=== PATIENT | female | born 1935 | race Caucasian/White ===

== ENCOUNTER 2018-07-20 11:18 | Day surgery (SDC) | payer OTHER ==
[2018-07-20 12:02] VITALS: TEMP 97.3
[2018-07-20] MEDS ORDERED: BALANCED SALT IRRIG PLAIN 500 ML BTL IRR ONE (12:04)
[2018-07-20] MEDS ORDERED: DUOVISC 1 KIT OPTH ONE (12:04)
[2018-07-20] MEDS ORDERED: EPINEPHRINE/PF 1 MG/ML AMP ONE (12:04)
[2018-07-20] MEDS ORDERED: MOXIFLOXACIN HCL 10 DROPS/ML **OR USE OPTH ONE (12:04)
[2018-07-20] MEDS ORDERED: NS 0.9% VIAL 10 ML ONE (12:04)
[2018-07-20] MEDS ORDERED: CYCLOPENTOLATE 1% OPTH 2 ML ONE (12:14)
[2018-07-20] MEDS ORDERED: NA CHLORIDE 0.9% 500 ML ONE (12:15)
[2018-07-20] MEDS ORDERED: PHENYLEPHRINE 10% OPTH 5ML ONE (12:15)
[2018-07-20] MEDS ORDERED: CYCLOPENTOLATE 1% OPTH 2 ML OPTH ONE ×2 (12:25→12:30)
[2018-07-20] MEDS ORDERED: PHENYLEPHRINE 10% OPTH 5ML OPTH ONE ×2 (12:25→12:30)
[2018-07-20] MEDS: TETRACAINE HCL 0.5% 2ML OPTH ONE ×2 (12:44→13:12)
[2018-07-20] MEDS: LIDOCAINE 2% MPF 5 ML VIAL ONE ×2 (12:45→13:13)
[2018-07-20] MEDS: BUPIVACAINE 0.25% PF 10 ML VIAL ONE ×2 (12:45→13:13)
[2018-07-20] MEDS ORDERED: PROPOFOL 200 MG/20 ML VIAL IV ONE (12:53)
--- NOTE | 2018-07-20 13:58 | P.BOP ---
Preoperative diagnosis: Nuclear sclerotic and posterior subcapsular cataract OD Postoperative diagnosis: Same Primary procedure: Phacoemulsification with IOL OD Estimated blood loss: None Anesthesia: Local (Subtenon's infusion with anesthesia for cataract surgery) Complications: None Implants: SN60WF +20.5 Transferred to: Other (Day surgery) Condition: Good
[2018-07-20 14:09] VITALS: BP 133/83; O2SAT 99
--- NOTE | 2018-07-21 01:11 | OP ---
Date of Procedure: 07/20/2018 Surgeon: Precious Serna MD Anesthesiologist: Heraclio Lemus CRNA and Hai Grady MD. Preoperative Diagnosis: Nuclear sclerotic cataract and posterior subcapsular cataract, right eye. Operation Performed: Phacoemulsification with intraocular lens implant, right eye. Anesthesia: Per cataract surgery. Complications: None. Description Of Procedure: In day surgery, the patient was prepped with Betadine and draped. A conju nctival incision was made in the inferior nasal quadrant with Daphney scissors. A sub-Tenon block c onsisting of a 1:1 mixture of 2% Xylocaine and 0.25% bupivacaine was placed through the conjunctival incision with a blunt cannula. A Honan balloon was placed over the eye and the patient was transferr ed to the operating room. In the operating room the patient was prepped and draped in the usual sterile fashion for ophthalmic surgery. A lid speculum was placed in the right eye. Two paracentesis sites were made superiorly an d inferiorly in the limbal cornea. Viscoat was placed in the anterior chamber and a crescent blade w as used to make a corneal groove and tunnel, and a keratome was used to enter the anterior chamber. Provisc was placed in the anterior chamber and a 360 degree capsulotomy was performed with a cystitom e. The lens was hydrodissected with BSS and rotated freely. The lens was removed with a stop and ch op technique. 8.45 phaco CDE was used to remove the lens. Residual cortex was removed with the irri gation and aspiration. Provisc was placed in the capsular bag. A SN60WF +20.5 lens was placed in th e capsular bag without complications. Irrigation and aspiration was used to remove residual viscoela stic. The paracentesis sites were hydrated with BSS. The wound and paracentesis sites were inspecte d and found to be watertight. Vigamox 0.07 cc was placed intracamerally at the end of the procedure. The eye was irrigated with balanced salt solution. The eye was patched with a soft cotton patch an d Mane metal shield. The patient was returned to day surgery in good condition. Comments: The lens was hydrodelineated rather than hydrodissected and trace residual PSC remained gibson periorly at the end of the procedure. Discharge Instructions: JEANA/MODL Voice ID: [id number] Report ID: [id number]
== END 2018-07-20 14:34 | disposition home or self-care (01) ==
LOC: OR 11:18
PROVIDERS: ATTEND Ophthalmology Retina Specialist
PROC: 08RJ3JZ Replacement of Right Lens with Synthetic Substitute, Percutaneous Approach (ICD-10-PCS; principal; 2018-07-20 11:45)
DX: H25.11 Age-related nuclear cataract, right eye (principal); H25.041 Posterior subcapsular polar age-related cataract, right eye; E11.319 Type 2 diabetes mellitus with unspecified diabetic retinopathy without macular edema; I10 Essential (primary) hypertension; I48.91 Unspecified atrial fibrillation; I25.10 Atherosclerotic heart disease of native coronary artery without angina pectoris; K21.9 Gastro-esophageal reflux disease without esophagitis; Z79.01 Long term (current) use of anticoagulants; Z88.2 Allergy status to sulfonamides; Z88.6 Allergy status to analgesic agent; Z86.73 Personal history of transient ischemic attack (TIA), and cerebral infarction without residual deficits; Z87.891 Personal history of nicotine dependence; Z96.651 Presence of right artificial knee joint
CPT/HCPCS: 66984; 82962; J0171; J2704; V2630

== ENCOUNTER 2019-08-15 13:50 | Emergency (ER) | payer OTHER ==
--- OUTSIDE RECORDS SUMMARY | 2019-08-15 13:52 | XMS REPORT ---
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 Problem Chronic diastolic congestive heart I50.32 Active failure Problem BMI 45.0-49.9, adult Z68.42 Active Problem Hypertension, unspecified type I10 Active Problem Obstructive sleep apnea syndrome G47.33 Active Problem Amputated right leg Z89.611 Active Problem Dyslipidemia E78.5 Active Problem Sleep apnea, unspecified type G47.30 Active Problem History of [place] (myocardial I25.2 Active infarction) Problem Acquired hypothyroidism E03.9 Active Problem Environmental allergies Z91.09 Active Medications Medication Code Code Instructions Start End Date Status Dosage System Date Torey [facility] 55598345658 100 UNIT/ML Active 36 units KwikPen Subcutaneous once a day Results No Known Results Summary Purpose eClinicalWorks Submission
--- OUTSIDE RECORDS SUMMARY | 2019-08-15 13:53 | XMS REPORT ---
:1935 Author Organization eClinicalWorks Care Team Providers Name Role Phone Deirdre Rubin Provider Role Unavailable Allergies, Adverse Reactions, Alerts Substance Reaction Event Type MORPHINE Info Not Available Drug Allergy Problems Problem Type Condition Code Onset Dates Condition Status Assessment Bloating R14.0 Active Assessment Gassiness R14.0 Active Assessment Morbid obesity E66.01 Active Assessment BMI 45.0-49.9, adult Z68.42 Active Assessment Acquired hypothyroidism E03.9 Active Assessment Dyslipidemia E78.5 Active Assessment Type 2 diabetes mellitus with E11.40 Active diabetic neuropathy, unspecified Assessment Essential hypertension I10 Active Problem Dyslipidemia E78.5 Active Problem 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 Problem Diarrhea, unspecified type R19.7 Active Problem Acquired hypothyroidism E03.9 Active Problem 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 Problem Pain in left foot M79.672 Active Problem Hemorrhoids, unspecified hemorrhoid K64.9 Active type Problem Morbid obesity E66.01 Active Problem Frequent falls R29.6 Active Problem History of [place] (myocardial I25.2 Active infarction) Problem Type 2 diabetes mellitus with E11.40 Active diabetic neuropathy, unspecified Assessment Frequent falls R29.6 Active Problem Essential hypertension I10 Active Problem History of stroke Z86.73 Active Assessment Chronic pain syndrome G89.4 Active Problem Generalized weakness R53.1 Active Assessment 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 Problem Bloating R14.0 Active Problem Chronic pain syndrome G89.4 Active Problem Gassiness R14.0 Active Assessment Hemorrhoids, unspecified hemorrhoid K64.9 Active type Problem BMI 45.0-49.9, adult Z68.42 Active Assessment Diarrhea, unspecified type R19.7 Active Problem Intermittent asthma, unspecified J45.20 Active asthma severity, unspecified whether complicated Assessment 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 Problem Environmental allergies Z91.09 Active Assessment Pain in left foot M79.672 Active Problem Sleep apnea, unspecified type G47.30 Active Assessment Generalized weakness R53.1 Active Problem Seasonal allergies J30.2 Active Assessment 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 Problem Chronic diastolic congestive heart I50.32 Active failure Problem 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 Problem Obstructive sleep apnea syndrome G47.33 Active Medications Medication Code Code Instructions Start End Status Dosage System Date Date Pregabalin [facility] 35547761361 150 MG Orally Active 1 capsule Twice daily Diclofenac [facility] 02240675041 75 MG Orally Mar 16, Active 1 tablet Sodium Twice a day as 2018 with food needed for pain or milk Vascepa [facility] 28630292565 1 GM Orally Active 1 capsule Once daily Victoza [facility] 14968392360 18 MG/3ML Active 1.2 mg Subcutaneous daily Aspirin Adult [facility] 75046755657 81 MG Orally Active 1 tablet Low Dose Once a day Pantoprazole [facility] 80485839874 40 MG Orally Active 1 tablet Sodium Once a day Lasix [facility] 05427723723 80 MG Orally Active 1 tablet Once a day Lyrica [facility] 65651305963 300 MG Orally Active 1 capsule Once a day at bedtime Levothyroxine [facility] 83672752987 75 MCG Orally Active 1 tablet Sodium Once a day on an empty stomach in the morning Calcium [facility] 91867178794 600 MG Orally Active 1 tablet Twice a day with meals Lisinopril [facility] 25947612041 5 MG Orally Active 1 tablet Once a day Lasix [facility] 57401904528 80 MG Orally Active 1 tablet Once a day Plavix [facility] 09285498563 75 MG Orally Active 1 tablet Once a day Desloratadine [facility] 54532811157 5 MG Active TAKE 1 TABLET BY MOUTH EVERY DAY Lipitor [facility] 80907409057 40 MG Orally Active 1 tablet Once a day Hydrocodone-Acet [facility] 18858447644 7.5-325 MG Active 1 tablet aminophen Orally every 8 as needed hrs ProAir HFA [facility] 60638591237 108 (90 Base) Active 2 puffs MCG/ACT as needed Inhalation every 6 hrs Duloxetine HCl [facility] 80517582856 60 MG Orally Active 1 capsule Once a day Basaglar KwikPen [facility] 25375507366 100 UNIT/ML Active 36 units Subcutaneous once a day Toreynaldo Armstrongar [facility] [address]-14 Active not defined Lantus [facility] 00244186885 100 UNIT/ML Active 36 units Subcutaneous once a day Metoprolol [facility] 30761244202 25 MG Orally Active 1 tablet Tartrate Twice a day Claritin [facility] 54026054941 10 MG Orally Active 1 tablet Once a day Flonase [facility] 88795825901 50 MCG/ACT Active 1 spray Nasally Twice a in each day nostril Accu-Chek Sarita [facility] 66624909682 - In Vitro Once October 21, Active TEST Plus a day for 2018 diabetes E11.9 Montelukast [facility] 21563161181 10 MG Orally Active 1 tablet Sodium Once a day Accu-Chek [facility] 86477998418 - Active USE 1 Softclix Lancets DAILY TO TEST Klor-Con M20 [facility] 87110674318 20 MEQ Orally Active 1 tablet Twice a day with food Results No Known Results Summary Purpose eClinicalWorks Submission
--- OUTSIDE RECORDS SUMMARY | 2019-08-15 13:53 | XMS REPORT ---
:1935 Author Organization eClinicalWorks Care Team Providers Name Role Phone Deirdre Rubin Provider Role Unavailable Allergies, Adverse Reactions, Alerts Substance Reaction Event Type MORPHINE Info Not Available Drug Allergy Problems Problem Type Condition Code Onset Dates Condition Status Assessment Dyslipidemia E78.5 Active Assessment Acquired hypothyroidism E03.9 Active Assessment Gastritis, presence of bleeding K29.70 Active unspecified, unspecified chronicity, unspecified gastritis type Assessment Type 2 diabetes mellitus with E11.40 Active diabetic neuropathy, unspecified Assessment Esophagitis K20.9 Active Assessment Essential hypertension I10 Active Problem Acquired hypothyroidism E03.9 Active Problem Dyslipidemia E78.5 Active Problem History of stroke Z86.73 Active Problem Bloating R14.0 Active Problem Generalized weakness R53.1 Active Problem Type 2 diabetes mellitus with E11.40 Active diabetic neuropathy, unspecified Problem Gassiness R14.0 Active Problem Frequent falls R29.6 Active Problem Chronic pain syndrome G89.4 Active Problem Gastritis, presence of bleeding K29.70 Active unspecified, unspecified chronicity, unspecified gastritis type Problem 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 Problem Intermittent asthma, unspecified J45.20 Active asthma severity, unspecified whether complicated Problem Environmental allergies Z91.09 Active Assessment Frequent falls R29.6 Active Problem Esophagitis K20.9 Active Problem History of [place] (myocardial I25.2 Active infarction) Assessment Chronic pain syndrome G89.4 Active Problem 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 Assessment 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 Problem Essential hypertension I10 Active Problem Hemorrhoids, unspecified hemorrhoid K64.9 Active type Problem Diarrhea, unspecified type R19.7 Active Assessment BMI 45.0-49.9, adult Z68.42 Active Problem 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 Assessment Morbid obesity E66.01 Active Problem Obstructive sleep apnea syndrome G47.33 Active Assessment 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 Problem BMI 45.0-49.9, adult Z68.42 Active Assessment Pain in left foot M79.672 Active Problem Sleep apnea, unspecified type G47.30 Active Assessment Generalized weakness R53.1 Active Problem Morbid obesity E66.01 Active Assessment 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 Problem Pain in left foot M79.672 Active Problem Seasonal allergies J30.2 Active Problem Chronic diastolic congestive heart I50.32 Active failure Medications Medication Code Code Instructions Start End Status Dosage System Date Date Lipitor [facility] 35264674187 40 MG Orally Active 1 tablet Once a day Vascepa [facility] 51255965487 1 GM Orally Active 1 capsule Once daily Metoprolol [facility] 11927658767 25 MG Orally Active 1 tablet Tartrate Twice a day Lantus [facility] 09536456978 100 UNIT/ML Active 36 units Subcutaneous once a day Diclofenac [facility] 49561943974 75 MG Orally Dec Inactive 1 tablet Sodium Twice a day as 22, with food needed for 2019 or milk pain Aspirin Adult [facility] 47746500508 81 MG Orally Active 1 tablet Low Dose Once a day Lasix [facility] 35763306332 80 MG Orally Active 1 tablet Once a day Toutevino TerezaoStar [facility] [address]-02 Active not defined Lisinopril [facility] 46343830509 5 MG Orally Active 1 tablet Once a day Montelukast [facility] 51011521456 10 MG Orally Active 1 tablet Sodium Once a day Lasix [facility] 57921989984 80 MG Orally Active 1 tablet Once a day Lyrica [facility] 07866562864 300 MG Orally Active 1 capsule Once a day at bedtime Klor-Con M20 [facility] 42989298878 20 MEQ Orally Active 1 tablet Twice a day with food Basaglar KwikPen [facility] 80854758568 100 UNIT/ML Active 36 units Subcutaneous Once a day Claritin [facility] 77054967066 10 MG Orally Active 1 tablet Once a day Calcium [facility] 34661125072 600 MG Orally Active 1 tablet Twice a day with meals Duloxetine HCl [facility] 17058532609 60 MG Orally Active 1 capsule Once a day Levothyroxine [place] 61310765517 75 MCG Orally Active 1 tablet Sodium Once a day on an empty stomach in the morning ProAir HFA [facility] 06887625255 108 (90 Base) Active 2 puffs as MCG/ACT needed Inhalation every 6 hrs Flonase [facility] 11368847954 50 MCG/ACT Active 1 spray in Nasally Twice each a day nostril Plavix [facility] 46803407126 75 MG Orally Active 1 tablet Once a day Desloratadine [facility] 91003142069 5 MG Active TAKE 1 TABLET BY MOUTH EVERY DAY Pantoprazole [facility] 23061693776 40 MG Orally Active 1 tablet Sodium Once a day Accu-Chek Sarita [facility] 21082048746 - In Vitro October 21, Active TEST Plus Once a day for 2018 diabetes E11.9 Fluticasone [facility] 94374769283 50 MCG/ACT Jun 13, Active 2 sprays Propionate Nasally Once a 2019 in each day nostril Pregabalin [facility] 82893156023 150 MG Orally Active 1 capsule Twice daily Hydrocodone-Acet [facility] 35393252564 7.5-325 MG Active 1 tablet aminophen Orally every 8 as needed hrs Accu-Chek [facility] 10609096963 - Active USE 1 Softclix Lancets DAILY TO TEST Victoza [facility] 59637730389 18 MG/3ML Sept Active as Subcutaneous 17, directed 1.2 mg once 2020 daily Results No Known Results Summary Purpose eClinicalWorks Submission
--- OUTSIDE RECORDS SUMMARY | 2019-08-15 13:53 | XMS REPORT ---
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 Problem Essential hypertension I10 Active Problem Hemorrhoids, unspecified hemorrhoid K64.9 Active type Problem Diarrhea, unspecified type R19.7 Active Problem 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
--- OUTSIDE RECORDS SUMMARY | 2019-08-15 13:53 | XMS REPORT ---
:1935 Author Organization eClinicalWorks Care Team Providers Name Role Phone Deirdre Rubin Provider Role Unavailable Allergies No Known Allergies Problems Problem Type Condition Code Onset Dates Condition Status Problem Environmental allergies Z91.09 Active Problem Intermittent asthma, unspecified J45.20 Active asthma severity, unspecified whether complicated Problem Dyslipidemia E78.5 Active Problem Hemorrhoids, unspecified hemorrhoid K64.9 Active type Problem Pain in left foot M79.672 Active Problem Acquired hypothyroidism E03.9 Active Problem Bloating R14.0 Active Problem Gassiness R14.0 Active Problem Generalized weakness R53.1 Active Problem Gastritis, presence of bleeding K29.70 Active unspecified, unspecified chronicity, unspecified gastritis type Problem 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 Problem History of [place] (myocardial I25.2 Active infarction) Problem Type 2 diabetes mellitus with E11.40 Active diabetic neuropathy, unspecified Problem Esophagitis K20.9 Active Problem History of stroke Z86.73 Active Problem Frequent falls R29.6 Active Problem Chronic pain syndrome G89.4 Active Problem Essential hypertension I10 Active Problem Morbid obesity E66.01 Active Problem 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
--- NOTE | 2019-08-15 14:12 | RAD REPORT ---
EXAM DESCRIPTION: Gaurav Single View08/15/2019 2:05 pm CLINICAL HISTORY: sob COMPARISON: none FINDINGS: The lungs appear clear of acute infiltrate. The heart is mildly enlarged IMPRESSION: No acute abnormalities displayed
[2019-08-15 14:38] LABS: Absolute Lymphocytes (CBC) 1.3 K/uL (0.7-4.9); Basophils % 0.6 % (0-1.3); Hematocrit 42.6 % (36.0-45.0); Lymphocytes % 13.8 % (15.3-44.8); MPV 9.1 fL (7.6-11.3); RBC Red Blood Cell Count 4.72 M/uL (3.86-4.86)
[2019-08-15 14:39] LABS: Protime INR 1.08
[2019-08-15 14:52] LABS: ALT/SGPT 17 U/L (12-78); AST/SGOT 13 U/L (15-37); Alkaline Phosphatase 81 U/L (45-117); BUN Blood Urea Nitrogen 14 mg/dL (7-18); Bicarbonate 29 mmol/L (21-32); Bilirubin Direct 0.1 mg/dL (0-0.2); Bilirubin Total 0.4 mg/dL (0.2-1.0); Glucose Level 226 mg/dL (74-106); NT PRO-BNP 687 pg/mL (<450); Potassium 4.6 mmol/L (3.5-5.1); Protein, Total 7.8 g/dL (6.4-8.2); Sodium Level 139 mmol/L (136-145); Troponin (Emerg Dept Use Only) < 0.02 ng/mL (0.0-0.045)
--- NOTE | 2019-08-15 15:27 | RAD REPORT ---
EXAM DESCRIPTION: CT - Head Brain Wo Cont - 08/15/2019 3:15 pm CLINICAL HISTORY: headache COMPARISON: 2015 TECHNIQUE: Computed axial tomography of the head was obtained. IV contrast was not requested. All CT scans are performed using dose optimization technique as appropriate and may include automated exposure control or mA/KV adjustment according to patient size. FINDINGS: An intracranial bleed is not seen . The ventricles are normal in caliber. No extra-axial fluid collection is noted. Mioderate low-density areas within periventricular, deep and subcortical white matter likely represen t ischemic changes secondary to small vessel disease. Fluid within the ethmoid and right maxillary sinus likely indicating acute sinusitis IMPRESSION: No acute intracranial abnormality is seen. If patient's symptoms persist MRI of the bra in would be recommended. Acute sinusitis
--- NOTE | 2019-08-15 15:54 | EDPHYS ---
Physician Documentation [facility] Name: Elsa Smith Age: 83 yrs Sex: Female : 1935 Arrival Date: 08/15/2019 Time: 13:46 Bed 2 Private MD: ED Physician Wai Jensen HPI: 08/15 14:29 This 83 yrs old Female presents to ER via EMS with complaints of Headache, jr8 General Weakness. 14:29 The patient complains of pain to the right eye, right temporal area and right side of jr8 forehead. The patient describes the headache as throbbing. Onset: The symptoms/episode began/occurred gradually, 2 day(s) ago. Associated signs and symptoms: Pertinent positives: weakness. Severity of symptoms: At its worst the pain was moderate, in the emergency department the pain is unchanged. Headache History: Denies prior headaches. The patient has not experienced similar symptoms in the past. The patient has not recently seen a physician. Stated that she had had sinus pressure and discharge from nose. Started with headache a couple of days ago that is persistent and not going away. MI staff stated that she has been generally fatigued and week. EMS was called after patient appeared to have short episode for facial asymmetry which has since resolved . Historical: - Allergies: 13:50 Lidocaine; iw 13:50 mercury; iw - PMHx: 13:50 CHF; COPD; CVA; Depression; Diabetes - NIDDM; Hypertension; Hypothyroidism; iw - PSHx: 13:50 Cholecystectomy; Knee surgery; Right BKA; iw - Immunization history:: Adult Immunizations up to date. - Coronavirus screen:: The patient has NOT traveled to [place] in the past 14 days. Proceed with normal triage process as indicated. The patient has NOT had contact with known/suspected case of Coronavirus? Proceed with normal triage procedures. - Social history:: Smoking status: unknown. - Ebola Screening: : No symptoms or risks identified at this time. ROS: 14:29 Eyes: Negative for injury, pain, redness, and discharge, Neck: Negative for injury, jr8 pain, and swelling, Cardiovascular: Negative for chest pain, palpitations, and edema, Respiratory: Negative for shortness of breath, cough, wheezing, and pleuritic chest pain, Abdomen/GI: Negative for abdominal pain, nausea, vomiting, diarrhea, and constipation, Back: Negative for injury and pain, MS/Extremity: Negative for injury and deformity, Skin: Negative for injury, rash, and discoloration. 14:29 Constitutional: Positive for fatigue, malaise. 14:29 ENT: Positive for nasal discharge, rhinorrhea, sinus congestion, sinus pain. 14:29 Neuro: Positive for headache. Exam: 14:29 Eyes: Pupils equal round and reactive to light, extra-ocular motions intact. Lids and jr8 lashes normal. Conjunctiva and sclera are non-icteric and not injected. Cornea within normal limits. Periorbital areas with no swelling, redness, or edema. ENT: Nares patent. No nasal discharge, no septal abnormalities noted. Tympanic membranes are normal and external auditory canals are clear. Oropharynx with no redness, swelling, or masses, exudates, or evidence of obstruction, uvula midline. Mucous membranes moist. Neck: Trachea midline, no thyromegaly or masses palpated, and no cervical lymphadenopathy. Supple, full range of motion without nuchal rigidity, or vertebral point tenderness. No Meningismus. Cardiovascular: Regular rate and rhythm with a normal S1 and S2. No gallops, murmurs, or rubs. Normal PMI, no JVD. No pulse deficits. Respiratory: Lungs have equal breath sounds bilaterally, clear to auscultation and percussion. No rales, rhonchi or wheezes noted. No increased work of breathing, no retractions or nasal flaring. Abdomen/GI: Soft, non-tender, with normal bowel sounds. No distension or tympany. No guarding or rebound. No evidence of tenderness throughout. Skin: Warm, dry with normal turgor. Normal color with no rashes, no lesions, and no evidence of cellulitis. MS/ Extremity: Right BKA. Rest of extremities with equal 2+ pulses and normal ROM and without pain 14:29 Neuro: Orientation: to person, place, time \T\ situation. Mentation: is normal, Memory: is normal, immediate memory is intact, recent memory is intact, remote memory is intact, Cranial nerves: CN I not tested, CN II- XII are normal as tested, extraocular movements are intact, Facial palsy and sensory deficits are absent. Nystagmus is absent. Speech is clear and appropriate. Tongue strength is normal, Cerebellar function: normal finger to nose testing, Motor: moves all fours, Sensation: no obvious gross deficits, Gait: not tested. seizure activity, is not displayed by the patient, Abnormal movements: there are no abnormal movements. Vital Signs: 13:49 BP 117 / 65; Pulse 72; Resp 19; Temp 98.3(O); Pulse Ox 96% ; lt1 14:42 BP 134 / 68; Pulse 73; Resp 12; Pulse Ox 97% ; bp 15:30 BP 127 / 74; Pulse 73; Resp 16; Pulse Ox 95% ; bp 16:30 BP 139 / 78; Pulse 72; Resp 13; Pulse Ox 95% ; bp 17:39 BP 150 / 84; Pulse 68; Resp 16; Pulse Ox 96% ; bp 18:13 BP 155 / 83; Pulse 64; Resp 16; Temp 98; Pulse Ox 93% ; bp NIH Stroke Scale Scores: 14:29 NIHSS Score: 0 jr8 MDM: 13:49 Patient medically screened. jr8 15:51 Data reviewed: vital signs, nurses notes, lab test result(s), EKG, radiologic studies, [facility] CT scan, plain films. Data interpreted: Pulse oximetry: on room air is 97 %. Interpretation: normal. Counseling: I had a detailed discussion with the patient and/or guardian regarding: the historical points, exam findings, and any diagnostic results supporting the discharge/admit diagnosis, lab results, radiology results, the need for outpatient follow up, a family practitioner, to return to the emergency department if symptoms worsen or persist or if there are any questions or concerns that arise at home. ED course: Discussed with patient and daughter that based on labs, CT, and presentation. It would appear the headache is secondary to acute sinusitis on right side where patient has had the nasal discharge and pain. Will treat headache and sinusitis. Remained of labs unremarkable at this time. Patient needs to f/u with PCP in next few days. Family and patient good with this . 08/15 13:48 Order name: Basic Metabolic Panel; Complete Time: 15:37 08/15 13:48 Order name: CBC with Diff; Complete Time: 15:37 08/15 13:48 Order name: LFT's; Complete Time: 15:08/15 13:48 Order name: Magnesium; Complete Time: 15:08/15 13:48 Order name: NT PRO-BNP; Complete Time: 15:37 08/15 13:48 Order name: PT-INR; Complete Time: 15:37 08/15 13:48 Order name: Troponin (emerg Dept Use Only); Complete Time: 15:37 08/15 13:48 Order name: XRAY Chest (1 view); Complete Time: 14:22 08/15 13:48 Order name: EKG; Complete Time: 13:53 08/15 13:48 Order name: CT Head Brain wo Cont; Complete Time: 15:50 08/15 15:57 Order name: Urine Dipstick--Ancillary (enter results); Complete Time: 16:31 nj 08/15 13:48 Order name: Cardiac monitoring; Complete Time: 13:50 08/15 13:48 Order name: EKG - Nurse/Tech; Complete Time: 14:04 08/15 13:48 Order name: IV Saline Lock; Complete Time: 14:45 08/15 13:48 Order name: Labs collected and sent; Complete Time: 14:45 08/15 13:48 Order name: O2 Per Protocol; Complete Time: 14:04 08/15 13:48 Order name: O2 Sat Monitoring; Complete Time: 14:04 08/15 13:49 Order name: Glucose Level; Complete Time: 14:45 08/15 15:50 Order name: Urine Dipstick-Ancillary (obtain specimen); Complete Time: 15:57 Administered Medications: 16:00 Drug: Reglan 10 mg Route: IVP; Site: right antecubital; bp 17:29 Follow up: Response: No adverse reaction bp 16:00 Drug: Benadryl 25 mg Route: IVP; Site: right antecubital; bp 17:29 Follow up: Response: No adverse reaction bp 17:20 Drug: fentaNYL (PF) 50 mcg Route: IVP; Site: right antecubital; bp 17:36 Follow up: Response: Pain is decreased bp Disposition: 08/15/19 15:53 Discharged to Home. Impression: Headache, Acute Bacterial Sinusitis . - Condition is Stable. - Discharge Instructions: Migraine Headache, Sinus Headache, Sinusitis, Adult. - Prescriptions for Augmentin 875- 125 mg Oral Tablet - take 1 tablet by ORAL route every 12 hours for 10 days; 20 tablet. - Medication Reconciliation Form, Thank You Letter, Antibiotic Education, Prescription Opioid Use form. - Follow up: Private Physician; When: 5 - 6 days; Reason: Recheck today's complaints, Continuance of care, Re-evaluation by your physician. - Problem is new. - Symptoms have improved. NIH Stroke Scale - NIH Stroke Score Date: 08/15/2019 Time: 14:29 Total Score = 0 1a. Level of Consciousness (LOC) - 0(Alert) 1b. Level of Consciousness (LOC) (Year \T\ Age) - 0(Both) 1c. LOC Commands (Open \T\ Closes Eyes/Supervisor Files) - 0(Both) 2. Best Gaze (Lateral Gaze Paresis) - 0(Normal) 3. Visual Field Loss - 0(No visual loss) 4. Facial Palsy - 0(Normal) 5a. Left Arm: Motor (10-second hold) - 0(No drift) 5b. Right Arm: Motor (10-second hold) - 0(No drift) 6a. Left Leg: Motor (5-second hold - always test supine) - 0(No drift) 6b. Right Leg: Motor (5-second hold - always test supine) - 9(Amputation, joint fusion) - Notes: right BKA 7. Limb Ataxia (finger/nose \T\ heel/ferraro - test with eyes open) - 0(Absent) 8. Sensory Loss (pinprick arms/legs/face) - 0(Normal) 9. Best Language: Aphasia (description/naming/reading) - 0(No aphasia) 10. Dysarthria (speech clarity - read or repeat words) - 0(Normal) 11. Extinction and Inattention (visual/tactile/auditory/spatial/personal) - 0(No abnormality) Initials: jrCharles Addendum: 08/17/2019 19:03 Co-signature as Attending Physician, Wai Jensen MD. rn Signatures: Dispatcher [employer] Danay Stubbs RN RN iw Nieto, Roman, MD MD rn Roszak, Josh, PA PA jr8 Woody Dan RN RN bp Corrections: (The following items were deleted from the chart) 08/15 18:15 15:53 08/15/2019 15:53 Discharged to Home. Impression: Headache; Acute bp Bacterial Sinusitis . Condition is Stable. Forms are Medication Reconciliation Form, Thank You Letter, Antibiotic Education, Prescription Opioid Use. Follow up: Private Physician; When: 5 - 6 days; Reason: Recheck today's complaints, Continuance of care, Re-evaluation by your physician. Problem is new. Symptoms have improved. jr8
--- NOTE | 2019-08-15 15:54 | ER ---
Nurse's Notes [facility] Name: Elsa Smith Age: 83 yrs Sex: Female : 1935 Arrival Date: 08/15/2019 Time: 13:46 Bed 2 Private MD: Diagnosis: Headache;Acute Bacterial Sinusitis Presentation: 08/15 13:47 Presenting complaint: EMS states: pt c/o headache and pain to right side of face X 3 iw days, is just not feeling well, c/o general weakness X 2 days, hx of MS, CVA, diabetes. Transition of care: patient was not received from another setting of care. Onset of symptoms was August 12, 2019. Risk Assessment: Do you want to hurt yourself or someone else? Patient reports no desire to harm self or others. Initial Sepsis Screen: Does the patient meet any 2 criteria? No. Patient's initial sepsis screen is negative. Does the patient have a suspected source of infection? No. Patient's initial sepsis screen is negative. 13:47 Method Of Arrival: EMS: [facility] iw 13:47 Acuity: ALEJANDRO 3 iw 13:48 Care prior to arrival: iw Triage Assessment: 13:50 Headache History: The patient has had previous headaches and this one is similar to bp previous episodes. General: Appears in no apparent distress. comfortable, Behavior is cooperative, appropriate for age, anxious. Pain: Complains of pain in head Pain currently is 5 out of 10 on a pain scale. Pain began 2-3 days ago. Also complains of no other associated symptoms. EENT: No deficits noted. Neuro: Level of Consciousness is awake, alert, obeys commands, Oriented to person, place, time, situation, Appropriate for age. Cardiovascular: No deficits noted. Respiratory: No deficits noted. GI: No signs and/or symptoms were reported involving the gastrointestinal system. : No signs and/or symptoms were reported regarding the genitourinary system. Derm: No deficits noted. Musculoskeletal: No deficits noted. Historical: - Allergies: 13:50 Lidocaine; iw 13:50 mercury; iw - PMHx: 13:50 CHF; COPD; CVA; Depression; Diabetes - NIDDM; Hypertension; Hypothyroidism; iw - PSHx: 13:50 Cholecystectomy; Knee surgery; Right BKA; iw - Immunization history:: Adult Immunizations up to date. - Coronavirus screen:: The patient has NOT traveled to [place] in the past 14 days. Proceed with normal triage process as indicated. The patient has NOT had contact with known/suspected case of Coronavirus? Proceed with normal triage procedures. - Social history:: Smoking status: unknown. - Ebola Screening: : No symptoms or risks identified at this time. Screenin:50 Abuse screen: Denies threats or abuse. Denies injuries from another. Nutritional bp screening: No deficits noted. Tuberculosis screening: No symptoms or risk factors identified. Fall Risk No fall in past 12 months (0 pts). Secondary diagnosis (15 points) CVA, No IV (0 pts). Ambulatory Aid- None/Bed Rest/Nurse Assist (0 pts). Gait- Normal/Bed Rest/Wheelchair (0 pts) Mental Status- Oriented to own ability (0 pts). Total Mortensen Fall Scale indicates No Risk (0-24 pts). Assessment: 13:50 General: SEE TRIAGE NOTE. bp 15:00 Reassessment: Patient and/or family updated on plan of care and expected duration. Pain bp level reassessed. Patient is alert, oriented x 3, equal unlabored respirations, skin warm/dry/pink. 17:29 Reassessment: D/C ON HOLD FOR PT AGITATION. PROVIDER NOTIFIED. bp 18:13 Reassessment: PT D/C HOME VIA W/C WITH FAMILY, DX WITH SINUSITIS. bp Vital Signs: 13:49 BP 117 / 65; Pulse 72; Resp 19; Temp 98.3(O); Pulse Ox 96% ; lt1 14:42 BP 134 / 68; Pulse 73; Resp 12; Pulse Ox 97% ; bp 15:30 BP 127 / 74; Pulse 73; Resp 16; Pulse Ox 95% ; bp 16:30 BP 139 / 78; Pulse 72; Resp 13; Pulse Ox 95% ; bp 17:39 BP 150 / 84; Pulse 68; Resp 16; Pulse Ox 96% ; bp 18:13 BP 155 / 83; Pulse 64; Resp 16; Temp 98; Pulse Ox 93% ; bp NIH Stroke Scale Scores: 14:29 NIHSS Score: 0 [facility] ED Course: 13:46 Patient arrived in ED. iw 13:47 Scott Castillo PA is PHCP. jr8 13:47 Wai Jensen MD is Attending Physician. jr8 13:48 Triage completed. iw 13:50 Patient has correct armband on for positive identification. Bed in low position. Call bp light in reach. Side rails up X2. quality assurance monitor chassis on. Pulse ox on. NIBP on. 13:50 Inserted saline lock: 20 gauge in right antecubital area, using aseptic technique. bp Blood collected. 13:56 Arm band placed on. iw 13:58 Woody Dan, RN is Primary Nurse. bp 14:10 XRAY Chest (1 view) In Process Unspecified. EDMS 15:14 CT completed. Patient moved back from CT. mw3 15:16 CT Head Brain wo Cont In Process Unspecified. EDMS 18:13 No provider procedures requiring assistance completed. IV discontinued, intact, bp bleeding controlled, No redness/swelling at site. Pressure dressing applied. Administered Medications: 16:00 Drug: Reglan 10 mg Route: IVP; Site: right antecubital; bp 17:29 Follow up: Response: No adverse reaction bp 16:00 Drug: Benadryl 25 mg Route: IVP; Site: right antecubital; bp 17:29 Follow up: Response: No adverse reaction bp 17:20 Drug: fentaNYL (PF) 50 mcg Route: IVP; Site: right antecubital; bp 17:36 Follow up: Response: Pain is decreased bp Outcome: 15:53 Discharge ordered by MD. dumont 18:14 Discharged to home via wheelchair, with family. bp 18:14 Condition: stable 18:14 Discharge instructions given to patient, family, Instructed on discharge instructions, follow up and referral plans. medication usage, Demonstrated understanding of instructions, follow-up care, medications, Prescriptions given X 1. 18:15 Patient left the ED. bp NIH Stroke Scale - NIH Stroke Score Date: 08/15/2019 Time: 14:29 Total Score = 0 1a. Level of Consciousness (LOC) - 0(Alert) 1b. Level of Consciousness (LOC) (Year \T\ Age) - 0(Both) 1c. LOC Commands (Open \T\ Closes Eyes/Artillery Meteorological Man) - 0(Both) 2. Best Gaze (Lateral Gaze Paresis) - 0(Normal) 3. Visual Field Loss - 0(No visual loss) 4. Facial Palsy - 0(Normal) 5a. Left Arm: Motor (10-second hold) - 0(No drift) 5b. Right Arm: Motor (10-second hold) - 0(No drift) 6a. Left Leg: Motor (5-second hold - always test supine) - 0(No drift) 6b. Right Leg: Motor (5-second hold - always test supine) - 9(Amputation, joint fusion) - Notes: right BKA 7. Limb Ataxia (finger/nose \T\ heel/ferraro - test with eyes open) - 0(Absent) 8. Sensory Loss (pinprick arms/legs/face) - 0(Normal) 9. Best Language: Aphasia (description/naming/reading) - 0(No aphasia) 10. Dysarthria (speech clarity - read or repeat words) - 0(Normal) 11. Extinction and Inattention (visual/tactile/auditory/spatial/personal) - 0(No abnormality) Initials: tim Signatures: Dispatcher [employer] Danay Stubbs, RN RN iw Scott Castillo PA PA jr8 Woody Dan RN RN Samantha Glover mw3 Maggie Zheng lt1 Corrections: (The following items were deleted from the chart) 14:45 14:42 Pulse 73bpm; Resp 12bpm; Pulse Ox 97%; bp bp
[2019-08-15 16:10] LABS: Urine Blood NEGATIVE (NEG); Urine Glucose NEGATIVE (NEG); Urine Protein NEGATIVE (NEG); Urine Specific Gravity 1.015 (1.005-1.030)
[2019-08-15] MEDS ORDERED: METOCLOPRAMIDE 10 MG/2mL INJ ONE (16:18)
[2019-08-15] MEDS ORDERED: DIPHENHYDRAMINE 50 MG/ML VIAL ONE (16:19)
[2019-08-15] MEDS ORDERED: FENTANYL CITR 100 MCG/2 ML ONE (17:23)
[2019-08-15 18:30] VITALS: BP 155/83; TEMP 98; O2SAT 93
--- NOTE | 2019-08-16 08:54 | EKG ---
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
== END 2019-08-15 18:15 | disposition home or self-care (01) ==
LOC: ER 13:50
DX: J01.80 Other acute sinusitis (principal); B96.89 Other specified bacterial agents as the cause of diseases classified elsewhere; I10 Essential (primary) hypertension; Z88.6 Allergy status to analgesic agent; Z88.8 Allergy status to other drugs, medicaments and biological substances
CPT/HCPCS: 93005; 85025; 80048; 36415; 83735; 85610; 80076; 81003; 84484; 83880; 70450; 71045; 96375; 96374; 99285; J2765; J1200; J3010

== ENCOUNTER 2020-12-15 12:13 | Inpatient (IN) | payer OTHER ==
--- OUTSIDE RECORDS SUMMARY | 2020-12-15 12:16 | XMS REPORT | Continuity of Care Document ---
:1935 Author Organization [facility] t Address [address] [place] [address] Care Team Providers Name Role Phone Unavailable Unavailable Unavailable Problems This patient has no known problems. Allergies, Adverse Reactions, Alerts Allergy Allergy Status Severity Reaction(s) Onset Inactive Treating Comm ents Source Name Type Date Date Clinician MORPHINE Adverse Active Info Not [facility] Social History Social Habit Start Date Stop Date Quantity Comments Source Sex Assigned [facility] Medications Ordered Filled Start Stop Current Ordering Indication Dosage Frequency Signature Comments Components Source Medication Medication Date Date Medication? Clinician (SIG) Name Name Accu-Chek Accu-Chek Yes Deirdre as [facility] Sarita Plus Sarita Plus 3-25 [facility] directed [facility] Fluticasone Fluticasone 2018-06 Yes Deirdre [address] [facility] Propionate Propionate 2-22 Millender in each [facility] nostril [facility] Accu-Chek Accu-Chek 0 Yes Deirdre TEST [facility] Sarita Plus Sarita Plus 5-01 Millender [facility] Desloratadi Desloratadi Yes Deirdre [address] [facility] ne ne Millender [facility] Claritin Claritin Yes Deirdre [address] [facility] Accu-Chek Accu-Chek Yes Deirdre USE [address] [facility] Softclix Softclix Millender DAILY TO [facility] Lancets Lancets TEST [facility] Plavix Plavix Yes Deirdre [address] [facility]ender [facility] Lasix Lasix Yes Deirdre [address] [facility] Pregabalin Pregabalin Yes Deirdre [address] [facility]ender [facility] Calcium Calcium Yes Deirdre [address] [facility] Millender with meals [facility] Metoprolol Metoprolol Yes Deirdre [address] [facility] Tartrate Tartrate Millender Xiao kes [facility] Levothyroxi Levothyroxi Yes Deirdre [address] [facility] ne Sodium ne Sodium Millender on an [facility] empty [facility] stomach in l the Outpati morning ent Clinics Flonase Flonase Yes Deirdre [address] [facility] each [facility] Hydrocodone Hydrocodone Yes Deirdre [address] [facility] -Acetaminop -Acetaminop Millender as needed [facility] Lipitor Lipitor Yes Deirdre [address] [facility] Millender in evening [facility] ProAir HFA ProAir HFA Yes Deirdre [address] [facility] Millender needed [facility] Lantus Lantus Yes Deirdre [address] [facility] Millender [facility] Yes Deirdre [address] [facility] Sodium Sodium Millender [facility] Lisinopril Lisinopril Yes Deirdre [address] [facility] Millender [facility] Basaglar Basaglar Yes Deirdre [address] KwikPen KwikPen Millender [facility] Toujeo Toujeo Yes Deirdre not [facility] SoloStar SoloStar Millender defined [facility] Duloxetine Duloxetine Yes Deirdre [address] [facility] HCl HCl Millender [facility] Aspirin Aspirin Yes Deirdre [address] [facility] Adult Low Adult Low Millender [facility] Dose Dose [facility] Lyrica Lyrica Yes Deirdre [address] [facility] Pantoprazol Pantoprazol Yes Deirdre [address] [facility] [facility] e Sodium e Sodium Millender Xiao kes - [facility] Lasix Lasix Yes Deirdre [address] [facility] Millender [facility] Vascepa Vascepa Deirdre [address] 05-10 Millender [facility] Victoza Victoza 2019- No Deirdre as [facility] 09-17 [facility] directed [facility] Klor-Con Klor-Con Deirdre [address] M20 M20 08-20 Millender with food [facility] Procedures This patient has no known procedures. Encounters Start End Encounter Admission Attending Care Care Encounter Source Date/Time Date/Time Type Type Clinicians Facility Department ID 2020-11-24 2020-11-24 Outpatient [facility] [id number] [facility] 2020-10-30 2020-10-30 Outpatient [facility] [id number] [facility] 2020-09-13 2020-09-13 [facility] [id number] [facility] 2020-08-02 2020-08-02 [facility] [id number] [facility] 2020-06-29 2020-06-29 [facility] [id number] [facility] 2020-06-19 2020-06-19 [facility] [id number] [facility] 2020-05-24 2020-05-[address] [facility] [id number] [facility] 2020-05-10 2020-05-10 Outpatient [facility] [id number] [facility] 2020-02-03 2020-02-03 [facility] [id number] [facility] 02:20[facility]00 02:20:00 [facility] Out[facility] Clin[facility] 2020-02-02 2020-02-02 [facility] [id number] 14:40:00 14:40:[address] [facility] Clin[facility] 2019-12-29 2019-12-29 [facility] [id number] 09:03:00 09:03:[address] [facility] Clin[facility] 2019-10-04 2019-10-04 [facility] [id number] 16:23:00 16:23:[address] [facility] 2019-09-15 2019-09-15 [facility] [id number] 12:47:00 12:47:[address] [facility] 2019-06-13 2019-06-13 [facility] [id number] 13:02:00 13:02:[address] [facility] 2019-06-13 2019-06-13 [facility] [id number] 12:50:00 12:50:[address] [facility] 2019-06-09 2019-06-09 [facility] [id number] 16:00:00 16:00:[address] [facility] Clin[facility] 2019-05-13 2019-05-13 Outpatient [facility] [id number] 11:20:00 11:20:00 [facility] 2019-05-11 2019-05-11 Outpatient [facility] [id number] [facility] 16:27:00 16:27:00 [facility] ent Clinics Results This patient has no known results.
--- NOTE | 2020-12-15 12:33 | RAD REPORT ---
EXAM DESCRIPTION: CT - Head Brain Wo Cont - 12/15/2020 12:27 pm CLINICAL HISTORY: Slurred speech COMPARISON: 2019 TECHNIQUE: Computed axial tomography of the head was obtained. IV contrast was not requested. All CT scans are performed using dose optimization technique as appropriate and may include automated exposure control or mA/KV adjustment according to patient size. FINDINGS: An intracranial bleed is not seen . The ventricles are normal in caliber. No extra-axial fluid collection is noted. Mild to moderate low-density areas within periventricular, deep and subcortical white matter likely r epresent ischemic changes secondary to small vessel disease. Chronic opacification right maxillary sinus IMPRESSION: No acute intracranial abnormality is seen. If patient's symptoms persist MRI of the bra in would be recommended. Doctor Varghese of the emergency room notified 12:27 p.m. December 15, 2020
[2020-12-15 12:41] LABS: Absolute Lymphocytes (CBC) 1.1 K/uL (0.7-4.9); Basophils % 0.4 % (0-1.3); Hematocrit 43.8 % (36.0-45.0); Lymphocytes % 12.5 % (15.3-44.8); MPV 9.5 fL (7.6-11.3); RBC Red Blood Cell Count 4.78 M/uL (3.86-4.86)
[2020-12-15 12:45] LABS: Protime INR 1.09
[2020-12-15] MEDS ORDERED: ALTEPLASE 100 ML IV ONE (13:02)
--- NOTE | 2020-12-15 13:31 | RAD REPORT ---
EXAM DESCRIPTION: RAD - Chest Single View - 12/15/2020 1:22 pm CLINICAL HISTORY: right side weakness Chest pain. COMPARISON: Chest Single View dated 08/15/2019; Chest Single View dated 02/08/2016; CHEST SINGLE VIEW dated 08/22/2014; ABDOMEN 1 VIEW KUB dated 06/26/2012; Head Brain Wo Cont dated 12/15/2020 FINDINGS: Portable technique limits examination quality. Moderate bilateral pulmonary opacities are present which may represent pulmonary edema or bronchitis/ infection. Heart is mildly enlarged. No displaced fractures.
[2020-12-15] MEDS ORDERED: FOLIC ACID 5 MG/ML VIAL ONE (14:19)
[2020-12-15 14:46] LABS: ALT/SGPT 28 U/L (12-78); AST/SGOT 20 U/L (15-37); Albumin 3.5 g/dL (3.4-5.0); Alkaline Phosphatase 71 U/L (45-117); BUN Blood Urea Nitrogen 34 mg/dL (7-18); Bicarbonate 26 mmol/L (21-32); Bilirubin Direct < 0.1 mg/dL (0-0.2); Bilirubin Total 0.5 mg/dL (0.2-1.0); Glucose Level 178 mg/dL (74-106); Magnesium 2.2 mg/dL (1.8-2.4); NT PRO-BNP 313 pg/mL (<450); Potassium 3.9 mmol/L (3.5-5.1); Protein, Total 7.7 g/dL (6.4-8.2); Sodium Level 138 mmol/L (136-145); Troponin (Emerg Dept Use Only) < 0.02 ng/mL (0.0-0.045)
--- NOTE | 2020-12-15 15:35 | RAD REPORT ---
EXAM DESCRIPTION: CT - Head angio - 12/15/2020 3:06 pm CLINICAL HISTORY: possible stroke Headache, drowsiness COMPARISON: Head Brain Wo Cont dated 12/15/2020; Head Brain Wo Cont dated 08/15/2019 TECHNIQUE: CT angiography of the head was performed with MIPs. All CT scans are performed using dose optimization technique as appropriate and may include automated exposure control or mA/KV adjustment according to patient size. FINDINGS: No evidence of aneurysm is detected. The left intracranial carotid artery appears chronica lly occluded. Flow to the left A1 and M1 segments is via [place] of Saez collateralization. Antegrade flow is seen in the vertebral arteries. Left vertebral artery is dominant. The visualized dural venous sinuses are patent. 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
--- NOTE | 2020-12-15 15:40 | RAD REPORT ---
EXAM DESCRIPTION: CT - Neck Angio - 12/15/2020 3:06 pm CLINICAL HISTORY: possible stroke Headache, drowsiness, CVA symptomology COMPARISON: No comparisons TECHNIQUE: CT angiography of the neck vessels was performed with MIPs. All CT scans are performed using dose optimization technique as appropriate and may include automated exposure control or mA/KV adjustment according to patient size. FINDINGS: A left aortic arch is identified with normal three vessel configuration of the great vesse ls. No significant flow abnormality is seen of the common carotid bilaterally. The left internal carotid artery appears occluded. The right internal carotid artery demonstrates a s tenosis at level of the right carotid bulb caused by atherosclerotic plaquing. Stenosis is estimated at 70-80% based on NASCET criteria. Normal flow is seen within both vertebral arteries. The left vertebral artery appears mildly dominant . IMPRESSION: Occluded left internal carotid artery is noted. Moderate to significant stenosis right carotid bulb estimated at 80% based on NASCET criteria.
--- NOTE | 2020-12-15 15:56 | EKG ---
Test Date: 2020-12-15 Test Time: 12:50:33 Relationship Specialist: DIA MEASUREMENT RESULTS: Intervals: Rate: 81 OR: QRSD: 72 QT: 412 QTc: 478 [place]: P: OR: QRS: -25 T: 41 INTERPRETIVE STATEMENTS: normal rhythm pac Low voltage QRS Inferior infarct, age undetermined Abnormal ECG Compared to ECG 08/15/2019 13:55:47 Myocardial infarct finding now present Atrial premature complex(es) no longer present Electronically Signed On 12-15-20 15:55:47 CDT by Nelson De Jesus
--- NOTE | 2020-12-15 16:10 | EDPHYS ---
Physician Documentation [facility] Name: Elsa Smith Age: 85 yrs Sex: Female : 1935 Arrival Date: 12/15/2020 Time: 12:18 Bed 16 Private MD: Lasha Mckeon HPI: 12/15 12:35 This 85 yrs old Female presents to ER via Unassigned with complaints of cp Slurred Speech and Right Arm Weakness. 12:35 The patient's problem is reported as a facial droop, on right, dysphasia, incoherent cp speech, weakness, in the right upper extremity. Onset: The symptoms/episode began/occurred today, Daughter reports patient was last seen by to be normal 0930 this morning. Duration: The episode is continuous. 12:35 Context: the episode(s) was witnessed, by family, daughter, occurred at home, occurred cp while the patient was using bathroom. 12:35 Patient's baseline: Neuro: alert and fully oriented, Motor: right-sided weakness, cp Ambulation: unable to walk, uses wheelchair, Speech: normal, The patient has a previous history of CVA. Daughter reports patient got into wheelchair to use bathroom and while in bathroom, daughter heard her making strange noises and when she went to check on patient noticed her leaning to side, slurred speech and right side facial droop. Daughter reports this occurred approximately 40 minutes prior to arrival. Historical: - Allergies: 12:20 Lidocaine; bp 12:20 mercury; bp - Home Meds: 12:20 desloratadine 5 mg Oral tab 1 tab once daily [Active]; duloxetine 60 mg Oral cpDR 1 cap bp once daily [Active]; Xarelto 15 mg Oral tab [Active]; furosemide 40 mg Oral tab 1 tab 2 times per day [Active]; Synthroid 50 mcg Oral tab 1 tab once daily [Active]; Lyrica 50mg Oral 1 cap 3 times per day [Active]; potassium chloride 20 mEq Oral TbER 1 tab 2 times per day [Active]; pantoprazole 40 mg Oral TbEC 1 tab once daily [Active]; metoprolol tartrate 25 mg Oral tab 1 tab 2 times per day [Active]; metformin 500 mg Oral tab 2 tabs 2 times per day [Active]; - PMHx: 12:20 CHF; COPD; CVA; Depression; Diabetes - NIDDM; Hypertension; Hypothyroidism; bp - Immunization history:: Adult Immunizations up to date. - Social history:: Smoking status: . ROS: 12:39 Constitutional: Negative for fever. cp 12:39 Cardiovascular: Negative for chest pain. 12:39 Abdomen/GI: Negative for abdominal pain, nausea, vomiting, and diarrhea. 12:39 Neuro: Positive for speech changes, weakness, of the right arm. 12:39 All other systems are negative. Exam: 12:35 Radiologist reports: no acute findings cp 12:45 Constitutional: The patient appears in no acute distress, alert, awake, cp non-diaphoretic, non-toxic, well developed, well nourished, obese. 12:45 Head/Face: Normocephalic, atraumatic. cp 12:45 Eyes: Periorbital structures: appear normal, Pupils: equal, round, and reactive to cp light and accomodation, Extraocular movements: intact throughout, Conjunctiva: normal, no exudate, no injection, Sclera: no appreciated abnormality, Lids and lashes: appear normal, bilaterally. 12:45 ENT: External ear(s): are unremarkable, Nose: is normal, Mouth: Lips: moist, Oral mucosa: moist, Posterior pharynx: Airway: no evidence of obstruction, patent. 12:45 Chest/axilla: Inspection: normal, Palpation: is normal, no crepitus, no tenderness. 12:45 Cardiovascular: Rate: normal, Rhythm: regular, Edema: is not appreciated, JVD: is not appreciated. 12:45 Respiratory: the patient does not display signs of respiratory distress, Respirations: normal, no use of accessory muscles, no retractions, labored breathing, is not present, Breath sounds: are clear throughout, no decreased breath sounds, no stridor, no wheezing. 12:45 Abdomen/GI: Inspection: abdomen appears normal, Palpation: abdomen is soft and non-tender, in all quadrants. 12:45 Skin: cellulitis, is not appreciated, no rash present. 12:57 ECG was reviewed by the Attending Physician. cp Vital Signs: 12:20 BP 100 / 64; Pulse 70; Resp 20; Temp 97; Pulse Ox 94% on 2 lpm NC; Weight 124.74 kg; bp 12:30 BP 112 / 66; Pulse 64; Resp 18; Pulse Ox 98% ; bp 13:00 BP 105 / 61; Pulse 64; Resp 18; Pulse Ox 95% ; bp 13:30 BP 108 / 65; Pulse 62; Resp 18; Pulse Ox 95% ; bp 14:00 BP 113 / 73; Pulse 63; Resp 18; Pulse Ox 96% ; bp NIH Stroke Scale Scores: 12:45 NIHSS Score: 12 cp MDM: 12:22 Patient medically screened. 12:33 Physician consultation: Bari Dunn MD was called at 12:33, was contacted at 12:33, cp regarding consult, patient's condition, recommends administration of tpa, order CT angio of head and neck. 16:00 Data reviewed: vital signs, nurses notes, lab test result(s), EKG, radiologic studies, cp CT scan, plain films. 16:00 Test interpretation: by ED physician or midlevel provider: ECG. Physician consultation: cp Alistair Jensen MD was called at 16:00, was contacted at 16:00, regarding admission, to the telemetry unit. patient's condition. 12/15 12:22 Order name: Basic Metabolic Panel; Complete Time: 15:34 12/15 15:34 Interpretation: Normal except: GLUC 178; BUN 34; GFR 40. 12/15 12:22 Order name: CBC with Diff; Complete Time: 13:07 12/15 13:08 Interpretation: Normal except: ALEXSANDER% 74.9; LYM% 12.5. 12/15 12:22 Order name: LFT's; Complete Time: 15:34 12/15 21:36 Interpretation: Normal except: GLOB 4.2; A/G 0.8. 12/15 12:22 Order name: Magnesium; Complete Time: 15:34 12/15 12:22 Order name: NT PRO-BNP; Complete Time: 15:34 12/15 12:22 Order name: PT-INR; Complete Time: 13:07 12/15 12:22 Order name: Troponin (emerg Dept Use Only); Complete Time: 15:34 12/15 12:22 Order name: XRAY Chest (1 view); Complete Time: 15:34 12/15 12:22 Order name: CT Head Brain wo Cont; Complete Time: 13:07 12/15 12:38 Order name: Head angio; Complete Time: 15:42 EDMS 12/15 12:38 Order name: Neck Angio; Complete Time: 15:47 EDSC 12/15 13:40 Order name: Urine Microscopic Only; Complete Time: 21:35 12/15 21:35 Interpretation: Reviewed. 12/15 16:50 Order name: Urine Dipstick-Ancillary; Complete Time: 21:35 EDMS 12/15 21:35 Interpretation: Reviewed. 12/15 12:22 Order name: EKG; Complete Time: 12:22 12/15 12:22 Order name: Cardiac monitoring; Complete Time: 13:04 12/15 12:22 Order name: EKG - Nurse/Tech; Complete Time: 13:04 12/15 12:22 Order name: IV Saline Lock; Complete Time: 13:04 12/15 12:22 Order name: Labs collected and sent; Complete Time: 13:04 12/15 12:22 Order name: O2 Per Protocol; Complete Time: 13:04 12/15 12:22 Order name: O2 Sat Monitoring; Complete Time: 13:04 12/15 13:40 Order name: Wong; Complete Time: 15:47 12/15 13:40 Order name: Urine Dipstick-Ancillary (obtain specimen); Complete Time: 17:17 12/15 17:45 Order name: CONS Physician Consult EDMS EC:57 Rate is 81 beats/min. Rhythm is irregular. QRS interval is normal. QT interval is cp normal. T waves are Inverted in lead aVR. Interpreted by me. Reviewed by me. Administered Medications: 12:30 Drug: foLIC Acid 1 mg Route: IVPB; Site: right wrist; bp 22:54 Follow up: Response: No adverse reaction; IV Status: Completed infusion; IV Intake: 1ml zb 12:30 Drug: NS 0.9% 1000 ml Route: IV; Rate: 1000 ml/hr; Site: right forearm; bp 13:45 Follow up: Response: No adverse reaction; IV Status: Completed infusion; IV Intake: zb 1000ml 13:00 Drug: Alteplase {Co-Signature: medina (Gail Maki RN).} Route: IV Thrombolytics; Rate: bp calculated rate; 14:00 Follow up: Response: No adverse reaction bp 14:00 Follow up: Response: No adverse reaction; Marked relief of symptoms zb 22:52 Drug: Ativan (LORazepam) 0.5 mg Route: IVP; Site: right hand; zb 22:54 Follow up: Response: No adverse reaction zb Disposition: 17:00 Chart complete. cp 12/16 21:13 Co-signature as Attending Physician, Lasha Varghese MD I agree with the assessment and karli plan of care. Disposition: 12/15/20 16:09 Hospitalization ordered by Alistair Jensen for Inpatient Admission. Preliminary diagnosis are Weakness - right arm, Dysphasia, Facial weakness. - Bed requested for Telemetry/MedSurg (Inpatient). - Status is Inpatient Admission. em - Condition is Stable. - Problem is new. - Symptoms have improved. NIH Stroke Scale - NIH Stroke Score Date: 12/15/2020 Time: 12:45 Total Score = 12 1a. Level of Consciousness (LOC) - 0(Alert) 1b. Level of Consciousness (LOC) (Year \T\ Age) - 1(One) 1c. LOC Commands (Open \T\ Closes Eyes/Mortgage Specialist) - 1(One) 2. Best Gaze (Lateral Gaze Paresis) - 0(Normal) 3. Visual Field Loss - 0(No visual loss) 4. Facial Palsy - 1(Minor Paralysis) 5a. Left Arm: Motor (10-second hold) - 0(No drift) 5b. Right Arm: Motor (10-second hold) - 2(Drift, some effort against gravity) 6a. Left Leg: Motor (5-second hold - always test supine) - 0(No drift) 6b. Right Leg: Motor (5-second hold - always test supine) - 2(Drift, some effort against gravity) 7. Limb Ataxia (finger/nose \T\ heel/ferraro - test with eyes open) - 1(Present in one limb) 8. Sensory Loss (pinprick arms/legs/face) - 0(Normal) 9. Best Language: Aphasia (description/naming/reading) - 2(Severe aphasia) 10. Dysarthria (speech clarity - read or repeat words) - 2(Severe) 11. Extinction and Inattention (visual/tactile/auditory/spatial/personal) - 0(No abnormality) Initials: cp Signatures: Dispatcher [employer] Lasha Castillo MD MD cha Munoz, Edgar, RN RN em Osmar Goetz, C JAVA DEVELOPER-C C JAVA DEVELOPER-Cla1 Lasha Barraza, CAIN PA cp Woody Dan, RN RN bp Kassi Estes RN RN rd1 Gail Maki RN RN zb Gail Maki RN zb Corrections: (The following items were deleted from the chart) 12/15 22:34 16:09 Hospitalization Ordered by Alistair Jensen MD for Inpatient Admission. rd1 Preliminary diagnosis is Weakness - right arm; Dysphasia; Facial weakness. Bed requested for Telemetry/MedSurg (Inpatient). Status is Inpatient Admission. Condition is Stable. Problem is new. Symptoms have improved. cp 23:20 22:34 12/15/2020 16:09 Hospitalization Ordered by Alistair Jensen MD for em Inpatient Admission. Preliminary diagnosis is Weakness - right arm; Dysphasia; Facial weakness. Bed requested for Telemetry/MedSurg (Inpatient). Status is Inpatient Admission. Condition is Stable. Problem is new. Symptoms have improved. rd1
--- NOTE | 2020-12-15 16:10 | ER ---
Nurse's Notes [facility] Name: Elsa Smith Age: 85 yrs Sex: Female : 1935 Arrival Date: 12/15/2020 Time: 12:18 Bed 16 Private MD: Diagnosis: Weakness-right arm;Dysphasia;Facial weakness Presentation: 12/15 12:20 Chief complaint: EMS states: LAST KNOWN NORMAL 0900. FOUND BY FAMILY ON TOILET, R SIDED bp WEAKNESS WITH FACIAL DROOP, DYSPHASIA, AND DECREASED LEVEL OF CONSCIOUSNESS. 12:20 Method Of Arrival: EMS: [facility] bp 12:20 Coronavirus screen: At this time, the client does not indicate any symptoms associated bp with coronavirus-19. Ebola Screen: No symptoms or risks identified at this time. Initial Sepsis Screen: Does the patient meet any 2 criteria? No. Patient's initial sepsis screen is negative. Does the patient have a suspected source of infection? No. Patient's initial sepsis screen is negative. Risk Assessment: Do you want to hurt yourself or someone else? Patient reports no desire to harm self or others. Onset of symptoms was December 15, 2020 at 09:00. Care prior to arrival: IV initiated. 20 GA, in the right hand, Glucose check: 216. 12:20 Acuity: ALEJANDRO 2 bp Triage Assessment: 12:20 General: Appears distressed, obese, Behavior is listless. Pain: Unable to use pain bp scale. Does not appear to understand pain scale. EENT: No deficits noted. Neuro: Level of Consciousness is lethargic, Oriented to none Pipe Fitter are ABSENT ON RIGHT. Speech is slurred, Facial droop on right. Cardiovascular: Rhythm is sinus rhythm. Respiratory: Breath sounds are diminished bilaterally. GI: No signs and/or symptoms were reported involving the gastrointestinal system. : No signs and/or symptoms were reported regarding the genitourinary system. Derm: No deficits noted. Musculoskeletal: Amputation of Other: AKA. Historical: - Allergies: 12:20 Lidocaine; bp 12:20 mercury; bp - Home Meds: 12:20 desloratadine 5 mg Oral tab 1 tab once daily [Active]; duloxetine 60 mg Oral cpDR 1 cap bp once daily [Active]; Xarelto 15 mg Oral tab [Active]; furosemide 40 mg Oral tab 1 tab 2 times per day [Active]; Synthroid 50 mcg Oral tab 1 tab once daily [Active]; Lyrica 50mg Oral 1 cap 3 times per day [Active]; potassium chloride 20 mEq Oral TbER 1 tab 2 times per day [Active]; pantoprazole 40 mg Oral TbEC 1 tab once daily [Active]; metoprolol tartrate 25 mg Oral tab 1 tab 2 times per day [Active]; metformin 500 mg Oral tab 2 tabs 2 times per day [Active]; - PMHx: 12:20 CHF; COPD; CVA; Depression; Diabetes - NIDDM; Hypertension; Hypothyroidism; bp - Immunization history:: Adult Immunizations up to date. - Social history:: Smoking status: . Screenin:20 Abuse screen: Denies threats or abuse. Denies injuries from another. Nutritional bp screening: No deficits noted. Tuberculosis screening: No symptoms or risk factors identified. Fall Risk None identified. 20:27 The patient exhibits slurred or garbled speech. The patient did not tolerate 90mL of zb water. Drooling, immediate coughing, gurgling, or clearing of the throat was noted. Bedside swallow screening discontinued. Patient kept NPO until cleared by Speech Therapy or Physician. Provider notified of bedside swallow screening results: Osmar FARNSWORTH. Assessment: 12:20 General: SEE TRIAGE NOTE. PT TO CT IMMEDIATELY. bp 12:45 Reassessment: CONSENT FOR TPA SIGNED AND WITNESSED. bp 13:00 Reassessment: TPA INITIATED. DR RIBEIRO AT B/S. bp 14:00 Reassessment: TPA CONCLUDED. NO CHANGE IN NEURO STATUS. bp 15:00 Reassessment: NEURO STATUS SHOWS SOME IMPROVEMENT. Neuro: Level of Consciousness is bp lethargic, Pipe Fitter are weak on right Speech is slurred. 16:00 Reassessment: NIHSS IMPROVING. PT REMAINS DROWSY, BUT SPEECH MORE INTELLIGIBLE. bp 20:20 Reassessment: Patient appears in no apparent distress at this time. patient seemed zb restless. patient family c/o concern for pain notified ecp. Reassessment: patient placed in diaper. expressed need for bm. 20:28 Reassessment: notified hospitalist of restlessness and family c/o pain. patient failed zb Swallow study. remains NPO. Iv medication ordered. 21:20 Reassessment: ativan held at this time patient appears to be sleeping. zb Vital Signs: 12:20 BP 100 / 64; Pulse 70; Resp 20; Temp 97; Pulse Ox 94% on 2 lpm NC; Weight 124.74 kg; bp 12:30 BP 112 / 66; Pulse 64; Resp 18; Pulse Ox 98% ; bp 13:00 BP 105 / 61; Pulse 64; Resp 18; Pulse Ox 95% ; bp 13:30 BP 108 / 65; Pulse 62; Resp 18; Pulse Ox 95% ; bp 14:00 BP 113 / 73; Pulse 63; Resp 18; Pulse Ox 96% ; bp NIH Stroke Scale Scores: 12:45 NIHSS Score: 12 cp ED Course: 12:18 Patient arrived in ED. iw 12:20 Lasha Barraza PA is PHCP. cp 12:20 Lasha Varghese MD is Attending Physician. cp 12:20 Arm band placed on. bp 12:20 Patient has correct armband on for positive identification. Bed in low position. Call bp light in reach. Side rails up X2. Adult w/ patient. 12:20 Maintain EMS IV. Dressing intact. Good blood return noted. Site clean \T\ dry. Gauge \T\ bp site: 20 GAUGE R HAND. 12:25 CT Head Brain wo Cont In Process Unspecified. EDMS 12:30 Inserted saline lock: 20 gauge in right wrist, using aseptic technique. Blood collected.bp 12:49 Woody Dan, RN is Primary Nurse. bp 13:22 XRAY Chest (1 view) In Process Unspecified. EDMS 13:30 Wong cath inserted, using sterile technique, 16 Fr., by ny, balloon inflated, to zb gravity drainage, clamped. 14:51 Triage completed. bp 15:07 Head angio In Process Unspecified. EDMS 15:07 Neck Angio In Process Unspecified. EDMS 16:07 Juan A Wright DO is Hospitalizing Provider. cp 16:09 Alistair Jensen MD is Hospitalizing Provider. cp 20:04 Primary Nurse role handed off by Woody Dan, RN mw2 20:26 Gail Maki RN is Primary Nurse. zb 22:50 No provider procedures requiring assistance completed. Patient admitted, IV remains in zb place. Administered Medications: 12:30 Drug: foLIC Acid 1 mg Route: IVPB; Site: right wrist; bp 22:54 Follow up: Response: No adverse reaction; IV Status: Completed infusion; IV Intake: 1ml zb 12:30 Drug: NS 0.9% 1000 ml Route: IV; Rate: 1000 ml/hr; Site: right forearm; bp 13:45 Follow up: Response: No adverse reaction; IV Status: Completed infusion; IV Intake: zb 1000ml 13:00 Drug: Alteplase {Co-Signature: medina (Gail Maki RN).} Route: IV Thrombolytics; Rate: bp calculated rate; 14:00 Follow up: Response: No adverse reaction bp 14:00 Follow up: Response: No adverse reaction; Marked relief of symptoms zb 22:52 Drug: Ativan (LORazepam) 0.5 mg Route: IVP; Site: right hand; zb 22:54 Follow up: Response: No adverse reaction zb Intake: 13:45 IV: 1000ml; Total: 1000ml. zb 22:54 IV: 1ml; Total: 1001ml. zb Output: 13:33 Urine: 1200ml (Wong); Total: 1200ml. zb Outcome: 16:09 Decision to Hospitalize by Provider. cp 22:50 Admitted to Med/surg accompanied by nurse, family with patient, room ER ICU room , with zb oxygen, with chart, Report called to JORGE Neil 22:50 Condition: stable 22:50 Discharge instructions given to Instructed on the need for admit. 23:20 Patient left the ED. em NIH Stroke Scale - NIH Stroke Score Date: 12/15/2020 Time: 12:45 Total Score = 12 1a. Level of Consciousness (LOC) - 0(Alert) 1b. Level of Consciousness (LOC) (Year \T\ Age) - 1(One) 1c. LOC Commands (Open \T\ Closes Eyes/Lifeline Representatives) - 1(One) 2. Best Gaze (Lateral Gaze Paresis) - 0(Normal) 3. Visual Field Loss - 0(No visual loss) 4. Facial Palsy - 1(Minor Paralysis) 5a. Left Arm: Motor (10-second hold) - 0(No drift) 5b. Right Arm: Motor (10-second hold) - 2(Drift, some effort against gravity) 6a. Left Leg: Motor (5-second hold - always test supine) - 0(No drift) 6b. Right Leg: Motor (5-second hold - always test supine) - 2(Drift, some effort against gravity) 7. Limb Ataxia (finger/nose \T\ heel/ferraro - test with eyes open) - 1(Present in one limb) 8. Sensory Loss (pinprick arms/legs/face) - 0(Normal) 9. Best Language: Aphasia (description/naming/reading) - 2(Severe aphasia) 10. Dysarthria (speech clarity - read or repeat words) - 2(Severe) 11. Extinction and Inattention (visual/tactile/auditory/spatial/personal) - 0(No abnormality) Initials: cp Signatures: Dispatcher [employer] Mark Gallego, RN Danay Christianson RN Lasha Henderson PA PA cp Peltier, Brian, RN RN bp Teresita Francisco 2 Gail Maki RN RN zb Zipporah Brown RN zb Corrections: (The following items were deleted from the chart) 14:51 12:49 124.74 kg; bp bp
[2020-12-15 16:50] LABS: Urine Blood Negative (Negative); Urine Glucose Negative (Negative); Urine Protein Negative (Negative)
[2020-12-15 17:33] LABS: Urine Bacteria <20 /HPF (<20); Urine RBC NONE SEEN /HPF (NONE SEEN)
--- NOTE | 2020-12-15 19:49 | P.HP ---
Certification for Inpatient With expected LOS: >2 Midnights Patient will require the following post-hospital care: Rehabilitation Practitioner: I am a practitioner with admitting privileges, knowledge of patient current condition, hospital course, and medical plan of care. Services: Services provided to patient in accordance with Admission requirements found in Title 42 Section 412.3 of the Code of Federal Regulations <Essie sEquivel - Last Filed: 12/15/20 20:16> Patient History Date of Service: 12/15/20 Primary Care Provider: Dr. Becerra Reason for admission: CVA, R sided weakness needing inpatient rehab History of Present Illness: This is an 85 y/o F w/ prior hx of stroke and GA, T2DM, and chronic pancreatitis who presents today for slurred speech. Her speech started slurring this morning and daughter noticed R sided facial drooping. Per her daughter, the pt had unintelligible speech and by the time EMS arrived pt was "completely out of it". Daughter reports this was similar to her stroke symptoms 25 years ago, also had R sided weakness then. tPA was administered in ER. Daughter reports that pt has improved some but has not completely returned to baseline. CXR: Moderate bilateral pulmonary opacities are present which may represent pulmonary edema or bronchitis/infection. Heart is mildly enlarged. No displaced fractures. Head CT: No acute intracranial abnormality is seen. If patient's symptoms persist MRI of the brain would be recommended. 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 Neck CT: Occluded left internal carotid artery is noted. Moderate to significant stenosis right carotid bulb estimated at 80% based on NASCET criteria. - Past Medical/Surgical History Diabetic: Yes -: T2DM -: GERD -: Hypothyroidism -: HTN -: Stroke -: Hearing problems -: GA 2016 -: chronic pancreatitis -: gall bladder -: appendix -: joint replacement -: joint removed -: AKA -: heart stent -: cataract sx Psychosocial/ Personal History: lives w/ daughter - Family History Father -: Cancer (leukemia) Sister -: Stroke ( at 79 y/o) - Social History Smoking Status: Former smoker Alcohol use: No CD- Drugs: No Caffeine use: Yes <Essie Esquivel - Last Filed: 12/15/20 20:16> Date of Service: 12/15/20 <Alistair Jensen - Last Filed: 12/15/20 20:48> Allergies Sulfa (Sulfonamide Antibiotics) Allergy (Verified 07/15/18 13:24) Rash morphine Adverse Reaction (Intermediate, Verified 07/15/18 13:24) "goes crazy" mercury Allergy (Uncoded 07/15/18 13:24) Unknown Home Medications: RX: Levothyroxine [Synthroid*] 0.05 mg PO [id number] #0 tablet 06/29/12 RX: Calcium Carbonate [Calcium] 500 mg PO DAILY 08/16/15 RX: Cinnamon Bark [Cinnamon] 500 mg PO DAILY 08/16/15 RX: Duloxetine HCl [Cymbalta] 60 mg PO DAILY 08/16/15 RX: Flaxseed Oil [Flaxseed] 1,000 mg PO DAILY 08/16/15 RX: Furosemide [Lasix*] 40 mg PO BID 08/16/15 RX: Loratadine/Pseudoephedrine [Loratadine-D 24Hr Tab] 1 each PO DAILY 08/16/15 RX: Metoprolol Tartrate [Lopressor*] 25 mg PO BID 08/16/15 RX: [place]-3 Fatty Acids/Fish Oil [Fish Oil 1,000 mg Softgel] 1 each PO DAILY 08/16/15 RX: Pantoprazole [Protonix Tab*] 40 mg PO DAILY 08/16/15 RX: Potassium Chloride 20 meq PO BID 08/16/15 RX: Pregabalin [Lyrica*] 300 mg PO BEDTIME 08/16/15 RX: Vit C/E/Zn/Coppr/Lutein/Zeaxan [Preservision Areds 2 Softgel] 1 each PO DAILY 08/16/15 RX: Atorvastatin Calcium 40 mg PO BEDTIME #30 tablet 02/13/16 RX: Clopidogrel Bisulfate [Plavix] 75 mg PO DAILY #30 tablet 02/13/16 RX: Aspirin [Aspirin EC 81 MG] 81 mg PO DAILY 07/15/18 RX: Hydrocodone 10/APAP 325 [[place] 10/325*] 1 tab PO Q6H PRN 07/15/18 RX: Insulin Glargine,Hum.rec.anlog [Basaglar Kwikpen U-100] 28 unit SQ DAILY 07/15/18 RX: Liraglutide [Victoza 2-Ajit] 1.2 mg SQ DAILY 07/15/18 RX: Pregabalin [Lyrica*] 100 mg PO BID 07/15/18 RX: lisinopriL [Prinivil*] 5 mg PO [id number] 07/15/18 Review of Systems 10-point ROS is otherwise unremarkable Cardiovascular: Edema Neurological: Weakness, Numbness, Change in Speech, Confusion, As per HPI <Essie Esquivel - Last Filed: 12/15/20 20:16> Physical Examination - Physical Exam General: Oriented x2 HEENT: Atraumatic, Normocephalic, Mucous membr. moist/pink, EOMI, Sclerae nonicteric Neck: Supple Respiratory: Clear to auscultation bilaterally, Normal air movement Cardiovascular: Normal S1 S2, Edema Capillary refill: <2 Seconds Gastrointestinal: Normal bowel sounds, Soft and benign, No guarding Musculoskeletal: No tenderness, No warmth, Other (R AKA) Integumentary: No rashes Neurological: Abnormal speech (slurred speech), Abnormal strength (R sided weakness), Abnormal sensation, Abnormal cranial nerve function - Studies Laboratory Data (last 24 hrs) 12/15/20 12:35: PT 12.5, INR 1.09 12/15/20 12:35: WBC 8.60, Hgb 14.5, Hct 43.8, Plt Count 166 12/15/20 12:35: Sodium 138, Potassium 3.9, BUN 34 H, Creatinine 1.27, Glucose 178 H, Magnesium 2.2, Total Bilirubin 0.5, AST 20, ALT 28, Alkaline Phosphatase 71 <Essie Esquivel - Last Filed: 12/15/20 20:16> - Studies Laboratory Data (last 24 hrs) 12/15/20 12:35: PT 12.5, INR 1.09 12/15/20 12:35: WBC 8.60, Hgb 14.5, Hct 43.8, Plt Count 166 12/15/20 12:35: Sodium 138, Potassium 3.9, BUN 34 H, Creatinine 1.27, Glucose 178 H, Magnesium 2.2, Total Bilirubin 0.5, AST 20, ALT 28, Alkaline Phosphatase 71 <Alistair Jensen - Last Filed: 12/15/20 20:48> Assessment and Plan - Plan impression: R arm weakness, facial drooping, dysphasia likely secondary to CVA T2DM prior hx of GA assessment: R arm weakness, facial drooping, dysphasia likely secondary to CVA: patient admitted for further evaluation and management. tPA administered in ER. hold blood thinners. lipid panel pending. will give folic acid, atorvastatin. carotid u/s, echo, MRI ordered. consult w/ neuro and await recommendations. PT/OT consult. patient will likely need inpatient rehab. SCDs for DVT prophylaxis. T2DM: SSI and accuchecks prior hx of GA: monitor on telemetry Discharge Plan: Home Plan to discharge in: Greater than 2 days - Advance Directives Does patient have a Living Will: Yes Does patient have a Durable POA for Healthcare: Yes - Code Status/Comfort Care Code Status Assessed: Yes Code Status: Full Code Time Spent Managing Pts Care (In Minutes): 70 <Essie Esquivel - Last Filed: 12/15/20 20:16> Physician Review Additional Text: Plan of care reviewed with Essie Esquivel. Patient with R sided weakness, slurred speech with some improvement after tpa administered h/o R AKA admit to ICU overnight, repeat CT head tomorrow PT, ST consulted. stroke workup ASA, statin, folic acid may benefit from inpatient rehab neuro consulted <Alistair Jensen - Last Filed: 12/15/20 20:48>
--- NOTE | 2020-12-15 21:01 | CON ---
Reason For Consultation: Consultation called because of acute stroke. History Of Present Illness: Ms. Smith is an 85-year-old patient with congestive heart failure, COPD , prior stroke 25 years ago with residual right-sided weakness, sru-jojmxwg-wlcoxnagc diabetes mellit us, hypertension, hypothyroidism, who developed right-sided weakness and slurred speech around 9:30. The patient was brought into [facility] at 12:18, had a head CT scan which was negative for any acute ischemic or hemorrhagic change around 12:22, and the study was reported at 12:[address] s can was negative. Given her facial droop, slurred speech, and right-sided weakness, and she does hav e actually a right upzvk-[id number]-lvfc amputation, she was determined to be in acute stroke and within the window for tPA and she did receive tPA. Following tPA, the patient has had no significant change to her right-sided weakness and she will be followed per protocol with no antiplatelet medication for 2 4 hours. We will have a repeat CT scan in 24 hours and we will have neuro checks per protocol. Past Medical History: As noted. Allergies: LIDOCAINE. Medications: At home, duloxetine 60 mg daily, Xarelto 15 mg daily, although she is on aspirin and Pl avix, Synthroid 50 mcg daily, potassium 20 mEq daily, pantoprazole 40 mg daily, metoprolol 25 mg henrique y, metformin 500 mg twice daily. Family History: Noncontributory. Review of Systems: Per the patient's family and daughter and granddaughter at bedside, no recent fevers or chills, myalg ias, arthralgias, headache, weight change, rash, or psychiatric issues. Physical Examination: The patient is resting in bed. She follows simple commands without difficulty to squeeze on both morenita es in the upper extremities. She does have a right ttdbl-zqs-bvkq amputation and left stump and the left leg. She can hold the left arm up with a count of 10, hold the left leg up for a count of 10. She actually is unable to hold up the right arm at all and can hold the right stump. Slight decrease in the right nasolabial fold with fair excursions and decreased to light touch and temperature on th e right compared to the left upper extremity. Laboratory Studies: Complete blood count with differential is completely normal. Coagulation panel is normal. Chemistries show glucose 178, BUN 34. Liver function studies are normal. Urinalysis is unremarkable. Her head and neck CT angiogram showed a chronic occlusion of the left internal carotid artery and moderate to significant stenosis of the right carotid bulb estimated at 80%. Assessment: Ms. Smith is an 85-year-old patient with significant carotid stenosis, right bulb is 80 % with the left side chronically occluded, and she has more right-sided focal weakness. She did rece allyson tPA. Plan: 1.She will be followed with neuro checks per protocol. 2.She will have repeat head CT scan in 24 hours. 3.We will hold any additional antiplatelet or anticoagulation medication for 24 hours. 4.She will be evaluated to see if she qualifies for inpatient rehabilitation, which we considered sh e october. She should have aggressive management of her hypertension, diabetes mellitus, which is done b y her primary team and she will be followed while in hospital. NICOLA/ZULMA Voice ID: [id number] Report ID: [id number]
[2020-12-15] MEDS ORDERED: LORazepam 2 MG/ML VIAL ONE (23:00)
[2020-12-16] MEDS: icosapent ethyL 1 GM CAP PO SCH ×3 (00:37→20:43)
[2020-12-16] MEDS: lisinopriL 5 MG TAB PO SCH ×2 (00:37→20:42)
[2020-12-16] MEDS: ATORVASTATIN 40 MG TAB PO SCH ×2 (00:37→20:40)
[2020-12-16] MEDS ORDERED: ONDANSETRON 4 MG/2 ML VIAL IV PRN (00:37)
[2020-12-16] MEDS: INSULIN -REGULAR HUMAN 50 UNIT/0.5 ML ML SQ SCH ×5 (00:37→20:41)
[2020-12-16] MEDS: DULOXETINE 30 MG CAP PO SCH ×2 (00:37→20:39)
[2020-12-16] MEDS ORDERED: LORATADINE 10 MG TAB PO PRN (00:37)
[2020-12-16] MEDS: METOPROLOL TAR 25 MG TAB PO SCH ×3 (00:37→20:40)
[2020-12-16] MEDS ORDERED: NA CHLORIDE 0.9% 1,000 ML IV SCH (00:37)
[2020-12-16] MEDS: PREGABALIN 150 MG CAP PO SCH ×3 (00:37→20:38)
[2020-12-16] MEDS ORDERED: NA CHLORIDE 0.9% 1,000 ML ONE (01:16)
[2020-12-16 05:53] LABS: Absolute Lymphocytes (CBC) 1.6 K/uL (0.7-4.9); Basophils % 0.7 % (0-1.3); Hematocrit 40.5 % (36.0-45.0); Lymphocytes % 20.2 % (15.3-44.8); MPV 9.7 fL (7.6-11.3); RBC Red Blood Cell Count 4.43 M/uL (3.86-4.86)
[2020-12-16 06:16] LABS: Albumin 3.2 g/dL (3.4-5.0); Bilirubin Total 0.5 mg/dL (0.2-1.0); Potassium 3.1 mmol/L (3.5-5.1); Protein, Total 7.1 g/dL (6.4-8.2); Thyroid Stimulating Hormone 0.675 uIU/mL (0.360-3.740)
[2020-12-16] MEDS: PANTOPRAZOLE 40MG TABLET PO SCH (06:30)
[2020-12-16] MEDS: LEVOTHYROXINE SOD 0.075 MG TAB PO SCH (06:30)
[2020-12-16] MEDS: D5 0.45 NS 1,000 ML IV SCH ×2 (06:35→09:55)
[2020-12-16] MEDS ORDERED: D5 0.45 NS 1,000 ML IV ONE ×2 (06:56→10:14)
[2020-12-16] MEDS: FOLIC ACID 1 MG TABLET PO SCH (09:54)
[2020-12-16] MEDS: HYDROCODONE/APAP 7.5/325 MG TAB PO PRN ×2 (09:54→17:00)
[2020-12-16] MEDS: FUROSEMIDE 40 MG TABLET PO SCH (09:54)
[2020-12-16] MEDS: KCL 20 MEQ/100 mL IVPB 20 MEQ/100 ML BAG IV SCH ×2 (09:55→12:53)
[2020-12-16] MEDS ORDERED: HYDROCODONE/APAP 7.5/325 MG TAB ONE ×2 (10:12→17:36)
[2020-12-16] MEDS ORDERED: FUROSEMIDE 40 MG TABLET ONE (10:12)
[2020-12-16] MEDS ORDERED: PREGABALIN 75 MG CAP PO ONE ×2 (10:13→20:48)
[2020-12-16] MEDS ORDERED: FOLIC ACID 1 MG TABLET ONE (10:13)
[2020-12-16] MEDS ORDERED: KCL 20 MEQ/100 mL IVPB 40 MEQ/200 ML BAG IV ONE (10:13)
[2020-12-16] MEDS ORDERED: METOPROLOL TAR 25 MG TAB ONE (10:13)
--- NOTE | 2020-12-16 13:13 | P.PN ---
Subjective Date of Service: 12/16/20 Primary Care Provider: Dr. Becerra Chief Complaint: CVA, R sided weakness needing inpatient rehab Subjective: Improving (R sided strength improving, speech somewhat improved as well. alert/oriented, easier to understand without any new complaints) Review of Systems 10-point ROS is otherwise unremarkable Physical Examination - Vital Signs Temperature: 96.9 F Blood Pressure: 108/68 Pulse: 77 Respirations: 17 Pulse Ox (%): 92 - Studies Laboratory Data (last 24 hrs) 12/15/20 12:35: Sodium 138, Potassium 3.9, BUN 34 H, Creatinine 1.27, Glucose 178 H, Magnesium 2.2, Total Bilirubin 0.5, AST 20, ALT 28, Alkaline Phosphatase 71 Assessment & Plan Physician Review Additional Text: Physical Exam General: AAOx3, NAD HEENT: MMM, EOMi Respiratory: Clear to auscultation bilaterally, Normal air movement Cardiovascular: irregular rhtyhm, no murmur, b/l edema Gastrointestinal: soft, nontender, nondistended Musculoskeletal: R AKA, no joint tenderness Integumentary: No rashes Neurological: Abnormal speech (slurred speech), Abnormal strength (R sided weakness 4+/5 upper/lower extremity) Problem List R arm weakness, facial drooping, dysphasia likely secondary to acute CVA T2DM prior hx of GA CHF, unknown type COPD h/o Right AKA -s/p tPA on 12/15 -CT head negative -neuro consulted -repeat CT head later today ~24hrs after tpa yesterday -statin, folic acid, asa -MRI ordered -PT/OT consulted, may benefit from inpatient rehab -SSI, accuchecks -ICU monitoring x24hrs after tpa, then can transfer to floor on telemetry Code: full VTE: SCDs Dispo: stroke eval, possible inpatient rehab in 24-48hrs, pending further eval Time Spent Managing Pts Care (In Minutes): 40
--- NOTE | 2020-12-16 13:20 | RAD REPORT ---
EXAM DESCRIPTION: CT - Head Brain Wo Cont - 12/16/2020 1:03 pm CLINICAL HISTORY: CVA COMPARISON: Head Brain Wo Cont dated 12/15/2020 TECHNIQUE: Axial 5 mm thick images of the head were obtained without IV contrast. All CT scans are performed using dose optimization technique as appropriate and may include automated exposure control or mA/KV adjustment according to patient size. FINDINGS: No intracranial hemorrhage, mass, edema or shift of mid-line structures. No acute infarcti on changes seen. No cortical edema or sulcal effacement. Moderate atrophy and moderate chronic ischem ic changes are present ventricles in proportion. Intracranial findings are similar to the examination 1 day earlier. No new or progressive acute CVA changes are evident. Dense arterial tree calcificatio ns again noted. Mastoid air cells and visualized portions of the paranasal sinuses are clear. No acute bony findings. IMPRESSION: No hemorrhage, mass or new intracranial finding since prior imaging. No focal CVA changes are evident. Atrophy and chronic ischemic change matches comparison.
--- NOTE | 2020-12-16 13:27 | RAD REPORT ---
EXAM DESCRIPTION: US - CP - 12/16/2020 12:32 pm CLINICAL HISTORY: CVA COMPARISON: Neck Angio dated 12/15/2020; Head angio dated 12/15/2020 TECHNIQUE: Real-time sonographic evaluation of bilateral carotid and vertebral systems was performed . Winters scale and Doppler interrogation were performed with waveform tracing bilaterally. FINDINGS: Normal high resistance waveforms are noted in both external carotid arteries. The common c arotid arteries and right internal carotid artery show normal low resistance waveforms. Calcified and noncalcified plaquing changes are present in the right bulb and proximal right internal carotid artery. Exam overall is limited due to inherent body habitus affects and patient's inability to fully cooperate with the examination. No blood flow seen in the left internal carotid artery. Thi s is a known finding in this patient. Right common carotid artery is elevated relative to the left. T here is elevation of the proximal right internal carotid artery velocity to 149 cm per second. ICA/CC A ratio on the right is within normal range at 1.20 in value. Neither vertebral artery to be adequately visualized. Velocity values and ratios were recorded and are retained in the patient's imaging records. IMPRESSION: Prominent calcified plaquing changes in the right carotid bulb and tortuous proximal rig ht internal carotid artery. This does not yet cause a hemodynamically significant degree of stenosis. Chronic occlusion of the left internal carotid artery. Nonvisualization of the vertebral arteries.
[2020-12-16] MEDS ORDERED: DULOXETINE 30 MG CAP PO ONE (20:48)
[2020-12-16] MEDS ORDERED: KCL 20 MEQ/100 mL IVPB 20 MEQ/100 ML BAG IV SCH (22:00)
[2020-12-17] MEDS: LEVOTHYROXINE SOD 0.075 MG TAB PO SCH (05:48)
[2020-12-17] MEDS: PANTOPRAZOLE 40MG TABLET PO SCH (05:48)
[2020-12-17 05:56] LABS: Absolute Lymphocytes (CBC) 1.3 K/uL (0.7-4.9); Basophils % 0.6 % (0-1.3); Hematocrit 43.1 % (36.0-45.0); Lymphocytes % 17.2 % (15.3-44.8); MPV 9.4 fL (7.6-11.3); RBC Red Blood Cell Count 4.68 M/uL (3.86-4.86)
[2020-12-17 06:24] LABS: Albumin 3.4 g/dL (3.4-5.0); Bilirubin Total 0.6 mg/dL (0.2-1.0); Magnesium 2.3 mg/dL (1.8-2.4); Potassium 3.5 mmol/L (3.5-5.1); Protein, Total 7.5 g/dL (6.4-8.2)
[2020-12-17] MEDS: INSULIN -REGULAR HUMAN 50 UNIT/0.5 ML ML SQ SCH ×4 (07:30→20:12)
--- NOTE | 2020-12-17 07:30 | P.PN ---
Subjective Date of Service: 12/17/20 Primary Care Provider: Dr. Becerra Chief Complaint: CVA, R sided weakness needing inpatient rehab Subjective: Improving (feels right arm is getting back to normal. still with some difficulty talking. wants mcguire removed) Review of Systems 10-point ROS is otherwise unremarkable Physical Examination - Vital Signs Temperature: 98.0 F Blood Pressure: 149/70 Pulse: 69 Respirations: 18 Pulse Ox (%): 96 Assessment & Plan Physician Review Additional Text: Physical Exam General: AAOx3, NAD HEENT: MMM, EOMI Pulm: Clear to auscultation bilaterally, Normal air movement CV: regular rhythm, no murmur, b/l edema GI: soft, nontender, nondistended Msk: R AKA, no joint tenderness Integumentary: No rashes Neurological: Abnormal speech (slurred speech), Abnormal strength (R sided weakness 5-/5 upper extremity) mcguire in place Problem List R arm weakness, facial drooping, dysphasia likely secondary to acute CVA vs TIA T2DM prior hx of [place] CHF, unknown type COPD h/o Right AKA -s/p tPA on 12/15 -CT head negative on admission and repeat -neuro consulted -statin, folic acid, asa -MRI ordered -PT/OT consulted, recommend inpatient rehab -SSI, accuchecks -r arm weakness nearly resolved -dc mcguire Code: full VTE: SCDs Dispo: anticipate inpatient rehab in 24-48hrs Time Spent Managing Pts Care (In Minutes): 35
[2020-12-17] MEDS: D5 0.45 NS 1,000 ML IV SCH (08:44)
[2020-12-17] MEDS: CLOPIDOGREL 75 MG TABLET PO SCH (08:45)
[2020-12-17] MEDS: FOLIC ACID 1 MG TABLET PO SCH (08:45)
[2020-12-17] MEDS: FUROSEMIDE 40 MG TABLET PO SCH (08:45)
[2020-12-17] MEDS: ASPIRIN EC 81 MG TAB PO SCH (08:45)
[2020-12-17] MEDS: METOPROLOL TAR 25 MG TAB PO SCH ×2 (08:46→20:11)
[2020-12-17] MEDS: icosapent ethyL 1 GM CAP PO SCH ×2 (09:00→20:23)
[2020-12-17] MEDS ORDERED: KCL 20 MEQ/100 mL IVPB 20 MEQ/100 ML BAG IV SCH (09:00)
[2020-12-17] MEDS: PREGABALIN 150 MG CAP PO SCH ×2 (10:06→20:12)
[2020-12-17] MEDS: HYDROCODONE/APAP 7.5/325 MG TAB PO PRN ×2 (12:07→20:04)
[2020-12-17 16:12] LABS: Urine Appearance CLEAR (Clear); Urine Bilirubin NEGATIVE (Negative); Urine Blood 3+ (Negative); Urine Color YELLOW (Yellow); Urine Glucose NEGATIVE (Negative); Urine Protein NEGATIVE (Negative); Urine Specific Gravity <=1.005 (1.005-1.030); Urine pH 7.5 (5.0-7.0)
[2020-12-17 16:23] LABS: Urine Bacteria >50 /HPF (<20)
[2020-12-17] MEDS: lisinopriL 5 MG TAB PO SCH (20:10)
[2020-12-17] MEDS: ATORVASTATIN 40 MG TAB PO SCH (20:10)
[2020-12-17] MEDS: DULOXETINE 30 MG CAP PO SCH (20:10)
[2020-12-17] MEDS ORDERED: ZOLPIDEM TARTRATE 5 MG TABLET PO PRN (22:35)
[2020-12-18 04:17] LABS: Absolute Lymphocytes (CBC) 1.3 K/uL (0.7-4.9); Basophils % 0.5 % (0-1.3); Hematocrit 41.6 % (36.0-45.0); Lymphocytes % 12.5 % (15.3-44.8); RBC Red Blood Cell Count 4.59 M/uL (3.86-4.86)
[2020-12-18 04:29] LABS: Albumin 3.4 g/dL (3.4-5.0); Bilirubin Total 0.8 mg/dL (0.2-1.0); Potassium 3.3 mmol/L (3.5-5.1); Protein, Total 7.4 g/dL (6.4-8.2)
[2020-12-18] MEDS: PANTOPRAZOLE 40MG TABLET PO SCH (05:50)
[2020-12-18] MEDS: LEVOTHYROXINE SOD 0.075 MG TAB PO SCH (05:50)
--- NOTE | 2020-12-18 07:03 | P.PN ---
Subjective Date of Service: 12/18/20 Primary Care Provider: Dr. Becerra Chief Complaint: CVA, R sided weakness needing inpatient rehab Subjective: No new changes (failed voiding trial yesterday, >800ml bladder scan, mcguire replaced. feels strength is improving. speech still slurred, no new complaints, denies dysuria / frequency / urgency prior to admission, none now, afebrile) Review of Systems 10-point ROS is otherwise unremarkable Physical Examination - Vital Signs Temperature: 96.9 F Blood Pressure: 116/59 Pulse: 72 Respirations: 18 Pulse Ox (%): 92 Assessment & Plan Physician Review Additional Text: Physical Exam General: AAOx3, NAD HEENT: MMM, EOMI Pulm: Clear to auscultation bilaterally, Normal air movement CV: regular rhythm, no murmur, b/l edema GI: soft, nontender, nondistended Msk: R AKA, no joint tenderness Integumentary: No rashes Neurological: Abnormal speech (slurred speech), Abnormal strength (R sided weakness 5-/5 upper extremity) mcguire in place Problem List R arm weakness, facial drooping, dysphasia likely secondary to acute CVA vs TIA Urinary retention T2DM prior hx of [place] CHF, unknown type COPD h/o Right AKA -s/p tPA on 12/15 -CT head negative on admission as well as repeat 24 hrs later -neuro consulted -statin, folic acid, asa -MRI ordered for today -PT/OT consulted, recommend inpatient rehab -SSI, accuchecks -R arm weakness nearly resolved -mcguire replaced on 12/17 due to urinary retention Code: full VTE: SCDs Dispo: anticipate inpatient rehab in 24-48hrs MRI/MRA today Time Spent Managing Pts Care (In Minutes): 45
[2020-12-18] MEDS: INSULIN -REGULAR HUMAN 50 UNIT/0.5 ML ML SQ SCH ×4 (07:30→21:00)
[2020-12-18] MEDS ORDERED: POTASSIUM 25 MEQ EFFERV TAB PO ONE (08:00)
[2020-12-18] MEDS: FUROSEMIDE 40 MG TABLET PO SCH (08:12)
[2020-12-18] MEDS: PREGABALIN 150 MG CAP PO SCH ×2 (08:12→18:59)
[2020-12-18] MEDS: FOLIC ACID 1 MG TABLET PO SCH (08:13)
[2020-12-18] MEDS: ASPIRIN EC 81 MG TAB PO SCH (08:13)
[2020-12-18] MEDS: CLOPIDOGREL 75 MG TABLET PO SCH (08:14)
[2020-12-18] MEDS: METOPROLOL TAR 25 MG TAB PO SCH ×2 (08:14→21:22)
[2020-12-18] MEDS: icosapent ethyL 1 GM CAP PO SCH ×2 (08:14→21:22)
--- NOTE | 2020-12-18 13:16 | RAD REPORT ---
EXAM DESCRIPTION: MRI - MRA Head Wo Cont - 12/18/2020 1:03 pm CLINICAL HISTORY: CTA COMPARISON: CT head December 16, carotid ultrasound December 16, CT angio head and neck December 15 TECHNIQUE: Axial and coronal 3D [id number] image acquisition was performed. 3D rotational images were generated with source and reconstruction images reviewed. Horizontal and vertical axis rotation al views generated using MIP protocol. FINDINGS: No aneurysm or vascular malformation identified. Vertebrobasilar tortuosity is noted. Left vertebral artery dominant. Significant atherosclerotic changes are present. There is significant lum inal narrowing of the P2 branch of the right posterior cerebral artery. More moderate left posterior cerebral artery atherosclerotic changes are present. Patient has known left internal carotid artery occlusion. There is an overall diminished flow to the left middle cerebral artery when compared to the right. Moderate atherosclerotic changes are present in the M3 branches of the left middle cerebral artery. Right MCA shows only mild atherosclerotic muñoz ge. Mild atherosclerotic changes present of bilateral anterior cerebral arteries. Right internal carotid artery shows no significant luminal narrowing. IMPRESSION: Chronic left internal carotid artery occlusion. Moderate severity atherosclerotic change in the far peripheral branches left middle cerebral artery w ith overall diminished MCA flow when compared with the right. Significant moderate to moderately severe posterior cerebral artery atherosclerotic changes.
--- NOTE | 2020-12-18 13:20 | RAD REPORT ---
EXAM DESCRIPTION: MRI - Brain W/Wo Cont - 12/18/2020 1:03 pm CLINICAL HISTORY: CVA COMPARISON: MRA Head Wo Cont dated 12/18/2020; Head Brain Wo Cont dated 12/16/2020 TECHNIQUE: Sagittal and axial T1-weighted images were obtained. Axial PD/heavily T2-weighted and T2- FLAIR images were obtained along with axial DWI/ADC mapping sequences. Coronal heavily T2 weighted s equence obtained. Axial and coronal post-contrast T1-weighted images were also obtained. A 20 ml Mul tihance contrast following utilized. FINDINGS: No intracranial hemorrhage identified. Diffusion-weighted imaging shows a 3 x 2 area of ab normal signal involving the lateral margin left thalamus and the posterior limb and genu of the inter nal capsule on the left. There is corresponding diminished signal on ADC mapping as well as hyperinte nse T2/IR signal. This is the only subacute area of infarction identified. Patient has moderate sever ity atrophy and chronic ischemic change in the cerebral white matter. There is brainstem chronic isch emic change as well. There is no edema or shift of midline structures. No extra-axial fluid collectio ns. Winters-matter/white matter junction is preserved. Signal voids are seen as a normal finding in the major intracranial vessels. Post-contrast images show normal enhancement. No dural thickening. IMPRESSION: Subacute nonhemorrhagic infarction involving the lateral margin left thalamus and the po sterior limb/genu of the internal capsule on the left. Moderate cerebral atrophy and moderate severity chronic ischemic change in the cerebral white matter along with moderate severity brainstem chronic ischemic change.
[2020-12-18] MEDS: HYDROCODONE/APAP 7.5/325 MG TAB PO PRN (13:46)
[2020-12-18] MEDS ORDERED: PREGABALIN 150 MG CAP PO SCH (21:00)
[2020-12-18] MEDS: lisinopriL 5 MG TAB PO SCH (21:22)
[2020-12-18] MEDS: ATORVASTATIN 40 MG TAB PO SCH (21:22)
[2020-12-18] MEDS: DOCUSATE NA 100 MG CAP PO SCH (21:22)
[2020-12-18] MEDS: DULOXETINE 30 MG CAP PO SCH (21:22)
[2020-12-19] MEDS: PREGABALIN 150 MG CAP PO SCH ×4 (01:05→20:18)
[2020-12-19 04:01] LABS: Absolute Lymphocytes (CBC) 1.3 K/uL (0.7-4.9); Basophils % 0.8 % (0-1.3); Hematocrit 42.2 % (36.0-45.0); Lymphocytes % 13.9 % (15.3-44.8); MPV 9.7 fL (7.6-11.3); RBC Red Blood Cell Count 4.66 M/uL (3.86-4.86)
[2020-12-19 04:09] LABS: Magnesium 2.2 mg/dL (1.8-2.4); Potassium 3.2 mmol/L (3.5-5.1)
[2020-12-19] MEDS ORDERED: POTASSIUM CL SA 10 MEQ TAB PO ONE ×2 (06:00→12:31)
[2020-12-19] MEDS: LEVOTHYROXINE SOD 0.075 MG TAB PO SCH (06:09)
[2020-12-19] MEDS: PANTOPRAZOLE 40MG TABLET PO SCH (06:09)
[2020-12-19] MEDS: INSULIN -REGULAR HUMAN 50 UNIT/0.5 ML ML SQ SCH ×4 (07:30→20:18)
--- NOTE | 2020-12-19 08:29 | ECHO ---
HEIGHT: 5 ft 5 in WEIGHT: 200 lb 0 oz DATE OF STUDY: 12/18/[address]: Essie Esquivel 2-DIMENSIONAL: YES M.MODE: YES DOPPLER: YES COLOR FLOW: YES TDS: YES PORTABLE: NO DEFINITY: NO BUBBLE STUDY: NO DIAGNOSIS: CEREBRAL VASCULAR ACCIDENT CARDIAC HISTORY: CATHERIZATION: NO SURGERY: NO PROSTHETIC VALVE: NO PACEMAKER: NO MEASUREMENTS (cm) DIASTOLIC (NORMALS) SYSTOLIC (NORMALS) IVSd 0.9 (0.6-1.2) LA Diam 2.4 (1.9-4.0) LVEF 65% LVIDd 3.9 (3.5-5.7) LVIDs 2.6 (2.0-3.5) %FS 35% LVPWd 1.0 (0.6-1.2) Ao Diam 2.1 (2.0-3.7) 2 DIMENSIONAL ASSESSMENT: RIGHT ATRIUM: NORMAL LEFT ATRIUM: NORMAL RIGHT VENTRICLE: NORMAL LEFT VENTRICLE: NORMAL TRICUSPID VALVE: NORMAL MITRAL VALVE: MITRAL ANNULAR CALCIFICATION PULMONIC VALVE: NORMAL AORTIC VALVE: SCLEROSIS PERICARDIAL EFFUSION: NONE AORTIC ROOT: NORMAL LEFT VENTRICULAR WALL MOTION: NORMAL DOPPLER/COLOR FLOW: NORMAL COMMENTS: NORMAL LEFT VENTRICULAR SIZE AND FUNCTION. MITRAL ANNULAR CALCIFICATION. AORTIC SCLEROSIS WITH NO STENOSIS. NO THROMBUS OR VEGETATION. TECHNOLOGIST: Alyson MILLER
[2020-12-19] MEDS: DOCUSATE NA 100 MG CAP PO SCH ×2 (08:41→20:17)
[2020-12-19] MEDS: icosapent ethyL 1 GM CAP PO SCH ×2 (08:41→20:16)
[2020-12-19] MEDS: ASPIRIN EC 81 MG TAB PO SCH (08:41)
[2020-12-19] MEDS: FUROSEMIDE 40 MG TABLET PO SCH (08:41)
[2020-12-19] MEDS: FOLIC ACID 1 MG TABLET PO SCH (08:42)
[2020-12-19] MEDS: CLOPIDOGREL 75 MG TABLET PO SCH (08:42)
[2020-12-19] MEDS: METOPROLOL TAR 25 MG TAB PO SCH ×2 (08:43→20:15)
[2020-12-19] MEDS: CEFTRIAXONE/SWI 1gm 1 GM/10 ML SYR IV SCH (13:45)
--- NOTE | 2020-12-19 17:29 | P.PN ---
Subjective Date of Service: 12/19/20 Primary Care Provider: Dr. Becerra Chief Complaint: CVA, R sided weakness needing inpatient rehab No new complaint except family reports poor oral intake. Physical Examination - Vital Signs Temperature: 96.8 F Blood Pressure: 126/66 Pulse: 69 Respirations: 18 Pulse Ox (%): 92 - Physical Exam General: In no apparent distress, Oriented x2 HEENT: Mucous membr. moist/pink Neck: JVD not distended Respiratory: Clear to auscultation bilaterally, Normal air movement Cardiovascular: No edema, Regular rate/rhythm, Normal S1 S2 Gastrointestinal: Normal bowel sounds, Soft and benign, Non-distended, No tenderness Musculoskeletal: No swelling Integumentary: No rashes Neurological: Other (Right-sided weakness improved.) Assessment And Plan Physician Review Additional Text: Physical Exam General: AAOx3, NAD HEENT: MMM, EOMI Pulm: Clear to auscultation bilaterally, Normal air movement CV: regular rhythm, no murmur, b/l edema GI: soft, nontender, nondistended Msk: R AKA, no joint tenderness Integumentary: No rashes Neurological: Abnormal speech (slurred speech), Abnormal strength (R sided weakness 5-/5 upper extremity) mcguire in place Problem List R arm weakness, facial drooping, dysphasia likely secondary to acute CVA vs TIA Urinary retention T2DM prior hx of CT CHF, unknown type COPD h/o Right AKA Carotid artery occlusion -s/p tPA on 12/15 -CT head negative on admission as well as repeat 24 hrs later -neuro input appreciated. -statin, folic acid, asa and plavix. -Carotid artery occludes -MRI of 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 -she is tolerating PT. -on mechanical chopped and ground diet -SSI, accuchecks -R arm weakness nearly resolved -mcguire replaced on 12/17 due to urinary retention. -Patient considered not a good candidate for intra-arterial interventions due to significant distal arterial disease. Code: full VTE: SCDs Dispo: Awaiting insurance authorization for inpatient rehab.
[2020-12-19] MEDS: lisinopriL 5 MG TAB PO SCH (20:14)
[2020-12-19] MEDS: ATORVASTATIN 40 MG TAB PO SCH (20:17)
[2020-12-19] MEDS: DULOXETINE 30 MG CAP PO SCH (20:17)
[2020-12-20 05:14] LABS: Potassium 3.3 mmol/L (3.5-5.1)
[2020-12-20] MEDS: PANTOPRAZOLE 40MG TABLET PO SCH (05:15)
[2020-12-20] MEDS: LEVOTHYROXINE SOD 0.075 MG TAB PO SCH (05:15)
[2020-12-20] MEDS ORDERED: POTASSIUM CL SA 10 MEQ TAB PO ONE ×2 (06:00→16:00)
[2020-12-20] MEDS: INSULIN -REGULAR HUMAN 50 UNIT/0.5 ML ML SQ SCH ×4 (07:30→20:50)
[2020-12-20] MEDS: CEFTRIAXONE/SWI 1gm 1 GM/10 ML SYR IV SCH (08:18)
[2020-12-20] MEDS: ASPIRIN EC 81 MG TAB PO SCH (08:19)
[2020-12-20] MEDS: FUROSEMIDE 40 MG TABLET PO SCH (08:19)
[2020-12-20] MEDS: PREGABALIN 150 MG CAP PO SCH ×3 (08:19→20:26)
[2020-12-20] MEDS: METOPROLOL TAR 25 MG TAB PO SCH (08:19)
[2020-12-20] MEDS: DOCUSATE NA 100 MG CAP PO SCH ×2 (08:20→20:25)
[2020-12-20] MEDS: CLOPIDOGREL 75 MG TABLET PO SCH (08:20)
[2020-12-20] MEDS: FOLIC ACID 1 MG TABLET PO SCH (08:20)
[2020-12-20] MEDS: icosapent ethyL 1 GM CAP PO SCH ×2 (08:20→20:26)
[2020-12-20] MEDS: ATORVASTATIN 40 MG TAB PO SCH (20:26)
[2020-12-20] MEDS: DULOXETINE 30 MG CAP PO SCH (20:26)
[2020-12-21 04:08] LABS: Potassium 3.7 mmol/L (3.5-5.1)
[2020-12-21] MEDS: PANTOPRAZOLE 40MG TABLET PO SCH (05:24)
[2020-12-21] MEDS: LEVOTHYROXINE SOD 0.075 MG TAB PO SCH (05:24)
[2020-12-21] MEDS: INSULIN -REGULAR HUMAN 50 UNIT/0.5 ML ML SQ SCH ×4 (07:30→21:22)
[2020-12-21] MEDS: CEFTRIAXONE/SWI 1gm 1 GM/10 ML SYR IV SCH (08:29)
[2020-12-21] MEDS: FUROSEMIDE 40 MG TABLET PO SCH (08:30)
[2020-12-21] MEDS: PREGABALIN 150 MG CAP PO SCH ×3 (08:31→21:21)
[2020-12-21] MEDS: FOLIC ACID 1 MG TABLET PO SCH (08:31)
[2020-12-21] MEDS: icosapent ethyL 1 GM CAP PO SCH ×2 (08:31→21:21)
[2020-12-21] MEDS: CLOPIDOGREL 75 MG TABLET PO SCH (08:31)
[2020-12-21] MEDS: DOCUSATE NA 100 MG CAP PO SCH ×2 (08:31→21:00)
[2020-12-21] MEDS: ASPIRIN EC 81 MG TAB PO SCH (08:35)
[2020-12-21] MEDS ORDERED: POTASSIUM CL SA 10 MEQ TAB PO ONE (09:00)
--- NOTE | 2020-12-21 17:23 | P.PN ---
Subjective Date of Service: 12/21/20 Primary Care Provider: Dr. Becerra Chief Complaint: CVA, R sided weakness needing inpatient rehab Patient has no new complaint. She has been more sleepy. Physical Examination - Vital Signs Temperature: 97.1 F Blood Pressure: 104/59 Pulse: 70 Respirations: 19 Pulse Ox (%): 93 - Physical Exam General: In no apparent distress, Other (Drowsy) HEENT: Mucous membr. moist/pink Neck: JVD not distended Respiratory: Diminished Cardiovascular: No edema, Regular rate/rhythm, Normal S1 S2 Gastrointestinal: Soft and benign, Non-distended, No tenderness Musculoskeletal: Other (Right AKA) Integumentary: No rashes Neurological: Normal strength at 5/5 x4 extr Assessment And Plan Physician Review Additional Text: Problem List R arm weakness, facial drooping, dysphasia likely secondary to acute CVA vs TIA Urinary retention T2DM prior hx of [place] CHF, unknown type COPD h/o Right AKA Carotid artery occlusion -s/p tPA on 12/15 -CT head negative on admission as well as repeat 24 hrs later -neuro input appreciated. -statin, folic acid, asa and plavix. 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 -she is tolerating PT. -on mechanical chopped and ground diet -SSI, accuchecks -R arm weakness nearly resolved -mcguire replaced on 12/17 due to urinary retention. -Patient considered not a good candidate for intra-arterial interventions due to significant distal arterial disease. Code: full VTE: SCDs Dispo: Awaiting insurance authorization for inpatient rehab.
--- NOTE | 2020-12-21 17:25 | P.PN ---
Subjective Date of Service: 12/20/20 Primary Care Provider: Dr. Becerra Chief Complaint: CVA, R sided weakness needing inpatient rehab Patient has no new complaint. Physical Examination - Vital Signs Temperature: 97.1 F Blood Pressure: 104/59 Pulse: 70 Respirations: 19 Pulse Ox (%): 93 - Physical Exam General: In no apparent distress, Other (Awake) HEENT: Mucous membr. moist/pink Respiratory: Clear to auscultation bilaterally, Normal air movement Cardiovascular: Regular rate/rhythm, Normal S1 S2 Gastrointestinal: Normal bowel sounds, Soft and benign, Non-distended, No tenderness Musculoskeletal: No swelling Integumentary: No rashes Neurological: Normal strength at 5/5 x4 extr Assessment And Plan Physician Review Additional Text: Problem List R arm weakness, facial drooping, dysphasia likely secondary to acute CVA vs TIA Urinary retention T2DM prior hx of [place] CHF, unknown type COPD h/o Right AKA Carotid artery occlusion -s/p tPA on 12/15 -CT head negative on admission as well as repeat 24 hrs later -neuro input appreciated. -statin, folic acid, asa and plavix. 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 -did not participate much in PT today -on mechanical chopped and ground diet -SSI, accuchecks -R arm weakness nearly resolved -mcguire replaced on 12/17 due to urinary retention. -Patient considered not a good candidate for intra-arterial interventions due to significant distal arterial disease. Code: full VTE: SCDs Dispo: Awaiting insurance authorization for inpatient rehab.
[2020-12-21] MEDS: DULOXETINE 30 MG CAP PO SCH (21:20)
[2020-12-21] MEDS: ATORVASTATIN 40 MG TAB PO SCH (21:21)
[2020-12-21] MEDS: HYDROCODONE/APAP 7.5/325 MG TAB PO PRN (21:31)
[2020-12-22 06:23] LABS: Potassium 3.3 mmol/L (3.5-5.1)
[2020-12-22] MEDS: PANTOPRAZOLE 40MG TABLET PO SCH (06:27)
[2020-12-22] MEDS: LEVOTHYROXINE SOD 0.075 MG TAB PO SCH (06:27)
[2020-12-22] MEDS: INSULIN -REGULAR HUMAN 50 UNIT/0.5 ML ML SQ SCH ×4 (07:30→20:37)
[2020-12-22] MEDS: FUROSEMIDE 40 MG TABLET PO SCH (08:54)
[2020-12-22] MEDS: CEFTRIAXONE/SWI 1gm 1 GM/10 ML SYR IV SCH (08:54)
[2020-12-22] MEDS: ASPIRIN EC 81 MG TAB PO SCH (08:54)
[2020-12-22] MEDS: DOCUSATE NA 100 MG CAP PO SCH ×2 (08:54→20:37)
[2020-12-22] MEDS: FOLIC ACID 1 MG TABLET PO SCH (08:54)
[2020-12-22] MEDS: CLOPIDOGREL 75 MG TABLET PO SCH (08:54)
[2020-12-22] MEDS: icosapent ethyL 1 GM CAP PO SCH ×2 (08:55→20:35)
[2020-12-22] MEDS: PREGABALIN 150 MG CAP PO SCH ×3 (08:55→20:35)
[2020-12-22] MEDS ORDERED: POTASSIUM CL SA 10 MEQ TAB PO ONE (09:00)
--- NOTE | 2020-12-22 17:26 | P.PN ---
Subjective Date of Service: 12/22/20 Primary Care Provider: Dr. Becerra Chief Complaint: CVA, R sided weakness needing inpatient rehab Patient has no new complaint. She is eating well and tolerating PT. Physical Examination - Vital Signs Temperature: 96.8 F Blood Pressure: 114/58 Pulse: 65 Respirations: 20 Pulse Ox (%): 98 - Physical Exam General: Alert, In no apparent distress, Oriented x3 HEENT: Mucous membr. moist/pink Neck: JVD not distended Respiratory: Clear to auscultation bilaterally, Normal air movement Cardiovascular: No edema, Regular rate/rhythm, Normal S1 S2 Gastrointestinal: Soft and benign, Non-distended Integumentary: No rashes Neurological: Other (No focal motor deficit) Assessment And Plan Physician Review Additional Text: Problem List R arm weakness, facial drooping, dysphasia likely secondary to acute CVA vs TIA Urinary retention T2DM prior hx of [place] CHF, unknown type COPD h/o Right AKA Carotid artery occlusion -s/p tPA on 12/15 -CT head negative on admission as well as repeat 24 hrs later -seen by neuro -statin, folic acid, asa and plavix. 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 -she is tolerating PT -on mechanical chopped and ground diet -SSI, accuchecks -R arm weakness resolved -mcguire replaced on 12/17 due to urinary retention. -Patient considered not a good candidate for intra-arterial interventions due to significant distal arterial disease. Code: full VTE: SCDs Dispo: Awaiting insurance authorization for inpatient rehab.
[2020-12-22] MEDS: ATORVASTATIN 40 MG TAB PO SCH (20:35)
[2020-12-22] MEDS: DULOXETINE 30 MG CAP PO SCH (20:35)
[2020-12-22] MEDS: HYDROCODONE/APAP 7.5/325 MG TAB PO PRN (20:36)
[2020-12-23 04:45] LABS: Absolute Lymphocytes (CBC) 1.7 K/uL (0.7-4.9); Basophils % 1.3 % (0-1.3); Hematocrit 41.4 % (36.0-45.0); MPV 9.5 fL (7.6-11.3); RBC Red Blood Cell Count 4.55 M/uL (3.86-4.86)
[2020-12-23 05:09] LABS: Potassium 3.5 mmol/L (3.5-5.1)
[2020-12-23] MEDS ORDERED: POTASSIUM CL SA 10 MEQ TAB PO ONE (05:42)
[2020-12-23] MEDS: PANTOPRAZOLE 40MG TABLET PO SCH (06:28)
[2020-12-23] MEDS: LEVOTHYROXINE SOD 0.075 MG TAB PO SCH (06:28)
[2020-12-23] MEDS: INSULIN -REGULAR HUMAN 50 UNIT/0.5 ML ML SQ SCH ×4 (07:30→19:55)
[2020-12-23] MEDS: CEFTRIAXONE/SWI 1gm 1 GM/10 ML SYR IV SCH (08:30)
[2020-12-23] MEDS: ASPIRIN EC 81 MG TAB PO SCH (08:30)
[2020-12-23] MEDS: DOCUSATE NA 100 MG CAP PO SCH ×2 (08:30→19:39)
[2020-12-23] MEDS: FUROSEMIDE 40 MG TABLET PO SCH (08:30)
[2020-12-23] MEDS: PREGABALIN 150 MG CAP PO SCH ×3 (08:30→19:48)
[2020-12-23] MEDS: icosapent ethyL 1 GM CAP PO SCH ×2 (08:31→19:41)
[2020-12-23] MEDS: CLOPIDOGREL 75 MG TABLET PO SCH (08:31)
[2020-12-23] MEDS: FOLIC ACID 1 MG TABLET PO SCH (08:31)
--- NOTE | 2020-12-23 13:33 | P.PN ---
Subjective Date of Service: 12/23/20 Primary Care Provider: Dr. Becerra Chief Complaint: CVA, R sided weakness needing inpatient rehab Patient has no new complaint. She is eating well and tolerating PT. Physical Examination - Vital Signs Temperature: 96.5 F Blood Pressure: 125/72 Pulse: 62 Respirations: 18 Pulse Ox (%): 95 - Physical Exam General: Obese HEENT: Mucous membr. moist/pink Neck: JVD not distended Respiratory: Clear to auscultation bilaterally, Normal air movement Cardiovascular: No edema, Regular rate/rhythm, Normal S1 S2 Gastrointestinal: Normal bowel sounds, Soft and benign, Non-distended, No tenderness Musculoskeletal: No swelling, Other (Right AKA) Integumentary: No rashes Neurological: Normal strength at 5/5 x4 extr, Cranial nerves 3-12 intact Assessment And Plan Physician Review Additional Text: Problem List R arm weakness, facial drooping, dysphasia likely secondary to acute CVA vs TIA Urinary retention T2DM prior hx of [place] CHF, unknown type COPD h/o Right AKA Carotid artery occlusion -s/p tPA on 12/15 -CT head negative on admission as well as repeat 24 hrs later -seen by neuro -statin, folic acid, asa and plavix. -Carotid artery occlusion. Patient considered not a good candidate for intra- arterial interventions due to significant distal arterial disease. 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 -she is tolerating PT -on mechanical chopped and ground diet -SSI, accuchecks -R arm weakness resolved -mcguire replaced on 12/17 due to urinary retention. -encouraged oral intake. Code: full VTE: SCDs Dispo: Awaiting insurance authorization for inpatient rehab.
[2020-12-23] MEDS: ATORVASTATIN 40 MG TAB PO SCH (19:39)
[2020-12-23] MEDS: DULOXETINE 30 MG CAP PO SCH (19:48)
[2020-12-24] MEDS: PANTOPRAZOLE 40MG TABLET PO SCH (05:34)
[2020-12-24] MEDS: LEVOTHYROXINE SOD 0.075 MG TAB PO SCH (05:34)
[2020-12-24] MEDS: INSULIN -REGULAR HUMAN 50 UNIT/0.5 ML ML SQ SCH ×4 (07:30→21:35)
[2020-12-24] MEDS: CEFTRIAXONE/SWI 1gm 1 GM/10 ML SYR IV SCH (08:15)
[2020-12-24] MEDS: FOLIC ACID 1 MG TABLET PO SCH (08:15)
[2020-12-24] MEDS: FUROSEMIDE 40 MG TABLET PO SCH (08:16)
[2020-12-24] MEDS: PREGABALIN 150 MG CAP PO SCH ×3 (08:16→21:36)
[2020-12-24] MEDS: ASPIRIN EC 81 MG TAB PO SCH (08:16)
[2020-12-24] MEDS: CLOPIDOGREL 75 MG TABLET PO SCH (08:16)
[2020-12-24] MEDS: icosapent ethyL 1 GM CAP PO SCH ×2 (08:16→21:36)
[2020-12-24] MEDS: DOCUSATE NA 100 MG CAP PO SCH ×2 (08:16→21:00)
--- NOTE | 2020-12-24 15:03 | P.PN ---
Subjective Date of Service: 12/24/20 Primary Care Provider: Dr. Becerra Chief Complaint: CVA, R sided weakness needing inpatient rehab Patient has no new complaint. She is eating well and tolerating PT. No issues overnight. Physical Examination - Vital Signs Temperature: 97.0 F Blood Pressure: 111/70 Pulse: 74 Respirations: 16 Pulse Ox (%): 97 - Physical Exam General: Alert, In no apparent distress, Oriented x3 HEENT: Mucous membr. moist/pink Neck: JVD not distended Respiratory: Clear to auscultation bilaterally, Normal air movement Cardiovascular: Regular rate/rhythm, Normal S1 S2 Gastrointestinal: Normal bowel sounds, Soft and benign, Non-distended, No tenderness Musculoskeletal: No swelling Integumentary: No rashes Neurological: Other (No focal motor deficit) Assessment And Plan Physician Review Additional Text: Problem List R arm weakness, facial drooping, dysphasia likely secondary to acute CVA vs TIA Urinary retention T2DM prior hx of [place] CHF, unknown type COPD h/o Right AKA Carotid artery occlusion -s/p tPA on 12/15 -CT head negative on admission as well as repeat 24 hrs later -seen by neuro -statin, folic acid, asa and plavix. -Carotid artery occlusion. Patient considered not a good candidate for intra- arterial interventions due to significant distal arterial disease. 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 -she is tolerating PT -on mechanical chopped and ground diet -SSI, accuchecks -R arm weakness resolved -mcguire replaced on 12/17 due to urinary retention. -encouraged oral intake. -voiding trial. Code: full VTE: SCDs Dispo: Awaiting insurance authorization for inpatient rehab.
[2020-12-24] MEDS: HYDROCODONE/APAP 7.5/325 MG TAB PO PRN (21:34)
[2020-12-24] MEDS: ATORVASTATIN 40 MG TAB PO SCH (21:36)
[2020-12-24] MEDS: DULOXETINE 30 MG CAP PO SCH (21:36)
[2020-12-25 04:17] LABS: Potassium 3.3 mmol/L (3.5-5.1)
[2020-12-25] MEDS ORDERED: POTASSIUM CL SA 10 MEQ TAB PO ONE ×2 (05:33→13:15)
[2020-12-25] MEDS: LEVOTHYROXINE SOD 0.075 MG TAB PO SCH (05:46)
[2020-12-25] MEDS: PANTOPRAZOLE 40MG TABLET PO SCH (05:46)
[2020-12-25] MEDS: INSULIN -REGULAR HUMAN 50 UNIT/0.5 ML ML SQ SCH ×4 (07:30→21:03)
[2020-12-25] MEDS: icosapent ethyL 1 GM CAP PO SCH ×2 (08:42→21:05)
[2020-12-25] MEDS: PREGABALIN 150 MG CAP PO SCH ×3 (08:42→21:04)
[2020-12-25] MEDS: ASPIRIN EC 81 MG TAB PO SCH (08:42)
[2020-12-25] MEDS: FOLIC ACID 1 MG TABLET PO SCH (08:42)
[2020-12-25] MEDS: CEFTRIAXONE/SWI 1gm 1 GM/10 ML SYR IV SCH (08:42)
[2020-12-25] MEDS: FUROSEMIDE 40 MG TABLET PO SCH (08:43)
[2020-12-25] MEDS: CLOPIDOGREL 75 MG TABLET PO SCH (08:43)
[2020-12-25] MEDS: DOCUSATE NA 100 MG CAP PO SCH ×2 (08:48→21:00)
[2020-12-25] MEDS: HYDROCODONE/APAP 7.5/325 MG TAB PO PRN (16:27)
--- NOTE | 2020-12-25 16:44 | P.PN ---
Subjective Date of Service: 12/25/20 Primary Care Provider: Dr. Becerra Chief Complaint: CVA, R sided weakness needing inpatient rehab Patient was complaining of suprapubic pain today. Bladder scan showed 800 mL of retained urine. Mcguire catheter was discontinued yesterday for voiding trial. . Physical Examination - Vital Signs Temperature: 96.8 F Blood Pressure: 141/92 Pulse: 87 Respirations: 20 Pulse Ox (%): 97 - Physical Exam General: Alert, In no apparent distress, Obese Neck: JVD not distended Respiratory: Clear to auscultation bilaterally, Normal air movement Cardiovascular: No edema Gastrointestinal: Soft and benign, Non-distended, No tenderness Musculoskeletal: No swelling Integumentary: No rashes Neurological: Normal strength at 5/5 x4 extr Assessment And Plan Physician Review Additional Text: Problem List R arm weakness, facial drooping, dysphasia likely secondary to acute CVA vs TIA Urinary retention T2DM prior hx of [place] CHF, unknown type COPD h/o Right AKA Carotid artery occlusion -s/p tPA on 12/15 -CT head negative on admission as well as repeat 24 hrs later -seen by neuro -statin, folic acid, asa and plavix. -Carotid artery occlusion. Patient considered not a good candidate for intra- arterial interventions due to significant distal arterial disease. 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 -she is tolerating PT -on mechanical chopped and ground diet -SSI, accuchecks -R arm weakness resolved -mcguire replaced on 12/17 due to urinary retention. Patient failed voiding trial on 12/24. -Mcguire catheter reinserted. May need to retain Mcguire and discharged her with it. -start Flomax. -encouraged oral intake. Code: full VTE: SCDs Dispo: Awaiting insurance authorization for inpatient rehab.
[2020-12-25 18:07] LABS: Urine Appearance CLEAR (Clear); Urine Bilirubin NEGATIVE (Negative); Urine Blood NEGATIVE (Negative); Urine Color YELLOW (Yellow); Urine Glucose NEGATIVE (Negative); Urine Protein NEGATIVE (Negative); Urine Urobilinogen 0.2 mg/dL (0.2-1.0)
[2020-12-25 18:16] LABS: Urine Microscopic Reflex ORDER UMIC
[2020-12-25 18:50] LABS: Urine Bacteria <20 /HPF (<20); Urine RBC NONE SEEN /HPF (NONE SEEN)
[2020-12-25] MEDS ORDERED: POTASSIUM 25 MEQ EFFERV TAB PO ONE (21:00)
[2020-12-25] MEDS: ATORVASTATIN 40 MG TAB PO SCH (21:04)
[2020-12-25] MEDS: DULOXETINE 30 MG CAP PO SCH (21:05)
[2020-12-25] MEDS: TAMSULOSIN 0.4 MG SR CAP PO SCH (21:06)
[2020-12-26 06:06] LABS: Absolute Lymphocytes (CBC) 1.8 K/uL (0.7-4.9); Basophils % 1.4 % (0-1.3); Hematocrit 40.9 % (36.0-45.0); Lymphocytes % 26.7 % (15.3-44.8); MPV 9.3 fL (7.6-11.3); RBC Red Blood Cell Count 4.55 M/uL (3.86-4.86)
[2020-12-26 06:11] LABS: Magnesium 2.1 mg/dL (1.8-2.4); Potassium 3.4 mmol/L (3.5-5.1)
[2020-12-26] MEDS: PANTOPRAZOLE 40MG TABLET PO SCH (06:12)
[2020-12-26] MEDS: LEVOTHYROXINE SOD 0.075 MG TAB PO SCH (06:12)
[2020-12-26] MEDS: INSULIN -REGULAR HUMAN 50 UNIT/0.5 ML ML SQ SCH ×4 (07:30→20:20)
[2020-12-26] MEDS: CLOPIDOGREL 75 MG TABLET PO SCH (08:09)
[2020-12-26] MEDS: icosapent ethyL 1 GM CAP PO SCH ×2 (08:09→20:19)
[2020-12-26] MEDS: ASPIRIN EC 81 MG TAB PO SCH (08:09)
[2020-12-26] MEDS: PREGABALIN 150 MG CAP PO SCH ×3 (08:10→20:19)
[2020-12-26] MEDS: DOCUSATE NA 100 MG CAP PO SCH ×2 (08:10→20:18)
[2020-12-26] MEDS: FOLIC ACID 1 MG TABLET PO SCH (08:10)
[2020-12-26] MEDS: FUROSEMIDE 40 MG TABLET PO SCH (08:10)
[2020-12-26] MEDS ORDERED: POTASSIUM 25 MEQ EFFERV TAB PO ONE ×2 (09:00→17:00)
--- NOTE | 2020-12-26 13:37 | P.PN ---
Subjective Date of Service: 12/26/20 Primary Care Provider: Dr. Becerra Chief Complaint: CVA, R sided weakness needing inpatient rehab Subjective: Other (patient more sleepy / lethargic today. Son reports change in the last 24-48hrs. [place] pt was "manic" yesterday, with some confusion, and today is difficult to arouse at times. patient denies any new pain, awakened to my voice this morning) Review of Systems 10-point ROS is otherwise unremarkable Physical Examination - Vital Signs Temperature: 96.5 F Blood Pressure: 103/59 Pulse: 100 Respirations: 18 Pulse Ox (%): 92 Assessment & Plan Physician Review Additional Text: Physical Exam General: Alert, NAD, tired appearing Respiratory: Clear to auscultation bilaterally, Normal air movement Cardiovascular: regular rate/rhythm, trace edema Gastrointestinal: Soft, Non-distended, No tenderness Integumentary: No rashes MSK: s/p R AKA Neurological: alert, slurred speech, str 5/5 on LUE/XOCHILT, 5-/5 on RUE/RLE Problem List R arm weakness, facial drooping, dysphasia secondary to acute CVA Urinary retention T2DM prior hx of [place] CHF, unknown type COPD h/o Right AKA Carotid artery occlusion -s/p tPA on 12/15 -CT head negative on admission as well as repeat 24 hrs later -MRI of 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 -R arm weakness resolved -seen by neuro -statin, folic acid, asa and plavix. -Carotid artery occlusion. Patient considered not a good candidate for intra- arterial interventions due to significant distal arterial disease. -on mechanical chopped and ground diet -SSI, accuchecks -unclear why patient is more sleepy/lethargic today, son states patient gets this way before infection - remains afebrile, no leukocytosis, UA ok -possible infection, will repeat labs, cultures, CRP, CXR -son reports patient did choke while eating food but was able to spit it out on 12/23 or 12/24 -failed voiding trial x2, mcguire replaced 12/17 and 12/24, will continue mcguire; started flomax -pt worked well with PT previously, up until yesterday Code: full VTE: SCDs Dispo: Awaiting insurance authorization for inpatient rehab. further eval for lethargy/AMS Time Spent Managing Pts Care (In Minutes): 45
[2020-12-26 15:10] LABS: Absolute Lymphocytes (CBC) 1.6 K/uL (0.7-4.9); Basophils % 0.8 % (0-1.3); Hematocrit 42.2 % (36.0-45.0); Lymphocytes % 23.8 % (15.3-44.8); MPV 9.4 fL (7.6-11.3); RBC Red Blood Cell Count 4.72 M/uL (3.86-4.86)
[2020-12-26 15:51] LABS: Albumin 3.2 g/dL (3.4-5.0); Bilirubin Total 0.3 mg/dL (0.2-1.0); C-Reactive Protein 5.28 mg/L (<3.00); Potassium 3.9 mmol/L (3.5-5.1); Protein, Total 7.6 g/dL (6.4-8.2)
--- NOTE | 2020-12-26 16:28 | RAD REPORT ---
EXAM DESCRIPTION: RAD - Chest Single View - 12/26/2020 3:56 pm CLINICAL HISTORY: eval for aspiration, shortness of breath COMPARISON: December 15 TECHNIQUE: AP portable chest image was obtained 12/26/2020 3:56 pm . FINDINGS: No peripheral mass or consolidation. Interstitial pattern is prominent appearing delete se lect improved from the comparison. No focal finding to confirm aspiration pneumonia. Heart and vasculature are normal. No measurable pleural effusion and no pneumothorax. No acute bony abnormality seen. No acute aortic findings suspected. IMPRESSION: Prominent interstitial pattern showing some improvement from January 14 imaging. No focal finding seen that would raise likelihood of aspiration pneumonia.
[2020-12-26] MEDS: TAMSULOSIN 0.4 MG SR CAP PO SCH (20:19)
[2020-12-26] MEDS: ATORVASTATIN 40 MG TAB PO SCH (20:19)
[2020-12-26] MEDS: DULOXETINE 30 MG CAP PO SCH (20:19)
[2020-12-26] MEDS: HYDROCODONE/APAP 7.5/325 MG TAB PO PRN (20:41)
[2020-12-27 03:58] LABS: Absolute Lymphocytes (CBC) 1.9 K/uL (0.7-4.9); Basophils % 1.2 % (0-1.3); Hematocrit 40.1 % (36.0-45.0); Lymphocytes % 29.4 % (15.3-44.8); MPV 9.3 fL (7.6-11.3); RBC Red Blood Cell Count 4.48 M/uL (3.86-4.86)
[2020-12-27 05:20] LABS: Albumin 3.2 g/dL (3.4-5.0); Bilirubin Total 0.4 mg/dL (0.2-1.0); C-Reactive Protein 4.21 mg/L (<3.00); Magnesium 2.1 mg/dL (1.8-2.4); Potassium 3.6 mmol/L (3.5-5.1); Protein, Total 7.2 g/dL (6.4-8.2)
[2020-12-27] MEDS: LEVOTHYROXINE SOD 0.075 MG TAB PO SCH (06:07)
[2020-12-27] MEDS: PANTOPRAZOLE 40MG TABLET PO SCH (06:07)
--- NOTE | 2020-12-27 07:05 | P.PN ---
Subjective Date of Service: 12/27/20 Primary Care Provider: Dr. Becerra Chief Complaint: CVA, R sided weakness needing inpatient rehab Subjective: Improving (more awake / alert this morning. nursing reports was more alert/awake last night. daughter stated she gets lethargic and confused when withdrawing from pain medication. Pt without complaints this morning) Review of Systems 10-point ROS is otherwise unremarkable Physical Examination - Vital Signs Temperature: 97.4 F Blood Pressure: 101/53 Pulse: 82 Respirations: 18 Pulse Ox (%): 94 Assessment & Plan Physician Review Additional Text: Physical Exam General: Alert, NAD, slurred speech Respiratory: Clear to auscultation bilaterally, Normal air movement Cardiovascular: regular rate/rhythm, trace edema Gastrointestinal: Soft, Non-distended, No tenderness MSK: s/p R AKA Neurological: alert, slurred speech, word finding difficulty, str 5/5 on LUE/XOCHILT, 5-/5 on RUE/RLE Problem List R arm weakness, facial drooping, dysphasia secondary to acute CVA Urinary retention T2DM prior hx of [place] CHF, unknown type COPD h/o Right AKA Carotid artery occlusion -s/p tPA on 12/15 -CT head negative, MRI Brain: acute CVA L thalamus and internal capsule -R arm weakness resolved, seen by neuro, statin, folic acid, asa and plavix. -Carotid artery occlusion. Patient considered not a good candidate for intra- arterial interventions due to significant distal arterial disease. -on mechanical chopped and ground diet -SSI, accuchecks -failed voiding trial x2, mcguire replaced 12/17 and 12/24, will continue mcguire; started flomax -pt more alert/awake today, no evidence of infection on workup, continue to monitor Code: full VTE: SCDs Dispo: inpatient rehab auth obtained, however patient not tolerating much PT, ~30min with PT today Time Spent Managing Pts Care (In Minutes): 35
[2020-12-27] MEDS: INSULIN -REGULAR HUMAN 50 UNIT/0.5 ML ML SQ SCH ×4 (07:30→20:44)
[2020-12-27] MEDS: PREGABALIN 150 MG CAP PO SCH ×3 (08:58→20:43)
[2020-12-27] MEDS: FUROSEMIDE 40 MG TABLET PO SCH (08:59)
[2020-12-27] MEDS: CLOPIDOGREL 75 MG TABLET PO SCH (08:59)
[2020-12-27] MEDS: ASPIRIN EC 81 MG TAB PO SCH (08:59)
[2020-12-27] MEDS: FOLIC ACID 1 MG TABLET PO SCH (09:00)
[2020-12-27] MEDS ORDERED: POTASSIUM CL SA 10 MEQ TAB PO ONE (09:00)
[2020-12-27] MEDS: icosapent ethyL 1 GM CAP PO SCH ×2 (09:00→22:53)
[2020-12-27] MEDS: DOCUSATE NA 100 MG CAP PO SCH ×2 (09:01→20:42)
[2020-12-27] MEDS: HYDROCODONE/APAP 7.5/325 MG TAB PO PRN ×2 (09:03→16:23)
[2020-12-27] MEDS: TAMSULOSIN 0.4 MG SR CAP PO SCH (20:41)
[2020-12-27] MEDS: DULOXETINE 30 MG CAP PO SCH (20:42)
[2020-12-27] MEDS: ATORVASTATIN 40 MG TAB PO SCH (20:42)
[2020-12-27 21:19] VITALS: BMI 33.3
[2020-12-28] MEDS: HYDROCODONE/APAP 7.5/325 MG TAB PO PRN (00:46)
[2020-12-28 04:35] LABS: Potassium 3.4 mmol/L (3.5-5.1)
[2020-12-28] MEDS ORDERED: POTASSIUM CL SA 10 MEQ TAB PO ONE ×2 (04:36→14:00)
[2020-12-28] MEDS: LEVOTHYROXINE SOD 0.075 MG TAB PO SCH (05:13)
[2020-12-28] MEDS: PANTOPRAZOLE 40MG TABLET PO SCH (05:13)
[2020-12-28] MEDS: CLOPIDOGREL 75 MG TABLET PO SCH (09:16)
[2020-12-28] MEDS: FUROSEMIDE 40 MG TABLET PO SCH (09:16)
[2020-12-28] MEDS: ASPIRIN EC 81 MG TAB PO SCH (09:17)
[2020-12-28] MEDS: INSULIN -REGULAR HUMAN 50 UNIT/0.5 ML ML SQ SCH ×4 (09:17→23:25)
[2020-12-28] MEDS: DOCUSATE NA 100 MG CAP PO SCH ×2 (09:17→23:24)
[2020-12-28] MEDS: FOLIC ACID 1 MG TABLET PO SCH (09:17)
[2020-12-28] MEDS: PREGABALIN 150 MG CAP PO SCH ×3 (09:17→23:23)
[2020-12-28] MEDS: icosapent ethyL 1 GM CAP PO SCH ×2 (09:17→23:24)
--- NOTE | 2020-12-28 10:47 | P.PN ---
Subjective Date of Service: 12/28/20 Primary Care Provider: Dr. Becerra Chief Complaint: CVA, R sided weakness needing inpatient rehab Subjective: Other (fatigue/slight difficulty to arouse this morning, no complaints, follows commands, worked with OT previously, received lyrica ~45 min prior to my exam) Review of Systems 10-point ROS is otherwise unremarkable Physical Examination - Vital Signs Temperature: 97.3 F Blood Pressure: 104/65 Pulse: 67 Respirations: 16 Pulse Ox (%): 100 Assessment & Plan Physician Review Additional Text: Physical Exam General: NAD, slurred speech, fatigued, arousable but for brief times, follows commands, moves extremities Respiratory: Clear to auscultation bilaterally, Normal air movement Cardiovascular: regular rate/rhythm, trace edema in b/l feet Gastrointestinal: Soft, Non-distended, No tenderness MSK: s/p R AKA Neurological: slurred speech, word finding difficulty, str 5/5 on LUE/XOCHILT, 5-/5 on RUE/RLE Problem List R arm weakness, facial drooping, dysphasia secondary to acute CVA Urinary retention T2DM prior hx of [place] CHF, unknown type COPD h/o Right AKA Carotid artery occlusion -s/p tPA on 12/15 -CT head negative, MRI Brain: acute CVA L thalamus and internal capsule -R arm weakness resolved, seen by neuro, statin, folic acid, asa and plavix. -Carotid artery occlusion. Patient considered not a good candidate for intra- arterial interventions due to significant distal arterial disease. -on mechanical chopped and ground diet -SSI, accuchecks -failed voiding trial x2, mcguire replaced 12/17 and 12/24, will continue mcguire; started flomax -again with some lethargy, difficult to arouse -possible from hypotension vs medication (lyrica/norco). do not suspect infection -will give small amount of albumin, hold lasix -will obtain ABG, pt with new O2 requirement, h/o COPD, r/o hyperapnea, HCO3 on BMP not significantly igh Code: full VTE: SCDs Dispo: anticipate dc in 24-48hrs, auth attempting to switch to [facility] Time Spent Managing Pts Care (In Minutes): 40
[2020-12-28] MEDS ORDERED: ALBUMIN HUM 5% 500 ML IV ONE (11:00)
[2020-12-28 11:36] LABS: Arterial Blood Carboxyhemoglob 0.8 % (0-1.5); Blood Gas Oxyhemoglobin 88.3 % (94-97); Blood O2 Saturation 89.9 % (92-98.5)
--- NOTE | 2020-12-28 12:46 | RAD REPORT ---
EXAM DESCRIPTION: MRI - Brain Wo Cont - 12/28/2020 12:36 pm CLINICAL HISTORY: more lethargic, eval expanding stroke, new stroke? COMPARISON: Brain W/Wo Cont dated 12/18/2020 TECHNIQUE: Sagittal T1-weighted images were obtained along with axial PD, heavily T2-weighted and T2 -FLAIR images. Axial DWI and ADC mapping sequences were also obtained along with coronal heavily T2-w eighted images. FINDINGS: No intracranial hemorrhage, mass or new acute infarction. Previously detailed left thalamu s and internal capsule CVA has shown the expected aging pattern since the December 18 study. The amount o f T2/IR edema and signal abnormality has diminished. The patient has underlying atrophy and chronic i schemic change are stable. Ventricles are stable in size. There is no edema or shift of midline struc tures. No extra-axial fluid collections. Winters-matter/white matter junction is preserved. Signal voids are seen as a normal finding in the major intracranial vessels. No globe or orbital content abnormality. Right-side paranasal sinus opacification is present. IMPRESSION: No intracranial hemorrhage and no new infarction changes identified. The left thalamus and internal capsule CVA seen on the December 18 study has shown decreasing edema.
[2020-12-28] MEDS ORDERED: HYDROCODONE/APAP 5/325 MG TAB PO PRN (16:59)
[2020-12-28] MEDS: PREGABALIN 75 MG CAP PO SCH (23:23)
[2020-12-28] MEDS: ATORVASTATIN 40 MG TAB PO SCH (23:23)
[2020-12-28] MEDS: TAMSULOSIN 0.4 MG SR CAP PO SCH (23:24)
[2020-12-28] MEDS: DULOXETINE 30 MG CAP PO SCH (23:25)
[2020-12-29 05:38] LABS: Absolute Lymphocytes (CBC) 1.4 K/uL (0.7-4.9); Basophils % 0.6 % (0-1.3); Hematocrit 41.8 % (36.0-45.0); Lymphocytes % 15.5 % (15.3-44.8); MPV 9.3 fL (7.6-11.3); RBC Red Blood Cell Count 4.61 M/uL (3.86-4.86)
[2020-12-29 05:53] LABS: ALT/SGPT 25 U/L (12-78); AST/SGOT 15 U/L (15-37); Albumin 3.4 g/dL (3.4-5.0); Alkaline Phosphatase 71 U/L (45-117); BUN Blood Urea Nitrogen 19 mg/dL (7-18); Bicarbonate 33 mmol/L (21-32); Bilirubin Direct < 0.1 mg/dL (0-0.2); Bilirubin Total 0.4 mg/dL (0.2-1.0); C-Reactive Protein 6.25 mg/L (<3.00); Glucose Level 197 mg/dL (74-106); Magnesium 2.2 mg/dL (1.8-2.4); Potassium 3.3 mmol/L (3.5-5.1); Protein, Total 7.5 g/dL (6.4-8.2); Sodium Level 141 mmol/L (136-145)
[2020-12-29] MEDS ORDERED: POTASSIUM CL SA 10 MEQ TAB PO ONE (06:00)
[2020-12-29] MEDS: LEVOTHYROXINE SOD 0.075 MG TAB PO SCH (06:20)
[2020-12-29] MEDS: PANTOPRAZOLE 40MG TABLET PO SCH (06:20)
[2020-12-29] MEDS: INSULIN -REGULAR HUMAN 50 UNIT/0.5 ML ML SQ SCH ×4 (07:30→20:32)
--- NOTE | 2020-12-29 08:33 | RAD REPORT ---
EXAM DESCRIPTION: CT - Chest Angio - 12/29/2020 8:09 am CLINICAL HISTORY: hypoxia, r/o PE, h/o COPD, eval fluid COMPARISON: No comparisons FINDINGS: Chest Wall: No suspicious thyroid nodules or pathologic lymphadenopathy. Lungs: No evidence of either edema or pneumonia. The lung volumes are low with mild atelectasis. Pleura: No significant effusions or pneumothorax. Mediastinum/laura: No pathologic lymphadenopathy. Heart: No significant pericardial effusion. Mild cardiomegaly. Multi-vessel coronary artery disease. Aortic valve calcifications. Bones: Degenerative changes are present in the spine. No acute fractures. Upper abdomen: Cholecystectomy. No acute abnormality identified. IMPRESSION: Negative for pulmonary embolism. Low lung volumes but otherwise no acute process identif ied. A few incidental findings as noted above.
[2020-12-29] MEDS: FOLIC ACID 1 MG TABLET PO SCH (09:34)
[2020-12-29] MEDS: ASPIRIN EC 81 MG TAB PO SCH (09:35)
[2020-12-29] MEDS: CLOPIDOGREL 75 MG TABLET PO SCH (09:35)
[2020-12-29] MEDS: PREGABALIN 50 MG CAP PO SCH ×2 (09:35→14:48)
[2020-12-29] MEDS: icosapent ethyL 1 GM CAP PO SCH ×2 (09:36→20:32)
[2020-12-29] MEDS: DOCUSATE NA 100 MG CAP PO SCH ×2 (09:36→20:32)
[2020-12-29] MEDS: ALBUTEROL 2.5 MG/3 ML NEB SOL NEB SCH ×2 (14:03→20:40)
--- NOTE | 2020-12-29 14:56 | P.DS ---
Admission Date: 12/15/20 Discharge Date: 12/29/20 Primary Care Provider: Dr. Becerra Disposition: TRANSFER TO INPATIENT REHAB Discharge Condition: GOOD Reason for Admission: CVA, R sided weakness needing inpatient rehab Consultations: Neurology - Dr. Dunn Procedures: CXR (12/15): Moderate bilateral pulmonary opacities are present which may represent pulmonary edema or bronchitis/infection. Heart is mildly enlarged. No displaced fractures. CT Head (12/15): FINDINGS: No evidence of aneurysm is detected. The left intracranial carotid ar lisa appears chronically occluded. Flow to the left A1 and M1 segments is via pokagon of Saez collateralization. Antegrade flow is seen in the vertebral arteries. Left vertebral artery is dominant. The visualized dural venous sinuses are patent. 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 CTA Neck (12/15): FINDINGS: A left aortic arch is identified with normal three vessel configuration of the great vessels. No significant flow abnormality is seen of the common carotid bilaterally. The left internal carotid artery appears occluded. The right internal carotid artery demonstrates a stenosis at level of the right carotid bulb caused by atherosclerotic plaquing. Stenosis is estimated at 70-80% based on NASCET criteria. Normal flow is seen within both vertebral arteries. The left vertebral artery appears mildly dominant. IMPRESSION: Occluded left internal carotid artery is noted. Moderate to significant stenosis right carotid bulb estimated at 80% based on NASCET criteria. Carotid U/S (12/16): FINDINGS: Normal high resistance waveforms are noted in both external carotid arteries. The common carotid arteries and right internal carotid artery show normal low resistance waveforms. Calcified and noncalcified plaquing changes are present in the right bulb and proximal right internal carotid artery. Exam overall is limited due to inherent body habitus affects and patient's inability to fully cooperate with the examination. No blood flow seen in the left internal carotid artery. This is a known finding in this patient. Right common carotid artery is elevated relative to the left. There is elevation of the proximal right internal carotid artery velocity to 149 cm per second. ICA/CCA ratio on the right is within normal range at 1.20 in value. Neither vertebral artery to be adequately visualized. Velocity values and ratios were recorded and are retained in the patient's imaging records. IMPRESSION: Prominent calcified plaquing changes in the right carotid bulb and tortuous proximal right internal carotid artery. This does not yet cause a hemodynamically significant degree of stenosis. Chronic occlusion of the left internal carotid artery. Nonvisualization of the vertebral arteries. CT Head (12/16): FINDINGS: No intracranial hemorrhage, mass, edema or shift of mid-line structures. No acute infarction changes seen. No cortical edema or sulcal effacement. Moderate atrophy and moderate chronic ischemic changes are present ventricles in proportion. Intracranial findings are similar to the examination 1 day earlier. No new or progressive acute CVA changes are evident. Dense arterial tree calcifications again noted. Mastoid air cells and visualized portions of the paranasal sinuses are clear. No acute bony findings. IMPRESSION: No hemorrhage, mass or new intracranial finding since prior imaging. No focal CVA changes are evident. Atrophy and chronic ischemic change matches comparison. MRI Brain (12/18): FINDINGS: No intracranial hemorrhage identified. Diffusion-weighted imaging shows a 3 x 2 area of abnormal signal involving the lateral margin left thalamus and the posterior limb and genu of the internal capsule on the left. There is corresponding diminished signal on ADC mapping as well as hyperintense T2/IR signal. This is the only subacute area of infarction identified. Patient has moderate severity atrophy and chronic ischemic change in the cerebral white matter. There is brainstem chronic ischemic change as well. There is no edema or shift of midline structures. No extra-axial fluid collections. Winters-matter/white matter junction is preserved. Signal voids are seen as a normal finding in the major intracranial vessels. Post-contrast images show normal enhancement. No dural thickening. IMPRESSION: Subacute nonhemorrhagic infarction involving the lateral margin left thalamus and the posterior limb/genu of the internal capsule on the left. Moderate cerebral atrophy and moderate severity chronic ischemic change in the cerebral white matter along with moderate severity brainstem chronic ischemic change. MRA Brain (12/18): FINDINGS: No aneurysm or vascular malformation identified. Vertebrobasilar tortuosity is noted. Left vertebral artery dominant. Significant atherosclerotic changes are present. There is significant luminal narrowing of the P2 branch of the right posterior cerebral artery. More moderate left posterior cerebral artery atherosclerotic changes are present. Patient has known left internal carotid artery occlusion. There is an overall diminished flow to the left middle cerebral artery when compared to the right. Moderate atherosclerotic changes are present in the M3 branches of the left middle cerebral artery. Right MCA shows only mild atherosclerotic change. Mild atherosclerotic changes present of bilateral anterior cerebral arteries. Right internal carotid artery shows no significant luminal narrowing. IMPRESSION: Chronic left internal carotid artery occlusion. Moderate severity atherosclerotic change in the far peripheral branches left middle cerebral artery with overall diminished MCA flow when compared with the right. Significant moderate to moderately severe posterior cerebral artery atherosclerotic changes. CXR (12/26): FINDINGS: No peripheral mass or consolidation. Interstitial pattern is prominent appearing delete select improved from the comparison. No focal finding to confirm aspiration pneumonia. Heart and vasculature are normal. No measurable pleural effusion and no pneumothorax. No acute bony abnormality seen. No acute aortic findings suspected. IMPRESSION: Prominent interstitial pattern showing some improvement from January 14 imaging. No focal finding seen that would raise likelihood of aspiration pneumonia. MRI Brain (12/28): FINDINGS: No intracranial hemorrhage, mass or new acute infarction. Previously detailed left thalamus and internal capsule CVA has shown the expected aging pattern since the December 18 study. The amount of T2/IR edema and signal abnormality has diminished. The patient has underlying atrophy and chronic ischemic change are stable. Ventricles are stable in size. There is no edema or shift of midline structures. No extra-axial fluid collections. Winters-matter/white matter junction is preserved. Signal voids are seen as a normal finding in the major intracranial vessels. No globe or orbital content abnormality. Right-side paranasal sinus opacification is present. IMPRESSION: No intracranial hemorrhage and no new infarction changes identified. The left thalamus and internal capsule CVA seen on the December 18 study has shown decreasing edema. CTA Chest (12/29): FINDINGS: Chest Wall: No suspicious thyroid nodules or pathologic lymphadenopathy. Lungs: No evidence of either edema or pneumonia. The lung volumes are low with mild atelectasis. Pleura: No significant effusions or pneumothorax. Mediastinum/laura: No pathologic lymphadenopathy. Heart: No significant pericardial effusion. Mild cardiomegaly. Multi-vessel coronary artery disease. Aortic valve calcifications. Bones: Degenerative changes are present in the spine. No acute fractures. Upper abdomen: Cholecystectomy. No acute abnormality identified. IMPRESSION: Negative for pulmonary embolism. Low lung volumes but otherwise no acute process identified. A few incidental findings as noted above. TTE (12/18): normal LV EF & function. mitral annular calcification. aortic scleerosis with no stenosis no thrombus or vegetaion. Problem List R arm weakness, facial drooping, dysphasia secondary to acute CVA Urinary retention s/p failed voiding trial x2 T2DM, insulin dependent prior hx of [place] chronic CHF, diastolic chronic COPD h/o Right AKA Chronic Carotid artery occlusion JOVANNA, noncompliant with CPAP Chronic pain and neuropathy Brief History of Present Illness: 85 y/o F w/ prior hx of stroke and HI, T2DM, and chronic pancreatitis who presents today for slurred speech. Her speech started slurring this morning and daughter noticed R sided facial drooping. Per her daughter, the pt had unintelligible speech and by the time EMS arrived pt was "completely out of it". Daughter reports this was similar to her stroke symptoms 25 years ago, also had R sided weakness then. tPA was administered in ER. Daughter reports that pt has improved some but has not completely returned to baseline. Hospital Course: Patient had moderate improvement of her symptoms, but some weakness and slurred speech remains. She was evaluated by PT/OT/ST, and recommended for aggressive physical therapy. Imaging as noted above, with chronic carotid artery occlusion with distal disease as well. This was reviewed with neurology who felt she was not a good candidate for intra-arterial intervention. She was medically optimized. ST recommended mechanical chopped and ground diet. Urinary retention - mcguire catheter placed on admission in ED, failed voiding trial x2, replaced on 12/17 and 12/24. She will continue with the mcguire catheter and recommended follow up with Urology for voiding trial. Her urine was evaluated and she did not have UTI. She was started on flomax. Hypoxia - since admission, patient has required oxygen, which is new for her. Initially had some findings of acute on chronic CHF with edema and pulmonary opacities, which resolved with continued diuresis on her home dose of lasix, but her hypoxia persisted. An ABG and CTA were performed and negative for acute process. Suspect obesity hypoventilation syndrome in addition to her JOVANNA and chronic COPD. Hypersomnia, patient was noted to be difficult to arouse on on 12/26, workup was negative (MRI, UA, ammonia, infection). Her lyrica and norco were reduced by ~75% dosage on 12/28. And patient was much more alert and active the following day. On further discussion with her daughter, she stated the patient goes through these episodes usually about once every 2-3 weeks and this has been attributed to her noncompliance with CPAP. She has remained stable with low- normal blood pressure, her Lasix was held for one day to assess if her blood pressure had any role in her hypersomnia, which it did not. She is discharged to rehab. Vital Signs/Physical Exam: Physical Exam General: NAD, slurred speech, alert and oriented Respiratory: Clear to auscultation bilaterally, poor inspiratory effort, on 2L NC Cardiovascular: regular rate/rhythm, trace edema in b/l feet and posterior thighs with 1+ at ankle Gastrointestinal: Soft, Non-distended, No tenderness MSK: s/p R AKA Neurological: slurred speech, word finding difficulty, str 5/5 on LUE/XOCHILT, 5-/5 on RUE/RLE Temp Pulse Resp BP Pulse Ox 97.3 F 79 22 H 125/65 95 12/29/20 12:00 12/29/20 12:00 12/29/20 12:00 12/29/20 12:00 12/29/20 12:00 Laboratory Data at Discharge: WBC 9.20 K/uL (4.3-10.9) D 12/29/20 05:20 Hgb 14.2 g/dL (12.0-15.0) 12/29/20 05:20 Hct 41.8 % (36.0-45.0) 12/29/20 05:20 Plt Count 179 K/uL (152-406) 12/29/20 05:20 PT 12.5 SECONDS (9.5-12.5) 12/15/20 12:35 INR 1.09 12/15/20 12:35 Sodium 141 mmol/L (136-145) 12/29/20 05:20 Potassium Cancelled 12/29/20 14:00 BUN 19 mg/dL (7-18) H 12/29/20 05:20 Creatinine 0.89 mg/dL (0.55-1.3) 12/29/20 05:20 Glucose 197 mg/dL (74-106) H 12/29/20 05:20 Magnesium 2.2 mg/dL (1.8-2.4) 12/29/20 05:20 Total Bilirubin 0.4 mg/dL (0.2-1.0) 12/29/20 05:20 AST 15 U/L (15-37) 12/29/20 05:20 ALT 25 U/L (12-78) 12/29/20 05:20 Alkaline Phosphatase 71 U/L (45-117) 12/29/20 05:20 Triglycerides 146 mg/dL (<150) 12/16/20 05:27 Cholesterol 147 mg/dL (<200) 12/16/20 05:27 HDL Cholesterol 41 mg/dL (40-60) 12/16/20 05:27 Cholesterol/HDL Ratio 3.59 12/16/20 05:27 Home Medications: Levothyroxine [Synthroid*] 0.05 mg PO [id number] #0 tablet 06/29/12 Calcium Carbonate [Calcium] 500 mg PO DAILY 08/16/15 Cinnamon Bark [Cinnamon] 500 mg PO DAILY 08/16/15 Duloxetine HCl [Cymbalta] 60 mg PO DAILY 08/16/15 Flaxseed Oil [Flaxseed] 1,000 mg PO DAILY 08/16/15 Furosemide [Lasix*] 80 mg PO DAILY 08/16/15 Loratadine/Pseudoephedrine [Loratadine-D 24Hr Tab] 1 each PO DAILY 08/16/15 Metoprolol Tartrate [Lopressor*] 25 mg PO BID 08/16/15 [place]-3 Fatty Acids/Fish Oil [Fish Oil 1,000 mg Softgel] 1 each PO DAILY 08/16/15 Pantoprazole [Protonix Tab*] 40 mg PO DAILY 08/16/15 Potassium Chloride 20 meq PO BID 08/16/15 Pregabalin [Lyrica*] 300 mg PO BEDTIME 08/16/15 Vit C/E/Zn/Coppr/Lutein/Zeaxan [Preservision Areds 2 Softgel] 1 each PO DAILY 08/16/15 Atorvastatin Calcium 40 mg PO BEDTIME #30 tablet 02/13/16 Clopidogrel Bisulfate [Plavix] 75 mg PO DAILY #30 tablet 02/13/16 Aspirin [Aspirin EC 81 MG] 81 mg PO DAILY 07/15/18 Insulin Glargine,Hum.rec.anlog [Basaglar Kwikpen U-100] 28 unit SQ DAILY 07/15/18 Liraglutide [Victoza 2-Ajit] 1.2 mg SQ DAILY 07/15/18 Pregabalin [Lyrica*] 150 mg PO BID 07/15/18 lisinopriL [Prinivil*] 5 mg PO [id number] 07/15/18 Desloratadine [Clarinex] 5 mg PO DAILY 12/16/20 Hydrocodone Bit/Acetaminophen [Morenci 7.5-325 Tablet] 1 each PO Q6H PRN 12/16/20 Lipase/Protease/Amylase [Richard Das 36,000 Units Capsule] 1 each PO DIRECTED 12/16/20 icosapent ethyL [Vascepa 1 gm Cap] 2 gm PO DIRECTED 12/16/20 Docusate [Colace Cap*] 100 mg PO BID cap 12/29/20 Tamsulosin [Flomax*] 0.4 mg PO BEDTIME 30 Days #30 cap 12/29/20 New Medications: Tamsulosin [Flomax*] 0.4 mg PO BEDTIME 30 Days #30 cap Physician Discharge Instructions: PROBLEM: Acute CVA GOAL: Clear understanding of disease process INSTRUCTIONS: Diet: mechanical soft Activity: Fall precautions You were found to have a new stroke - of your left thalamus and internal capsule, explaining your right arm weakness and slurred speech. You received tPA on 12/15 and had improvement in your symptoms. You were again noted to have chronic occlusion of your carotid artery with distal arterial disease making you not a good candidate for any intra-arterial interventions. Speech therapy seth luated you and recommended mechanical chopped and ground diet. You were noted to have urinary retention and required a mcguire catheter. You failed voiding trial twice and the catheter had to be replaced on 12/17 and 12/24. You were started on flomax. Recommend follow up with Urology in ~2 weeks for further evaluation / voiding trial. You were noted to have some lethargy/tiredness which is likely due to your untreated sleep apnea and recommend use of your CPAP. Diet: mech soft Activity: Fall precautions Followup: NONE,NONE [Primary Care Provider] - Ney Sow [ACTIVE - CAN ADMIT] - Time spent managing pt's care (in minutes): 65
[2020-12-29] MEDS: PREGABALIN 75 MG CAP PO SCH (20:32)
[2020-12-29] MEDS: PREGABALIN 150 MG CAP PO SCH (20:32)
[2020-12-29] MEDS: DULOXETINE 30 MG CAP PO SCH (20:32)
[2020-12-29] MEDS: ATORVASTATIN 40 MG TAB PO SCH (20:33)
[2020-12-29] MEDS: TAMSULOSIN 0.4 MG SR CAP PO SCH (20:33)
[2020-12-29 21:57] VITALS: O2SAT 96
[2020-12-30 00:04] VITALS: BP 108/61; TEMP 97.5
== END 2020-12-30 00:48 | DRG 61 ==
LOC: ER 12:13 → ERHOLD 17:44 → 2ND 12-16 22:04 → 4TH 12-17 05:52 → 2ND 12-28 15:55
PROVIDERS: ADMIT Hospitalist; ATTEND Hospitalist
PROC: 3E03317 Introduction of Other Thrombolytic into Peripheral Vein, Percutaneous Approach (ICD-10-PCS; principal; 2020-12-15)
PROC: 0T9B70Z Drainage of Bladder with Drainage Device, Via Natural or Artificial Opening (ICD-10-PCS; 2020-12-15)
DX: I63.232 Cerebral infarction due to unspecified occlusion or stenosis of left carotid arteries (principal); I50.33 Acute on chronic diastolic (congestive) heart failure; K86.1 Other chronic pancreatitis; G81.91 Hemiplegia, unspecified affecting right dominant side; R09.02 Hypoxemia; G47.10 Hypersomnia, unspecified; R33.9 Retention of urine, unspecified; R47.81 Slurred speech; R29.810 Facial weakness; E11.9 Type 2 diabetes mellitus without complications; K21.9 Gastro-esophageal reflux disease without esophagitis; E03.9 Hypothyroidism, unspecified; I10 Essential (primary) hypertension; R29.712 NIHSS score 12; J44.9 Chronic obstructive pulmonary disease, unspecified; G47.33 Obstructive sleep apnea (adult) (pediatric); G89.29 Other chronic pain; G62.9 Polyneuropathy, unspecified; I25.2 Old myocardial infarction; Z87.891 Personal history of nicotine dependence; Z89.611 Acquired absence of right leg above knee
CPT/HCPCS: 36415; 51702; 70450; 70496; 70498; 70544; 70551; 70553; 71045; 71275; 80048; 80053; 80061; 80076; 81001; 81003; 81015; 82140; 82805; 82947; 83605; 83735; 83880; 84132; 84145; 84439; 84443; 84484; 85025; 85610; 86140; 87040; 87077; 87086; 87088; 87186; 92610; 92977; 93005; 93306; 93880; 94640; 96365; 96366; 96375; 97110; 97112; 97163; 97530; 99291; 99292; A9577; J0696; J2997; J3480; J7030; J7799; P9045; Q9967

== ENCOUNTER 2021-03-11 03:36 | Emergency (ER) | payer OTHER ==
[2021-03-11] MEDS ORDERED: ACETAMINOPHEN 500 MG TAB ONE (04:23)
--- NOTE | 2021-03-11 05:09 | EDPHYS ---
Physician Documentation [facility] Name: Elsa Smith Age: 85 yrs Sex: Female : 1935 Arrival Date: 03/11/2021 Time: 03:38 Bed 19 Private MD: ED Physician Mikey Carney HPI: 03/11 03:30 This 85 yrs old Female presents to ER via EMS with complaints of Knee Pain. mh7 03:30 The patient presents with an injury, pain, that is acute. mh7 03:30 The complaints affect the left knee. Context: The problem was sustained at a nursing [facility] home or assisted living facility, resulted from the patient falling, while being transferred, the patient is not able to bear weight, the patient is not able to ambulate. Onset: The symptoms/episode began/occurred today. Modifying factors: The symptoms are alleviated by nothing. the symptoms are aggravated by movement, bending knee. Associated signs and symptoms: Pertinent negatives calf tenderness, fever, nausea, numbness, rash, swelling, tingling, vomiting, warmth, weakness. Treatment prior to arrival includes: no previous treatment. Severity of symptoms: At their worst the symptoms were moderate, earlier today, in the emergency department the symptoms are unchanged. Patient slid onto the floor while transferring from wheelchair to halfway. She complains of pain to the left knee. There is no head trauma or LOC.. Historical: - Allergies: 03:41 Lidocaine; bs2 03:41 mercury; bs2 - Home Meds: 03:41 desloratadine 5 mg Oral tab 1 tab once daily [Active]; duloxetine 60 mg Oral cpDR 1 cap bs2 once daily [Active]; furosemide 40 mg Oral tab 1 tab 2 times per day [Active]; Lyrica 50mg Oral 1 cap 3 times per day [Active]; metformin 500 mg Oral tab 2 tabs 2 times per day [Active]; metoprolol tartrate 25 mg Oral tab 1 tab 2 times per day [Active]; pantoprazole 40 mg Oral TbEC 1 tab once daily [Active]; potassium chloride 20 mEq Oral TbER 1 tab 2 times per day [Active]; Synthroid 50 mcg Oral tab 1 tab once daily [Active]; Xarelto 15 mg Oral tab [Active]; - PMHx: 03:41 CHF; COPD; CVA; Depression; Diabetes - NIDDM; Hypertension; Hypothyroidism; bs2 - Immunization history:: Adult Immunizations unknown, unknown . - Social history:: Smoking status: Patient denies any tobacco usage or history of. ROS: 03:30 Constitutional: Negative for fever, chills, and weight loss, Eyes: Negative for injury, mh7 pain, redness, and discharge, ENT: Negative for injury, pain, and discharge, Neck: Negative for injury, pain, and swelling, Cardiovascular: Negative for chest pain, palpitations, and edema, Respiratory: Negative for shortness of breath, cough, wheezing, and pleuritic chest pain, Abdomen/GI: Negative for abdominal pain, nausea, vomiting, diarrhea, and constipation, Back: Negative for injury and pain, : Negative for injury, bleeding, discharge, and swelling, Neuro: Negative for headache, weakness, numbness, tingling, and seizure, Psych: Negative for depression, anxiety, suicide ideation, homicidal ideation, and hallucinations, Allergy/Immunology: Negative for hives, rash, and allergies, Endocrine: Negative for neck swelling, polydipsia, polyuria, polyphagia, and marked weight changes, Hematologic/Lymphatic: Negative for swollen nodes, abnormal bleeding, and unusual bruising. Exam: 03:30 Constitutional: This is a well developed, well nourished patient who is awake, alert, mh7 and in no acute distress. Head/Face: Normocephalic, atraumatic. Eyes: Pupils equal round and reactive to light, extra-ocular motions intact. Lids and lashes normal. Conjunctiva and sclera are non-icteric and not injected. Cornea within normal limits. Periorbital areas with no swelling, redness, or edema. Neck: Trachea midline, no thyromegaly or masses palpated, and no cervical lymphadenopathy. Supple, full range of motion without nuchal rigidity, or vertebral point tenderness. No Meningismus. Chest/axilla: Normal chest wall appearance and motion. Nontender with no deformity. No lesions are appreciated. Cardiovascular: Regular rate and rhythm with a normal S1 and S2. No gallops, murmurs, or rubs. Normal PMI, no JVD. No pulse deficits. Respiratory: Lungs have equal breath sounds bilaterally, clear to auscultation and percussion. No rales, rhonchi or wheezes noted. No increased work of breathing, no retractions or nasal flaring. Abdomen/GI: Soft, non-tender, with normal bowel sounds. No distension or tympany. No guarding or rebound. No evidence of tenderness throughout. Back: No spinal tenderness. No costovertebral tenderness. Full range of motion. 03:30 Psych: Awake, alert, with orientation to person, place and time. Behavior, mood, and affect are within normal limits. 03:30 Musculoskeletal/extremity: Extremities: noted in the left knee: contusion, ecchymosis, pain, tenderness, ROM: limited active range of motion due to pain, in the left knee, limited passive range of motion due to pain, in the left knee, Circulation is intact in all extremities. Sensation intact. Joints: the left knee displays painful range of motion, tenderness, Right lower extremity amputee. 03:30 Skin: injury, contusion(s), that are superficial, of the left knee. 03:30 Neuro: Orientation: to person, place, situation, Mentation: appropriate for stated age, Memory: no acute changes, per EMS, Cranial nerves: grossly normal, Cerebellar function: no acute changes, Motor: no acute changes, Sensation: no obvious gross deficits, Gait: not tested. seizure activity, is not displayed by the patient, Abnormal movements: there are no abnormal movements. Vital Signs: 03:39 BP 164 / 84; Pulse 88; Resp 16; Temp 98.6; Pulse Ox 94% ; Pain 6/10; bs2 05:32 BP 143 / 72; Pulse 80; Resp 18; Temp 98.8(O); Pulse Ox 96% on R/A; Pain 0/10; kc4 MDM: 05:07 Differential diagnosis: closed fracture, contusion, abrasion. Data reviewed: [facility] signs, nurses notes, EMS record, radiologic studies, plain films. Counseling: I had a detailed discussion with the patient and/or guardian regarding: the historical points, exam findings, and any diagnostic results supporting the discharge/admit diagnosis, radiology results, the need for outpatient follow up, a orthopedic surgeon, to return to the emergency department if symptoms worsen or persist or if there are any questions or concerns that arise at home. Response to treatment: the patient's symptoms have markedly improved after treatment. 05:08 Patient medically screened. [facility] 03/11 03:42 Order name: XRAY Knee LEFT 2 view kc4 03/11 03:42 Order name: XRAY Femur LEFT kc4 Administered Medications: 04:03 Drug: Tylenol 1000 mg Route: PO; kc4 05:10 Follow up: Response: No adverse reaction kc4 Disposition Summary: 03/11/21 05:08 Discharge Ordered Location: Home [facility] Problem: new [facility] Symptoms: have improved [facility] Condition: Stable [facility] Diagnosis - Contusion of left knee [facility] Followup: [facility] - With: Private Physician - When: 1 - 2 days - Reason: Worsening of condition, Recheck today's complaints, Continuance of care, Re-evaluation by your physician Followup: [facility] - With: Omar Martínez MD - When: 2 - 3 days - Reason: Worsening of condition, Recheck today's complaints Discharge Instructions: - Discharge Summary Sheet [facility] - Contusion, [id number] [facility] - Acute Knee Pain, Adult, [id number] [facility] Forms: - Medication Reconciliation Form [facility] - Thank You Letter [facility] - Antibiotic Education [facility] - Prescription Opioid Use [facility] Signatures: Dispatcher [employer] Mikey Perkins MD MD 7 Margarette Brito RN RN bs2 Yessica Hay kc4
--- NOTE | 2021-03-11 05:09 | ER ---
Nurse's Notes [facility] Name: Elsa Smith Age: 85 yrs Sex: Female : 1935 Arrival Date: 03/11/2021 Time: 03:38 Bed 19 Private MD: Diagnosis: Contusion of left knee Presentation: 03/11 03:39 Chief complaint: EMS states: pt slid to floor transferring from wheelchair to bed. bs2 Coronavirus screen: At this time, the client does not indicate any symptoms associated with coronavirus-19. Ebola Screen: No symptoms or risks identified at this time. Initial Sepsis Screen: Does the patient meet any 2 criteria? No. Patient's initial sepsis screen is negative. Does the patient have a suspected source of infection? No. Patient's initial sepsis screen is negative. Risk Assessment: Do you want to hurt yourself or someone else? Patient reports no desire to harm self or others. Onset of symptoms was March 11, 2021. 03:39 Method Of Arrival: EMS: [facility] bs2 03:39 Acuity: ALEJANDRO 4 bs2 05:22 Note Phone report given to RN at [facility]. Facility aware pt is being kc4 discharged and will be returning to facility. Daughter at bedside also updated on pts status. 05:30 Note Bedside report given to EMS. Pt transferred to [facility] and is ready to be kc4 transported back to [facility]. Triage Assessment: 03:41 General: Appears in no apparent distress. comfortable, obese, well groomed, well bs2 developed, well nourished, Behavior is calm, cooperative. Pain: Complains of pain in left knee Pain currently is 6 out of 10 on a pain scale. Musculoskeletal: Reports. Historical: - Allergies: 03:41 Lidocaine; bs2 03:41 mercury; bs2 - Home Meds: 03:41 desloratadine 5 mg Oral tab 1 tab once daily [Active]; duloxetine 60 mg Oral cpDR 1 cap bs2 once daily [Active]; furosemide 40 mg Oral tab 1 tab 2 times per day [Active]; Lyrica 50mg Oral 1 cap 3 times per day [Active]; metformin 500 mg Oral tab 2 tabs 2 times per day [Active]; metoprolol tartrate 25 mg Oral tab 1 tab 2 times per day [Active]; pantoprazole 40 mg Oral TbEC 1 tab once daily [Active]; potassium chloride 20 mEq Oral TbER 1 tab 2 times per day [Active]; Synthroid 50 mcg Oral tab 1 tab once daily [Active]; Xarelto 15 mg Oral tab [Active]; - PMHx: 03:41 CHF; COPD; CVA; Depression; Diabetes - NIDDM; Hypertension; Hypothyroidism; bs2 - Immunization history:: Adult Immunizations unknown, unknown . - Social history:: Smoking status: Patient denies any tobacco usage or history of. Screenin:44 Abuse screen: Denies threats or abuse. Denies injuries from another. Nutritional bs2 screening: No deficits noted. Tuberculosis screening: No symptoms or risk factors identified. Fall Risk Fall in past 12 months (25 points). Assessment: 03:44 General: Appears comfortable, obese, Behavior is cooperative. Musculoskeletal: Reports bs2 pain in left leg and left knee. 03:47 Musculoskeletal: Parent/caregiver report the patient having pt has old bruising noted bs2 on distal anterior ;. Vital Signs: 03:39 BP 164 / 84; Pulse 88; Resp 16; Temp 98.6; Pulse Ox 94% ; Pain 6/10; bs2 05:32 BP 143 / 72; Pulse 80; Resp 18; Temp 98.8(O); Pulse Ox 96% on R/A; Pain 0/10; kc4 ED Course: 03:38 Patient arrived in ED. bs2 03:39 Yessica Hay is Primary Nurse. kc4 03:41 Triage completed. bs2 03:41 Arm band placed on right wrist. bs2 03:43 Mikey Carney MD is Attending Physician. mh7 03:44 Allergy band placed. Bed in low position. Call light in reach. Side rails up X2. Pulse bs2 ox on. NIBP on. Noise minimized. Pillow given. 03:44 No provider procedures requiring assistance completed. bs2 04:52 XRAY Knee LEFT 2 view In Process Unspecified. EDMS 04:52 XRAY Femur LEFT In Process Unspecified. EDMS 05:07 Omar Martínez MD is Referral Physician. mh7 05:32 Patient did not have IV access during this emergency room visit. kc4 Administered Medications: 04:03 Drug: Tylenol 1000 mg Route: PO; kc4 05:10 Follow up: Response: No adverse reaction kc4 Outcome: 05:08 Discharge ordered by MD. benitez 05:31 Discharged to longterm. Report called to [facility] Transfer form kc4 completed. 05:31 Condition: stable 05:31 Discharge instructions given to EMS, Instructed on discharge instructions, Demonstrated understanding of instructions, follow-up care. 05:34 Patient left the ED. kc4 Signatures: Dispatcher [employer] Mikey Perkins MD MD 7 Margarette Brito RN RN bs2 Yessica Hay kc4
[2021-03-11 05:41] VITALS: BP 143/72; TEMP 98.8; O2SAT 96
--- NOTE | 2021-03-11 08:21 | RAD REPORT ---
EXAM DESCRIPTION: RAD - Knee Left 2 View - 03/11/2021 4:52 am CLINICAL HISTORY: Knee pain FINDINGS: Limited two view series obtained. 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 Lucency between the prosthesis and underlying tibia may indicate loosening No fracture seen
--- NOTE | 2021-03-11 08:23 | RAD REPORT ---
EXAM DESCRIPTION: RAD - Femur Left - 03/11/2021 4:52 am CLINICAL HISTORY: Left leg pain FINDINGS: The bones are osteoporotic. No fracture is seen. No bony lesion is displayed.
== END 2021-03-11 05:34 | disposition home or self-care (01) ==
LOC: ER 03:36
DX: S80.02XA Contusion of left knee, initial encounter (principal); W18.39XA Other fall on same level, initial encounter; Y92.129 Unspecified place in nursing home as the place of occurrence of the external cause; E11.9 Type 2 diabetes mellitus without complications; I50.9 Heart failure, unspecified; I10 Essential (primary) hypertension; Z79.01 Long term (current) use of anticoagulants; Z86.73 Personal history of transient ischemic attack (TIA), and cerebral infarction without residual deficits; Z88.4 Allergy status to anesthetic agent; Z91.048 Other nonmedicinal substance allergy status
CPT/HCPCS: 99284

== ENCOUNTER 2021-04-04 12:29 | Emergency (ER) | payer OTHER ==
--- NOTE | 2021-04-04 13:14 | RAD REPORT ---
EXAM DESCRIPTION: CT - [id number] - 04/04/2021 1:00 pm CLINICAL HISTORY: Trauma, head and neck injury. fall from toilet. hematoma R parietal area COMPARISON: Neck Angio dated 12/15/2020 TECHNIQUE: Axial 5 mm thick images of the head were obtained. Axial 2 mm thick images of the cervical spine were obtained with sagittal and coronal reconstruction images generated and reviewed. All CT scans are performed using dose optimization technique as appropriate and may include automated exposure control or mA/KV adjustment according to patient size. FINDINGS: CT HEAD WITHOUT CONTRAST: No acute hemorrhage, hydrocephalus or extra-axial collection is identified.Advanced generalized brain atrophy is present with advanced periventricular and deep white matter chronic microvascular ischemi c changes.No areas of brain edema or midline shift. Moderate atherosclerosis of the carotid siphons a nd vertebral arteries. Complete opacification right maxillary antrum is seen. Mild right mastoid effusion.The calvarium is i ntact. CT CERVICAL SPINE WITHOUT CONTRAST: No fracture or subluxation.Mild degenerative anterolisthesis of C3 on 4 and C4 on 5 is present. Moder ate midcervical degenerative changes are present.No prevertebral soft tissues swelling is identified. Atherosclerosis of the carotid arteries noted which take a retropharyngeal course. IMPRESSION: No acute intracranial or cervical spine findings. Advanced cervical degenerative changes are present as detailed. Complete right maxillary antrum opacifications.
--- NOTE | 2021-04-04 14:48 | RAD REPORT ---
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 The bones are quite demineralized, limiting detail. No fracture evident.
--- NOTE | 2021-04-04 15:42 | ER ---
Nurse's Notes [facility] Name: Elsa Smith Age: 85 yrs Sex: Female : 1935 Arrival Date: 04/04/2021 Time: 12:31 Bed 26 Private MD: Diagnosis: Fall from non-moving wheelchair;Unspecified injury of head, initial encounter;Right AKA distal femur pain Presentation: 04/04 12:37 Chief complaint: FALL, per EMS and pt, pt fell off the toilet, denies LOC, hematoma to tc5 the back side of the head, rates the pain 2/10. Coronavirus screen: Vaccine status: Client denies travel out of the [place] in the last 14 days. At this time, the client does not indicate any symptoms associated with coronavirus-19. Ebola Screen: No symptoms or risks identified at this time. Risk Assessment: Do you want to hurt yourself or someone else? Patient reports no desire to harm self or others. Onset of symptoms was April 04, 2021 at 12:00. 12:37 Method Of Arrival: EMS: [facility] tc5 12:37 Acuity: ALEJANDRO 3 tc5 14:32 Initial Sepsis Screen: Does the patient meet any 2 criteria? No. Patient's initial [place] sepsis screen is negative. Does the patient have a suspected source of infection? No. Patient's initial sepsis screen is negative. Triage Assessment: 12:40 General: Appears in no apparent distress. Behavior is calm, cooperative, pt is slow to tc5 respond to questions, states that's from prior stroke, she has a hard time getting her words out.. Pain: Complains of pain in right parietal area. Neuro: Speech with expressive aphasia noted, from prior stroke.. Cardiovascular: No deficits noted. Respiratory: No deficits noted. GI: No deficits noted. Musculoskeletal: RLE AKA. Historical: - Allergies: 12:33 Lidocaine; ss 12:33 mercury; ss - PMHx: 12:33 CHF; COPD; Depression; Diabetes - NIDDM; CVA; Hypertension; Hypothyroidism; ss Screenin:44 Abuse screen: Denies threats or abuse. Denies injuries from another. Nutritional tc5 screening: No deficits noted. Tuberculosis screening: No symptoms or risk factors identified. Fall Risk Ambulatory Aid-. Assessment: 12:44 General: see triage assessment.. tc5 16:07 Reassessment: pt discharge awaiting ambulance to [facility]. [place] 16:49 Reassessment: pt discharge via [facility]. [place] Vital Signs: 12:37 BP 134 / 80; Pulse 66; Resp 18; Pulse Ox 94% ; Weight 124.74 kg; Height 5 ft. 5 in. tc5 (165.10 cm); Pain 2/10; 12:42 BP 140 / 91; Pulse 66; Resp 15; Temp 97.3; Pulse Ox 93% ; Weight 124.74 kg; Height 5 tc5 ft. 5 in. (165.10 cm); Pain 2/10; 14:41 BP 156 / 91; Pulse 67; Resp 20; Pulse Ox 94% ; oh 15:54 BP 152 / 89; Pulse 66; Resp 17; Pulse Ox 94% on R/A; oh 12:42 Body Mass Index 45.76 (124.74 kg, 165.10 cm) tc5 ED Course: 12:31 Patient arrived in ED. ds1 12:35 Josefina Aguilar, RN is Primary Nurse. tc5 12:38 Mahendra Smith MD is Attending Physician. kdr 12:40 Triage completed. tc5 13:01 CT Head C Spine In Process Unspecified. EDMS 14:29 Femur Right XRAY In Process Unspecified. EDMS 14:32 Bed in low position. Call light in reach. Side rails up X2. oh 15:54 Patient did not have IV access during this emergency room visit. oh 16:47 No provider procedures requiring assistance completed. oh Administered Medications: No medications were administered Outcome: 15:41 Discharge ordered by . kdr 15:54 Condition: stable oh 16:08 Discharge instructions given to family. oh 16:46 Discharged to [facility]. Report called to [facility] oh 16:51 Patient left the ED. oh Signatures: Dispatcher [employer] EDMS Mahendra Smith MD MD [facility] Enma Llanes ds1 Bree Hammonds, JORGE PATEL Martha Love RN RN oh Josefina Aguilar, JORGE PATEL tc5
--- NOTE | 2021-04-04 15:42 | EDPHYS ---
Physician Documentation [facility] Name: Elsa Smith Age: 85 yrs Sex: Female : 1935 Arrival Date: 04/04/2021 Time: 12:31 Bed 26 Private MD: ED Physician Mahendra Smith HPI: 04/04 15:00 This 85 yrs old Female presents to ER via EMS with complaints of Head injury kdr and right distal thigh pain. 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 She denies LOC. She complains primarily of right distal thigh pain where her amputation is evident. Onset: The symptoms/episode began/occurred suddenly, just prior to arrival. Associated injuries: The patient sustained injury to the head, lateral aspect of right knee, posterior aspect of right knee and right knee. Severity of symptoms: At their worst the symptoms were mild, in the emergency department the symptoms are unchanged. The patient has not experienced similar symptoms in the past. The patient has not recently seen a physician. Historical: - Allergies: 12:33 Lidocaine; ss 12:33 mercury; ss - PMHx: 12:33 CHF; COPD; Depression; Diabetes - NIDDM; CVA; Hypertension; Hypothyroidism; ss ROS: 15:00 Constitutional: Negative for fever, chills, and weight loss, Eyes: Negative for injury, kdr pain, redness, and discharge, Neck: Negative for injury, pain, and swelling, Cardiovascular: Negative for chest pain, palpitations, and edema, Respiratory: Negative for shortness of breath, cough, wheezing, and pleuritic chest pain, Abdomen/GI: Negative for abdominal pain, nausea, vomiting, diarrhea, and constipation, Back: Negative for injury and pain, : Negative for injury, bleeding, discharge, and swelling. 15:00 MS/extremity: Positive for Right AKA. 15:00 Neuro: Positive for The patient speech is slow and halting. She responds appropriately to questions. She denies any other injuries. She states her speech is always like this due to the medication she takes. Exam: 16:12 Constitutional: This is a well developed, well nourished patient who is awake, alert, kdr and in no acute distress. Head/Face: Normocephalic, atraumatic. Eyes: Pupils equal round and reactive to light, extra-ocular motions intact. Lids and lashes normal. Conjunctiva and sclera are non-icteric and not injected. Cornea within normal limits. Periorbital areas with no swelling, redness, or edema. Chest/axilla: Normal chest wall appearance and motion. Nontender with no deformity. No lesions are appreciated. Cardiovascular: Regular rate and rhythm with a normal S1 and S2. No gallops, murmurs, or rubs. Normal PMI, no JVD. No pulse deficits. Respiratory: Lungs have equal breath sounds bilaterally, clear to auscultation and percussion. No rales, rhonchi or wheezes noted. No increased work of breathing, no retractions or nasal flaring. Back: No spinal tenderness. No costovertebral tenderness. Full range of motion. Skin: Warm, dry with normal turgor. Normal color with no rashes, no lesions, and no evidence of cellulitis. 16:12 Head/face: Noted is contusion, that is superficial, of the left side of the back of kdr head, left occipital area, right side of the back of head and right occipital area, hematoma, that is mild, of the left side of the back of head and right side of the back of head. Vital Signs: 12:37 BP 134 / 80; Pulse 66; Resp 18; Pulse Ox 94% ; Weight 124.74 kg; Height 5 ft. 5 in. tc5 (165.10 cm); Pain 2/10; 12:42 BP 140 / 91; Pulse 66; Resp 15; Temp 97.3; Pulse Ox 93% ; Weight 124.74 kg; Height 5 tc5 ft. 5 in. (165.10 cm); Pain 2/10; 14:41 BP 156 / 91; Pulse 67; Resp 20; Pulse Ox 94% ; oh 15:54 BP 152 / 89; Pulse 66; Resp 17; Pulse Ox 94% on R/A; oh 12:42 Body Mass Index 45.76 (124.74 kg, 165.10 cm) tc5 MDM: 15:41 Patient medically screened. kdr 16:12 Data reviewed: vital signs, nurses notes, lab test result(s), radiologic studies. kdr Counseling: I had a detailed discussion with the patient and/or guardian regarding: the historical points, exam findings, and any diagnostic results supporting the discharge/admit diagnosis, lab results, radiology results, the need for outpatient follow up. 04/04 12:34 Order name: CT Head C Spine; Complete Time: 15:00 ss 04/04 13:11 Order name: Femur Right XRAY; Complete Time: 15:00 kdr Administered Medications: No medications were administered Disposition Summary: 04/04/21 15:41 Discharge Ordered Location: Home kdr Problem: new kdr Symptoms: are unchanged kdr Condition: Stable kdr Diagnosis - Fall from non-moving wheelchair kdr - Unspecified injury of head, initial encounter kdr - Right AKA distal femur pain kdr Followup: kdr - With: Private Physician - When: 2 - 3 days - Reason: If symptoms return, Further diagnostic work-up, Recheck today's complaints, Continuance of care, Re-evaluation by your physician Discharge Instructions: - Discharge Summary Sheet kdr - Contusion, [id number] kdr - Head Injury, Adult, [id number] kdr Forms: - Medication Reconciliation Form kdr - Thank You Letter kdr Prescriptions: - Ibuprofen 600 mg Oral Tablet - take 1 tablet by ORAL route every 6 hours As needed take with food; 15 tablet; kdr Refills: 0, Product Selection Permitted Signatures: Dispatcher [employer] Mahendra Gonzalez MD MD kdr Bree Hammonds RN RN Martha Love RN RN oh
[2021-04-04 17:00] VITALS: TEMP 97.3
[2021-04-04 17:01] VITALS: O2SAT 94
[2021-04-04 17:03] VITALS: BP 152/89
== END 2021-04-04 16:51 | disposition home or self-care (01) ==
LOC: ER 12:29
DX: S00.83XA Contusion of other part of head, initial encounter (principal); M79.651 Pain in right thigh; W05.0XXA Fall from non-moving wheelchair, initial encounter; Z89.611 Acquired absence of right leg above knee; Z86.73 Personal history of transient ischemic attack (TIA), and cerebral infarction without residual deficits; Z88.4 Allergy status to anesthetic agent; Z91.048 Other nonmedicinal substance allergy status; I10 Essential (primary) hypertension
CPT/HCPCS: 70450; 72125; 99283

== ENCOUNTER 2021-04-13 17:11 | Emergency (ER) | payer OTHER ==
--- NOTE | 2021-04-13 19:21 | RAD REPORT ---
EXAM DESCRIPTION: CT - Head C Spine Cap Wo Con - 04/13/2021 6:30 pm CLINICAL HISTORY: Trauma, head and neck injury. Chest, abdomen and pelvis pain. PAIN COMPARISON: <Comparisons> TECHNIQUE: CT head without contrast. CT cervical spine without contrast with coronal and sagittal reformatted images. CT chest, abdomen and pelvis without contrast with coronal and sagittal reformatted images of the spi ne. All CT scans are performed using dose optimization technique as appropriate and may include automated exposure control or mA/KV adjustment according to patient size. FINDINGS: CT HEAD WITHOUT CONTRAST: No intracranial hemorrhage, hydrocephalus or extra-axial fluid collection. Moderate generalized brain atrophy is present with moderate periventricular and deep white matter chronic microvascular ischemi c changes. No areas of brain edema or midline shift. Chronic sinusitis right maxillary antrum with bony thickening noted. Right-sided mastoid effusion see n. The paranasal sinuses and mastoids are otherwise clear. CT CERVICAL SPINE WITHOUT CONTRAST: No fracture or subluxation. Advanced multilevel degenerative changes the cervical spine is present. M ultilevel degenerative anterolisthesis is seen involving C3 on 4 and C4 on 5. The prevertebral soft t issues are normal in thickness. CT CHEST, ABDOMEN, PELVIS WITHOUT CONTRAST: NOTE: Lack of contrast is a significant limitation in the assessment of trauma related findings. Spec ifically, solid organ, vascular and bowel evaluation is significantly limited. Mild interstitial pulmonary edema suspected.No pneumothorax or pericardial/pleural fluid. No evidence of intra-abdominal visceral injury, free fluid or free air is seen within the above detai led limitations. Cholecystectomy. Moderate stool is retained in the rectosigmoid colon with diverticulosis coli present. No fractures. Multilevel degenerative spondylosis of the thoracic and lumbar spine. IMPRESSION: Negative for acute traumatic findings within the above detailed limitations.
--- NOTE | 2021-04-13 19:31 | EDPHYS ---
Physician Documentation [facility] Name: Elsa Smith Age: 85 yrs Sex: Female : 1935 Arrival Date: 04/13/2021 Time: 17:12 Bed 20 Private MD: ED Physician Lasha Varghese HPI: 04/13 18:04 This 85 yrs old Female presents to ER via EMS with complaints of Fall Injury. karli 18:04 Details of fall: The patient fell from seated position, out of a chair. Onset: The karli symptoms/episode began/occurred just prior to arrival. Associated injuries: The patient sustained injury to the head. Severity of symptoms: At their worst the symptoms were mild, in the emergency department the symptoms are unchanged. The patient has not experienced similar symptoms in the past. Historical: - Allergies: 21:15 Lidocaine; dc2 21:15 mercury; dc2 - PMHx: 21:15 CHF; CVA; Depression; COPD; Diabetes - NIDDM; Hypertension; Hypothyroidism; dc2 - Immunization history: Last tetanus immunization: unknown. - Social history:: Smoking status: Patient denies any tobacco usage or history of. ROS: 18:05 Constitutional: Negative for fever, chills, and weight loss, Eyes: Negative for injury, karli pain, redness, and discharge, ENT: Negative for injury, pain, and discharge, Neck: Negative for injury, pain, and swelling, Cardiovascular: Negative for chest pain, palpitations, and edema, Respiratory: Negative for shortness of breath, cough, wheezing, and pleuritic chest pain, Abdomen/GI: Negative for abdominal pain, nausea, vomiting, diarrhea, and constipation, Back: Negative for injury and pain, : Negative for injury, bleeding, discharge, and swelling, MS/Extremity: Negative for injury and deformity, Skin: Negative for injury, rash, and discoloration, Psych: Negative for depression, anxiety, suicide ideation, homicidal ideation, and hallucinations, Allergy/Immunology: Negative for hives, rash, and allergies, Endocrine: Negative for neck swelling, polydipsia, polyuria, polyphagia, and marked weight changes, Hematologic/Lymphatic: Negative for swollen nodes, abnormal bleeding, and unusual bruising. 18:05 Neuro: Positive for headache. Exam: 18:05 Constitutional: This is a well developed, well nourished patient who is awake, alert, karli and in no acute distress. Head/Face: Normocephalic, atraumatic. Eyes: Pupils equal round and reactive to light, extra-ocular motions intact. Lids and lashes normal. Conjunctiva and sclera are non-icteric and not injected. Cornea within normal limits. Periorbital areas with no swelling, redness, or edema. ENT: Nares patent. No nasal discharge, no septal abnormalities noted. Tympanic membranes are normal and external auditory canals are clear. Oropharynx with no redness, swelling, or masses, exudates, or evidence of obstruction, uvula midline. Mucous membranes moist. Neck: Trachea midline, no thyromegaly or masses palpated, and no cervical lymphadenopathy. Supple, full range of motion without nuchal rigidity, or vertebral point tenderness. No Meningismus. Chest/axilla: Normal chest wall appearance and motion. Nontender with no deformity. No lesions are appreciated. Cardiovascular: Regular rate and rhythm with a normal S1 and S2. No gallops, murmurs, or rubs. Normal PMI, no JVD. No pulse deficits. Respiratory: Lungs have equal breath sounds bilaterally, clear to auscultation and percussion. No rales, rhonchi or wheezes noted. No increased work of breathing, no retractions or nasal flaring. Abdomen/GI: Soft, non-tender, with normal bowel sounds. No distension or tympany. No guarding or rebound. No evidence of tenderness throughout. Back: No spinal tenderness. No costovertebral tenderness. Full range of motion. Skin: Warm, dry with normal turgor. Normal color with no rashes, no lesions, and no evidence of cellulitis. MS/ Extremity: Pulses equal, no cyanosis. Neurovascular intact. Full, normal range of motion. Neuro: Awake and alert, GCS 15, oriented to person, place, time, and situation. Cranial nerves II-XII grossly intact. Motor strength 5/5 in all extremities. Sensory grossly intact. Cerebellar exam normal. Normal gait. Psych: Awake, alert, with orientation to person, place and time. Behavior, mood, and affect are within normal limits. 19:29 ECG was reviewed by the Attending Physician. [facility] Vital Signs: 17:59 BP 137 / 82; Pulse 79; Resp 20; Temp 96.7; Pulse Ox 92% ; Pain 0/10; tc5 19:15 BP 156 / 82; Pulse 72; Resp 17; Temp 97.9; Pulse Ox 96% ; Pain 0/10; dc2 21:00 BP 152 / 72; Pulse 65; Resp 18; Pulse Ox 95% ; Pain 0/10; dc2 Lilibeth Coma Score: 17:59 Eye Response: spontaneous(4). Verbal Response: confused(4). Motor Response: obeys tc5 commands(6). Total: 14. 18:06 Eye Response: spontaneous(4). Verbal Response: oriented(5). Motor Response: obeys karli commands(6). Total: 15. MDM: 17:43 Patient medically screened. karli 18:06 Differential diagnosis: Contusion of Hematoma on Intracranial bleed- Concussion without karli LOC. Differential diagnosis: abrasion, closed head injury, contusion, fracture, multiple trauma, sprain, strain. Data reviewed: vital signs, nurses notes, radiologic studies, CT scan. 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 Test interpretation: by ED physician or midlevel provider: ECG. Counseling: I had a detailed discussion with the patient and/or guardian regarding: the historical points, exam findings, and any diagnostic results supporting the discharge/admit diagnosis, radiology results, the need for outpatient follow up, for definitive care, 04/13 18:03 Order name: CT Traumagram (Head C Spine CAP wo con); Complete Time: 19:28 karli 04/13 18:08 Order name: EKG; Complete Time: 18:09 karli 04/13 18:03 Order name: PO challenge; Complete Time: 21:36 karli 04/13 18:08 Order name: EKG - Nurse/Tech; Complete Time: 21:37 karli EC:29 Rate is 71 beats/min. Rhythm is regular. QRS [place] is Normal. OK interval is prolonged karli at 222 msec. QRS interval is normal. QT interval is normal. No Q waves. T waves are Normal. No ST changes noted. Clinical impression: NSR w/ Non-specific ST/T Changes, 1st degree heart block, and No evidence of ischemia. Interpreted by me. Reviewed by me. Administered Medications: No medications were administered Disposition Summary: 04/13/21 19:30 Discharge Ordered Location: Home karli Problem: new karli Symptoms: have improved karli Condition: Stable karli Diagnosis - Fall (on) (from) unspecified stairs and steps - 2.5 steps/toilet karli - Contusion of other part of head karli Followup: karli - With: Private Physician - When: 2 - 3 days - Reason: Recheck today's complaints, Continuance of care, Re-evaluation by your physician Discharge Instructions: - Discharge Summary Sheet karli - Head Injury, Adult karli - Fall Prevention in the Home, Adult karli - Fall Prevention in the Home, Adult, [id number] karli - Head Injury, Adult, [id number] karli Forms: - Medication Reconciliation Form karli - Thank You Letter karli - Antibiotic Education karli - Prescription Opioid Use karli Prescriptions: - Tylenol 325 mg Oral Tablet - take 2 tablets by ORAL route every 6 hours as needed; 1 bottle; Refills: 0, karli Product Selection Permitted Signatures: Dispatcher [employer] Lasha Castillo MD MD cha Charters, Denise RN RN dc2 Josefina Aguilar RN RN tc5
--- NOTE | 2021-04-13 19:31 | ER ---
Nurse's Notes [facility] Name: Elsa Smith Age: 85 yrs Sex: Female : 1935 Arrival Date: 04/13/2021 Time: 17:12 Bed 20 Private MD: Diagnosis: Fall (on) (from) unspecified stairs and steps-2.5 steps/toilet;Contusion of other part of head Presentation: 04/13 17:45 Chief complaint: EMS states: fall. Unwitnessd, pt lives across the [place] at [place] [address] senior living. Care prior to arrival: None. Mechanism of Injury: Fall toilet, hit head on sink, no trauma noted to the head. 17:45 Acuity: ALEJANDRO 3 tc5 17:45 Method Of Arrival: EMS: [facility] tc5 19:15 Initial Sepsis Screen: Does the patient meet any 2 criteria? No. Patient's initial dc2 sepsis screen is negative. Does the patient have a suspected source of infection? No. Patient's initial sepsis screen is negative. 19:15 Coronavirus screen: Vaccine status: Patient reports receiving the 2nd dose of the covid dc2 vaccine. Ebola Screen: Patient negative for fever greater than or equal to 101.5 degrees Fahrenheit, and additional compatible Ebola Virus Disease symptoms Patient denies exposure to infectious person. Patient denies travel to an Ebola-affected area in the 21 days before illness onset. No symptoms or risks identified at this time. Risk Assessment: Do you want to hurt yourself or someone else? Patient reports no desire to harm self or others. Onset of symptoms was April 13, 2021. Triage Assessment: 18:01 General: Appears in no apparent distress. Behavior is calm, cooperative, drowsy. Pain: tc5 Denies pain. Historical: - Allergies: 21:15 Lidocaine; dc2 21:15 mercury; dc2 - PMHx: 21:15 CHF; CVA; Depression; COPD; Diabetes - NIDDM; Hypertension; Hypothyroidism; dc2 - Immunization history: Last tetanus immunization: unknown. - Social history:: Smoking status: Patient denies any tobacco usage or history of. Screenin:01 Abuse screen: Denies threats or abuse. Denies injuries from another. Nutritional tc5 screening: No deficits noted. Tuberculosis screening: No symptoms or risk factors identified. Fall Risk Fall in past 12 months (25 points). Primary Survey: 17:52 NO uncontrolled hemorrhage observed. A: The patient needs verbal stimulation to tc5 respond. Airway: patent. Breathing/Chest: Respiratory pattern: regular, Respiratory effort: spontaneous, unlabored. Circulation: Cardiac rhythm: sinus rhythm. Disability Alert Verbal Stimuli. 19:15 Exposure/Environment: All clothing and personal items were removed. Pt in gown when dc2 assumed care from prior shift. Reassessment Airway Airway Breathing/Chest Respiratory pattern Regular Respiratory effort Spontaneous Unlabored Circulation Pulses Palpable Temperature Warm Dry Disability Alert. Assessment: 17:50 General: Appears in no apparent distress. Behavior is calm, cooperative, confused, tc5 reports from ems this is normal for her to be alert to self only at times.. Pain: Denies pain. Neuro: No deficits noted. Cardiovascular: No deficits noted. Respiratory: Airway is patent Respiratory effort is even, unlabored. GI: No deficits noted. Musculoskeletal: No deficits noted. 20:00 General: Waiting on Wheelchair Van for transport back to Facility.. dc2 21:32 Reassessment: Pt leave with [facility]. dc2 Vital Signs: 17:59 BP 137 / 82; Pulse 79; Resp 20; Temp 96.7; Pulse Ox 92% ; Pain 0/10; tc5 19:15 BP 156 / 82; Pulse 72; Resp 17; Temp 97.9; Pulse Ox 96% ; Pain 0/10; dc2 21:00 BP 152 / 72; Pulse 65; Resp 18; Pulse Ox 95% ; Pain 0/10; dc2 Lilibeth Coma Score: 17:59 Eye Response: spontaneous(4). Verbal Response: confused(4). Motor Response: obeys tc5 commands(6). Total: 14. 18:06 Eye Response: spontaneous(4). Verbal Response: oriented(5). Motor Response: obeys karli commands(6). Total: 15. ED Course: 17:12 Patient arrived in ED. ds1 17:17 Josefina Aguilar, RN is Primary Nurse. tc5 17:43 Lasha Varghese MD is Attending Physician. karli 17:50 Triage completed. tc5 18:31 CT Traumagram (Head C Spine CAP wo con) In Process Unspecified. EDMS 19:15 Arm band placed on right wrist. dc2 19:15 Report received from Josefina. laboratory monitor on. Pulse ox on. NIBP on. Door closed. dc2 Lights dimmed. 19:15 Patient has correct armband on for positive identification. Bed in low position. Call dc2 light in reach. Side rails up X 1. Adult w/ patient. 19:15 No provider procedures requiring assistance completed. dc2 19:15 Patient did not have IV access during this emergency room visit. dc2 20:15 Bed in low position. Call light in reach. Side rails up X 1. Adult w/ patient. Cardiac dc2 monitor on. Pulse ox on. NIBP on. Warm blanket given. 21:00 No apparent distress. Resting quietly. Awaiting transportation. dc2 21:00 Patient maintains SpO2 saturation greater than 95% on room air. dc2 Administered Medications: No medications were administered Outcome: 19:30 Discharge ordered by . karli 21:00 Patient's length of stay in the Emergency Department was greater than [address] dc2 results then transportationPatient's length of stay extended due to 21:31 Discharged to senior living. Report called to Nixon Lawson dc2 21:31 Condition: stable 21:31 Discharge instructions given to EMS, and Nixon. Prescriptions given X 1. 21:36 Patient left the ED. dc2 Signatures: Dispatcher [employer] Lasha Castillo MD MD cha Sanford, Demi ds1 Jo AnnLinda RN RN dc2 Josefina Aguilar, RN RN tc5
[2021-04-13 21:48] VITALS: TEMP 97.9
[2021-04-13 21:50] VITALS: BP 152/72; O2SAT 95
== END 2021-04-13 21:36 | disposition home or self-care (01) ==
LOC: ER 17:11
DX: S00.83XA Contusion of other part of head, initial encounter (principal); W18.11XA Fall from or off toilet without subsequent striking against object, initial encounter; I10 Essential (primary) hypertension; Z88.5 Allergy status to narcotic agent; Z91.048 Other nonmedicinal substance allergy status
CPT/HCPCS: 70450; 71250; 72125; 93005; 99285

== ENCOUNTER 2021-05-22 06:43 | Day surgery (SDC) | payer OTHER ==
[2021-05-21 12:46] LABS: Absolute Lymphocytes (CBC) 1.1 K/uL (0.7-4.9); Basophils % 0.7 % (0-1.3); Hematocrit 43.5 % (36.0-45.0); Lymphocytes % 14.7 % (15.3-44.8); MPV 8.9 fL (7.6-11.3); RBC Red Blood Cell Count 4.85 M/uL (3.86-4.86)
[2021-05-21 12:53] LABS: Protime INR 1.12
[2021-05-21 13:31] LABS: Potassium 2.6 mmol/L (3.5-5.1)
[~2021-05-22 06:43] MED LIST: HEPA 1000U/500MLS 1,000 UNIT/500 ML BAG IV ONE; LIDOCAINE 1% 20 ML MDV ONE
[2021-05-22] MEDS ORDERED: NA CHLORIDE 0.9% 500 ML ONE (07:08)
--- NOTE | 2021-05-22 07:08 | EKG ---
Test Date: 2021-05-21 Test Time: 12:10:05 [place]: FILIPE MEASUREMENT RESULTS: Intervals: Rate: 68 AL: QRSD: 86 QT: 416 QTc: 442 [place]: P: AL: QRS: -37 T: 15 INTERPRETIVE STATEMENTS: Atrial fibrillation Left axis deviation Low voltage QRS Possible Anterolateral infarct, age undetermined Abnormal ECG Compared to ECG 04/13/2021 19:14:02 Left-axis deviation now present Myocardial infarct finding now present Sinus rhythm no longer present Atrial premature complex(es) no longer present First degree AV block no longer present Electronically Signed On 05-22-21 07:04:47 MACHINE SORTER by Nelson De Jesus
[2021-05-22] MEDS ORDERED: FENTANYL CITR 100 MCG/2 ML ONE (07:14)
[2021-05-22] MEDS ORDERED: ATROPINE SULF 1 MG/10 ML SYR IV ONE (07:14)
[2021-05-22] MEDS ORDERED: MIDAZOLAM HCL 2 MG/2 ML INJ ONE (07:14)
[2021-05-22 07:33] LABS: Potassium 3.1 mmol/L (3.5-5.1)
--- NOTE | 2021-05-22 08:21 | OP ---
Surgeon: Nelson De Jesus MD [employer] Worker: Parish. Admitted to my service on 05/22/2021 as an outpatient to the blood bank laboratory professional for selective bilateral carotid angiogram. Indication: Cerebrovascular disease, abnormal carotid Doppler. Procedure In Detail: In the blood bank laboratory professional, she was prepped and draped in routine sterile fashion. Given Versed and fentanyl for sedation. A 6-Korean sheath introduced in the right common femoral artery. Angiography there was normal. StarClose was used to close the case. JR4 catheter was used to select the right and the left common carotid artery separately. She was found to have 100% occlusion of he r left ICA. She had a 50% trifurcating lesion at the right ECA, CCA, and ICA. There were no complic ations or blood loss of any significant. Blood Loss: 5 cc. Anesthesia: Total conscious sedation was 30 minutes. Final Diagnosis: Moderate to severe cerebrovascular disease. Plan: To continue medical therapy. I will increase her statin from 40 mg to 80 mg daily. The patie nt will remain in the hospital for 2 hours of bedrest after her StarClose, and she will go home after that. I will see her in the office in 2 weeks. Of note is that she had hypokalemia yesterday. Her potassium this morning still at 3.1. We will give her 40 mEq of potassium p.o. daily now and I will keep an eye on that down the road. KENDRA/ZULMA Voice ID: [id number] Report ID: [id number]
[2021-05-22 09:09] VITALS: TEMP 97.2
[2021-05-22] MEDS ORDERED: POTASSIUM CL SA 10 MEQ TAB PO ONE (09:15)
[2021-05-22] MEDS ORDERED: POTASSIUM 25 MEQ EFFERV TAB PO ONE (09:45)
[2021-05-22 09:49] VITALS: O2SAT 92
[2021-05-22 09:51] VITALS: BP 142/91
== END 2021-05-22 10:10 | disposition home or self-care (01) ==
LOC: CCL 06:43
DX: I65.23 Occlusion and stenosis of bilateral carotid arteries (principal); I25.10 Atherosclerotic heart disease of native coronary artery without angina pectoris; I11.0 Hypertensive heart disease with heart failure; I50.32 Chronic diastolic (congestive) heart failure; E11.9 Type 2 diabetes mellitus without complications; J44.1 Chronic obstructive pulmonary disease with (acute) exacerbation; E78.2 Mixed hyperlipidemia; K21.9 Gastro-esophageal reflux disease without esophagitis; E03.9 Hypothyroidism, unspecified; G62.9 Polyneuropathy, unspecified; E66.01 Morbid (severe) obesity due to excess calories; Z68.42 Body mass index [BMI] 45.0-49.9, adult; Z86.73 Personal history of transient ischemic attack (TIA), and cerebral infarction without residual deficits; Z95.5 Presence of coronary angioplasty implant and graft; Z88.2 Allergy status to sulfonamides; Z88.6 Allergy status to analgesic agent; Z91.048 Other nonmedicinal substance allergy status; Z20.822 Contact with and (suspected) exposure to COVID-19
CPT/HCPCS: 93005; 85025; 80048 ×2; 36415 ×2; 85610; 85730; 36222; U0003; C1893; J2250; J3010; J7040; J1644

== ENCOUNTER 2021-05-24 06:39 | Emergency (ER) | payer OTHER ==
--- OUTSIDE RECORDS SUMMARY | 2021-05-24 06:43 | XMS REPORT | Continuity of Care Document ---
:1935 Author Organization [facility] t Address [address] [place] [address] Care Team Providers Name Role Phone Unavailable Unavailable Unavailable Problems This patient has no known problems. Allergies, Adverse Reactions, Alerts Allergy Allergy Status Severity Reaction(s) Onset Inactive Treating Comm ents Source Name Type Date Date Clinician MORPHINE Adverse Active Info Not [facility] Available [facility] Medications Ordered Filled Start Stop Current Ordering Indication Dosage Frequency Signature Comments Components Source Medication Medication Date Date Medication? Clinician (SIG) Name Name Accu-Vision 360 Degres (V3D)k Smart Furnitureu-Vision 360 Degres (V3D)k Yes Deirdre as [facility] Sarita Plus Sarita Plus 3-25 Millender directed [facility] Fluticasone Fluticasone 2019- Yes Deirdre [address] [facility] Propionate Propionate 2-22 Millender in each [facility] nost[facility] Accu-Che Accu-Chek 2018-0 Yes Deirdre TEST [facility] Sarita Plus Sarita Plus 5-01 Millender [facility] Lipitor Lipitor Yes Deirdre [address] [facility] Millender in evening [facility] ProAir HFA ProAir HFA Yes Deirdre [address] [facility] Millender needed [facility] Lantus Lantus Yes Deirdre [address] [facility] [facility] Millender [facility] Montelukast Montelukast Yes Deirdre [address] [facility] [facility] Sodium Sodium Millender [facility] Lisinopril Lisinopril Yes Deirdre [address] [facility] Millender [facility] Basaglar Basaglar Yes Deirdre [address] KwikPen KwikPen Millender [facility] Madiha Toreynaldo Yes Deirdre not [facility] SoloStar SoloStar [...] [facility] Desloratadi Desloratadi Yes [...] hen hen [facility] Vascepa Vascepa Deirdre [address] 05[facility]10 Millender [facility] Victoza Victoza Deirdre as [facility] 09[facility]17 Millender directed [...] Date/Time Type Type Clinicians Facility Department ID 2021-01-24 2021-01-[address] [id number] 2020-11-24 2020-11-[address] [facility] [id number] 2020-10-30 2020-10-[facility] [id number] 2020-09-13 2020-09-[facility] [id number] 2020-08-02 2020-08-[address] [facility] [id number] [facility] 2020-06-29 2020-06-29 [facility] [id number] [facility] 2020-06-19 2020-06[id number] 2020-05-24 2020-05-[facility] [id number] [facility] 2020-05-10 2020-05-[facility] [id number] [facility] 2020-02-03 2020-02-03 [facility] [id number] [address] 02[facility]20[facility]00 02:20:00 [facility] Clin[facility] 2020-02-02 2020-02-02 [facility] [id number] 14[facility]40[facility]00 14:40:00 [facility] Medicine Outpat[facility] Clinics 2019-12-29 2019-12-29 [facility] [id number] 09:03:00 09:03:00 t [facility] Medicine Outpati ent Clinics 2019-10-04 2019-10-04 [facility] [id number] 16:23:00 16:23:00 t [facility] Medicine Outpat[facility] Clinics 2019-09-15 2019-09-15 [facility] [id number] 12:47:00 12:47:00 t [facility] Medicine Outpati ent Clinics 2019-06-13 2019-06-13 [facility] [id number] 13:02:00 13:02:00 t [facility] Medicine Outpati ent Clinics 2019-06-13 2019-06-13 [facility] [id number] 12:50:00 12:50:00 t [facility] Medicine Outpati ent Clinics 2019-06-09 2019-06-09 [facility] [id number] 16:00:00 16:00:00 [facility] ent Clinics 2019-05-13 2019-05-13 Outpatient [facility] [id number] [facility] [address] 11:20:00 11:20:00 [facility] ent Clinics 2019-05-11 2019-05-11 Outpatient Len [place] [id number] [facility] [address] 16:27:00 16:27:00 [facility] ent Clinics Results This patient has no known results.
--- NOTE | 2021-05-24 07:44 | RAD REPORT ---
EXAM DESCRIPTION: CT - CTHCSPWOC - 05/24/2021 7:22 am CLINICAL HISTORY: fall, head injury, neck pain COMPARISON: Head C Spine Mpr Wo Con dated 04/04/2021; Brain W/Wo Cont dated 12/18/2020 TECHNIQUE: Axial 5 mm thick images of the head were obtained. Axial 2 mm thick images of the cervic al spine were obtained with sagittal and coronal reconstruction images generated and reviewed. All CT scans are performed using dose optimization technique as appropriate and may include automated exposure control or mA/KV adjustment according to patient size. FINDINGS: No intracranial hemorrhage, mass, edema or acute intracranial finding. No suspicion for ac orion infarction. No cortical edema or sulcal effacement. Moderate severity atrophy present with ventri cles in proportion. Old ischemic insult present near the genu of the left internal capsule. Patient h as moderate severity chronic ischemic change in the cerebral white matter, basal ganglia, thalamus an d brainstem tissues. Chronic opacification of the right mastoid air cells and right maxillary sinus noted. Sinus changes extend into the right nasal passage similar to prior imaging. Polyposis component could be present. N o globe or orbit abnormality seen. Patient has normal variant hyperostosis frontalis interna. Cervical bodies are normal in height. Anterior subluxation of C3 on C4 and C4 on C5 noted and not sheng milvia different from the April 04 comparison. C3-4 C5-6, C6-7 and C7-T1 levels show significant disc space narrowing with endplate spurring. Multilevel facet joint degenerative changes are present. No fracture or acute bony abnormality. Central canal detail is inherently limited. No paraspinal mass or hematoma. IMPRESSION: Prominent atrophy and chronic ischemic pattern similar to April 04 imaging. No acute f inding. Prominent cervical spine degenerative change as detailed. Findings are stable from April 04.
[2021-05-24 07:54] LABS: Absolute Lymphocytes (CBC) 1.1 K/uL (0.7-4.9); Hematocrit 43.1 % (36.0-45.0); Lymphocytes % 17.8 % (15.3-44.8); MPV 9.1 fL (7.6-11.3); RBC Red Blood Cell Count 4.77 M/uL (3.86-4.86)
[2021-05-24 07:57] LABS: Protime INR 1.09
[2021-05-24 08:03] LABS: Urine Blood Trace-lysed (Negative); Urine Glucose Negative (Negative); Urine Protein Trace (Negative)
--- NOTE | 2021-05-24 08:11 | RAD REPORT ---
EXAM DESCRIPTION: RAD - Chest Single View - 05/24/2021 7:30 am CLINICAL HISTORY: weakness COMPARISON: December 26 TECHNIQUE: AP portable chest image was obtained 05/24/2021 7:30 am . FINDINGS: No focal mass or consolidation. Prominent interstitial pattern matches comparison. Promine nt heart size also stable from prior study. No measurable pleural effusion and no pneumothorax. No ac [place] bony abnormality seen. No acute aortic findings suspected. IMPRESSION: No acute cardiopulmonary process. Chronic interstitial pattern could mask earliest stages of edema or infiltrate.
[2021-05-24 08:34] LABS: ALT/SGPT 13 U/L (12-78); AST/SGOT 11 U/L (15-37); Albumin 3.3 g/dL (3.4-5.0); Alkaline Phosphatase 122 U/L (45-117); BUN Blood Urea Nitrogen 15 mg/dL (7-18); Bicarbonate 30 mmol/L (21-32); Bilirubin Direct 0.1 mg/dL (0-0.2); Bilirubin Total 0.5 mg/dL (0.2-1.0); Glucose Level 215 mg/dL (74-106); Sodium Level 143 mmol/L (136-145)
[2021-05-24 08:35] LABS: NT PRO-BNP 276 pg/mL (<450); Troponin (Emerg Dept Use Only) < 0.02 ng/mL (0.0-0.045)
[2021-05-24 08:38] LABS: Potassium 2.8 mmol/L (3.5-5.1)
[2021-05-24] MEDS ORDERED: KCL 20 MEQ/100 mL IVPB 20 MEQ/100 ML BAG IV ONE (09:21)
[2021-05-24] MEDS ORDERED: POTASSIUM 25 MEQ EFFERV TAB ONE (09:21)
--- NOTE | 2021-05-24 11:12 | EDPHYS ---
Physician Documentation [facility] Name: Elsa Smith Age: 85 yrs Sex: Female : 1935 Arrival Date: 05/24/2021 Time: 06:44 Bed Treatment Private MD: ED Physician Sonny Beltrán HPI: 05/24 11:05 This 85 yrs old Female presents to ER via EMS with complaints of Head injury. jmm 11:05 Details of fall: The patient fell from a supine position. Onset: The symptoms/episode jmm began/occurred acutely. Associated injuries: The patient sustained injury to the head. . 11:08 This is an 85-year-old female with history of diabetes mellitus, CHF, COPD, CVA that jmm presents emerge department after a fall from her bed while attempting to get into her wheelchair. There is positive LOC. Patient states she does not remember hitting her head. Denies chest pain, abdominal pain, leg pain. Son states that the patient is at her baseline mentation. Historical: - Allergies: 06:56 Lidocaine; as6 06:56 mercury; as6 - PMHx: 06:56 Diabetes - NIDDM; Hypertension; Hypothyroidism; CHF; COPD; CVA; Depression; as6 - PSHx: 06:56 AKA; as6 - Immunization history: Last tetanus immunization: unknown. - Social history:: Smoking status: unknown. ROS: 11:08 Constitutional: Negative for fever, chills, and weight loss, Cardiovascular: Negative jmm for chest pain, palpitations, and edema, Respiratory: Negative for shortness of breath, cough, wheezing, and pleuritic chest pain, Abdomen/GI: Negative for abdominal pain, nausea, vomiting, diarrhea, and constipation. 11:08 Neuro: Positive for loss of consciousness. 11:08 All other systems are negative. Exam: 11:08 Constitutional: This is a well developed, well nourished patient who is awake, alert, jmm and in no acute distress. Head/Face: atraumatic. Eyes: EOMI, no conjunctival erythema appreciated ENT: Moist Mucus Membranes Neck: Trachea midline, Supple Chest/axilla: Normal chest wall appearance and motion. Cardiovascular: Regular rate and rhythm. No edema appreciated Respiratory: Normal respirations, no respiratory distress appreciated Abdomen/GI: Non distended, soft Back: Normal ROM Skin: General appearance color normal 11:08 Skin: Appearance: Color: normal in color. 11:08 Neuro: Orientation: is normal, Mentation: is normal, Cranial nerves: Speech is slurred. 11:08 Psych: Behavior/mood is pleasant, cooperative. Vital Signs: 06:54 BP 150 / 112; Pulse 79; Resp 14 S; Temp 97.7(O); Pulse Ox 94% on R/A; Pain 3/10; as6 07:50 BP 142 / 91; Pulse 78; Resp 18; Pulse Ox 97% on R/A; sl2 07:50 BP 150 / 88; Pulse 81; Resp 18; Pulse Ox 94% on R/A; sl2 08:00 BP 148 / 80; Pulse 84; Resp 18; Temp 97.6; Pulse Ox 95% ; sl2 08:45 BP 159 / 84; Pulse 71; Resp 18; Pulse Ox 95% on R/A; sl2 09:00 BP 157 / 78; Pulse 73; Resp 20; Pulse Ox 95% on 2 lpm NC; sl2 09:30 BP 150 / 92; Pulse 80; Resp 20; Temp 97.8; Pulse Ox 97% 2 lpm ; sl2 10:00 BP 157 / 84; Pulse 94; Resp 18; Pulse Ox 97% on 2 lpm NC; sl2 10:30 BP 158 / 103; Pulse 86; Resp 20; Pulse Ox 98% on NC; sl2 11:30 BP 154 / 92; Pulse 78; Resp 18; Pulse Ox 97% on 2 lpm NC; sl2 [place] Coma Score: 06:54 Eye Response: spontaneous(4). Verbal Response: oriented(5). Motor Response: obeys as6 commands(6). Total: 15. Trauma Score (Adult): 06:54 Eye Response: spontaneous(1); Verbal Response: oriented(1); Motor Response: obeys as6 commands(2); Systolic BP: > 89 mm Hg(4); Respiratory Rate: 10 to 29 per min(4); [place] Score: 15; Trauma Score: 12 MDM: 07:08 Patient medically screened. jennyfer 11:10 Data reviewed: vital signs, nurses notes. Counseling: I had a detailed discussion with jennyfer the patient and/or guardian regarding: the historical points, exam findings, and any diagnostic results supporting the discharge/admit diagnosis, lab results, radiology results, the need for outpatient follow up, to return to the emergency department if symptoms worsen or persist or if there are any questions or concerns that arise at home. 11:11 ED course: CT is negative for an acute process. Labs reveal hypokalemia. Potassium was jmm replaced in the ED. I discussed this with the family along with the need for reevaluation by the patient's PCP and medication reconciliation.. 05/24 07:08 Order name: Basic Metabolic Panel; Complete Time: 08:39 [facility] 05/24 07:08 Order name: CBC with Diff; Complete Time: 08:12 [facility] 05/24 07:08 Order name: LFT's; Complete Time: 08:39 [facility] 05/24 07:08 Order name: Magnesium; Complete Time: 08:39 [facility] 05/24 07:08 Order name: NT PRO-BNP; Complete Time: 08:39 [facility] 05/24 07:08 Order name: PT-INR; Complete Time: 08:12 [facility] 05/24 07:08 Order name: Troponin (emerg Dept Use Only); Complete Time: 08:39 [facility] 05/24 07:08 Order name: XRAY Chest (1 view); Complete Time: 08:12 [facility] 05/24 07:08 Order name: CT Head C Spine; Complete Time: 07:48 [facility] 05/24 07:14 Order name: SARS-COV-2 RT PCR (Document "Date of Onset" if Symptomatic); Complete Time: [facility] 09:13 05/24 07:15 Order name: Urine Culture [facility] 05/24 08:03 Order name: Urine Dipstick-Ancillary; Complete Time: 08:12 [facility] 05/24 07:08 Order name: EKG; Complete Time: 07:09 [facility] 05/24 07:08 Order name: Cardiac monitoring; Complete Time: 08:08 [facility] 05/24 07:08 Order name: EKG - Nurse/Tech; Complete Time: 08:08 [facility] 05/24 07:08 Order name: IV Saline Lock; Complete Time: 08:08 [facility] 05/24 07:08 Order name: Labs collected and sent; Complete Time: 08:08 [facility] 05/24 07:08 Order name: O2 Per Protocol; Complete Time: 08:08 [facility] 05/24 07:08 Order name: O2 Sat Monitoring; Complete Time: 08:08 [facility] 05/24 07:15 Order name: Urine Dipstick-Ancillary (obtain specimen); Complete Time: 08:07 [facility] Administered Medications: 09:27 Drug: K-Lyte (potassium) Effervescent Tablet 50 mEq Route: PO; sl2 09:32 Drug: Potassium Chloride 20 mEq Route: IV; Rate: calculated rate; Site: right sl2 antecubital; Disposition Summary: 05/24/21 11:12 Discharge Ordered Location: Home [facility] Condition: Stable [facility] Diagnosis - Head injury [facility] - Hypokalemia [facility] Followup: [facility] - With: Private Physician - When: 1 - 2 days - Reason: Recheck today's complaints, Continuance of care, Re-evaluation by your physician Discharge Instructions: - Discharge Summary Sheet [facility] - Head Injury, Adult [facility] - Hypokalemia [facility] Forms: - Medication Reconciliation Form [facility] - Thank You Letter [facility] - Antibiotic Education [facility] - Prescription Opioid Use [facility] - SBAR form sl2 Addendum: 05/28/2021 19:04 Co-signature as Attending Physician, Sonny Beltrán MD. p brady Signatures: Dispatcher [employer] EDSonny Spain MD MD pkl Marcus Barrett PA PA [facility] Emani Russell, RN RN sl2 Daniel Poe RN RN as6
--- NOTE | 2021-05-24 11:12 | ER ---
Nurse's Notes [facility] Name: Elsa Smith Age: 85 yrs Sex: Female : 1935 Arrival Date: 05/24/2021 Time: 06:44 Bed Treatment Private MD: Diagnosis: Head injury;Hypokalemia Presentation: 05/24 06:45 Chief complaint: EMS states: pt was founds on ground of jail this morning, pt as6 states she does not remember falling, unknown length of time on ground, pt AAO X4 at triage. Care prior to arrival: Glucose check: 207. Mechanism of Injury: Fall. Trauma event details: Injury occurred in the [facility]. 06:45 Acuity: ALEJANDRO 3 as6 06:45 Method Of Arrival: EMS: [facility] as6 10:39 Coronavirus screen: Vaccine status: Patient reports receiving the 2nd dose of the covid sl2 vaccine. Ebola Screen: Patient negative for fever greater than or equal to 101.5 degrees Fahrenheit, and additional compatible Ebola Virus Disease symptoms Patient denies exposure to infectious person. Patient denies travel to an Ebola-affected area in the 21 days before illness onset. No symptoms or risks identified at this time. Initial Sepsis Screen: Does the patient meet any 2 criteria? HR > 90 bpm. Does the patient have a suspected source of infection? No. Patient's initial sepsis screen is negative. Risk Assessment: Do you want to hurt yourself or someone else? Patient reports no desire to harm self or others. Onset of symptoms is unknown. Triage Assessment: 07:30 General: Appears in no apparent distress. obese, well developed, Behavior is calm, sl2 cooperative, appropriate for age. Historical: - Allergies: 06:56 Lidocaine; as6 06:56 mercury; as6 - PMHx: 06:56 Diabetes - NIDDM; Hypertension; Hypothyroidism; CHF; COPD; CVA; Depression; as6 - PSHx: 06:56 AKA; as6 - Immunization history: Last tetanus immunization: unknown. - Social history:: Smoking status: unknown. Screenin:30 Abuse screen: Denies threats or abuse. Denies injuries from another. sl2 07:30 Nutritional screening: No deficits noted. Tuberculosis screening: No symptoms or risk sl2 factors identified. Fall Risk Secondary diagnosis (15 points) IV access (20 points). Ambulatory Aid- Crutches/Cane/Walker (15 pts). Gait- Impaired (20 pts.). Mental Status- Oriented to own ability (0 pts). Total Mortensen Fall Scale indicates High Risk Score (45 or more points). Fall prevention measures have been instituted. Side Rails Up X 2 Placed Close to Nursing Station Frequent Obs/Assessments Occuring Family Present and informed to notify staff if the need to leave the bedside As available patient and family educated on Fall Prevention Program and Strategies. Primary Survey: 06:53 NO uncontrolled hemorrhage observed. A: Airway: patent. Breathing/Chest: Respiratory as6 pattern: regular, Respiratory effort: spontaneous, unlabored. Circulation: Pulses: palpable right radial artery and left radial artery. Disability Alert. Exposure/Environment: A warming method has been applied: A warm blanket has been provided to the patient. Reassessment Airway Airway Patent Breathing/Chest Respiratory pattern Regular Respiratory effort Spontaneous Unlabored Circulation Pulses Palpable Disability Alert. Assessment: 08:57 Reassessment: Patient asleep, resting quietly - shows no signs of acute distress or [facility] discomfort. Will continue to re-assess and monitor - family present at bedside. 09:30 Pain: Denies pain. sl2 09:30 Neuro: Level of Consciousness is awake, alert, obeys commands, Oriented to person, 2 histrory of CVA - baseline AAO X 1 . Cardiovascular: No deficits noted. Capillary refill < 3 seconds Rhythm is regular. 11:27 Reassessment: Nursing report given to Josephine - medical file clerk at [place] [address] jail - patient is currently being discharged and will be returning to that facility of which patient is a resident. Vital Signs: 06:54 BP 150 / 112; Pulse 79; Resp 14 S; Temp 97.7(O); Pulse Ox 94% on R/A; Pain 3/10; as6 07:50 BP 142 / 91; Pulse 78; Resp 18; Pulse Ox 97% on R/A; sl2 07:50 BP 150 / 88; Pulse 81; Resp 18; Pulse Ox 94% on R/A; sl2 08:00 BP 148 / 80; Pulse 84; Resp 18; Temp 97.6; Pulse Ox 95% ; sl2 08:45 BP 159 / 84; Pulse 71; Resp 18; Pulse Ox 95% on R/A; sl2 09:00 BP 157 / 78; Pulse 73; Resp 20; Pulse Ox 95% on 2 lpm NC; sl2 09:30 BP 150 / 92; Pulse 80; Resp 20; Temp 97.8; Pulse Ox 97% 2 lpm ; sl2 10:00 BP 157 / 84; Pulse 94; Resp 18; Pulse Ox 97% on 2 lpm NC; sl2 10:30 BP 158 / 103; Pulse 86; Resp 20; Pulse Ox 98% on NC; sl2 11:30 BP 154 / 92; Pulse 78; Resp 18; Pulse Ox 97% on 2 lpm NC; sl2 [place] Coma Score: 06:54 Eye Response: spontaneous(4). Verbal Response: oriented(5). Motor Response: obeys as6 commands(6). Total: 15. Trauma Score (Adult): 06:54 Eye Response: spontaneous(1); Verbal Response: oriented(1); Motor Response: obeys as6 commands(2); Systolic BP: > 89 mm Hg(4); Respiratory Rate: 10 to 29 per min(4); [place] Score: 15; Trauma Score: 12 ED Course: 06:44 Patient arrived in ED. as6 06:53 Triage completed. as6 06:56 Patient has correct armband on for positive identification. Bed in low position. Call as6 light in reach. Side rails up X2. 07:00 Marcus Barrett PA is PHCP. [facility] 07:00 Sonny Beltrán MD is Attending Physician. jmm 07:22 CT Head C Spine In Process Unspecified. EDMS 07:22 Missed attempt(s): 18 gauge in left antecubital area. Bleeding controlled, band aid tp1 applied, catheter tip intact. 07:30 XRAY Chest (1 view) In Process Unspecified. EDMS 07:30 Thermoregulation: warm blanket given to patient. sl2 07:57 Emani Russell, JORGE is Primary Nurse. sl2 08:11 Inserted saline lock: 22 gauge in right antecubital area, using aseptic technique. tp1 Blood collected. 10:38 No provider procedures requiring assistance completed. sl2 10:41 Oxygen administration via nasal cannula \T\ 2L/min. sl2 13:29 Arm band placed on. iw 13:29 IV discontinued, intact, bleeding controlled, No redness/swelling at site. Pressure iw dressing applied. Administered Medications: 09:27 Drug: K-Lyte (potassium) Effervescent Tablet 50 mEq Route: PO; sl2 09:32 Drug: Potassium Chloride 20 mEq Route: IV; Rate: calculated rate; Site: right sl2 antecubital; Outcome: 11:12 Discharge ordered by MD. burger 13:29 [address] Transfer form completed. iw 13:29 Condition: good 13:29 Discharge instructions given to jail, Demonstrated understanding of instructions. 13:29 Patient left the ED. iw Signatures: Dispatcher [employer] EDMS Marcus Barrett PA PA jmm Williams, Irene, RN RN iw Emani Russell RN RN sl2 Daniel Poe RN RN as6 Liliana Luis tp1 Corrections: (The following items were deleted from the chart) 08:12 07:22 Missed attempt(s): 18 gauge in right antecubital area. Bleeding controlled, band tp1 aid applied, catheter tip intact. tp1 08:12 07:22 Missed attempt(s): 18 gauge in left in right antecubital area. Bleeding tp1 controlled, band aid applied, catheter tip intact. tp1 10:41 10:39 Coronavirus screen: Vaccine status: Patient reports receiving the 2nd dose of the sl2 covid vaccine. sl2
[2021-05-24 13:46] VITALS: TEMP 97.8
[2021-05-24 13:49] VITALS: BP 154/92; O2SAT 97
--- NOTE | 2021-05-26 12:42 | EKG ---
Test Date: 2021-05-24 Test Time: 08:02:44 [employer] Supervisor: GRACIELA MEASUREMENT RESULTS: Intervals: Rate: 63 WY: 214 QRSD: 84 QT: 430 QTc: 440 [place]: P: 56 WY: 214 QRS: -20 T: 0 INTERPRETIVE STATEMENTS: Sinus rhythm with marked sinus arrhythmia with 1st degree AV block Low voltage QRS Borderline ECG Compared to ECG 05/21/2021 12:10:05 First degree AV block now present Atrial fibrillation no longer present Left-axis deviation no longer present Myocardial infarct finding no longer present Electronically Signed On 05-26-21 12:36:10 [employer] by Nelson De Jesus
== END 2021-05-24 13:29 | disposition home or self-care (01) ==
LOC: ER 06:39
DX: S09.90XA Unspecified injury of head, initial encounter (principal); E87.6 Hypokalemia; W06.XXXA Fall from bed, initial encounter; Y92.199 Unspecified place in other specified residential institution as the place of occurrence of the external cause; E11.9 Type 2 diabetes mellitus without complications; I11.0 Hypertensive heart disease with heart failure; I50.9 Heart failure, unspecified; J44.9 Chronic obstructive pulmonary disease, unspecified; Z86.73 Personal history of transient ischemic attack (TIA), and cerebral infarction without residual deficits; Z20.822 Contact with and (suspected) exposure to COVID-19
CPT/HCPCS: 93005; 87088; 85025; 87086; 80048; 36415; 83735; 85610; 82947; 80076; 81003; 84484; 83880; 70450; 72125; 71045; 96374; 99284; U0003; J3480

== ENCOUNTER 2021-10-17 19:47 | Observation (INO) | payer OTHER ==
--- OUTSIDE RECORDS SUMMARY | 2021-10-17 19:50 | XMS REPORT | Continuity of Care Document ---
:1935 Author Organization [facility] t Address [address] [id number] Care Team Providers Name Role Phone ENRIQUE ARAGON Attending Clinician Unavailable [id number] Attending Clinician Unavailable Adams Attending Clinician Unavailable Mark Attending Clinician Unavailable Caryn Attending Clinician Unavailable ENRIQUE ARAGON Admitting Clinician Unavailable [id number] Admitting Clinician Unavailable Payers Payer Name Policy Type Policy Number Effective Date Expiration Date S ource [facility] [id number] Problems This patient has no known problems. Allergies, Adverse Reactions, Alerts Allergy Allergy Status Severity Reaction(s) Onset Inactive Treating Comm ents Source Name Type Date Date Clinician MORPHINE Adverse Active Info Not [facility] Medications Ordered Filled Start Stop Current Ordering Indication Dosage Frequency Signature Comments Components Source Medication Medication Date Date Medication? Clinician (SIG) [facility] Plus Sarita Plus 3-25 Millender directed [facility] Fluticasone Fluticasone 2018-06 Yes Deirdre [address] Propionate Propionate 2-22 Millender in each [facility] Accu-Chek Accu-Chek Yes Deirdre TEST [facility] Lasix Lasix Yes Deridre [address] [facility] Millender [facility] [place] Montelukast Yes Deirdre [address] [facility] Vascepa Vascepa 2020- No Deirdre [address] 05-10 Millender [facility] Victoza Victoza 2019- No Deirdre as [facility] 09-17 [facility] directed [facility] Klor-Con Klor-Con 2019- No Deirdre [address] M20 M20 08-20 Millender with food [facility] Procedures This patient has no known procedures. Encounters Start End Encounter Admission Attending Care Care Encounter Source Date/Time Date/Time Type Type Clinicians Facility Department ID 2021-07-19 Outpatient 3 GODWIN ARAGON [facility]A [facility] 13:16:38 ENRIQUE 1110 2021-07-19 Outpatient 3 GODWIN ARAGON CVA [facility] 13:14:59 ENRIQUE 1105 2021-07-19 Outpatient 3 [id number] [facility] REF [id number] [facility] 13:14:15 1104 2021-07-19 Outpatient 3 [id number] [facility] REF [id number] [facility] 13:13:18 1102 2021-07-19 Outpatient 3 GODWIN ARAGON CVA [facility] 12:28:46 ENRIQUE 0709 2021-07-19 Outpatient 3 [id number] [facility] REF [id number] [facility] 12:28:15 0708 2021-07-19 Outpatient 3 [id number] [facility] REF [id number] [facility] 12:27:56 0707 2021-07-18 Outpatient Sisters, STLMLC [facility] [id number] [facility] 12:34:37 Deena [id number] [facility] 2021-07-18 Outpatient Adams, STLMLC [facility]LMLC [facility] 12:16:[facility] Deena [id number] [facility] 2021-07-18 Outpatient Herman Flores STLMLC STLMLC [id number] [facility] [facility] 11:59:31 [id number] [facility] 2021-07-18 Outpatient Caryn, STLMLC STLC [id number] [facility] 11:36:[facility] Deirdre [address] [facility] 2020-12-30 Inpatient 3 MARGO, ENCPL CVA [id number] [facility] 01:30:00 ENRIQUE 0710 2021-01-24 2021-01-24 Outpatient STLMLC [facility] [id number] [facility] 2020-11-24 2020-11-24 Outpatient [facility]LMLC [facility] [id number] [facility] 2020-10-30 2020-10-30 Outpatient STLMLC [facility] [id number] [facility] 2020-09-13 2020-09-13 Outpatient [facility] [id number] [facility] 2020-08-02 2020-08-02 Outpatient [facility]LML[facility] [id number] [facility] 2020-06-29 2020-06-29 Outpatient [facility] [id number] [facility] 2020-06-19 2020-06-19 Outpatient [facility] [id number] [facility] 2020-05-24 2020-05-24 [id number] 2020-05-10 2020-05-10 [facility] [id number] [facility] 2020-02-03 2020-02-03 [facility] [id number] [facility] 02:20[facility]00 02:20:00 [facility] 2020-02-02 2020-02-02 [facility] [id number] 14:40:00 14:40:00 t [facility] 2019-12-29 2019-12-29 [facility] [id number] [address] 09:03:00 09:03:00 t [facility] 2019-10-04 2019-10-04 [facility] [id number] 16:23:00 16:23:00 t [facility] 2019-09-15 2019-09-15 [facility] [id number] 12:47:00 12:47:00 t [facility] 2019-06-13 2019-06-13 [facility] [id number] 13:02:00 13:02:00 t [facility] 2019-06-13 2019-06-13 [facility] [id number] 12:50:00 12:50:00 t [facility] 2019-06-09 2019-06-09 [facility] [id number] 16:00:00 16:00:[address] [facility] 2019-05-13 2019-05-13 [facility] [id number] 11:20:00 11:20:00 [facility] 2019-05-11 2019-05-11 Outpatient Len Lynn [id number] 16:27:00 16:27:00 [facility] Results This patient has no known results.
[2021-10-17 22:08] LABS: Absolute Lymphocytes (CBC) 1.5 K/uL (0.7-4.9); Hematocrit 43.6 % (36.0-45.0); MPV 8.4 fL (7.6-11.3)
[2021-10-17] MEDS ORDERED: FENTANYL CITR 100 MCG/2 ML ONE (22:28)
[2021-10-17 22:32] LABS: Urine Blood Trace-intact (Negative); Urine Glucose Negative (Negative); Urine Protein Negative (Negative)
[2021-10-17 22:36] LABS: Albumin 3.4 g/dL (3.4-5.0); Bilirubin Total 0.3 mg/dL (0.2-1.0); Protein, Total 7.8 g/dL (6.4-8.2)
[2021-10-17 22:45] LABS: Potassium 3.2 mmol/L (3.5-5.1)
[2021-10-17 23:08] LABS: Urine Bacteria <20 /HPF (<20)
[2021-10-17] MEDS ORDERED: NA CHLORIDE 0.9% 500 ML ONE (23:47)
[2021-10-17] MEDS ORDERED: CEFTRIAXONE 1000 MG/VIAL ONE (23:47)
[2021-10-17] MEDS ORDERED: KCL 20 MEQ/100 mL IVPB 100 ML IV ONE (23:48)
[2021-10-17] MEDS ORDERED: NA CHLORIDE 0.9% 100 ML IV ONE (23:48)
--- NOTE | 2021-10-18 02:16 | EDPHYS ---
Physician Documentation [facility] Name: Elsa Smith Age: 85 yrs Sex: Female : 1935 Arrival Date: 10/17/2021 Time: 20:05 Bed 17 Private MD: ED Physician Lasha Varghese HPI: 10/17 21:00 This 85 yrs old Female presents to ER via EMS with complaints of Hand Pain, Leg Pain. cp 21:00 The patient or guardian reports pain. The complaints affect the right hand and left cp hand. Associated signs and symptoms: Pertinent positives: bilateral leg pain, abdominal pain, Pertinent negatives: cyanosis distally, decreased sensation distally, fever, vomiting. Historical: - Allergies: 20:13 Lidocaine; lp1 20:13 mercury; lp1 - PMHx: 20:13 CHF; COPD; CVA; Depression; Diabetes - NIDDM; Hypertension; Hypothyroidism; lp1 - PSHx: 20:13 AKA; lp1 - Immunization history:: Adult Immunizations up to date. - Social history:: Smoking status: Patient denies any tobacco usage or history of. ROS: 21:05 Constitutional: Negative for fever. cp 21:05 Cardiovascular: Negative for chest pain, edema, palpitations. cp 21:05 Respiratory: Negative for cough, shortness of breath, wheezing. 21:05 Abdomen/GI: Positive for abdominal pain, nausea, Negative for vomiting, diarrhea, constipation, anorexia. 21:05 Neuro: Negative for altered mental status, headache. Exam: 20:11 ECG was reviewed by the Attending Physician. cp 21:10 Constitutional: The patient appears in no acute distress, alert, awake, cp non-diaphoretic, non-toxic, well developed, well nourished, obese, uncomfortable. 21:10 Head/Face: Normocephalic, atraumatic. cp 21:10 Eyes: Periorbital structures: appear normal, Pupils: equal, round, and reactive to light and accomodation, Extraocular movements: intact throughout, Conjunctiva: normal, no exudate, no injection, Sclera: no appreciated abnormality, Lids and lashes: appear normal, bilaterally. 21:10 ENT: External ear(s): are unremarkable, Ear canal(s): are normal, clear, TM's: dullness, bilaterally, Nose: is normal, Mouth: Lips: dry, Oral mucosa: dry, Posterior pharynx: Airway: no evidence of obstruction, patent, Tonsils: are normal in appearance, erythema, that is mild, exudate, is not appreciated. 21:10 Neck: ROM/movement: is normal, is supple, without pain, no range of motions limitations. 21:10 Chest/axilla: Inspection: normal. 21:10 Cardiovascular: Rate: normal, Rhythm: regular, Edema: pedal edema, that is moderate, left foot, JVD: is not appreciated. 21:10 Respiratory: the patient does not display signs of respiratory distress, Respirations: normal, no use of accessory muscles, no retractions, labored breathing, is not present, Breath sounds: are clear throughout, no decreased breath sounds, no stridor, no wheezing. 21:10 Abdomen/GI: Inspection: obese Bowel sounds: active, all quadrants, Palpation: soft, in all quadrants, moderate abdominal tenderness, in the umbilical area, right lower quadrant and left lower quadrant, rebound tenderness, is not appreciated, involuntary guarding, is not appreciated. 21:10 Musculoskeletal/extremity: right above knee amputation. 21:10 Skin: cellulitis, is not appreciated, no rash present. 21:10 Neuro: Orientation: no acute changes, per family, Mentation: no acute changes, per family, Motor: moves all fours, strength is normal, Sensation: no obvious gross deficits. Vital Signs: 20:12 BP 160 / 87; Pulse 71; Resp 18; Temp 98.2(O); Pulse Ox 98% on R/A; Weight 113.4 kg; lp1 21:22 BP 152 / 87; Pulse 73; Resp 17; Pulse Ox 99% on R/A; kd3 MDM: 20:28 Patient medically screened. [facility] 10/18 02:00 ED course: Spoke with hospital type rolling machine operator who reports DR Sow, urologist, is available daily for consult between the hours of 1100 to 2300. Will admit patient for right UPJ calculus, 7 by 8.4 mm. 02:00 Data reviewed: vital signs, nurses notes, lab test result(s), EKG, radiologic studies, cp CT scan, ultrasound. 10/17 20:38 Order name: CBC with Diff; Complete Time: 23:07 10/18 02:17 Interpretation: Reviewed. 10/17 20:38 Order name: CMP; Complete Time: 23:07 cp 10/17 23:07 Interpretation: Normal except: K 3.2; GLUC 168; GFR 44; GLOB 4.4; A/G 0.8. cp 10/17 20:38 Order name: Lipase; Complete Time: 23:07 cp 10/17 20:38 Order name: Urine Microscopic Only; Complete Time: 23:08 cp 10/18 01:53 Interpretation: Normal except: UWBC 20-50; URBC 5-10. cp 10/17 22:33 Order name: Urine Dipstick-Ancillary; Complete Time: 23:07 EDMS 10/17 23:07 Interpretation: Normal except: UBLD Trace-intact; UESTR 1+. 10/17 23:10 Order name: Urine Culture EDSD 10/17 21:39 Order name: US Extremity Venous W Compression Nikita 10/18 03:03 Order name: Troponin HS; Complete Time: 05:16 la1 10/18 03:03 Order name: BNP; Complete Time: 05:16 la1 10/18 03:03 Order name: COVID-19 SARS RT PCR (Document "Date of Onset" if Symptomatic); Complete la1 Time: 07:43 10/18 08:07 Order name: Glucose, Ancillary Testing EDSD 10/18 08:45 Order name: CBC with Automated Diff EDSD 10/18 08:46 Order name: Comprehensive Metabolic Panel EDSD 10/18 12:15 Order name: Glucose, Ancillary Testing EDSD 10/17 20:38 Order name: IV Saline Lock; Complete Time: 22:22 10/17 20:38 Order name: Labs collected and sent; Complete Time: 22:22 10/17 20:38 Order name: Urine Dipstick-Ancillary (obtain specimen); Complete Time: 22:22 10/17 22:06 Order name: Abdomen EDMS 10/18 03:03 Order name: Chest Single View XRAY la1 10/18 11:21 Order name: RAD EDMS 10/18 13:14 Order name: RAD EDMS EC/27 20:11 Rate is 73 beats/min. Rhythm is regular. HI interval is prolonged at 226 msec. QRS cp interval is normal. QT interval is normal. Interpreted by me. Reviewed by me. Administered Medications: 22:36 Drug: fentaNYL (PF) 25 mcg Route: IVP; Site: right antecubital; kd3 23:54 Drug: Rocephin - (cefTRIAXone) 2 grams Route: IVPB; Infused Over: 30 mins; Site: right kd3 antecubital; 10/18 04:30 Follow up: IV Status: Completed infusion kd3 01:24 Drug: Potassium Chloride 20 mEq Route: IV; Rate: calculated rate; Site: left forearm; kd3 04:58 Drug: fentaNYL (PF) 25 mcg Route: IVP; Site: right antecubital; kd3 05:02 Drug: Potassium Effervescent Tablet 50 mEq Route: PO; kd3 Disposition Summary: 10/18/21 02:16 Hospitalization Ordered Hospitalization Status: Observation cp Provider: Alistair Jensen cp Condition: Stable cp Problem: new cp Symptoms: have improved cp Bed/Room Type: Standard cp Location: [facility] ER HOLD(10/18/21 03:54) eb1 Room Assignment: ERHOLD-(10/18/21 03:54) eb1 Diagnosis - Hypokalemia cp - Calculus of kidney with calculus of ureter - right cp Discharge Instructions: - Discharge Summary Sheet al4 Forms: - Medication Reconciliation Form cp - SBAR form cp - Family Work Release al4 Signatures: Dispatcher [employer] EDMS Lasha Varghese MD MD cha Pena, Laura, RN RN lp1 Osmar Goetz FNP-C [facility] Lasha Barraza PA PA cp Jolynn Montesinos RN RN eb1 Marianne Stark RN RN kd3 Corrections: (The following items were deleted from the chart) 03:54 02:16 Telemetry/MedSurg (observation) cp eb1 03:54 02:16 cp eb1 19:24 02:00 Data reviewed: vital signs, nurses notes, lab test result(s), EKG, radiologic cp studies, CT scan, plain films, cp
--- NOTE | 2021-10-18 02:16 | ER ---
Nurse's Notes [facility] Name: Elsa Smith Age: 85 yrs Sex: Female : 1935 Arrival Date: 10/17/2021 Time: 20:05 Bed 17 Private MD: Diagnosis: Hypokalemia;Calculus of kidney with calculus of ureter-right Presentation: 10/17 20:12 Chief complaint: EMS states: Called for patient with bilateral hand pain and lp1 complaining of bilateral foot pain, patient has Right AKA; Patient reports previous similar pain. Coronavirus screen: At this time, the client does not indicate any symptoms associated with coronavirus-19. Ebola Screen: No symptoms or risks identified at this time. Initial Sepsis Screen: Does the patient meet any 2 criteria? No. Patient's initial sepsis screen is negative. Does the patient have a suspected source of infection? No. Patient's initial sepsis screen is negative. Risk Assessment: Do you want to hurt yourself or someone else? Patient reports no desire to harm self or others. Onset of symptoms was October 17, 2021. 20:12 Method Of Arrival: EMS: [facility] lp1 20:12 Acuity: ALEJANDRO 3 lp1 20:15 Transition of care: patient was received from another setting of care (long-term [facility]), [facility] Historical: - Allergies: 20:13 Lidocaine; lp1 20:13 mercury; lp1 - PMHx: 20:13 CHF; COPD; CVA; Depression; Diabetes - NIDDM; Hypertension; Hypothyroidism; lp1 - PSHx: 20:13 AKA; lp1 - Immunization history:: Adult Immunizations up to date. - Social history:: Smoking status: Patient denies any tobacco usage or history of. Screenin:36 Abuse screen: Denies threats or abuse. Denies injuries from another. Nutritional kd3 screening: No deficits noted. Tuberculosis screening: No symptoms or risk factors identified. Fall Risk Gait- Weak (10 pts.). Assessment: 20:36 General: Appears in no apparent distress. Behavior is calm, cooperative. Pain: kd3 Complains of pain in right lower quadrant and left lower quadrant. Neuro: Level of Consciousness is awake, alert, obeys commands, Oriented to person, place, time, situation. Cardiovascular: Patient's skin is warm and dry. Respiratory: Airway is patent Trachea midline Respiratory effort is even, unlabored, Respiratory pattern is regular, symmetrical. 21:22 Reassessment: No changes from previously documented assessment. Patient and/or family kd3 updated on plan of care and expected duration. Pain level reassessed. Patient is alert, oriented x 3, equal unlabored respirations, skin warm/dry/pink. General: Appears in no apparent distress. Behavior is calm, cooperative. Vital Signs: 20:12 BP 160 / 87; Pulse 71; Resp 18; Temp 98.2(O); Pulse Ox 98% on R/A; Weight 113.4 kg; lp1 21:22 BP 152 / 87; Pulse 73; Resp 17; Pulse Ox 99% on R/A; kd3 ED Course: 20:05 Patient arrived in ED. lp1 20:13 Triage completed. lp1 20:13 Arm band placed on right wrist. lp1 20:16 Marianne Stark, JORGE is Primary Nurse. kd3 20:26 Lasha Barraza PA is PHCP. cp 20:26 Lasha Varghese MD is Attending Physician. cp 20:36 Patient has correct armband on for positive identification. Bed in low position. Call kd3 light in reach. Side rails up X 1. 22:35 Inserted saline lock: 20 gauge in right antecubital area, using aseptic technique. kd3 23:42 US Extremity Venous W Compression Nikita In Process Unspecified. EDMS 10/18 00:34 Inserted saline lock: 22 gauge in left forearm, using aseptic technique. kd3 00:59 Abdomen In Process Unspecified. EDMS 02:14 Alistair Jensen MD is Hospitalizing Provider. cp Administered Medications: 10/17 22:36 Drug: fentaNYL (PF) 25 mcg Route: IVP; Site: right antecubital; kd3 23:54 Drug: Rocephin - (cefTRIAXone) 2 grams Route: IVPB; Infused Over: 30 mins; Site: right kd3 antecubital; 10/18 04:30 Follow up: IV Status: Completed infusion kd3 01:24 Drug: Potassium Chloride 20 mEq Route: IV; Rate: calculated rate; Site: left forearm; kd3 04:58 Drug: fentaNYL (PF) 25 mcg Route: IVP; Site: right antecubital; kd3 05:02 Drug: Potassium Effervescent Tablet 50 mEq Route: PO; kd3 Outcome: 02:16 Decision to Hospitalize by Provider. cp 13:43 Patient left the ED. jh6 Signatures: Dispatcher [employer] EDMS Tanya Nuñez RN RN lp1 Lasha Barraza PA PA cp Doucette, Kyli RN RN kd3 Sybil Riggs RN RN jh6 Corrections: (The following items were deleted from the chart) 10/17 23:18 23:17 Blood Glucose: Blood Glucose Iphmfpw=394 mg/dL. lp1 lp1
--- NOTE | 2021-10-18 03:19 | P.HP ---
Certification for Inpatient Patient admitted to: Observation With expected LOS: <2 Midnights Patient will require the following post-hospital care: None Practitioner: I am a practitioner with admitting privileges, knowledge of patient current condition, hospital course, and medical plan of care. Services: Services provided to patient in accordance with Admission requirements found in Title 42 Section 412.3 of the Code of Federal Regulations <Osmar Goetz - Last Filed: 10/18/21 03:13> Patient History Date of Service: 10/18/21 Reason for admission: Ureteral calculus History of Present Illness: 85-year-old female with history of CVA, diabetes mellitus type 2insulin-dependent, CAD, chronic diastolic congestive heart failure, right AKA, chronic pain, JOVANNA presents emergency department with abdominal pain. Patient is a resident of [facility]. She was evaluated in the emergency department her labs were significant only for mild hypokalemia and hyperglycemia urine microscopic with small amount of red blood cells and white blood cells without any bacteria present she had a CT scan without contrast which demonstrated a 7 x 8.4 mm calculus of the right UPJ/proximal right ureter with mild right hydronephrosis, bilateral nephrolithiasis. Given large size of ureteral calculus, location hydronephrosis and patient's pain ED provider wishes to admit for further evaluation and management. Patient denies history of kidney stones in the past although she has poor historian does have some demen tia/owning. Will admit for further evaluation and management. - Past Medical/Surgical History Diabetic: Yes -: T2DM -: GERD -: Hypothyroidism -: HTN -: Stroke -: Hearing problems -: [place] 2015 -: chronic pancreatitis -: Macular Degeneration -: Dementia -: gall bladder -: appendix -: joint replacement -: joint removed -: AKA -: heart stent -: cataract sx Psychosocial/ Personal History: Currently resident at half-way - Family History Father -: Cancer Sister -: Stroke - Social History Smoking Status: Unknown if ever smoked Alcohol use: No CD- Drugs: No Caffeine use: Yes Place of Residence: Long-Term <Osmar Goetz - Last Filed: 10/18/21 03:13> Date of Service: 10/18/21 <Alistair Jensen - Last Filed: 10/18/21 16:43> Allergies Sulfa (Sulfonamide Antibiotics) Allergy (Verified 05/21/21 11:54) Rash morphine Adverse Reaction (Intermediate, Verified 05/21/21 11:54) "goes crazy" mercury Allergy (Uncoded 05/21/21 11:54) Unknown Home Medications: Atorvastatin Calcium [Lipitor] 1 tab PO BEDTIME 10/18/21 Clopidogrel Bisulfate [Plavix*] 1 tab PO DAILY 10/18/21 Duloxetine HCl 1 cap PO DAILY 10/18/21 Furosemide 1 tab PO DAILY 10/18/21 Hydrocodone 7.5/APAP 325 [Mitchell 7.5/325 mg*] 1 tab PO TID 10/18/21 Ibuprofen [Motrin] 1 tab PO Q6H PRN 10/18/21 Insulin Glargine,Hum.rec.anlog [Basaglar Kwikpen U-100] 36 unit SQ DAILY 10/18/21 Levothyroxine [Synthroid*] 1 tab PO 0600 10/18/21 Lipase/Protease/Amylase [Richard Das 36,000 Unit Capsule] 2 cap PO TIDWM 10/18/21 Liraglutide [Victoza 2-Ajit] 1 appl SQ DAILY 10/18/21 Loperamide HCl [Imodium A-D] 1 cap PO QID PRN 10/18/21 Loperamide HCl [Loperamide] 1 cap PO QID PRN 10/18/21 Methylphenidate HCl 1 tab PO DAILY 10/18/21 Pantoprazole [Protonix Tab*] 1 tab PO BREAKFAST 10/18/21 Potassium Chloride 1 tab PO BREAKFAST 10/18/21 Pregabalin 1 cap PO BEDTIME 10/18/21 Pregabalin 1 cap PO BID 10/18/21 Vit C/E/Zn/Coppr/Lutein/Zeaxan [Preservision Areds 2 Softgel] 2 cap PO DAILY 10/18/21 Review of Systems 10-point ROS is otherwise unremarkable Gastrointestinal: Abdominal Pain <Osmar Goetz Chris - Last Filed: 10/18/21 03:13> Physical Examination - Physical Exam General: Alert, Oriented x2, Obese HEENT: Atraumatic, Normocephalic Neck: Supple Respiratory: Diminished Cardiovascular: No edema, Normal S1 S2 Capillary refill: <2 Seconds Gastrointestinal: Normal bowel sounds, Soft and benign, Tenderness (Mild generalized abdominal tenderness) Musculoskeletal: No contractures, No erythema, No tenderness, Other (Right AKA) Integumentary: No significant lesion Neurological: Normal speech, Normal tone, Sensation intact - Studies Laboratory Data (last 24 hrs) 10/17/21 21:55: Sodium 144, Potassium 3.2 L, BUN 17, Creatinine 1.18, Glucose 168 H, Total Bilirubin 0.3, AST 16, ALT 21, Alkaline Phosphatase 104, Lipase 118 10/17/21 21:55: WBC 7.5, Hgb 14.7, Hct 43.6, Plt Count 223 <Osmar Goetz - Last Filed: 10/18/21 03:13> - Studies Laboratory Data (last 24 hrs) 10/17/21 21:55: Sodium 144, Potassium 3.2 L, BUN 17, Creatinine 1.18, Glucose 168 H, Total Bilirubin 0.3, AST 16, ALT 21, Alkaline Phosphatase 104, Lipase 118 10/17/21 21:55: WBC 7.5, Hgb 14.7, Hct 43.6, Plt Count 223 <Alistair Jensen - Last Filed: 10/18/21 16:43> Assessment and Plan - Plan Assessment: 7 x 8.4 mm right UPJ calculus with mild hydronephrosis Diabetes mellitus type 2insulin-dependent Hypokalemia Chronic diastolic congestive heart failure History of CAD Chronic COPD History of right AKA Chronic pain/neuropathy Dementia Plan: 7 x 8.4 mm right UPJ calculus with mild hydronephrosis: N.p.o., urology consult in place, as needed pain medications and antiemetics urine negative for bacteria white blood cell count normal no fever at this time patient does not appear to be septic. Appreciate further input from urology Diabetes mellitus type 2insulin-dependent: Every 6 hours Accu-Chek while n.p.o., sliding scale insulin patient takes long-acting insulin 36 units at night typically. Hypokalemia: Protocol in place, replaced in the ER. Chronic diastolic congestive heart failure: Last echocardiogram 12/18/2020 normal left ventricular ejection fraction and function. Troponin, BNP, chest x-ray pending. History of CAD: Monitor on telemetry, obtaining continue home medications. Chronic COPD: As needed nebulizer treatments History of right AKA: Baseline Chronic pain/neuropathy: Continue home medications Dementia: At baseline, continue medication. DVT PPX: SCD Code status: Full Discharge Plan: Home Plan to discharge in: 24 Hours - Advance Directives Does patient have a Living Will: Yes Does patient have a Durable POA for Healthcare: Yes - Code Status/Comfort Care Code Status Assessed: Yes (DNR) Critical Care: No Time Spent Managing Pts Care (In Minutes): 55 <Osmar Goetz - Last Filed: 10/18/21 03:13> - Plan Agree with plan of care as noted above. Patient seen shortly after admission, earlier this morning. Woken from sleep, after sleeping medication. Patient appeared drowsy, denied any current pain. Oriented to self. Urology consulted, planning to take patient for cystoscopy, likely stent placement today, urine equivocal on UA, unable to get history regarding symptoms of UTI from patient. Continue Rocephin for now Anticipate discharge back to half-way tomorrow <Alistair Jensen - Last Filed: 10/18/21 16:43>
[2021-10-18 05:01] LABS: Troponin High Sensitivity 10.6 pg/mL (<58.9)
[2021-10-18] MEDS ORDERED: POTASSIUM 25 MEQ EFFERV TAB ONE (05:10)
[2021-10-18 06:33] VITALS: BMI 42.8
[2021-10-18] MEDS ORDERED: SODIUM CHLORIDE 0.9% 10ML INJ IV PRN (07:27)
[2021-10-18] MEDS ORDERED: FENTANYL CITR 100 MCG/2 ML IV PRN (07:27)
[2021-10-18] MEDS ORDERED: ONDANSETRON 4 MG/2 ML VIAL IV PRN (07:27)
[2021-10-18] MEDS: INSULIN -REGULAR HUMAN 50 UNIT/0.5 ML ML SQ SCH ×4 (07:30→21:00)
[2021-10-18] MEDS ORDERED: NA CHLORIDE 0.9% 1,000 ML IV SCH (08:00)
[2021-10-18 08:33] LABS: Absolute Lymphocytes (CBC) 1.1 K/uL (0.7-4.9); Hematocrit 42.3 % (36.0-45.0); Lymphocytes % 13.3 % (15.3-44.8); MPV 8.3 fL (7.6-11.3); RBC Red Blood Cell Count 4.59 M/uL (3.86-4.86)
[2021-10-18 08:46] LABS: Albumin 3.1 g/dL (3.4-5.0); Bilirubin Total 0.4 mg/dL (0.2-1.0); Potassium 3.3 mmol/L (3.5-5.1); Protein, Total 7.3 g/dL (6.4-8.2)
[2021-10-18] MEDS: CEFTRIAXONE 1,000 MG in NA CHLORIDE 0.9% 50 ML IVPB SCH (09:00)
[2021-10-18] MEDS ORDERED: PANTOPRAZOLE 40 MG INJ IVP SCH (09:00)
[2021-10-18] MEDS ORDERED: PANTOPRAZOLE 40 MG INJ ONE (09:10)
[2021-10-18] MEDS ORDERED: NA CHLORIDE 0.9% 1,000 ML ONE (09:10)
[2021-10-18] MEDS ORDERED: CEFTRIAXONE 1000 MG/VIAL ONE (09:10)
--- NOTE | 2021-10-18 10:35 | RAD REPORT ---
EXAM DESCRIPTION: US - Extrem Venous W Compress Nikita - 10/18/2021 12:27 am CLINICAL HISTORY: 85 years, Female, PAIN COMPARISON: None. FINDINGS: Multiple grayscale images as well as duplex Doppler ultrasound of both lower extremities w ere performed. There is a status post right leg partially amputated from the knee and below. Both common femoral veins, superficial femoral veins, left popliteal vein, left posterior tibial vein at the level of the left calf were imaged. Spectral waveform demonstrate normal compressibility, p hasicity and augmentation. No intraluminal defects were seen. IMPRESSION: NO EVIDENCE FOR DEEP VEIN THROMBOSIS BILATERAL LOWER EXTREMITIES. Electronically signed by: Mitchell Liu MD 10/18/2021 12:03 AM CDT Due to temporary technical issues with the PACS/Fluency reporting system, reports are being signed by the in house radiologist without review as a courtesy to ensure prompt reporting. The interpreting r adiologist is fully responsible for the content of the report.
--- NOTE | 2021-10-18 10:37 | RAD REPORT ---
EXAM DESCRIPTION: CT - Abdomen Pelvis W Contrast - 10/18/2021 6:00 am CLINICAL HISTORY: 85 years, Female, abdomen pain COMPARISON: None. TECHNIQUE: Contrast-enhanced images of the abdomen and pelvis were performed utilizing 5 mm slice th ickness at 5 mm interval reconstruction from the lung bases to the ischial tuberosities after the adm inistration of IV contrast. In addition multiplanar reformats in the coronal and sagittal plane were obtained and reviewed. This exam was performed according to our departmental dose-optimization protocol, which includes auto mated exposure control, adjustment of the mA and/or kV according to patient size and/or use of iterat allyson reconstruction technique. FINDINGS: The lung bases demonstrate minimal dependent atelectatic changes. The liver, pancreas, spleen and adrenal glands demonstrate to be unremarkable, no focal lesions are n oted. Surgical clips within the gallbladder fossa correspond to previous cholecystectomy. The right kidney demonstrate mild proximal right hydronephrosis the presence of a 7 x 8.4 mm calculus on the right UPJ/proximal right ureter on axial image 41 and coronal image 50. There are residual ca lculus within the lower pole right kidney measuring 7.2 mm on image 38 and 4.1 mm on image 41. The left kidney demonstrated presence of 3.1 mm lower pole calculus on image 36 and 6.7 mm lower pole calculus on image 39. There is no evidence for left hydronephrosis and pressure left hydroureter. Grossly the unopacified stomach, small bowel and large bowel demonstrate to be within normal limits. There is no evidence for bowel dilatation and/or free air. There is diverticulosis throughout the l arge bowel the more pronounced within the sigmoid colon. The urinary bladder demonstrate to be unremarkable. The uterus is atrophic. There are no adnexal ma sses. The aorta demonstrate minimal atherosclerotic disease at the aortic bifurcation. There is n o retroperitoneal lymphadenopathy. There is no evidence for ascites/or significant abnormal fluid col lections. The bone windows demonstrate mild bony osteopenia. Multilevel degenerative disc disease. No compressi on deformity/or significant skeletal lesions. IMPRESSION: 7 x 8.4 mm calculus on the right UPJ/proximal right ureter with mild proximal right hydr onephrosis. Bilateral nephrolithiasis. Diverticulosis throughout the large bowel the more pronounced within the sigmoid colon. Status post cholecystectomy. Electronically signed by: Mitchell Liu MD 10/18/2021 1:19 AM CDT Due to temporary technical issues with the PACS/Fluency reporting system, reports are being signed by the in house radiologist without review as a courtesy to ensure prompt reporting. The interpreting r adiologist is fully responsible for the content of the report.
--- NOTE | 2021-10-18 11:21 | RAD REPORT ---
EXAM DESCRIPTION: RAD - Chest Single View - 10/18/2021 3:43 am CLINICAL HISTORY: Poss. surgery/cardiac clearance COMPARISON: None. TECHNIQUE: XR CHEST 1 VIEW 10/18/2021 3:03 AM CDT FINDINGS: The heart is enlarged. There are mild chronic appearing increased interstitial markings th roughout both lungs. There is no pleural effusion. There is no pneumothorax. There are no acute osseo us findings. IMPRESSION: Clear lungs. Electronically signed by: Fran Manzo MD 10/18/2021 3:51 AM CDT Due to temporary technical issues with the PACS/Fluency reporting system, reports are being signed by the in house radiologist without review as a courtesy to ensure prompt reporting. The interpreting r adiologist is fully responsible for the content of the report.
[2021-10-18] MEDS ORDERED: LIDOCAINE 1% MPF 5 ML VIAL ONE (13:11)
[2021-10-18] MEDS ORDERED: propofoL 200 MG/20 ML VIAL IV ONE (13:11)
--- NOTE | 2021-10-18 13:13 | RAD REPORT ---
EXAM DESCRIPTION: RAD - Urethrocystogrphy Retrograde - 10/18/2021 1:05 pm CLINICAL HISTORY: STENT PLACEMENT COMPARISON: No comparisons FINDINGS: Total fluoro time: 0.12 minute
[2021-10-18 13:28] VITALS: O2SAT 100
[2021-10-18] MEDS: HYDROCODONE/APAP 5/325 MG TAB PO PRN ×2 (14:09→20:53)
--- NOTE | 2021-10-18 16:42 | CON ---
Reason For Consultation: Obstructive ureterolithiasis and pain. History Of Present Illness: Ms. Smith is an 85-year-old woman with a history of multiple CVAs and r esultant cognitive decline, lacking capacity for medical decision making, with diabetes type 2 insuli n dependent, coronary artery disease with stents, diastolic CHF, right jvzku-bpx-ucyf amputation with associated chronic neuropathic pain, and obstructive sleep apnea, who presented to the emergency dep artment with abdominal pain. She was evaluated there and the labs were significant for mild hypokale colby and hyperglycemia with urine microscopic assessment with red blood cells present, without signifi cant bacteriuria. CT scan was performed with contrast and did demonstrate the presence of a 7 x 8 mm calculus at the right UPJ. There was mild right hydronephrosis and associated bilateral nephrolithi asis, 7 mm and 3 mm on the right with an additional 7 mm calculus on the left. Given the patient's i nability to adequately communicate the pain, which she suggested was going down her lower extremity, and the size of the stone, the patient was admitted for further evaluation and management. She kalyaniai scottie in the emergency department holding as of the time of the consultation. I visited with the patie nt at the bedside who was there with her youngest daughter and the patient explained that she had fitz e pain that was present on the sides with the knee. It was unclear if she was referring to the right side with the wcpwc-ulu-eywb amputation or the left side where the knee remains intact, but regardle ss, the daughter filled in the blanks by explaining that the pain did seem to radiate into her pelvic region and with the perception of it down the lower extremity on both sides. They denied any associ ated fever at the facility where she resides, though she did complain of what sounds to be some neck and facial flushing or subjective fevers. Allergies: SULFA DRUGS AND MORPHINE THAT CAUSES A SIDE EFFECT OF DELIRIUM. Past Medical History: As indicated above with the addition of hypothyroidism and macular degeneratio n. Past Surgical History: Akdhg-bqz-iczq amputation, cataract surgeries, coronary stents, cholecystecto my, appendectomy, and joint replacement surgery. Social History: Smoking history is not documented. Physical Examination: General: The patient seems relatively comfortable appearing and in no acute distress. She is lying supine on the emergency department stretcher with no dyspnea or signs of respiratory distress. She w as alert and awake, but no sense of whether she was significantly oriented was made. Abdomen: Soft and not tender. Diagnostic Studies: CT scan was reviewed as documented above and the imaging was visualized with the determinations I made above as to the presence of the bilateral nephrolithiasis with the right 7-8 m m ureterolithiasis noted. Assessment And Recommendations: This is an 85-year-old woman with diabetes mellitus 2, insulin depen dent, diastolic congestive heart failure, coronary artery disease with stents, chronic obstructive pu lmonary disease, history of right wiudu-mzp-xpci amputation with chronic pain/neuropathy and dementia in addition to hypothyroidism with an 8 mm right UPJ calculus causing hydronephrosis in the absence of acute kidney injury or sign of sepsis. Given the size of the stone, I counseled the patient's daughters, the youngest and the oldest who has the power of deputy commonwealth's attorney, that the likelihood of successful spontaneous passage of the stone was approx imately 20%. I also explained that in the meantime, she may be dealing with a degree of pain with ou r inability to accurately quantify it, and given her cardiac comorbidities, the risk of acute myocard ial infarction associated with the stress associated with the pain was very possible. As a result, I recommended cystoscopy and right ureteral stent placement to relieve the obstruction and improve her pain. Options were discussed to allow spontaneous passage relative to the risks as discussed above, and also placement of a right percutaneous nephrostomy tube. Her daughter with power of deputy commonwealth's attorney, sheryl ho was present over the phone did ask whether the percutaneous nephrostomy tube could be done without the use of anesthesia because of concern that the anesthesia may cause a mental function decline, an d I did verify that they could potentially do the procedure under local anesthesia only, and if anest hesia was required, it likely would only be sedation. The daughter with power of deputy commonwealth's attorney decided to allow us to proceed with cystoscopy and stent placement done under monitored anesthesia care with se dation in order to minimize any effect on her delirium and dementia. Please note approximately 25 minutes of hxfk-xj-hqqs time was spent with the patient and her family m embers, specifically the daughter with power of deputy commonwealth's attorney, and obtaining consent for the procedure. LAMAR/MODL Voice ID: [id number] Report ID: [id number]
[2021-10-18] MEDS ORDERED: LOPERAMIDE HCL 2 MG CAPSULE PO PRN (17:26)
[2021-10-18] MEDS ORDERED: FUROSEMIDE 40 MG/4 ML VIAL IV ONE (17:46)
[2021-10-18] MEDS ORDERED: PREGABALIN 150 MG CAP PO SCH (21:00)
[2021-10-18] MEDS ORDERED: ATORVASTATIN 80 MG TAB PO SCH ×2 (21:00)
[2021-10-18] MEDS ORDERED: PREGABALIN 300 MG PO SCH (21:00)
--- NOTE | 2021-10-18 23:30 | OP ---
Surgeon: NASIM BLAIR Preoperative Diagnoses: 1.Right proximal ureterolithiasis. 2.Bilateral nephrolithiasis. Postoperative Diagnoses: 1.Right proximal ureterolithiasis. 2.Bilateral nephrolithiasis. Procedures: 1.Cystoscopy. 2.Right retrograde pyelography. 3.Right ureteral stent placement. Findings: Nephroureterolithiasis imperceptible to fluoroscopic imagery. Indication For Procedure: Ms. mSith presented via the Emergency Department with pain and found to h ave an obstructing 8 mm proximal right ureteral calculus. She had additional 7 mm calculi in both ki dneys and because of her multiple medical comorbidities and the size of the stone, she was recommende d for right ureteral stent placement. Procedure In Detail: The patient was consented in the preoperative holding area before being transfe rred to the operative suite where sedation was provided alone. She had been given ceftriaxone IV ant imicrobial prophylaxis in the Emergency Department and Pneumoboot was provided to her left lower extr emity for DVT prophylaxis as she had a right dldmo-syg-csyy amputation. Her genitalia were prepped u sing Hibiclens and draped in standard fashion. The case was begun using a 22-Qatari rigid cystoscope to traverse the urethra and into the bladder. The bladder was decompressed of a significant volume of urine before being refilled with normal saline. The bladder was surveyed in its entirety, and the re were no papillary mucosal lesions, foreign bodies, or stones noted throughout. The ureteral orifi carmine were orthotopic in location, and I did not perceive an ectopic duplex system on either side, part icularly on the right. As a result, I cannulated the ureteral orifice on the right with a 5-Qatari u reteral access catheter. Right retrograde pyelography: Using a 70:30 mixture of Omnipaque and saline, contrast was injected v ia the lumen of the 5-Qatari ureteral access catheter and did propagate up a vucn-wc-xigzyagjts dilat ed ureter with some evidence of obstruction with the injection of the contrast retrograde, before pas sing into a moderately dilated collecting system with mild pelvocaliectasis. The stone was not visib le along the course of the ureter and was not significantly obstructing in the proximal ureter to cau se deviation of the ureter or anything more than delaying the entry of contrast into the collecting s ystem. As a result, I surveyed the left side as well, and the stones on that side were equally imper ceptible to fluoroscopic imagery. So I returned to the right side and passed a Sensor wire via the 5 -Qatari ureteral access catheter, coiling it within the upper pole of the kidney. I then passed a 6- Qatari x 24 cm double-J right ureteral stent into her collecting system with a coil observed fluorosc opically in the kidney and 1 cystoscopically formed in the bladder. I decompressed her bladder of fl uid and urine, and she was then taken out of the lithotomy position. She was awakened from sedation, transferred to a stretcher and then transferred to the recovery room in good condition. Complications: None. Discharge Disposition: She should follow up in the Urology Clinic sometime in the next several weeks to discuss management of her ureteral and nephrolithiasis. Unfortunately, she would not be a candid ate for ESWL since they are not visible fluoroscopically and she will require ureteroscopic managemen t. Given her multiple medical comorbidities, this will be a subject for discussion since the anesthe aggie required in that circumstance would be greater. LAMAR/ZULMA Voice ID: [id number] Report ID: [id number]
[2021-10-19] MEDS ORDERED: LEVOTHYROXINE SOD 0.075 MG TAB PO SCH (06:00)
[2021-10-19] MEDS: INSULIN -REGULAR HUMAN 50 UNIT/0.5 ML ML SQ SCH ×2 (07:30→13:16)
--- NOTE | 2021-10-19 07:48 | EKG ---
Test Date: 2021-10-17 Test Time: 20:06:02 Speech Language Pathologist Assistant: RHEA MEASUREMENT RESULTS: Intervals: Rate: 73 [place]: 226 QRSD: 82 QT: 412 QTc: 453 [place]: P: 68 [place]: 226 QRS: -24 T: 28 INTERPRETIVE STATEMENTS: Sinus rhythm with 1st degree AV block Low voltage QRS Borderline ECG Compared to ECG 05/24/2021 08:02:44 Sinus arrhythmia no longer present Electronically Signed On 10-19-21 07:42:46 CDT by Nelson De Jesus
[2021-10-19] MEDS ORDERED: PANTOPRAZOLE 40MG TABLET PO SCH (08:00)
--- NOTE | 2021-10-19 08:45 | RAD REPORT ---
EXAM DESCRIPTION: RAD - Chest Single View - 10/19/2021 6:45 am CLINICAL HISTORY: hypoxia, chf, s/p cystoscopy Chest pain. COMPARISON: Chest Single View dated 10/18/2021; Chest Single View dated 05/24/2021; Chest Single View dated 12/26/2020; Chest Single View dated 12/15/2020 FINDINGS: Portable technique limits examination quality. Moderate bilateral pulmonary opacities may represent pulmonary edema or pneumonia and appear mildly p rogressive since the comparative study. The heart is moderately enlarged. No displaced fractures. IMPRESSION: Mild worsening in CHF pattern since comparative study.
[2021-10-19] MEDS ORDERED: CLOPIDOGREL 75 MG TABLET PO SCH (09:00)
[2021-10-19] MEDS ORDERED: DULOXETINE 30 MG CAP PO SCH (09:00)
[2021-10-19] MEDS ORDERED: HOME MED 1 EA UNK (Duloxetine Hcl [Duloxetine Hcl] 60 MG Capsule.Dr) PO SCH (09:00)
[2021-10-19] MEDS ORDERED: FUROSEMIDE 40 MG TABLET PO SCH (09:00)
[2021-10-19] MEDS: CEFTRIAXONE 1,000 MG in NA CHLORIDE 0.9% 50 ML IVPB SCH (09:36)
[2021-10-19] MEDS: PREGABALIN 150 MG CAP PO SCH ×2 (09:38→13:15)
[2021-10-19] MEDS: HYDROCODONE/APAP 5/325 MG TAB PO PRN (09:39)
[2021-10-19 10:36] LABS: Hematocrit 42.4 % (36.0-45.0); Lymphocytes % 11.4 % (15.3-44.8); MPV 8.5 fL (7.6-11.3); RBC Red Blood Cell Count 4.67 M/uL (3.86-4.86)
[2021-10-19 10:52] LABS: Urine Appearance Clear (Clear); Urine Bilirubin Negative (Negative); Urine Blood 2+ (Negative); Urine Color Yellow (Yellow); Urine Glucose Negative (Negative); Urine Protein 2+ (Negative); Urine Specific Gravity 1.015 (1.005-1.030); Urine pH 7.5 (5.0-7.0)
[2021-10-19 11:16] LABS: Urine Microscopic Reflex ORDER UMIC
[2021-10-19 11:28] LABS: Urine Bacteria LOADED /HPF (<20); Urine RBC >50 /HPF (NONE SEEN); Urine White Blood Cell Casts 0-5 /LPF (NONE SEEN)
[2021-10-19 11:40] LABS: Albumin 3.2 g/dL (3.4-5.0); Bilirubin Total 0.4 mg/dL (0.2-1.0); Potassium 3.2 mmol/L (3.5-5.1); Protein, Total 7.4 g/dL (6.4-8.2)
[2021-10-19 12:49] VITALS: BP 155/77; TEMP 98.1
--- NOTE | 2021-10-19 20:37 | P.DS ---
Admission Date: 10/18/21 Discharge Date: 10/19/21 Disposition: DC HOME/HOME HEALTH CARE Discharge Condition: GOOD Reason for Admission: Ureteral calculus Consultations: Cardiology - Dr. De Jesus Procedures: Problem List: 7 x 8.4 mm right UPJ calculus with mild hydronephrosis now s/p cystoscopy and stent placement Diabetes mellitus type 2insulin-dependent Hypokalemia, on replacement Chronic diastolic congestive heart failure History of CAD Chronic COPD History of right AKA Chronic pain/neuropathy Dementia Brief History of Present Illness: 85yo F, PMH CVA, DM2, insulin-dependent, CAD, chronic D-CHF, right AKA, chronic pain, JOVANNA. Patient is resident of [facility] assisted living. Presented to ED with abdominal pain / flank pain. She was found to have mild hypokalemia, bacteruria, and found to have a 7 x 8.4mm calculus of right UPJ with mild hydronephrosis. Hospital Course: Patient was found to have a stone in her R UPJ with mild hydronephrosis. Urology was consulted and patient underwent cystoscopy with stent placement on 10/18. Hospitalization was otherwise uneventful. Patient was noted by family to be at / near baseline. Vitals and bloodwork were stable. Post void residual was checked and patient adequately emptied her bladder without retention. UA noted bacteria but no WBCs, nitrtite/leuk esterase negative. She was empirically treated with IV rocephin. Discharged with 5 more days of antibiotics to complete 7 days. Follow up with Urology Vital Signs/Physical Exam: Temp Pulse Resp BP Pulse Ox 98.1 F 73 16 155/77 H 90 L 10/19/21 12:00 10/19/21 12:00 10/19/21 12:00 10/19/21 12:00 10/19/21 12:00 General: Alert, In no apparent distress HEENT: Sclerae nonicteric Neck: Supple Respiratory: Clear to auscultation bilaterally, Normal air movement Cardiovascular: Regular rate/rhythm, Edema (trace b/l pedal edema) Gastrointestinal: Soft and benign, Non-distended, No tenderness Musculoskeletal: No tenderness Integumentary: No significant lesion Neurological: Other (slow to answer) Laboratory Data at Discharge: WBC 9.1 K/uL (4.3-10.9) 10/19/21 10:08 Hgb 14.3 g/dL (12.0-15.0) 10/19/21 10:08 Hct 42.4 % (36.0-45.0) 10/19/21 10:08 Plt Count 246 K/uL (152-406) 10/19/21 10:08 Sodium 143 mmol/L (136-145) 10/19/21 10:08 Potassium 3.2 mmol/L (3.5-5.1) L 10/19/21 10:08 BUN 16 mg/dL (7-18) 10/19/21 10:08 Creatinine 1.11 mg/dL (0.55-1.3) 10/19/21 10:08 Glucose 252 mg/dL (74-106) H 10/19/21 10:08 Total Bilirubin 0.4 mg/dL (0.2-1.0) 10/19/21 10:08 AST 18 U/L (15-37) 10/19/21 10:08 ALT 22 U/L (12-78) 10/19/21 10:08 Alkaline Phosphatase 104 U/L (45-117) 10/19/21 10:08 Lipase 118 U/L (73-393) 10/17/21 21:55 Home Medications: Atorvastatin Calcium [Lipitor] 1 tab PO BEDTIME 10/18/21 Clopidogrel Bisulfate [Plavix*] 1 tab PO DAILY 10/18/21 Duloxetine HCl 1 cap PO DAILY 10/18/21 Furosemide 1 tab PO DAILY 10/18/21 Hydrocodone 7.5/APAP 325 [[place] 7.5/325 mg*] 1 tab PO TID 10/18/21 Ibuprofen [Motrin] 1 tab PO Q6H PRN 10/18/21 Insulin Glargine,Hum.rec.anlog [Basaglar Kwikpen U-100] 36 unit SQ DAILY 10/18/21 Levothyroxine [Synthroid*] 1 tab PO 0600 10/18/21 Lipase/Protease/Amylase [Richard Das 36,000 Unit Capsule] 2 cap PO TIDWM 10/18/21 Liraglutide [Victoza 2-Ajit] 1 appl SQ DAILY 10/18/21 Loperamide HCl [Imodium A-D] 1 cap PO QID PRN 10/18/21 Loperamide HCl [Loperamide] 1 cap PO QID PRN 10/18/21 Methylphenidate HCl 1 tab PO DAILY 10/18/21 Pantoprazole [Protonix Tab*] 1 tab PO BREAKFAST 10/18/21 Potassium Chloride 1 tab PO BREAKFAST 10/18/21 Pregabalin 1 cap PO BEDTIME 10/18/21 Pregabalin 1 cap PO BID 10/18/21 Vit C/E/Zn/Coppr/Lutein/Zeaxan [Preservision Areds 2 Softgel] 2 cap PO DAILY 10/18/21 Cefpodoxime Proxetil [Vantin] 200 mg PO BID 5 Days #10 tablet 10/19/21 New Medications: Cefpodoxime Proxetil [Vantin] 200 mg PO BID 5 Days #10 tablet Followup: Ney Sow [ACTIVE - CAN ADMIT] - (Call to schedule follow up appointment.) Time spent managing pt's care (in minutes): 45
--- NOTE | 2021-10-20 19:37 | CON ---
Date of Consultation: 10/19/[address] Jensen on 10/18/2021. I saw the patient on 10/19/2021. Reason For Consultation: Possible congestive heart failure. History Of Present Illness: Ms. Smith is an 85-year-old woman who is a "do not resuscitate," was ad mitted for obstructive ureteral calculus that was treated by Dr. Ney Sow successfully. While she is in the hospital, family requested that we see her for possible congestive heart failure. The patient did have some edema in the lower extremity; otherwise, no cardiac complaints. She denied any chest pain. She denied any nausea, vomiting or diaphoresis. There was no history of PND, orthopnea , palpitation, or syncope. No fever or chills. Past Medical History: Include COPD, obesity. She is status post right AKA. She has a history of de pression, hypothyroidism, coronary artery disease, chronic diastolic congestive heart failure, sol[place] ia, history of CVA, diabetes, and dyslipidemia. Medications: At home include Lasix, Lipitor, Synthroid, Neurontin, and insulin. Allergies: SULFA AND MORPHINE. Review of Systems: Negative. Social History: Negative. Family History: Noncontributory. Physical Examination: Vital Signs: Stable, afebrile. HEENT: Negative. Neck: Supple, no bruit. Chest: Clear. Cardiac Exam: Revealed a regular rhythm and rate. No murmurs, gallops, or rubs. Abdomen: Benign. Extremities: Revealed no clubbing, cyanosis, or edema. Diagnostic Data: Showed a potassium of 3.3. Chest x-ray is negative. EKG is unremarkable. Impression And Plan: 1.This is a patient who has chronic diastolic congestive heart failure. She did receive some Lasix for edema. She is status post right AKA. She is not edematous now. I would continue her present re gimen at home. If she stays in the hospital, certainly a repeat echocardiogram in the near future ma y be appropriate. Otherwise, I will continue her present regimen. 2.Her other problem includes a history of coronary artery disease that is stable. 3.History of cerebrovascular accident. 4.Dementia. 5.Diabetes, well controlled. 6.Dyslipidemia, well controlled. 7.Chronic obstructive pulmonary disease, stable. 8.Depression. 9.Hypothyroidism. 10.Morbid obesity. 11.Status post right AKA. 12.Status post right ureteral stent for ureteral calculus. I am comfortable with the patient going home if it is okay with Dr. Jensen and Dr. Sow. No need t o change her medical therapy for now. Obtain an echocardiogram as an outpatient. Consider use of lo w-dose beta-blockers. KENDRA/ZULMA Voice ID: [id number] Report ID: [id number]
== END 2021-10-19 14:10 | disposition home or self-care (01) ==
LOC: ER 19:47 → ERHOLD 10-18 03:00 → 2ND 10-18 12:33
PROVIDERS: ADMIT Hospitalist; ATTEND Hospitalist
PROC: BT1DYZZ Fluoroscopy of Right Kidney, Ureter and Bladder using Other Contrast (ICD-10-PCS; 2021-10-18)
PROC: 0T768DZ Dilation of Right Ureter with Intraluminal Device, Via Natural or Artificial Opening Endoscopic (ICD-10-PCS; principal; 2021-10-18 11:30)
DX: N13.2 Hydronephrosis with renal and ureteral calculous obstruction (principal); E11.40 Type 2 diabetes mellitus with diabetic neuropathy, unspecified; E87.6 Hypokalemia; I11.0 Hypertensive heart disease with heart failure; I50.32 Chronic diastolic (congestive) heart failure; E11.65 Type 2 diabetes mellitus with hyperglycemia; I25.10 Atherosclerotic heart disease of native coronary artery without angina pectoris; J44.9 Chronic obstructive pulmonary disease, unspecified; G89.29 Other chronic pain; F03.90 Unspecified dementia, unspecified severity, without behavioral disturbance, psychotic disturbance, mood disturbance, and anxiety; F05 Delirium due to known physiological condition; G47.33 Obstructive sleep apnea (adult) (pediatric); K21.9 Gastro-esophageal reflux disease without esophagitis; E03.9 Hypothyroidism, unspecified; K86.1 Other chronic pancreatitis; E78.5 Hyperlipidemia, unspecified; F32.A Depression, unspecified; I25.2 Old myocardial infarction; H35.30 Unspecified macular degeneration; E66.01 Morbid (severe) obesity due to excess calories; Z68.41 Body mass index [BMI] 40.0-44.9, adult; Z66 Do not resuscitate; Z20.822 Contact with and (suspected) exposure to COVID-19; Z86.73 Personal history of transient ischemic attack (TIA), and cerebral infarction without residual deficits; Z95.5 Presence of coronary angioplasty implant and graft; Z96.60 Presence of unspecified orthopedic joint implant; Z89.611 Acquired absence of right leg above knee; Z90.49 Acquired absence of other specified parts of digestive tract; Z79.4 Long term (current) use of insulin; Z79.02 Long term (current) use of antithrombotics/antiplatelets; Z79.899 Other long term (current) drug therapy; Z88.2 Allergy status to sulfonamides; Z88.4 Allergy status to anesthetic agent; Z88.5 Allergy status to narcotic agent; Z91.048 Other nonmedicinal substance allergy status; Z82.3 Family history of stroke; Z80.9 Family history of malignant neoplasm, unspecified
CPT/HCPCS: 52332; 52005; 93005; 87088; 85025 ×3; 87086 ×2; 36415 ×2; 82947 ×6; 87077; 87186; 84484; 83690; 80053 ×3; 83880; 74177; 71045 ×2; 74450; 51610; 93970; 99284; U0003; Q9967; J2704; J1815; J1940; C9113; J3480; J3010; G0378 ×4; J7040; J7030; 81003; 81015

== ENCOUNTER 2021-11-20 12:19 | Emergency (ER) | payer OTHER ==
--- OUTSIDE RECORDS SUMMARY | 2021-11-20 12:23 | XMS REPORT | Continuity of Care Document ---
:1935 Author Organization [facility] t Address [address] [place] [address] Care Team Providers Name Role Phone ENRIQUE ARAGON Attending Clinician Unavailable [id number] Attending Clinician Unavailable Adams Attending Clinician Unavailable Mark Attending Clinician Unavailable Caryn Attending Clinician Unavailable ENRIQUE ARAGON Admitting Clinician Unavailable [id number] Admitting Clinician Unavailable Payers Payer Name Policy Type Policy Number Effective Date Expiration Date S ource [facility] [id number] Problems This patient has no known problems. Allergies, Adverse Reactions, Alerts Allergy Allergy Status Severity Reaction(s) Onset Inactive Treating Comm ents Source Name Type Date Date Clinician MORPHINE Adverse Active Info Not Commo n Reaction Available [facility] Medications Ordered Filled Start Stop Current Ordering Indication Dosage Frequency Signature Comments Components Source Medication Medication Date Date Medication? Clinician (SIG) Name Name Accu-Chek Accu-Chek Yes Deirdre as Co mmon Sarita Plus Sarita Plus 3-25 Millender directed Spirit 00:00: - [facility] Fluticasone Fluticasone 2019- Yes Deirdre 2 sprays Common Propionate Propionate 2-22 Millender in each Spirit 00:00: nostril - [facility] Accu-Chek Accu-Chek 2018-0 Yes Deirdre TEST Co mmon Sarita Plus Sarita Plus 5-01 Millender Spirit 00:00: - [facility] Desloratadi Desloratadi Yes Deirdre 1 tablet Common ne ne Millender [facility] Claritin Claritin Yes Deirdre 1 tablet Co mmon [facility]ender [facility] Accu-Chek Accu-Chek Yes Deirdre USE 1 Com mon Softclix Softclix Millender DAILY TO Spirit Lancets Lancets TEST [facility] Plavix Plavix Yes Deirdre 1 tablet Common Mill[facility] Lasix Lasix Yes Deirdre 1 tablet Common Millender [facility] Pregabalin Pregabalin Yes Deirdre 1 capsule Common Millender [facility] Calcium Calcium Yes Deirdre 1 tablet Comm on Millender with meals Spir it [facility] Metoprolol Metoprolol Yes Deirdre 1 tablet Common Tartrate Tartrate Millender Sp mars [facility] Levothyroxi Levothyroxi Yes Deirdre 1 tablet Common ne Sodium ne Sodium Millender on an Spirit empty - [facility] stomach in [facility] Flonase Flonase Yes Deirdre 1 spray in Co mmon Millender each Spirit nostril [facility] Hydrocodone Hydrocodone Yes Deirdre 1 tablet Common -Acetaminop -Acetaminop Millender as needed Spirit hen hen [facility] Lipitor Lipitor Yes Deirdre 1 tablet Comm on Millender in evening Spir it [facility] ProAir HFA ProAir HFA Yes Deirdre 2 puffs as Common Millender needed Spirit [facility] Lantus Lantus Yes Deirdre 36 units Common Millender [facility] Montelukast [facility] Yes Deirdre 1 tablet Common Sodium Sodium Millender [facility] Lisinopril Lisinopril Yes Deirdre 1 tablet Common Millender [facility] Basaglar Basaglar Yes Deirdre 36 units Co mmon KwikPen KwikPen Millender Spir it [facility] Toujeo Toujeo Yes Deirdre not Common SoloStar SoloStar Millender defined Spirit [facility] Duloxetine Duloxetine Yes Deirdre 1 capsule Common HCl HCl Millender [facility] Aspirin Aspirin Yes Deirdre 1 tablet Comm on Adult Low Adult Low Millender Spirit Dose Dose - [facility] Lyrica Lyrica Yes Deirdre 1 capsule Commo n Millender [facility] Pantoprazol Pantoprazol Yes Deirdre 1 tablet Common e Sodium e Sodium Millender Sp mars - [facility] Lasix Lasix Yes Deirdre 1 tablet Common Millender [facility] Vascepa Vascepa 2020- No Deirdre 1 capsule Co mmon 05-10 Millender [facility] 00:00 - [facility] Victoza Victoza 2019- No Deirdre as Common 03-09 Millender directed Spiri t 00:00 - [facility] :00 [facility] Klor-Con Klor-Con 2019- No Deirdre 1 tablet C ommon M20 M20 08-20 Millender with food Spir it 00:00 - [facility] :00 [facility] Procedures This patient has no known procedures. Encounters Start End Encounter Admission Attending Care Care Encounter Source Date/Time Date/Time Type Type Clinicians Facility Department ID 2021-07-19 Outpatient 3 GODWIN ARAGON CVA [id number] ENC[facility] 13:16:38 ENRIQUE 1110 2021-07-19 Outpatient 3 GODWIN ARAGON CVA ENCPL 13:14:59 ENRIQUE 1105 2021-07-19 Outpatient 3 [id number] ENC[facility] REF [id number] E[facility] 13:14:15 1104 2021-07-19 Outpatient 3 [id number] ENC[facility] REF [id number] ENC[facility] 13:13:18 1102 2021-07-19 Outpatient 3 GODWIN ARAGON CVA [id number] ENC[facility] 12:28:46 ENRIQUE 0709 2021-07-19 Outpatient 3 [id number] ENC[facility] REF [id number] E[facility] 12:28:15 0708 2021-07-19 Outpatient 3 [id number] E[facility] REF [id number] ENC[facility] 12:27:56 0707 2021-07-[address] [facility] 12[facility]34:37 Deena [address]2677 [facility] 2021-07-18 Outpatient Adams [facility] Common 12:16:33 Deena 85589 [facility] 2021-07-18 Outpatient Herman Flores STLMLC STLMLC [id number] Common 11:59:31 05625 [facility] 2021-07-18 Outpatient Caryn, STLMLC STLMLC [id number] Common 11:36:31 Deirdre [id number] [facility] 2020-12-30 Inpatient 3 MARGO, ENCPL CVA [id number] ENCPL 01:30:00 ENRIQUE 0710 2021-11-01 2021-11-01 ambulatory STLMLC STLMLC [id number] Common 00:00:00 00:00:00 [facility] 2021-01-24 2021-01-24 Outpatient STLMLC STLMLC [id number] Common 00:00:00 00:00:00 [facility] 2020-11-24 2020-11-24 Outpatient STLMLC STLMLC [id number] Common 00:00:00 00:00:00 [facility] 2020-10-30 2020-10-30 Outpatient STLMLC STLMLC [id number] Common 00:00:00 00:00:00 [facility] 2020-09-13 2020-09-13 Outpatient STLMLC STLMLC [id number] Common 00:00:00 00:00:00 [facility] 2020-08-02 2020-08-02 Outpatient STLMLC STLMLC [id number] Common 00:00:00 00:00:00 [facility] 2020-06-29 2020-06-29 Outpatient STLMLC STLMLC [id number] Common 00:00:00 00:00:00 [facility] 2020-06-19 2020-06-19 Outpatient STLMLC STLMLC [id number] Common 00:00:00 00:00:00 [facility] 2020-05-24 2020-05-24 Outpatient STLMLC STLMLC [id number] Common 00:00:00 00:00:00 [facility] 2020-05-10 2020-05-10 Outpatient STLMLC STLMLC [id number] Common 00:00:00 00:00:00 [facility] 2020-02-03 2020-02-03 [id number] Common 02:20:00 02:20:[address] [facility] 2020-02-02 2020-02-02 [facility] [id number] Common 14:40:00 14:40:[address] [facility] 2019-12-29 2019-12-29 [facility] [id number] Common 09:03:00 09:03:[address] [facility] 2019-10-04 2019-10-04 [facility] [id number] Common 16:23:00 16:23:[address] [facility] 2019-09-15 2019-09-15 [facility] [id number] Common 12:47:00 12:47:[address] [facility] 2019-06-13 2019-06-13 [facility] [id number] Common 13:02:00 13:02:[address] [facility] 2019-06-13 2019-06-13 [facility] [id number] Common 12:50:00 12:50:[address] [facility] 2019-06-09 2019-06-09 [facility] [id number] Common 16:00:00 16:00:[address] [facility] 2019-05-13 2019-05-13 [facility] [id number] Common 11:20:00 11:20:[address] [facility] 2019-05-11 2019-05-11 [facility] [id number] Common 16:27:00 16:27:[address] [facility] Results This patient has no known results.
[2021-11-20 14:14] LABS: Absolute Lymphocytes (CBC) 1.5 K/uL (0.7-4.9); Hematocrit 40.5 % (36.0-45.0); Lymphocytes % 19.5 % (15.3-44.8); MPV 8.2 fL (7.6-11.3)
[2021-11-20 14:38] LABS: Albumin 3.2 g/dL (3.4-5.0); Bilirubin Total 0.3 mg/dL (0.2-1.0); Potassium 3.6 mmol/L (3.5-5.1); Protein, Total 7.6 g/dL (6.4-8.2)
--- NOTE | 2021-11-20 15:38 | RAD REPORT ---
EXAM DESCRIPTION: CTAbdomen Pelvis W Contrast - 11/20/2021 3:27 pm CLINICAL HISTORY: Abdominal pain. Urinary retention COMPARISON: Abdomen Pelvis W Contrast dated 10/18/2021; Abdomen Pelvis W Contrast dated 07/21/2019 TECHNIQUE: Biphasic CT imaging of the abdomen and pelvis was performed with 100 ml non-ionic IV cont rast. All CT scans are performed using dose optimization technique as appropriate and may include automated exposure control or mA/KV adjustment according to patient size. FINDINGS: The lung bases are clear.Cholecystectomy. The liver demonstrates no focal mass or biliary dilatation. The spleen, pancreas, adrenal glands are normal. 13 mm stone is present inferior right kidney. Double-J stent is in place spanning the renal pelvis an d urinary bladder. Small calculus is seen in the inferior calyx right kidney measuring 4 mm. No hydro nephrosis. No bowel obstruction, free air, free fluid or abscess. Prominent rectosigmoid diverticulosis is prese nt without diverticulitis. The appendix is not identified as a discrete structure, however, no second svetlana findings of appendicitis are identified. No evidence of significant lymphadenopathy. Moderate lumbosacral degenerative changes. IMPRESSION: Right double-J stent is in place. No stone is seen along the course of the stent. No hyd ronephrosis. Bilateral nephrolithiasis.
[2021-11-20 16:00] LABS: Urine Appearance Cloudy (Clear); Urine Bilirubin Negative (Negative); Urine Blood 3+ (Negative); Urine Color Yellow (Yellow); Urine Glucose Negative (Negative); Urine Protein 2+ (Negative); Urine Specific Gravity 1.015 (1.005-1.030); Urine pH 7.5 (5.0-7.0)
[2021-11-20 16:13] LABS: Urine Microscopic Reflex ORDER UMIC
[2021-11-20 16:18] LABS: Urine Bacteria >50 /HPF (<20); Urine RBC >50 /HPF (NONE SEEN)
--- NOTE | 2021-11-20 18:17 | ER ---
Nurse's Notes [facility] Name: Elsa Smith Age: 85 yrs Sex: Female : 1935 Arrival Date: 11/20/2021 Time: 12:23 Bed 16 Private MD: Diagnosis: Retention of urine, unspecified Presentation: 11/20 12:43 Chief complaint: Patient states: Difficulty passing urine - thinks previous stent is ld1 not working. Coronavirus screen: At this time, the client does not indicate any symptoms associated with coronavirus-19. Ebola Screen: No symptoms or risks identified at this time. Initial Sepsis Screen: Does the patient meet any 2 criteria? No. Patient's initial sepsis screen is negative. Does the patient have a suspected source of infection? No. Patient's initial sepsis screen is negative. Risk Assessment: Do you want to hurt yourself or someone else? Patient reports no desire to harm self or others. Onset of symptoms was November 20, 2021. 12:43 Method Of Arrival: Wheelchair ld1 12:43 Acuity: ALEJANDRO 3 ld1 Triage Assessment: 12:43 General: Appears in no apparent distress. comfortable, Behavior is calm, cooperative, ld1 appropriate for age. Pain: Denies pain. EENT: No signs and/or symptoms were reported regarding the EENT system. Neuro: Level of Consciousness is awake, alert, obeys commands, Oriented to person, place, time, situation. Cardiovascular: Capillary refill < 3 seconds Patient's skin is warm and dry. Respiratory: Airway is patent Respiratory effort is even, unlabored. GI: Abdomen is round distended, obese. : Reports inability to void. Derm: No signs and/or symptoms reported regarding the dermatologic system. Musculoskeletal: No signs and/or symptoms reported regarding the musculoskeletal system. Historical: - Allergies: 12:42 Lidocaine; ld1 12:42 mercury; ld1 - PMHx: 12:42 CHF; COPD; CVA; Depression; Diabetes - NIDDM; Hypertension; Hypothyroidism; ld1 - PSHx: 12:42 AKA; ld1 - Immunization history:: Adult Immunizations up to date, Client reports receiving the 2nd dose of the Covid vaccine. - Social history:: Smoking status: Patient denies any tobacco usage or history of. Patient/guardian denies using alcohol. Screenin:31 Abuse screen: Denies threats or abuse. Denies injuries from another. Nutritional ph screening: No deficits noted. Tuberculosis screening: No symptoms or risk factors identified. Fall Risk No fall in past 12 months (0 pts). Secondary diagnosis (15 points) impaired mobility, IV access (20 points). Ambulatory Aid- None/Bed Rest/Nurse Assist (0 pts). Gait- Impaired (20 pts.). Mental Status- Overestimates/Forgets Limitations (15 pts.). Total Mortensen Fall Scale indicates High Risk Score (45 or more points). Fall prevention measures have been instituted. Side Rails Up X 2 Frequent Obs/Assessments Occuring Family Present and informed to notify staff if the need to leave the bedside As available patient and family educated on Fall Prevention Program and Strategies. Assessment: 15:30 General: Appears in no apparent distress. comfortable, well groomed, Behavior is calm, ph cooperative, appropriate for age. Pain: Denies pain. Neuro: Level of Consciousness is awake, alert, obeys commands, Oriented to person, place. Cardiovascular: Capillary refill < 3 seconds in bilateral fingers Patient's skin is warm and dry. Respiratory: Airway is patent Respiratory effort is even, unlabored. 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 Derm: Skin is intact, Skin is pink, warm \\T\\ dry. Musculoskeletal: Amputation of right leg, AKA. 17:00 Reassessment: Patient appears in no apparent distress at this time. No changes from ph previously documented assessment. Patient and/or family updated on plan of care and expected duration. Pain level reassessed. Daughter at bedside, awaiting CT results. 19:18 Reassessment: Patient appears in no apparent distress at this time. No changes from armani previously documented assessment. I recv'd report on the pt in room #16. She is receiving her dose of Rocephin, prior to dc. Her granddaughter is at bedside and said she will take the pt "across the street" when dc'd, as she "always does". The pt is in NAD. She is resting comfortably. 19:51 Reassessment: Another nurse has come to assist in the pt's dc. She is trying to get armani more people to lift the pt into the w/c, per the daughter, not granddaughter. 20:15 Reassessment: With the daughter's assist and guidance, and the help of myself and 2 armani other staff, we were able to easily transfer the pt to the w/c. The pt's daughter is taking her via w/c across the street, home. Vital Signs: 12:43 BP 128 / 75; Pulse 72; Resp 18; Temp 98.1(TE); Pulse Ox 94% on R/A; Weight 104.33 kg; ld1 Height 5 ft. 5 in. (165.10 cm); Pain 0/10; 16:45 BP 136 / 78; Pulse 71; Resp 18; Pulse Ox 95% on R/A; ph 17:45 BP 126 / 89; Pulse 70; Resp 19; Pulse Ox 96% on R/A; ph 19:50 BP 157 / 88; Pulse 66; Resp 18; Temp 98.1; Pulse Ox 96% on R/A; armani 12:43 Body Mass Index 38.27 (104.33 kg, 165.10 cm) ld1 ED Course: 12:23 Patient arrived in ED. am2 12:32 Bharat Matute NP is PHCP. pm1 12:32 Lauro Del Valle DO is Attending Physician. pm1 12:43 Triage completed. ld1 12:43 Arm band placed on right wrist. ld1 14:06 Inserted saline lock: 22 gauge in left antecubital area, using aseptic technique. Blood zm collected. 14:06 CMP Sent. zm 14:06 CBC with Diff Sent. zm 15:18 Kim Jensen, RN is Primary Nurse. ph 15:28 CT Abd/Pelvis - IV Contrast Only In Process Unspecified. EDMS 18:10 Bladder scan completed. 65 mL. ph 18:16 Ney Sow MD is Referral Physician. pm1 19:11 Primary Nurse role handed off by Kim Jensen, JORGE kj1 19:18 Lesly Mora, JORGE is Primary Nurse. armani 19:32 Patient has correct armband on for positive identification. Bed in low position. Call ph light in reach. Side rails up X 1. Door closed. Noise minimized. 19:32 No provider procedures requiring assistance completed. ph 20:16 intact, bleeding controlled, No redness/swelling at site. Pressure dressing applied. armani Administered Medications: 19:14 Drug: Rocephin - (cefTRIAXone) 1 grams Route: IVPB; Infused Over: 30 mins; Site: left ph antecubital; Medication: 19:32 VIS not applicable for this client. ph Outcome: 18:17 Discharge ordered by MD. pm1 20:16 Condition: stable armani 20:16 Discharged to home via wheelchair, with family. armani 20:16 Discharge instructions given to family, Instructed on discharge instructions, follow up armani and referral plans. medication usage, Demonstrated understanding of instructions, follow-up care, medications, Prescriptions given X 1. 20:17 Patient left the ED. armani Signatures: Dispatcher [employer] EDMS Kim Jensen RN RN Bharat Sinclair, AFSANEH SERVICE SUPERINTENDENT pm1 Vicky Woo 5 Tessa Azul Kandis kj1 Theresa Rouse RN RN ld1 Lesly Mora RN RN Dorothea Chester Corrections: (The following items were deleted from the chart) 16:15 15:27 UA MICROSCOPIC+U.LAB.ALONDRAZ drawn and sent. [facility] ASIMMD
--- NOTE | 2021-11-20 18:17 | EDPHYS ---
Physician Documentation [facility] Name: Elsa Smith Age: 85 yrs Sex: Female : 1935 Arrival Date: 11/20/2021 Time: 12:23 Bed 16 Private MD: ED Physician Lauro Del Valle HPI: 11/20 12:53 This 85 yrs old Female presents to ER via Wheelchair with complaints of Urinary pm1 Retention. 12:53 The patient presents with urinary symptoms, urinary retention. Onset: The pm1 symptoms/episode began/occurred today. Modifying factors: The symptoms are alleviated by nothing, the symptoms are aggravated by nothing. Patient is concerned it might be related to kidney stone and stent placement 1 month ago. Associated signs and symptoms: Pertinent negatives: fever, Abdominal pain. Severity of symptoms: in the emergency department the symptoms are unchanged. The patient has not experienced similar symptoms in the past. The patient has not recently seen a physician. Historical: - Allergies: 12:42 Lidocaine; ld1 12:42 mercury; ld1 - PMHx: 12:42 CHF; COPD; CVA; Depression; Diabetes - NIDDM; Hypertension; Hypothyroidism; ld1 - PSHx: 12:42 AKA; ld1 - Immunization history:: Adult Immunizations up to date, Client reports receiving the 2nd dose of the Covid vaccine. - Social history:: Smoking status: Patient denies any tobacco usage or history of. Patient/guardian denies using alcohol. ROS: 12:53 Positive for Urinary retention. pm1 12:53 Constitutional: Negative for fever, chills, and weight loss, Cardiovascular: Negative for chest pain, palpitations, and edema, Respiratory: Negative for shortness of breath, cough, wheezing, and pleuritic chest pain, Abdomen/GI: Negative for abdominal pain, nausea, vomiting, diarrhea, and constipation, Back: Negative for injury and pain, MS/Extremity: Negative for injury and deformity, Skin: Negative for injury, rash, and discoloration, Neuro: Negative for headache, weakness, numbness, tingling, and seizure. 12:53 All other systems are negative. Exam: 12:53 Constitutional: This is a well developed, well nourished patient who is awake, alert, pm1 and in no acute distress. Head/Face: Normocephalic, atraumatic. 12:53 Back: No spinal tenderness. No costovertebral tenderness. Full range of motion. Skin: Warm, dry with normal turgor. Normal color with no rashes, no lesions, and no evidence of cellulitis. MS/ Extremity: Pulses equal, no cyanosis. Neurovascular intact. Full, normal range of motion. 12:53 Eyes: Exam is negative for acute changes, Periorbital structures: no acute changes, Conjunctiva: no acute changes, no injection. 12:53 ENT: Exam is negative for acute changes, Mouth: no acute changes, Lips: normal, moist, Oral mucosa: normal, pink and intact, moist. 12:53 Cardiovascular: Exam negative for acute changes, Rate: normal, Rhythm: regular, Pulses: no pulse deficits are appreciated, Heart sounds: normal, normal S1and S2. 12:53 Respiratory: Exam negative for acute changes, respiratory distress, shortness of breath, Breath sounds: are clear throughout. 12:53 Abdomen/GI: Exam negative for acute changes, Inspection: abdomen appears normal, Palpation: abdomen is soft and non-tender, in all quadrants. 12:53 Neuro: Exam negative for acute changes, Orientation: is normal, Mentation: is normal, Motor: is normal, moves all fours. Vital Signs: 12:43 BP 128 / 75; Pulse 72; Resp 18; Temp 98.1(TE); Pulse Ox 94% on R/A; Weight 104.33 kg; ld1 Height 5 ft. 5 in. (165.10 cm); Pain 0/10; 16:45 BP 136 / 78; Pulse 71; Resp 18; Pulse Ox 95% on R/A; ph 17:45 BP 126 / 89; Pulse 70; Resp 19; Pulse Ox 96% on R/A; ph 19:50 BP 157 / 88; Pulse 66; Resp 18; Temp 98.1; Pulse Ox 96% on R/A; armani 12:43 Body Mass Index 38.27 (104.33 kg, 165.10 cm) ld1 MDM: 12:53 Patient medically screened. pm1 16:39 Physician consultation: Ney Sow MD was called at 16:39, left message. pm1 17:32 Physician consultation: Ney Sow MD was called at 17:32, will call me back, phone pm1 answered by WING MAILER MACHINE OPERATOR. He is in surgery. 17:58 Physician consultation: Ney Sow MD regarding consult, patient's condition, and pm1 will see patient in office, would like medications started, cephalexin for 5 days. 18:13 Data reviewed: vital signs. Counseling: I had a detailed discussion with the patient pm1 and/or guardian regarding: the historical points, exam findings, and any diagnostic results supporting the discharge/admit diagnosis, lab results, radiology results, the need for outpatient follow up, a urologist, to return to the emergency department if symptoms worsen or persist or if there are any questions or concerns that arise at home. 18:13 ED course: Bladder scan with readings 40 to 50 mL. pm1 11/20 12:52 Order name: CBC with Diff; Complete Time: 14:31 pm1 11/20 12:52 Order name: CMP; Complete Time: 14:42 pm1 11/20 16:00 Order name: Urinalysis; Complete Time: 16:20 EDMS 11/20 16:15 Order name: Urine Microscopic Only; Complete Time: 16:20 EDOH 11/20 12:52 Order name: Bladder Scanner; Complete Time: 19:14 pm1 11/20 12:52 Order name: Urine Dipstick-Ancillary (obtain specimen); Complete Time: 17:31 pm1 11/20 14:33 Order name: CT Abd/Pelvis - IV Contrast Only; Complete Time: 16:02 pm1 11/20 16:21 Order name: Urine Culture EDMS Administered Medications: 19:14 Drug: Rocephin - (cefTRIAXone) 1 grams Route: IVPB; Infused Over: 30 mins; Site: left ph antecubital; Disposition: 22:05 Co-signature as Attending Physician, Lauro BAKER was immediately available on-site ms3 in the Emergency Department for consultation in the care of the patient. . Disposition Summary: 11/20/21 18:17 Discharge Ordered Location: Home pm1 Problem: new pm1 Symptoms: have improved pm1 Condition: Stable pm1 Diagnosis - Retention of urine, unspecified pm1 Followup: pm1 - With: Emergency Department - When: As needed - Reason: Worsening of condition Followup: pm1 - With: Ney Sow MD - When: 2 - 3 days - Reason: Recheck today's complaints, Continuance of care, Re-evaluation by your physician Discharge Instructions: - Discharge Summary Sheet pm1 Forms: - Medication Reconciliation Form pm1 - Thank You Letter pm1 - Antibiotic Education pm1 - Prescription Opioid Use pm1 Prescriptions: - Cephalexin 500 mg Oral Capsule - take 1 capsule by ORAL route every 12 hours for 5 days; 10 capsule; Refills: 0, pm1 Product Selection Permitted Signatures: Dispatcher [employer] EDMS Kim Jensen, JORGE RN ph Bharat Matute NP TRAVEL ACCOMMODATIONS RATER pm1 Lauro Del Valle DO DO ms3 Theresa Rouse RN RN ld1 Corrections: (The following items were deleted from the chart) 16:15 12:53 UA MICROSCOPIC+U.LAB.BRZ ordered. EDMS EDMS 16:15 15:27 URINALYSIS+U.LAB.BRZ ordered. EDMS EDMS
[2021-11-20] MEDS ORDERED: CEFTRIAXONE 1000 MG/VIAL ONE (18:55)
[2021-11-20] MEDS ORDERED: NA CHLORIDE 0.9% 50 ML ONE (18:56)
[2021-11-20 20:43] VITALS: TEMP 98.1
[2021-11-20 20:47] VITALS: O2SAT 96
[2021-11-20 20:48] VITALS: BP 157/88
== END 2021-11-20 20:17 | disposition home or self-care (01) ==
LOC: ER 12:19
DX: R33.9 Retention of urine, unspecified (principal); E11.9 Type 2 diabetes mellitus without complications; I10 Essential (primary) hypertension; Z88.6 Allergy status to analgesic agent; Z91.048 Other nonmedicinal substance allergy status
CPT/HCPCS: 87088; 85025; 87086; 36415; 80053; 74177; Q9967; 81003; 81015; 96374; 99284

== ENCOUNTER 2022-01-01 06:22 | Observation (INO) | payer OTHER ==
[2021-12-28 15:36] LABS: SARS-CoV-2 Antigen Rapid Res Negative (Negative)
[2022-01-01] MEDS ORDERED: NA CHLORIDE 0.9% 1,000 ML ONE (06:43)
[2022-01-01] MEDS ORDERED: AMPICILLIN SODIUM 2 GM in NA CHLORIDE 0.9% 100 ML IVPB SCH (07:00)
[2022-01-01] MEDS ORDERED: Gentamicin Inj 240 MG in NA CHLORIDE 0.9% 100 ML IV SCH (07:00)
[2022-01-01] MEDS ORDERED: propofoL 200 MG/20 ML VIAL IV ONE (07:15)
[2022-01-01] MEDS ORDERED: FENTANYL CITR 100 MCG/2 ML ONE (07:15)
[2022-01-01] MEDS ORDERED: LIDOCAINE 1% MPF 5 ML VIAL ONE (07:16)
[2022-01-01] MEDS ORDERED: ROCURONIUM 50 MG/5 ML VIAL IV ONE (07:16)
[2022-01-01] MEDS ORDERED: ONDANSETRON 4 MG/2 ML VIAL ONE (07:17)
[2022-01-01] MEDS ORDERED: CODEINE 30MG/APAP 300MG TAB PO PRN ×3 (07:39→17:45)
[2022-01-01] MEDS ORDERED: EPHEDRINE SULF 50 MG/ML VIAL ONE (08:16)
[2022-01-01] MEDS ORDERED: Mastisol Adhesive Liq ONE (08:50)
[2022-01-01] MEDS ORDERED: GLYCOPYRROLATE 0.2 MG/ML SYR ONE (08:56)
[2022-01-01] MEDS ORDERED: NEOSTIGMINE 1 MG/ML -10 ML VIAL ONE (08:56)
--- NOTE | 2022-01-01 09:25 | RAD REPORT ---
EXAM DESCRIPTION: RAD - Urethrocystogrphy Retrograde - 01/01/2022 9:15 am CLINICAL HISTORY: ICD N 20.0 FINDINGS: 30 fluoroscopic spot images obtained. Fluoroscopy time 1.1 minutes Right with ureter was cannulated and contrast administered. Subsequently an ureteral stent was placed . Examination was performed by Dr Sow
[2022-01-01] MEDS ORDERED: KETOROLAC 30 MG/ML INJ ONE (09:55)
--- NOTE | 2022-01-01 11:33 | RAD REPORT ---
EXAM DESCRIPTION: CT - Ct Stroke Brain Wo Cont - 01/01/2022 11:23 am CLINICAL HISTORY: Confusion/alteration of awareness COMPARISON: 2020 TECHNIQUE: Computed axial tomography of the head was obtained. All CT scans are performed using dose optimization technique as appropriate and may include automated exposure control or mA/KV adjustment according to patient size. FINDINGS: An intracranial bleed is not seen . The ventricles are normal in caliber. No extra-axial fluid collection is noted. Vague low-density right occipital lobe and right cerebellum. Old lacunar infarct left thalamus. Moderate low-density areas within periventricular, deep and subcortical white matter likely ischemic changes secondary to small vessel disease. Fluid within the sinuses/ mastoids is not seen. Right maxillary sinus is completely opacified. IMPRESSION: Vague low-density within the right cerebellum and right occipital lobe. It is uncertain whether this represents acute infarction or artifact. MRI is recommended. Dr. Waddell notified 11:29 a.m. 01/01/2022
--- NOTE | 2022-01-01 11:34 | OP ---
Surgeon: NASIM BLAIR Preoperative Diagnosis: Right ureterolithiasis. Postoperative Diagnoses: 1.Right ureterolithiasis. 2.Right nephrolithiasis. 3.Encrusted right ureteral stent. Principle Procedures: 1.Cystoscopy. 2.Right ureteroscopy with pyeloscopy and laser lithotripsy. 3.Right renal washing. 4.Right ureteral stent exchange. Indication For Procedure: Ms. Smith is an 86-year-old woman with multiple medical comorbidities inc luding insulin-dependent diabetes type 2, diastolic congestive heart failure, coronary artery disease with stent, chronic obstructive pulmonary disease, history of right potbj-yuc-aaof amputation with c hronic pain/neuropathy and dementia in addition to hypothyroidism, who presented to the emergency dep artment with an 8 mm right obstructive UPJ calculus causing hydronephrosis and underwent right ureter al stent placement on 10/19/2021. Urine culture revealed Proteus mirabilis, Macrobid resistant, whic h was confirmed on subsequent preoperative urine culture. She was started on amoxicillin preoperativ esvin and presents today for definitive management of her stone. Procedure In Detail: The patient was consented in the preoperative holding area with her daughter stacey huff because the patient does not have significant cognitive facility to make decision making and he r daughter has a power of contract attorney, and she was then transferred to operative suite where general ane sthesia was induced. She was given ampicillin 2 g and gentamicin approximately 2.2 mix per kg IV ant imicrobial prophylaxis. Pneumo boots were provided for DVT prophylaxis. She was placed in lithotomy position with some difficulty given the sputh-laz-ynid amputation on the right requiring extensive m anipulation with padding and foam and tape to lateralize the right lower extremity. Her genitalia we re then prepped using Hibiclens and draped in standard fashion. The case was begun using a 22-Moldovan rigid cystoscope to traverse the urethra into the bladder with ease. Within the bladder, the urine was somewhat cloudy in appearance and was decompressed. I then irrigated the bladder to remove any c loudy urine until cystoscopic visualization was optimal. The bladder was free of mucosal lesion, but the stent was noted to emanate from the right ureteral orifice. The stent was encrusted along the c oil, but I was able to deliver the coil via the meatus with ease. I then cut the encrusted portion o f the stent away and I attempted to pass a Sensor wire, but the Sensor wire would not pass up the love nt due to encrustation within the lumen. As a result, I ended up having to remove the stent, but bef ore doing so, I replaced the cystoscope and passed a 5-Moldovan ureteral access catheter alongside the stent and was able to navigate it into the renal pelvis. I then performed a retrograde pyelogram jus t to confirm the presence of the intrapelvic and calyceal location of the 5-Moldovan ureteral access ca theter. I then passed a Sensor wire via the 5-Moldovan ureteral access catheter into the upper pole of the kidney, and I removed the 5-Moldovan ureteral access catheter leaving the wire in place. I remove d the remainder of the stent. I then passed over the indwelling safety wire a dual-lumen catheter an d passed a second Bentson guidewire via the second lumen of the dual-lumen catheter into her upper po le as observed fluoroscopically. I then removed the dual-lumen catheter and I was able to pass the f lexible ureteroscope over the wire into the proximal ureter where a stone burden was encountered. Ut ilizing a 270 nm laser fiber and power settings of 0.8 joules and 10 hertz, I did quickly fragment of the stone and pushed portions of it into the renal pelvis. I was then able to navigate into the masood al pelvis where I encountered significantly cloudy urine again. As a result, I passed a Bentson guid ewire via the ureteroscope and coiled it in the pelvis and then passed a ureteral access sheath over the Bentson guidewire into the renal pelvis and then aspirated some of the cloudy fluid from within. This was sent for culture. I then gently irrigated the remainder of the contrast and cloudy urine w ithin the renal pelvis before leaving the access sheath in place to maintain low intrarenal pressures . The access sheath was left with the tip past the UPJ within the renal pelvis to facilitate that pu rpose. I then passed the ureteroscope into the upper pole of the kidney and surveyed each of the chad yces. I encountered several stone fragments along the way within the mid pole calyces, which were fr agmented using a laser fiber at power setting of 0.8 joules and between 10 and 15 hertz. I then cont inued into the lower pole of the kidney, which was identified via a very narrow infundibulum and with additional retrograde pyelography performed via the ureteroscope. Within the lower pole was the pre viously observed 12 mm stone as previously seen on CT. As a result, I utilized the laser fiber to fr agment that to dust about the size of the laser fibers somewhere between 200 and 400 nm. I then agai n surveyed into the renal pelvis and the calyces fragmenting any residual stone fragments to ensure d ust smaller than a mm before backing the scope into the proximal ureter. Additional fragments seen i n the ureter were again dusted using the laser fiber with power setting decrease back to 0.8 joules a nd 8 hertz. I then surveyed down through the proximal into the mid and the distal ureter to ensure n o additional stone fragments, and when none were noted, I navigated the ureteroscope back into the re nal pelvis and passed the ureteral access sheath over the ureteroscope into the renal pelvis. I then removed the ureteroscope and irrigated the renal pelvis to remove any stone dust and blood from with in. Once this was done, I then removed the ureteral access sheath leaving the safety wire still in p lace. I then back-loaded the cystoscope over the indwelling safety wire and passed a 6-Moldovan by 24 cm double-J ureteral stent left on its tether. This was eventually secured to her introitus using Ma stisol and Steri-Strips, but before doing so, I irrigated her bladder of the stone dust left over fro m the encrusted stent and/or from within the upper tract ureteroscopy and laser lithotripsy. The lucio dder was then decompressed of fluid and urine, and she was awakened from general anesthesia. After flavia torres taken out of the lithotomy position, she was transferred into a stretcher and then to the [facility] room in good condition. Complications: None. Discharge Disposition: She should continue the amoxicillin antimicrobial therapy provided preoperati silver and we will plan to remove the ureteral stent on its tether in the clinic on likely Friday. WR/MODL Voice ID: [id number] Report ID: [id number]
[2022-01-01] MEDS ORDERED: ONDANSETRON 4 MG/2 ML VIAL IV PRN ×2 (13:38→17:26)
[2022-01-01] MEDS ORDERED: MORPHINE 2 MG/ML SYR IV PRN ×2 (13:38→17:26)
[2022-01-01] MEDS ORDERED: ACETAMINOPHEN 500 MG TAB PO PRN ×2 (13:38→17:26)
[2022-01-01] MEDS ORDERED: NA CHLORIDE 0.9% 1,000 ML IV SCH (14:00)
--- NOTE | 2022-01-01 14:18 | RAD REPORT ---
EXAM DESCRIPTION: MRI - Brain Wo Cont - 01/01/2022 2:09 pm CLINICAL HISTORY: AMS CVA symptomology COMPARISON: Ct Stroke Brain Wo Cont dated 01/01/2022 TECHNIQUE: Multi-sequence, multiplanar MR imaging of the brain was performed without contrast. FINDINGS: No intracranial hemorrhage, hydrocephalus or extra-axial fluid collections.Moderate conflu ent T2/FLAIR hyperintensity in the periventricular and deep white matter is present compatible with c hronic microvascular ischemic changes. No edema or shift of midline structures. No findings to suspec t brain mass. DWI is negative for acute CVA. Midline structures are normally formed. Right maxillary sinus is completely opacified. IMPRESSION: Negative for acute CVA or other acute intracranial process.
[2022-01-01 15:01] LABS: SARS-CoV-2 Antigen Rapid Res Negative (Negative)
[2022-01-01] MEDS ORDERED: HYDROCODONE/APAP 7.5/325 MG TAB ONE (15:03)
[2022-01-01 16:16] VITALS: BMI 39.7
[2022-01-01] MEDS: NA CHLORIDE 0.9% 1,000 ML IV SCH (18:17)
[2022-01-01] MEDS ORDERED: IBUPROFEN 600 MG TAB PO PRN (19:32)
[2022-01-01] MEDS ORDERED: LOPERAMIDE HCL 2 MG CAPSULE PO PRN (19:32)
[2022-01-01] MEDS: PREGABALIN 150 MG CAP PO SCH (21:00)
[2022-01-01] MEDS ORDERED: NA CHLORIDE 0.9% 100 ML ONE (21:03)
[2022-01-01] MEDS: HYDROCODONE/APAP 7.5/325 MG TAB PO SCH (21:04)
[2022-01-01] MEDS: ATORVASTATIN 80 MG TAB PO SCH (21:05)
[2022-01-01] MEDS: AMPICILLIN SODIUM 2 GM in NA CHLORIDE 0.9% 100 ML IVPB SCH (21:47)
[2022-01-01] MEDS ORDERED: AMPICILLIN SODIUM 2 GM/VIAL VIAL ONE (21:49)
--- NOTE | 2022-01-01 22:06 | P.HP ---
Certification for Inpatient Patient admitted to: Observation With expected LOS: <2 Midnights Patient will require the following post-hospital care: None Practitioner: I am a practitioner with admitting privileges, knowledge of patient current condition, hospital course, and medical plan of care. Services: Services provided to patient in accordance with Admission requirements found in Title 42 Section 412.3 of the Code of Federal Regulations Patient History Date of Service: 01/01/22 Reason for admission: Altered mental status History of Present Illness: Patient is an 86-year-old female who presented to the hospital today for lithotripsy and J-stent placement. Patient has a history of nephrolithiasis. Patient did well during the surgery although she did have a transient hypotension of a blood pressure of 90s over 50s. Patient's blood pressure recovered. However, patient came out of surgery and was very talkative. About 30 minutes after surgery she started staring and appeared to be more catatonic. I was consulted by Anesthesiology to evaluate the patient as there was a concern of CVA. Patient has a history of CVA. On evaluation patient responded to pain appropriately. She also seemed to be able control her upper extremities. I did drop her arm on her face and she was able to prevent it from hitting her face. She was talkative to the daughter. But then she will go back into a catatonic state. We did CT of the head that was negative. MRI of the brain that was negative. We went ahead and decided to do an extended stay after her surgery for observation stay. Patient will be observed overnight and we anticipate discharge in the morning. Allergies Sulfa (Sulfonamide Antibiotics) Allergy (Verified 01/01/22 07:15) Rash morphine Adverse Reaction (Intermediate, Verified 01/01/22 07:15) "goes crazy" mercury Allergy (Uncoded 01/01/22 07:15) Unknown Home Medications: Atorvastatin Calcium [Lipitor] 1 tab PO BEDTIME 10/18/21 Clopidogrel Bisulfate [Plavix*] 1 tab PO DAILY 10/18/21 Duloxetine HCl 1 cap PO DAILY 10/18/21 Furosemide 1 tab PO DAILY 10/18/21 Hydrocodone 7.5/APAP 325 [[place] 7.5/325 mg*] 1 tab PO TID 10/18/21 Ibuprofen [Motrin] 1 tab PO Q6H PRN 10/18/21 Levothyroxine [Synthroid*] 1 tab PO 0600 10/18/21 Loperamide HCl [Imodium A-D] 1 cap PO QID PRN 10/18/21 Loperamide HCl [Loperamide] 1 cap PO QID PRN 10/18/21 Methylphenidate HCl 1 tab PO DAILY 10/18/21 Pantoprazole [Protonix Tab*] 1 tab PO BREAKFAST 10/18/21 Potassium Chloride 1 tab PO BREAKFAST 10/18/21 Pregabalin 1 cap PO BEDTIME 10/18/21 Pregabalin 1 cap PO BID 10/18/21 Vit C/E/Zn/Coppr/Lutein/Zeaxan [Preservision Areds 2 Softgel] 2 cap PO DAILY 10/18/21 Insulin Glargine,Hum.rec.anlog [Basaglar Kwikpen U-100] 36 units SQ DAILY 12/28/21 Lipase/Protease/Amylase [Richard Das 36,000 Unit Capsule] 2 tab PO TID 12/28/21 Liraglutide [Victoza 2-Ajit] 1.2 mg SQ 01/01/22 - Past Medical/Surgical History Has patient received pneumonia vaccine in the past: Yes Diabetic: Yes -: T2DM -: GERD -: Hypothyroidism -: HTN -: Stroke -: Hearing problems -: [place] 2016 -: chronic pancreatitis -: Macular Degeneration -: Dementia -: gall bladder -: appendix -: joint replacement -: joint removed -: AKA -: heart stent -: cataract sx Psychosocial/ Personal History: Currently resident at skilled nursing - Family History Father Medical History: Cancer Sister Medical History: Stroke - Social History Smoking Status: Former smoker Alcohol use: No CD- Drugs: No Caffeine use: Yes Place of Residence: [facility] Review of Systems 10-point ROS is otherwise unremarkable Physical Examination - Vital Signs Temperature: 97.2 F Blood Pressure: 134/74 Pulse: 57 Respirations: 16 - Physical Exam General: Alert, In no apparent distress, Other ( Catatonic) HEENT: Atraumatic, PERRLA, Mucous membr. moist/pink, EOMI, Sclerae nonicteric Neck: Supple, 2+ carotid pulse no bruit, No LAD, Without JVD or thyroid abnormality Respiratory: Clear to auscultation bilaterally, Normal air movement Cardiovascular: Regular rate/rhythm, Normal S1 S2, No murmurs Gastrointestinal: Normal bowel sounds, Soft and benign, Non-distended, No tenderness Musculoskeletal: No clubbing, No swelling, No tenderness Integumentary: No rashes Neurological: Cranial nerves 3-12 intact, Abnormal gait, Abnormal speech, Abnormal strength Lymphatics: No axilla or inguinal lymphadenopathy Assessment & Plan - Problems (Diagnosis) (1) AMS (altered mental status) Current Visit: Yes Status: Acute (2) Catatonia Current Visit: Yes Status: Acute (3) Ureterolithiasis Current Visit: Yes Status: Acute (4) Diabetes mellitus Current Visit: No Status: Active (5) History of - depression Current Visit: No Status: Active (6) History of - hypertension Current Visit: No Status: Active (7) Hypothyroidism Current Visit: No Status: Active (8) Hyperlipidemia Onset Date: 02/12/16 Current Visit: No Status: Acute (9) Hypertension Onset Date: 02/12/16 Current Visit: No Status: Acute (10) Presence of double-J stent Current Visit: Yes Status: Acute - Plan - IV hydration - IV antibiotics - cultures are pending - check renal function and electrolytes - MRI of the brain - bed check in place - monitor neuro status closely. Anticipate discharge in the morning. - discuss code status with family Discharge Plan: Home Plan to discharge in: 24 Hours - Advance Directives Does patient have a Living Will: Yes Does patient have a Durable POA for Healthcare: Yes - Code Status/Comfort Care Code Status Assessed: Yes Code Status: Full Code Critical Care: No Time Spent Managing PTS Care (In Minutes): 45
[2022-01-02] MEDS: NA CHLORIDE 0.9% 1,000 ML IV SCH (05:20)
[2022-01-02] MEDS ORDERED: NA CHLORIDE 0.9% 100 ML ONE (05:49)
[2022-01-02] MEDS: AMPICILLIN SODIUM 2 GM in NA CHLORIDE 0.9% 100 ML IVPB SCH ×4 (05:58→12:00)
[2022-01-02] MEDS: LEVOTHYROXINE SOD 0.075 MG TAB PO SCH (05:58)
[2022-01-02] MEDS ORDERED: CLOPIDOGREL 75 MG TABLET PO SCH (09:00)
[2022-01-02] MEDS: LIPASE/PROTEASE/AMYLASE CAP PO SCH ×3 (09:00→20:16)
[2022-01-02] MEDS: FUROSEMIDE 40 MG TABLET PO SCH (10:15)
[2022-01-02] MEDS: POTASSIUM CL SA 10 MEQ TAB PO SCH (10:15)
[2022-01-02] MEDS: PREGABALIN 150 MG CAP PO SCH ×3 (10:15→20:33)
[2022-01-02] MEDS: HYDROCODONE/APAP 7.5/325 MG TAB PO SCH ×3 (10:16→20:16)
[2022-01-02] MEDS: DULOXETINE 30 MG CAP PO SCH (10:16)
[2022-01-02] MEDS: INSULIN GLARGINE 100 UNIT/ML SQ SCH (10:16)
[2022-01-02] MEDS: PANTOPRAZOLE 40MG TABLET PO SCH (10:16)
[2022-01-02 10:53] LABS: Absolute Lymphocytes (CBC) 0.7 K/uL (0.7-4.9); Hematocrit 35.6 % (36.0-45.0); Lymphocytes % 10.9 % (15.3-44.8); MCV 90.8 fL (80-100); MPV 7.6 fL (7.6-11.3); RBC Red Blood Cell Count 3.92 M/uL (3.86-4.86)
[2022-01-02 11:10] LABS: Magnesium 1.9 mg/dL (1.8-2.4); Phosphorus 3.6 mg/dL (2.5-4.9); Potassium 3.9 mmol/L (3.5-5.1)
[2022-01-02] MEDS: AMOXICILLIN TRIHYDR 250 MG CAP PO SCH ×2 (16:00→20:16)
[2022-01-02] MEDS: ATORVASTATIN 80 MG TAB PO SCH (20:16)
[2022-01-02 21:15] VITALS: O2SAT 96
--- NOTE | 2022-01-02 23:55 | P.PN ---
Subjective Date of Service: 01/02/22 Subjective: No new changes, No C/O voiced, Improving Patient is much more awake alert today. Patient appears to be doing better clinically. Patient denies any other complaints. Spoke with family regarding plan of care. Review of Systems 10-point ROS is otherwise unremarkable Physical Examination - Vital Signs Temperature: 96.6 F Blood Pressure: 124/68 Pulse: 64 Respirations: 16 Pulse Ox (%): 95 - Physical Exam General: Alert, In no apparent distress, Demented, Obese HEENT: Atraumatic, PERRLA, EOMI Neck: Supple, JVD not distended Respiratory: Clear to auscultation bilaterally, Normal air movement Cardiovascular: Regular rate/rhythm, Normal S1 S2 Gastrointestinal: Normal bowel sounds, No tenderness Musculoskeletal: No tenderness Integumentary: No rashes Neurological: Normal speech, Normal tone, Normal affect Lymphatics: No axilla or inguinal lymphadenopathy - Studies Laboratory Data (last 24 hrs) 01/02/22 10:41: Sodium 142, Potassium 3.9, BUN 16, Creatinine 1.01, Glucose 164 H, Phosphorus 3.6, Magnesium 1.9 01/02/22 10:41: WBC 6.8, Hgb 11.9 L, Hct 35.6 L, Plt Count 230 Medications List Reviewed: Yes Assessment & Plan - Problems (Diagnosis) (1) AMS (altered mental status) Status: Acute (2) Catatonia Status: Acute (3) Ureterolithiasis Status: Acute (4) Diabetes mellitus Status: Active (5) History of - depression Status: Active (6) History of - hypertension Status: Active (7) Hypothyroidism Status: Active (8) Hyperlipidemia Onset Date: 02/12/16 Status: Acute (9) Hypertension Onset Date: 02/12/16 Status: Acute (10) Presence of double-J stent Status: Acute - Plan - IV hydration - IV antibiotics - cultures are negative - Renal function and electrolytes are stable - MRI of the brain Was unremarkable - bed check in place - Patient is much more awake alert today. If workup continues to be negative then anticipate discharge home in the morning. - discuss code status with family Discharge Plan: Home Plan to discharge in: 24 Hours - Advance Directives Does patient have a Living Will: Yes Does patient have a Durable POA for Healthcare: Yes - Code Status/Comfort Care Code Status: Full Code Critical Care: No Time Spent Managing PTS Care (In Minutes): 35
[2022-01-03] MEDS: LEVOTHYROXINE SOD 0.075 MG TAB PO SCH (05:18)
[2022-01-03 06:16] LABS: Absolute Lymphocytes (CBC) 1.2 K/uL (0.7-4.9); Hematocrit 34.9 % (36.0-45.0); Lymphocytes % 21.2 % (15.3-44.8); MCV 89.3 fL (80-100); MPV 7.8 fL (7.6-11.3); RBC Red Blood Cell Count 3.91 M/uL (3.86-4.86)
[2022-01-03 06:27] LABS: Potassium 3.1 mmol/L (3.5-5.1)
--- NOTE | 2022-01-03 08:11 | P.DS ---
Discharge Date: 01/03/22 Disposition: DC HOME/HOME HEALTH CARE Discharge Condition: GOOD Reason for Admission: Altered mental status - Problems (1) AMS (altered mental status) Status: Acute (2) Catatonia Status: Acute (3) Ureterolithiasis Status: Acute (4) Diabetes mellitus Status: Active (5) History of - depression Status: Active (6) History of - hypertension Status: Active (7) Hypothyroidism Status: Active (8) Hyperlipidemia Onset Date: 02/12/16 Status: Acute (9) Hypertension Onset Date: 02/12/16 Status: Acute (10) Presence of double-J stent Status: Acute Brief History of Present Illness: Patient is an 86-year-old female who presented to the hospital today for lithotripsy and J-stent placement. Patient has a history of nephrolithiasis. Patient did well during the surgery although she did have a transient hypotension of a blood pressure of 90s over 50s. Patient's blood pressure recovered. However, patient came out of surgery and was very talkative. About 30 minutes after surgery she started staring and appeared to be more catatonic. I was consulted by Anesthesiology to evaluate the patient as there was a concern of CVA. Patient has a history of CVA. On evaluation patient responded to pain appropriately. She also seemed to be able control her upper extremities. I did drop her arm on her face and she was able to prevent it from hitting her face. She was talkative to the daughter. But then she will go back into a catatonic state. We did CT of the head that was negative. MRI of the brain that was negative. We went ahead and decided to do an extended stay after her surgery for observation stay. Patient will be observed overnight and we anticipate discharge in the morning. Hospital Course: patient clinically doing well. Patient mental status has improved. According to the daughter patient is back at baseline. At this time, patient is clinically doing well and stable for discharge home. Vital Signs/Physical Exam: Temp Pulse Resp BP Pulse Ox 97.5 F 58 20 139/74 95 01/03/22 08:00 01/03/22 08:00 01/03/22 08:00 01/03/22 08:00 01/03/22 08:00 General: Alert, In no apparent distress, Demented Laboratory Data at Discharge: WBC 5.7 K/uL (4.3-10.9) D 07/14/22 05:48 Hgb 12.0 g/dL (12.0-15.0) 01/03/22 05:48 Hct 34.9 % (36.0-45.0) L 01/03/22 05:48 Plt Count 221 K/uL (152-406) 01/03/22 05:48 Sodium 144 mmol/L (136-145) 01/03/22 05:48 Potassium 3.1 mmol/L (3.5-5.1) L 01/03/22 05:48 BUN 13 mg/dL (7-18) 01/03/22 05:48 Creatinine 0.91 mg/dL (0.55-1.3) 01/03/22 05:48 Glucose 102 mg/dL (74-106) 01/03/22 05:48 Phosphorus 3.6 mg/dL (2.5-4.9) 01/02/22 10:41 Magnesium 1.9 mg/dL (1.8-2.4) 01/02/22 10:41 Home Medications: Atorvastatin Calcium [Lipitor] 1 tab PO BEDTIME 10/18/21 Clopidogrel Bisulfate [Plavix*] 1 tab PO DAILY 10/18/21 Duloxetine HCl 1 cap PO DAILY 10/18/21 Furosemide 1 tab PO DAILY 10/18/21 Hydrocodone 7.5/APAP 325 [[place] 7.5/325 mg*] 1 tab PO TID 10/18/21 Ibuprofen [Motrin] 1 tab PO Q6H PRN 10/18/21 Levothyroxine [Synthroid*] 1 tab PO 0600 10/18/21 Loperamide HCl [Imodium A-D] 1 cap PO QID PRN 10/18/21 Loperamide HCl [Loperamide] 1 cap PO QID PRN 10/18/21 Methylphenidate HCl 1 tab PO DAILY 10/18/21 Pantoprazole [Protonix Tab*] 1 tab PO BREAKFAST 10/18/21 Potassium Chloride 1 tab PO BREAKFAST 10/18/21 Pregabalin 1 cap PO BEDTIME 10/18/21 Pregabalin 1 cap PO BID 10/18/21 Vit C/E/Zn/Coppr/Lutein/Zeaxan [Preservision Areds 2 Softgel] 2 cap PO DAILY 10/18/21 Insulin Glargine,Hum.rec.anlog [[place] U-100] 36 units SQ DAILY 12/28/21 Lipase/Protease/Amylase [Richard Das 36,000 Unit Capsule] 2 tab PO TID 12/28/21 Liraglutide [Victoza 2-Ajit] 1.2 mg SQ 01/01/22 Amoxicillin 500 mg PO TID #21 capsule 01/03/22 New Medications: Amoxicillin 500 mg PO TID #21 capsule Physician Discharge Instructions: Diet:Low sodium Activity:Ad karina PHYSICIAN'S DISCHARGE INSTRUCTIONS You have a new right ureteral stent in place. It should remain in place for the next few days, and then it may be removed in my office Friday or Friday. She may take Tylenol (up to 1000 mg every 6 hours maximum) and alternate it every 4 hours with Motrin/ibuprofen (up to 800 mg every 8 hours maximum) for pain control. I noticed that she has a prescription for Tylenol with hydrocodone already. If that is an accurate, please notify me so that I might send an additional gentle narcotic prescription to assist in pain management. Please take note and keep the total 24-hour daily dose of Tylenol/acetaminophen less than 4000 mg / 4 g. Please complete the antimicrobial therapy prescribed before the surgery, with the next dose due between 2 and 4 PM today. Please resume your clopidogrel (Plavix) in 3 to 5 days -only once the urine is only slightly blood-tinged or free of routinely visible blood. Notify me if she develops any fever (temperature greater than 100.4 Fahrenheit), intractable nausea or vomiting, increasing pain not controlled by pain medications or other unusual signs or symptoms. It is common to have some visible blood in the urine following this procedure. Easd-xrs-ycghpog Azo (Pyridium) may be taken for burning with urination, but please note it will turn the color of the urine orange. All the best! WBR Diet: Low sodium Activity: Ad karina Followup: Ney Sow [ACTIVE - CAN ADMIT] - (Call to schedule appointment) Time spent managing pt's care (in minutes): 35
[2022-01-03] MEDS: INSULIN GLARGINE 100 UNIT/ML SQ SCH (09:00)
[2022-01-03] MEDS: HYDROCODONE/APAP 7.5/325 MG TAB PO SCH (09:00)
[2022-01-03] MEDS: AMOXICILLIN TRIHYDR 250 MG CAP PO SCH (10:32)
[2022-01-03] MEDS: POTASSIUM CL SA 10 MEQ TAB PO SCH (10:32)
[2022-01-03] MEDS: FUROSEMIDE 40 MG TABLET PO SCH (10:32)
[2022-01-03] MEDS: DULOXETINE 30 MG CAP PO SCH (10:32)
[2022-01-03] MEDS: PREGABALIN 150 MG CAP PO SCH (10:32)
[2022-01-03] MEDS: PANTOPRAZOLE 40MG TABLET PO SCH (10:32)
[2022-01-03] MEDS: LIPASE/PROTEASE/AMYLASE CAP PO SCH (10:50)
[2022-01-08 00:49] VITALS: BP 124/68; TEMP 96.6
--- OUTSIDE RECORDS SUMMARY | 2022-01-10 01:56 | XMS REPORT | Continuity of Care Document ---
:1935 Author Organization [facility] t Address [address] [place] [address] Care Team Providers Name Role Phone ENRIQUE ARAGON Attending Clinician Unavailable [id number] Attending Clinician Unavailable Adams Attending Clinician Unavailable Mark Attending Clinician Unavailable Caryn Attending Clinician Unavailable ENRIQUE ARAGON Admitting Clinician Unavailable [id number] Admitting Clinician Unavailable Payers Payer Name Policy Type Policy Number Effective Date Expiration Date S ource [facility] [id number] Problems This patient has no known problems. Allergies, Adverse Reactions, Alerts Allergy Allergy Status Severity Reaction(s) Onset Inactive Treating Comm ents Source Name Type Date Date Clinician MORPHINE Adverse Active Info Not Commo n Reaction Available [facility] Medications Ordered Filled Start Stop Current Ordering Indication Dosage Frequency Signature Comments Components Source Medication Medication Date Date Medication? Clinician (SIG) Name Name Accu-Chek Accu-Chek Yes Deirdre as Co mmon Sarita Plus Sarita Plus 3-25 [facility] directed [facility] 00:00: - [facility] Fluticasone Fluticasone 2019- Yes Deirdre 2 sprays Common Propionate Propionate 2-22 Millender in each Spirit 00:00: nostril - [facility] Accu-Chek Accu-Chek 2018-0 Yes Deirdre TEST Co mmon Sarita Plus Sarita Plus 5-01 [facility] 00:00: - [facility] Desloratadi Desloratadi Yes Deirdre 1 tablet Common ne ne [facility] Claritin Claritin Yes Deirdre 1 tablet Co mmon [facility] Accu-Chek Accu-Chek Yes Deirdre USE 1 Com mon Softclix Softclix Mill[facility] DAILY TO Spirit Lancets Lancets TEST [facility] Plavix Plavix Yes Deirdre 1 tablet Common [facility] Lasix Lasix Yes Deirdre 1 tablet Common [facility] Pregabalin Pregabalin Yes Deirdre 1 capsule Common Millender [facility] Calcium Calcium Yes Deirdre 1 tablet Comm on Millender with meals Spir it [facility] Metoprolol Metoprolol Yes Deirdre 1 tablet Common Tartrate Tartrate [facility] Sp mars [facility] Levothyroxi Levothyroxi Yes Deirdre 1 tablet Common ne Sodium ne Sodium Mill[facility] on an Spirit empty - [facility] stomach in [facility] Flonase Flonase Yes Deirdre 1 spray in Co mmon Millender each Spirit nostril [facility] Hydrocodone Hydrocodone Yes Deirdre 1 tablet Common -Acetaminop -Acetaminop Millender as needed Spirit hen hen [facility] Lipitor Lipitor Yes Deirdre 1 tablet Comm on Millender in evening Spir it [facility] ProAir HFA ProAir HFA Yes Deirdre 2 puffs as Common Mill[facility] needed [facility] Lantus Lantus Yes Deirdre 36 units Common [facility] Montelukast [facility] Yes Deirdre 1 tablet Common Sodium Sodium Millender [facility] Lisinopril Lisinopril Yes Deirdre 1 tablet Common [facility] Basaglar Basaglar Yes Deirdre 36 units Co mmon KwikPen KwikPen Mill[facility] Spir it [facility] Toujeo Toujeo Yes Deirdre not Common SoloStar SoloStar Mill[facility] defined [facility] Duloxetine Duloxetine Yes Deirdre 1 capsule Common HCl HCl Millender [facility] Aspirin Aspirin Yes Deirdre 1 tablet Comm on Adult Low Adult Low [facility] Dose Dose - [facility] Lyrica Lyrica Yes Deirdre 1 capsule Commo n [facility] Pantoprazol Pantoprazol Yes Deirdre 1 tablet Common e Sodium e Sodium [facility] Sp mars - [facility] Lasix Lasix Yes Deirdre 1 tablet Common [facility] Vascepa Vascepa 2020- No Deirdre 1 capsule Co mmon 05-10 [facility] 00:[facility] - [facility] :00 [facility] Victoza Victoza 2019- No Deirdre as Common 03-09 [facility] directed Spiri t 00:00 - [facility] :00 [facility] Klor-Con Klor-Con 2019- No Deirdre 1 tablet C ommon M20 M20 08-20 Mill[facility] with food Spir it 00:00 - [facility] :00 [facility] Procedures This patient has no known procedures. Encounters Start End Encounter Admission Attending Care Care Encounter Source Date/Time Date/Time Type Type Clinicians Facility Department ID 2021-07-19 Outpatient 3 GODWIN ARAGON CVA [id number] [facility] 13:16:38 ENRIQUE 1110 2021-07-19 Outpatient 3 GODWIN ARAGON CVA [facility] 13:14:59 ENRIQUE 1105 2021-07-19 Outpatient 3 [id number] [facility] REF [id number] [facility] 13:14:15 1104 2021-07-19 Outpatient 3 [id number] [facility] REF [id number] [facility] 13:13:18 1102 2021-07-19 Outpatient 3 GODWIN ARAGON CVA [id number] [facility] 12:28:46 ENRIQUE 0709 2021-07-19 Outpatient 3 [id number] [facility]NC[facility] REF [id number] [facility] 12:28:15 0708 2021-07-19 Outpatient 3 [id number] E[facility] REF [id number] [facility] 12:27:56 0707 [facility] [facility] 12[facility]34[facility]37 Deena [id number] [facility] 2021-07-18 Outpatient Adams [facility] Common 12:16:33 Deena [id number] [facility] 2021-07-18 Outpatient Herman Flores [facility] ST[facility] [id number] Common 11:59:31 [id number] [facility] 2021-07-18 Outpatient Caryn, STLMLC STLMLC [id number] Common 11:36:31 Deirdre [id number] [facility] 2020-12-30 Inpatient 3 MARGO, ENCPL CVA [id number] ENC[facility] 01:30:00 ENRIQUE 0710 2022-01-01 2022-01-01 ambulatory [facility]LMLC ST[facility]C [id number] Common 00:00:00 00:00:00 [facility] 2021-11-01 2021-11-01 ambulatory STLMLC STLMLC [id number] Common 00:00:00 00:00:00 [facility] 2021-01-24 2021-01-24 Outpatient [facility]LMLC ST[facility]C [id number] Common 00:00:00 00:00:00 [facility] 2020-11-24 2020-11-24 Outpatient STLMLC ST[facility]C [id number] Common 00:00:00 00:00:00 [facility] 2020-10-30 2020-10-30 Outpatient STLMLC ST[facility]C [id number] Common 00:00:00 00:00:00 [facility] 2020-09-13 2020-09-13 Outpatient STLMLC ST[facility]C [id number] Common 00:00:00 00:00:00 [facility] 2020-08-02 2020-08-02 Outpatient STLMLC STL[facility]C [id number] Common 00:00:00 00:00:00 [facility] 2020-06-29 2020-06-29 Outpatient STLMLC STL[facility]C [id number] Common 00:00:00 00:00:00 [facility] 2020-06-19 2020-06-19 Outpatient [facility]C STL[facility]C [id number] Common 00:00:00 00:00:00 [facility] 2020-05-24 2020-05-24 Outpatient STL[facility]C STL[facility]C [id number] Common 00:00:00 00:00:00 [facility] 2020-05-10 2020-05-10 Outpatient STLMLC STL[facility]C [id number] Common 00:00:00 00:00:00 [facility] 2020-02-03 2020-02-03 [facility] [id number] Common 02:20:00 02:20:[address] [facility] 2020-02-02 2020-02-02 [facility] [id number] Common 14:40:00 14:40:[address] [facility] 2019-12-29 2019-12-29 [facility] [id number] Common 09:03:00 09:03:[address] [facility] 2019-10-04 2019-10-04 [facility] [id number] Common 16:23:00 16:23:[address] [facility] 2019-09-15 2019-09-15 [facility] [id number] Common 12:47:00 12:47:[address] [facility] 2019-06-13 2019-06-13 [facility] [id number] Common 13:02:00 13:02:[address] [facility] 2019-06-13 2019-06-13 [facility] [id number] Common 12:50:00 12:50:[address] [facility] 2019-06-09 2019-06-09 [facility] [id number] Common 16:00:00 16:00:[address] [facility] 2019-05-13 2019-05-13 [facility] [id number] Common 11:20:00 11:20:[address] [facility] 2019-05-11 2019-05-11 [facility] [id number] Common 16:27:00 16:27:00 t [facility] [address] [facility] [address] [facility] Results This patient has no known results.
== END 2022-01-03 15:04 | disposition home health service (06) ==
LOC: OR 06:22 → 2ND 15:45 → UNDODISOB 15:45
PROVIDERS: ADMIT Hospitalist; ATTEND Hospitalist
PROC: 0T768DZ Dilation of Right Ureter with Intraluminal Device, Via Natural or Artificial Opening Endoscopic (ICD-10-PCS; 2022-01-01)
PROC: 0TF38ZZ Fragmentation in Right Kidney Pelvis, Via Natural or Artificial Opening Endoscopic (ICD-10-PCS; principal; 2022-01-01 07:30)
DX: N20.2 Calculus of kidney with calculus of ureter (principal); F06.1 Catatonic disorder due to known physiological condition; R41.82 Altered mental status, unspecified; E03.9 Hypothyroidism, unspecified; E78.5 Hyperlipidemia, unspecified; I95.9 Hypotension, unspecified; I11.0 Hypertensive heart disease with heart failure; I50.30 Unspecified diastolic (congestive) heart failure; I25.10 Atherosclerotic heart disease of native coronary artery without angina pectoris; J44.9 Chronic obstructive pulmonary disease, unspecified; E11.40 Type 2 diabetes mellitus with diabetic neuropathy, unspecified; H54.7 Unspecified visual loss; F03.90 Unspecified dementia, unspecified severity, without behavioral disturbance, psychotic disturbance, mood disturbance, and anxiety; K21.9 Gastro-esophageal reflux disease without esophagitis; K86.1 Other chronic pancreatitis; I25.2 Old myocardial infarction; F32.A Depression, unspecified; G89.29 Other chronic pain; H35.30 Unspecified macular degeneration; Z20.822 Contact with and (suspected) exposure to COVID-19; Z79.02 Long term (current) use of antithrombotics/antiplatelets; Z79.4 Long term (current) use of insulin; Z79.899 Other long term (current) drug therapy; Z88.2 Allergy status to sulfonamides; Z88.5 Allergy status to narcotic agent; Z88.8 Allergy status to other drugs, medicaments and biological substances; Z86.73 Personal history of transient ischemic attack (TIA), and cerebral infarction without residual deficits; Z87.891 Personal history of nicotine dependence; Z95.5 Presence of coronary angioplasty implant and graft; Z89.611 Acquired absence of right leg above knee; Z82.3 Family history of stroke; Z80.9 Family history of malignant neoplasm, unspecified
CPT/HCPCS: 52356; 87088; 85025 ×2; 87086; 80048 ×2; 36415 ×4; 88108; 83735; 84100; 82947 ×11; 88305; 87077; 87186; 84145; 70450; 74450; 51610; 70551; 87811 ×2; J2704; J2710; J1580; J3010; J7030 ×2; J2405; J0290; G0379; G0378 ×2

== ENCOUNTER 2022-06-07 12:21 | Emergency (ER) | payer OTHER ==
--- OUTSIDE RECORDS SUMMARY | 2022-06-07 12:24 | XMS REPORT | Continuity of Care Document ---
:1935 Author Organization [facility] t Address [address] [place] [address] Care Team Providers Name Role Phone ENRIQUE ARAGON NATASHA Attending Clinician Unavailable [id number] Attending Clinician Unavailable Deena Lamas Attending Clinician Unavailable Herman Flores Attending Clinician Unavailable Deirdre Rubin Attending Clinician Unavailable ENRIQUE ARAGON NATASHA Admitting Clinician Unavailable [id number] Admitting Clinician Unavailable Payers Payer Name Policy Type Policy Number Effective Date Expiration Date S dorita [facility] [id number] [facility] TRS Care 1 [id number] 2020 Common Spiri t MCR Advantage 00:00:00 - [facility] MEDICARE MB [id number] Common Spirit NOVITAS [facility] Problems Condition Condition Condition Status Onset Resolution Last Treating Co mments Source Name Details Category Date Date Treatment Clinician Date [id number] Acquired Problem Active Comm on hypothyroi Spirit dism 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 [id number] Intermitte Problem Active Co mmon nt asthma, Spirit unspecifie - [facility] d asthma [facility] unspecifie Medica l d whether Center complicate d [id number] Diarrhea, Problem Active Comm on unspecifie Spirit d type [facility] [id number] Wheelchair Problem Active Co mmon dependence [facility] [id number] Morbid Problem Active Common obesity [facility] Chronic Chronic Problem Active Common diastolic diastolic Spir it heart congestive - [facility]I failure heart [facility] [id number] Gassiness Problem Active Com mon [facility] [id number] Generalize Problem Active Com mon d weakness [facility] [id number] Chronic Problem Active Commo n pain Spirit syndrome [facility] [id number] [place] in [place] [address] left foot [facility] [id number] Essential Problem Active Comm on hypertensi [facility] on [facility] 224696606 Frequent Problem Active Comm on falls [facility] [id number] Gastritis, Problem Active Comm on presence [facility] of [facility] bleeding [facility] d, Medical unspecifie Center d chronicity , unspecifie d gastritis type [id number] Esophagiti Problem Active Com mon s [facility] [id number] Pain in Problem Active Commo n left leg [facility] [id number] Allergy, Problem Active Comm on sequela [facility] 31075593 Obstructiv Problem Active Com mon e sleep Spirit apnea - [facility] syndrome [facility] [id number] Asymptomat Problem Active Com mon ic Spirit varicose - [facility] veins of left [facility] [id number] 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 [id number] Acute Problem Active Common pancreatit Spirit is, - [facility] unspec[facility] complicati Medica l on status, Center unspecifie d pancreatit is type [id number] Uncontroll Problem Active Co mmon ed type 2 Spirit diabetes - [facility] mellitus [facility] Medica [facility] [id number] Ureterolit Problem Active Com mon hiasis [facility] Nephrolith Kidney Problem Active Commo n iasis stone [facility] Allergies, Adverse Reactions, Alerts Allergy Allergy Status Severity Reaction(s) Onset Inactive Treating Comm ents Source Name Type Date Date Clinician Morphine Morphine Active Unknown Commo n [facility] Sulfasal Sulfasal Active Unknown Commo n azine azine [facility] Social History Social Habit Start Date Stop Date Quantity Comments Source History of Tobacco Common [facility] - Use [facility] Sex Ass[birth year] At [birth year] [facility] 00:00:00 00:00:00 [facility] Center Smoking Status Start Date Stop Date Source Never Smoker [facility] Medications Ordered Filled Start Stop Current Ordering Indication Dosage Frequency Signature Comments Components Source Medication Medication Date Date Medication? Clinician (SIG) Name Name Accu-Chek Accu-Chek 2019-0 Yes Deirdre as Co mmon Sarita Plus Sarita Plus 3-25 Millender directed Spirit 00:00: - [facility] Accu-Chek Accu-Chek 2020-0 No Accu-Chek Sarita Plus Sarita Plus 3-25 Sarita Plus - - 00:00: 00 Accu-Chek Accu-Chek 2020-0 No Accu-Chek Sarita Plus Sarita Plus 3-25 Sarita Plus - - 00:00: 00 Accu-Chek Accu-Chek 2020-0 No Accu-Chek Sarita Plus Sarita Plus 3-25 Sarita Plus - - 00:00: - 00 Fluticasone Fluticasone 2018- Yes Deirdre 2 sprays Common Propionate Propionate 2-22 Millender in each Spirit 00:00: nostril - [facility] Accu-Chek Accu-Chek Yes Deirdre TEST Co mmon Sarita Plus Sarita Plus 5-01 Millender Spirit 00:00: - [facility] Desloratadi Desloratadi Yes Deirdre 1 tablet Common ne ne Millender Spirit - [facility] Claritin Claritin Yes Deirdre 1 tablet Co mmon Millender Spirit [facility] Accu-Chek Accu-Chek Yes Deirdre USE 1 Com mon Softclix Softclix Millender DAILY TO Spirit Lancets Lancets TEST [facility] Plavix Plavix Yes Deirdre 1 tablet Common Millender [facility] Lasix Lasix Yes Deirdre 1 tablet Common Millender [facility] Pregabalin Pregabalin Yes Deirdre 1 capsule Common Millender [facility] Calcium Calcium Yes Deirdre 1 tablet Comm on Millender with meals Spir [facility] Metoprolol Metoprolol Yes Deirdre 1 tablet Common Tartrate Tartrate Millender Sp mars [facility] Levothyroxi Levothyroxi Yes Deirdre 1 tablet Common ne Sodium ne Sodium Millender on an Spirit empty - [facility]I stomach in [facility] Flonase Flonase Yes Deirdre 1 spray in Co mmon Millender each Spirit nostril [facility] Hydrocodone Hydrocodone Yes Deirdre 1 tablet Common -Acetaminop -Acetaminop Millender as needed Spirit hen hen [facility] Lipitor Lipitor Yes Deirdre 1 tablet Comm on Millender in evening Spir [facility] ProAir HFA ProAir HFA Yes Deirdre 2 puffs as Common Millender needed Spirit [facility] Lantus Lantus Yes Deirdre 36 units Common Millender Spirit [facility] Yes Deirdre 1 tablet Common Sodium Sodium Millender Spirit [facility] Lisinopril Lisinopril Yes Deirdre 1 tablet Common Millender Spirit [facility] Basaglar Basaglar Yes Deirdre 36 units Co mmon KwikPen KwikPen Millender Spir it [facility] Toujeo Toujeo Yes Deirdre not Common SoloStar SoloStar Millender defined Spirit [facility] Duloxetine Duloxetine Yes Deirdre 1 capsule Common HCl HCl Millender Spirit [facility] Aspirin Aspirin Yes Deirdre 1 tablet Comm on Adult Low Adult Low Millender Spirit Dose Dose - [facility] Lyrica Lyrica Yes Deirdre 1 capsule Commo n Millender Spirit [facility] Pantoprazol Pantoprazol Yes Deirdre 1 tablet Common e Sodium e Sodium Millender Sp mars [facility] Lasix Lasix Yes Deirdre 1 tablet Common Millender Spirit [facility] Desloratadi Desloratadi No 1{table QD Desloratad ne 5 MG ne 5 MG t} ine 5 MG Victoza 18 Victoza 18 No Victoza 18 MG/3ML MG/3ML MG/3ML Pregabalin Pregabalin No 1{capsu Pregabalin 150 MG 150 MG le} 150 MG Lipitor 40 Lipitor 40 No QD Lipitor 40 MG MG MG ProAir HFA ProAir HFA No 2{puffs QID ProAir HFA 108 (90 108 (90 _as_nee 108 (90 Base) Base) ded} Base) MCG/ACT MCG/ACT MCG/ACT Flonase 50 Flonase 50 No 1{spray BID Flonase 50 MCG/ACT MCG/ACT _in_eac MCG/ACT h_nostr il} Metoprolol Metoprolol No 1{table BID Metoprolol Tartrate 25 Tartrate 25 t} Tartrate MG MG 25 MG Aspirin Aspirin No 1{table QD Aspirin Adult Low Adult Low t} Adult Low Dose 81 MG Dose 81 MG Dose 81 MG Levothyroxi Levothyroxi No QD Levothyrox ne Sodium ne Sodium ine Sodium 75 MCG 75 MCG 75 MCG Basaglar Basaglar No QD Basaglar KwikPen 100 KwikPen 100 KwikPen UNIT/ML UNIT/ML 100 UNIT/ML Creon 54901 Creon 96408 No Creon UNIT UNIT 59766 UNIT Lasix 80 MG Lasix 80 MG No 1{table QD Lasix 80 t} MG Accu-Chek Accu-Chek No Accu-Chek Softclix Softclix Softclix Lancets - Lancets - Lancets - HYDROcodone HYDROcodone No 1{table TID HYDROcodon -Acetaminop -Acetaminop t_as_ne e-Acetamin hen 7.5-325 hen 7.5-325 eded} ophen MG MG 7.5-325 MG Pantoprazol Pantoprazol No 1{table QD Pantoprazo e Sodium 40 e Sodium 40 t} le Sodium MG MG 40 MG Lisinopril Lisinopril No 1{table QD Lisinopril 5 MG 5 MG t} 5 MG Iron Iron No 1{table QD Iron (Ferrous (Ferrous t} (Ferrous Sulfate) Sulfate) Sulfate) 325 (65 Fe) 325 (65 Fe) 325 (65 MG MG Fe) MG DULoxetine DULoxetine No 1{capsu QD DULoxetine HCl 60 MG HCl 60 MG le} HCl 60 MG Klor-Con Klor-Con No 1{table BID Klor-Con M20 20 MEQ M20 20 MEQ t_with_ M20 20 MEQ food} Fluticasone Fluticasone No 2{spray QD Fluticason Propionate Propionate s_in_ea e 50 MCG/ACT 50 MCG/ACT ch_nost Propionate ril} 50 MCG/ACT Calcium 600 Calcium 600 No 1{table BID Calcium MG MG t_with_ 600 MG meals} Plavix 75 Plavix 75 No 1{table QD Plavix 75 MG MG t} MG Desloratadi Desloratadi No 1{table QD Desloratad ne 5 MG ne 5 MG t} ine 5 MG Victoza 18 Victoza 18 No Victoza 18 MG/3ML MG/3ML MG/3ML Pregabalin Pregabalin No 1{capsu Pregabalin 150 MG 150 MG le} 150 MG Lipitor 40 Lipitor 40 No QD Lipitor 40 MG MG MG ProAir HFA ProAir HFA No 2{puffs QID ProAir HFA 108 (90 108 (90 _as_nee 108 (90 Base) Base) ded} Base) MCG/ACT MCG/ACT MCG/ACT Flonase 50 Flonase 50 No 1{spray BID Flonase 50 MCG/ACT MCG/ACT _in_eac MCG/ACT h_nostr il} Flonase 50 Flonase 50 No 1{spray BID Flonase 50 MCG/ACT MCG/ACT _in_eac MCG/ACT h_nostr il} Pantoprazol Pantoprazol No 1{table QD Pantoprazo e Sodium 40 e Sodium 40 t} le Sodium MG MG 40 MG Desloratadi Desloratadi No 1{table QD Desloratad ne 5 MG ne 5 MG t} ine 5 MG Fluticasone Fluticasone No 2{spray QD Fluticason Propionate Propionate s_in_ea e 50 MCG/ACT 50 MCG/ACT ch_nost Propionate ril} 50 MCG/ACT Lasix 80 MG Lasix 80 MG No 1{table QD Lasix 80 t} MG Pregabalin Pregabalin No 1{capsu Pregabalin 150 MG 150 MG le} 150 MG Levothyroxi Levothyroxi No QD Levothyrox ne Sodium ne Sodium ine Sodium 75 MCG 75 MCG 75 MCG Iron Iron No 1{table QD Iron (Ferrous (Ferrous t} (Ferrous Sulfate) Sulfate) Sulfate) 325 (65 Fe) 325 (65 Fe) 325 (65 MG MG Fe) MG HYDROcodone HYDROcodone No 1{table TID HYDROcodon -Acetaminop -Acetaminop t_as_ne e-Acetamin hen 7.5-325 hen 7.5-325 eded} ophen MG MG 7.5-325 MG Lipitor 40 Lipitor 40 No QD Lipitor 40 MG MG MG Basaglar Basaglar No QD Basaglar KwikPen 100 KwikPen 100 KwikPen UNIT/ML UNIT/ML 100 UNIT/ML ProAir HFA ProAir HFA No 2{puffs QID ProAir HFA 108 (90 108 (90 _as_nee 108 (90 Base) Base) ded} Base) MCG/ACT MCG/ACT MCG/ACT Creon 61509 Creon 61916 No Creon UNIT UNIT 31570 UNIT Metoprolol Metoprolol No 1{table BID Metoprolol Tartrate 25 Tartrate 25 t} Tartrate MG MG 25 MG Plavix 75 Plavix 75 No 1{table QD Plavix 75 MG MG t} MG Calcium 600 Calcium 600 No 1{table BID Calcium MG MG t_with_ 600 MG meals} Accu-Chek Accu-Chek No Accu-Chek Softclix Softclix Softclix Lancets - Lancets - Lancets - DULoxetine DULoxetine No 1{capsu QD DULoxetine HCl 60 MG HCl 60 MG le} HCl 60 MG Klor-Con Klor-Con No 1{table BID Klor-Con M20 20 MEQ M20 20 MEQ t_with_ M20 20 MEQ food} Lisinopril Lisinopril No 1{table QD Lisinopril 5 MG 5 MG t} 5 MG Victoza 18 Victoza 18 No Victoza 18 MG/3ML MG/3ML MG/3ML Aspirin Aspirin No 1{table QD Aspirin Adult Low Adult Low t} Adult Low Dose 81 MG Dose 81 MG Dose 81 MG Metoprolol Metoprolol No 1{table BID Metoprolol Tartrate 25 Tartrate 25 t} Tartrate MG MG 25 MG Aspirin Aspirin No 1{table QD Aspirin Adult Low Adult Low t} Adult Low Dose 81 MG Dose 81 MG Dose 81 MG Levothyroxi Levothyroxi No QD Levothyrox ne Sodium ne Sodium ine Sodium 75 MCG 75 MCG 75 MCG Basaglar Basaglar No QD Basaglar KwikPen 100 KwikPen 100 KwikPen UNIT/ML UNIT/ML 100 UNIT/ML Creon 27985 Creon 49535 No Creon UNIT UNIT 42575 UNIT Lasix 80 MG Lasix 80 MG No 1{table QD Lasix 80 t} MG Accu-Chek Accu-Chek No Accu-Chek Softclix Softclix Softclix Lancets - Lancets - Lancets - HYDROcodone HYDROcodone No 1{table TID HYDROcodon -Acetaminop -Acetaminop t_as_ne e-Acetamin hen 7.5-325 hen 7.5-325 eded} ophen MG MG 7.5-325 MG Pantoprazol Pantoprazol No 1{table QD Pantoprazo e Sodium 40 e Sodium 40 t} le Sodium MG MG 40 MG Lisinopril Lisinopril No 1{table QD Lisinopril 5 MG 5 MG t} 5 MG Iron Iron No 1{table QD Iron (Ferrous (Ferrous t} (Ferrous Sulfate) Sulfate) Sulfate) 325 (65 Fe) 325 (65 Fe) 325 (65 MG MG Fe) MG DULoxetine DULoxetine No 1{capsu QD DULoxetine HCl 60 MG HCl 60 MG le} HCl 60 MG Klor-Con Klor-Con No 1{table BID Klor-Con M20 20 MEQ M20 20 MEQ t_with_ M20 20 MEQ food} Fluticasone Fluticasone No 2{spray QD Fluticason Propionate Propionate s_in_ea e 50 MCG/ACT 50 MCG/ACT ch_nost Propionate ril} 50 MCG/ACT Calcium 600 Calcium 600 No 1{table BID Calcium MG MG t_with_ 600 MG meals} Plavix 75 Plavix 75 No 1{table QD Plavix 75 MG MG t} MG Vascepa Vascepa Deirdre 1 capsule Co mmon 05 Millender Spirit 00:00 - [facility]I :00 [facility] Victoza Victoza Deirdre as Common 03-09 Millender directed Spiri t 00:00 - CHI :00 [facility] Klor-Con Klor-Con Deirdre 1 tablet C ommon M20 M20 08-20 Millender with food Spir it 00:00 - CHI :00 [facility] Immunizations Ordered Immunization Filled Immunization Date Status Commen ts Source Name Name Moderna COVID-19 Moderna COVID-19 2020-08-01 Completed Co mmon Spirit Vaccine Vaccine 11:58:00 [facility] Moderna COVID-19 Moderna COVID-19 2020-08-01 Completed Co mmon Spirit Vaccine Vaccine 11:58:00 - [facility] Moderna COVID-19 Moderna COVID-19 2020-08-01 Completed Co mmon Spirit Vaccine Vaccine 11:58:00 [facility] Td Td 2018-07-06 Completed Common Spirit 15:47:00 - [facility] FLUZONE HIGH DOSE FLUZONE HIGH DOSE 2018-07-06 Completed Common Spirit OVER 65 OVER [address] 15:47:00 [facility] Td Td 2018-07-06 Completed Common Spirit 15:47:00 [facility] FLUZONE HIGH DOSE FLUZONE HIGH DOSE 2018-07-06 Completed Common Spirit OVER 65 OVER [address] 15:47:00 [facility] Td Td 2018-07-06 Completed Common Spirit 15:47:00 [facility] FLUZONE HIGH DOSE FLUZONE HIGH DOSE 2018-07-06 Completed Common Spirit OVER [address] OVER [address] 15:47:00 [facility] Vital Signs Vital Name Observation Time Observation Value Comments Source height 2021-11-01 08:00:00 66 [in_i] [facility] weight 2021-11-01 08:00:00 300 [lb_av] [facility] temperature 2021-11-01 08:00:00 97.8 [degF] Common S pirit - [facility] bmi 2021-11-01 08:00:00 48.42 kg/m2 Common [facility] oximetry 2021-11-01 08:00:00 99 % [facility] respiratory rate 2021-11-01 08:00:00 18 /min Comm on [facility] blood pressure 2021-11-01 08:00:00 148 mm[Hg] Common [facility] - systolic [facility] blood pressure 2021-11-01 08:00:00 71 mm[Hg] Common [facility] - diastolic [facility] Procedures This patient has no known procedures. Encounters Start End Encounter Admission Attending Care Care Encounter Source Date/Time Date/Time Type Type Clinicians Facility Department ID 2021-07-19 Outpatient 3 MARGOGODWIN CVA [id number] [facility] 13:16:38 [facility] 2021-07-19 Outpatient 3 MARGOGODWIN CVA [id number] [facility] 13:14:59 ENRIQUE [facility] [place] [facility] 2021-07-19 Outpatient 3 [id number] ENC[facility] REF [id number] [facility] 13:14:15 [facility] [place] 2021-07-19 Outpatient 3 [id number] ENC[facility] REF [id number] [facility] 13:13:18 [facility] [place] 2021-07-19 Outpatient 3 GODWIN ARAGON CVA [id number] [facility] 12:28:46 ENRIQUE 0709 [facility] [place] 2021-07-19 Outpatient 3 [id number] ENCPL REF [id number] [facility] 12:28:15 0708 [facility] [place] 2021-07-19 Outpatient 3 [id number] ENC[facility] REF [id number] [facility] 12:27:56 0707 [facility] [place] 2021-07-18 Outpatient SRAVANTHI Lamas [facility] [id number] [facility] 12:34:37 Deena 69901 [facility] 2021-07-[address], STLMLC STL[facility]C [id number] Common 12:16:33 Deena [address] [facility] 2021-07-18 Outpatient Herman Flores STLMLC STLMLC [id number] Common 11:59:31 [address] [facility] 2021-07-18 Outpatient Caryn, STLMLC STLMLC [id number] Common 11:36:31 Deirdre [id number] [facility] 2020-12-30 Inpatient 3 MARGO, ENCPL CVA [id number] [facility] 01:30:00 ENRIQUE [facility] [place] [facility] 2022-01-01 2022-01-01 (TEL) STLMLC STLMLC [id number] Co mmon 00:00:00 00:00:00 [facility] 2021-11-01 2021-11-01 OFFICE STLMLC STLMLC [id number] Co mmon 00:00:00 00:00:00 VISIT [facility] 4 [facility] 2021-01-24 2021-01-24 (TEL) STLMLC STLMLC [id number] Co mmon 00:00:00 00:00:00 [facility] 2020-11-24 2020-11-24 Outpatient STLMLC STLMLC [id number] Common 00:00:00 00:00:00 [facility] 2020-10-30 2020-10-30 Outpatient STLMLC STLMLC [id number] Common 00:00:00 00:00:00 [facility] 2020-09-13 2020-09-13 Outpatient STLMLC STLMLC [id number] Common 00:00:00 00:00:00 [facility] 2020-08-02 2020-08-02 Outpatient STLMLC STLMLC [id number] Common 00:00:00 00:00:00 [facility] 2020-06-29 2020-06-29 Outpatient STLMLC STLMLC [id number] Common 00:00:00 00:00:00 [facility] 2020-06-19 2020-06-19 Outpatient STLMLC STLMLC [id number] Common 00:00:00 00:00:00 [facility] 2020-05-24 2020-05-24 Outpatient STLMLC STLMLC [id number] Common 00:00:00 00:00:00 [facility] 2020-05-10 2020-05-10 Outpatient STLMLC STLMLC [id number] Common 00:00:00 00:00:00 [facility] 2020-02-03 2020-02-03 [facility] [id number] Common 02:20:00 02:20:[address] [facility] 2020-02-02 2020-02-02 [facility] [id number] Common 14:40:00 14:40:[address] [facility] 2019-12-29 2019-12-29 [facility] [id number] Common 09:03:00 09:03:[address] [facility] 2019-10-04 2019-10-04 [facility] [id number] Common 16:23:00 16:23:[address] [facility] 2019-09-15 2019-09-15 [facility] [id number] Common 12:47:00 12:47:[address] [facility] 2019-06-13 2019-06-13 [facility] [id number] Common 13:02:00 13:02:[address] [facility] 2019-06-13 2019-06-13 [facility] [id number] Common 12:50:00 12:50:[address] [facility] 2019-06-09 2019-06-09 [facility] [id number] Common 16:00:00 16:00:[address] [facility] 2019-05-13 2019-05-13 [facility] [id number] Common 11:20:00 11:20:00 [facility] 2019-05-11 2019-05-11 Outpatient Len Lynn [id number] Common 16:27:00 16:27:00 [facility] Results This patient has no known results.
[2022-06-07 13:03] LABS: Absolute Lymphocytes (CBC) 1.3 K/uL (0.7-4.9); Hematocrit 40.2 % (36.0-45.0); Lymphocytes % 13.5 % (15.3-44.8); MCV 89.3 fL (80-100); MPV 7.9 fL (7.6-11.3); RBC Red Blood Cell Count 4.51 M/uL (3.86-4.86)
--- NOTE | 2022-06-07 13:26 | RAD REPORT ---
EXAM DESCRIPTION: RAD - Chest Single View - 06/07/2022 1:12 pm CLINICAL HISTORY: AMS Chest pain. COMPARISON: Chest Single View dated 10/19/2021; Chest Single View dated 10/18/2021; Chest Single View dated 05/24/2021; Chest Single View dated 12/26/2020 FINDINGS: Portable technique limits examination quality. Mild bilateral pulmonary opacities are seen likely pulmonary edema. The heart is moderately enlarged in size. No displaced fractures. IMPRESSION: Mild CHF.
--- NOTE | 2022-06-07 13:31 | RAD REPORT ---
EXAM DESCRIPTION: CT - Head Brain Wo Cont - 06/07/2022 1:24 pm CLINICAL HISTORY: AMS Headache, drowsiness COMPARISON: Ct Stroke Brain Wo Cont dated 01/01/2022; Head Brain Wo Cont dated 12/16/2020 TECHNIQUE: All CT scans are performed using dose optimization technique as appropriate and may inclu de automated exposure control or mA/KV adjustment according to patient size. FINDINGS: No intracranial hemorrhage, hydrocephalus or extra-axial fluid collection.Moderate general ized brain atrophy is present with moderate periventricular and deep white matter chronic microvascul ar ischemic changes.No areas of brain edema or evidence of midline shift. Chronic right maxillary sinusitis. The paranasal sinuses and mastoids are otherwise clear. The calvar ium is intact. Vertebral atherosclerosis. IMPRESSION: No acute intracranial abnormality. Chronic right maxillary sinus disease.
[2022-06-07 13:43] LABS: Urine Blood Trace-intact (Negative); Urine Glucose Negative (Negative); Urine Protein Negative (Negative); Urine Specific Gravity 1.015 (1.005-1.030); Urine pH 6.5 (5.0-7.0)
[2022-06-07 13:50] LABS: Albumin 3.2 g/dL (3.4-5.0); Bilirubin Total 0.3 mg/dL (0.2-1.0); Potassium 3.3 mmol/L (3.5-5.1); Protein, Total 7.7 g/dL (6.4-8.2); Thyroid Stimulating Hormone 1.64 uIU/mL (0.358-3.740); Troponin High Sensitivity 7.9 pg/mL (<58.9)
[2022-06-07 13:53] LABS: Urine Bacteria None Seen /HPF (<20)
--- NOTE | 2022-06-07 15:32 | ER ---
Nurse's Notes [facility] Name: Elsa Smith Age: 86 yrs Sex: Female : 1935 Arrival Date: 06/07/2022 Time: 12:28 Bed 25 Private MD: Diagnosis: Transient alteration of awareness;Unspecified atrial fibrillation Presentation: 06/07 12:39 Chief complaint: EMS states: Became unresponsive during shower with prison staff, hb AOx2-3 at baseline. Responsive to painful stimulin, VS WNL, BGL 141. Coronavirus screen: At this time, the client does not indicate any symptoms associated with coronavirus-19. Ebola Screen: No symptoms or risks identified at this time. Risk Assessment: Do you want to hurt yourself or someone else? Patient reports no desire to harm self or others. Onset of symptoms was June 07, 2022. 12:39 Method Of Arrival: EMS: [facility] hb 12:39 Acuity: ALEJANDRO 2 hb 12:39 Initial Sepsis Screen: Does the patient meet any 2 criteria? No. Patient's initial hb sepsis screen is negative. Does the patient have a suspected source of infection? No. Patient's initial sepsis screen is negative. Historical: - Allergies: 12:57 Lidocaine; hb 12:57 mercury; hb - Home Meds: 15:30 atorvastatin 80 mg oral tab 1 tab once daily [Active]; hb 15:30 clopidogrel 75 mg oral tab 1 tab once daily [Active]; Creon 36,000-114,000- 180,000 hb unit oral cpDR 1 cap 3 times per day [Active]; duloxetine 60 mg oral CDRS 1 cap once daily [Active]; furosemide 40 mg Oral tab 1 tab once daily [Active]; [place] 7.5-325 mg Oral tab 1 tab every 6 hours [Active]; levothyroxine 75 mcg oral tab [Active]; Protonix 40 mg Oral TbEC 1 tab once daily [Active]; potassium chloride 20 mEq Oral TbTQ 1 tab once daily [Active]; pregabalin 150 mg Oral cap 1 cap 2 times per day [Active]; PreserVision AREDS-2 250-90-40-1 mg oral cap [Active]; Victoza 2-Ajit 0.6 mg/0.1 mL (18 mg/3 mL) subcutaneous pnij once daily [Active]; - PMHx: 12:57 CHF; COPD; CVA; Depression; Diabetes - NIDDM; Hypertension; Hypothyroidism; hb - PSHx: 12:57 AKA; hb - Immunization history:: Adult Immunizations unknown. - Social history:: Smoking status: unknown. - Family history:: not pertinent. - Unable to obtain history due to: altered mental status, baseline dementia. Screenin:25 Abuse screen: nonverbal at this time. Nutritional screening: No deficits noted. hb Tuberculosis screening: No symptoms or risk factors identified. Fall Risk Total Mortensen Fall Scale indicates Low Risk Score (25-44 pts). Fall prevention measures have been instituted. Side Rails Up X 2 Frequent Obs/Assesments occuring Family Present and informed to notify staff if they need to leave bedside As available Patient and Family Educated on Fall Prevention Program and strategies. 16:19 [facility] ED Fall Risk Assessment (Adult) History of falling in the last 3 months, hb including since admission No falls in past 3 months (0 pts) Confusion or Disorientation Yes (5 pts) Intoxicated or Sedated No (0 pts) Impaired Gait Yes (1 pt) Mobility Assist Device Used Yes (1 pt) Altered Elimination Yes (1 pt) Score/Fall Risk Level 3 or more points = High Risk Maintained a safe environment, Hourly rounding (assess needs \T\ fall precautionary measures) done, Utilized family, sitter, or virtual nursing clerk as indicated. Assessment: 12:45 General: Appears in no apparent distress. Behavior is unresponsive. Pain: Unable to use hb pain scale. Patient is unresponsive. Neuro: Level of Consciousness is awake, unresponsive, Oriented to none. Cardiovascular: Patient's skin is warm and dry. Rhythm is regular. Respiratory: Respiratory effort is even, unlabored, Respiratory pattern is regular, symmetrical. GI: No signs and/or symptoms were reported involving the gastrointestinal system. : No signs and/or symptoms were reported regarding the genitourinary system. EENT: No signs and/or symptoms were reported regarding the EENT system. Derm: Skin is pink, warm \T\ dry. Musculoskeletal: No signs and/or symptoms reported regarding the musculoskeletal system. 14:41 Reassessment: Pt awake and alert, talking with daughter at bedside. Dr Hunt notified. 15:30 Reassessment: Pt alert and talkative with daughter at bedside, AOx3. Able to transfer hb to personal wheelchair with assistance. 15:45 Reassessment: Report called to Emily at [facility]. hb Vital Signs: 12:39 BP 138 / 80; Pulse 64; Resp 16; Temp 98.1; Pulse Ox 90% on R/A; Weight 129.27 kg; hb Height 5 ft. 5 in. (165.10 cm); Pain 0/10; 12:50 Pulse Ox 87% on R/A; hb 13:00 BP 142 / 99; Pulse 58; Resp 17; Pulse Ox 95% on 2 lpm NC; hb 14:40 BP 138 / 94; Pulse 76; Resp 18; Pulse Ox 97% on 2 lpm NC; hb 12:39 Body Mass Index 47.43 (129.27 kg, 165.10 cm) hb ED Course: 12:28 Patient arrived in ED. eb 12:29 Lebron Hunt MD is Attending Physician. rt 12:40 Triage completed. hb 12:57 Violet Mcclure RN is Primary Nurse. hb 12:57 Inserted saline lock: 22 gauge in left antecubital area, using aseptic technique. Blood hb collected. 12:57 Troponin High Sensitivity Sent. hb 12:57 TSH Sent. hb 12:57 BNP Sent. hb 12:58 CMP Sent. hb 12:58 CBC with Diff Sent. hb 13:00 Arm band placed on. hb 13:14 Chest Single View XRAY In Process Unspecified. EDMS 13:24 CT Head Brain wo Cont In Process Unspecified. EDMS 13:30 Patient has correct armband on for positive identification. hb 15:44 No provider procedures requiring assistance completed. IV discontinued, intact, hb bleeding controlled, No redness/swelling at site. Administered Medications: No medications were administered Medication: 12:45 VIS not applicable for this client. hb Outcome: 15:31 Discharge ordered by . rt 15:54 Discharged to home via wheelchair, with family. hb 15:54 Condition: stable 15:54 Discharge instructions given to patient, family, Instructed on discharge instructions, follow up and referral plans. medication usage, Demonstrated understanding of instructions, follow-up care, medications. 15:56 Patient left the ED. hb Signatures: Dispatcher [employer] EDMS Violet Mcclure RN RN hb Botello, Elizabeth Lebron Hunt MD MD rt
--- NOTE | 2022-06-07 15:32 | EDPHYS ---
Physician Documentation [facility] Name: Elsa Smith Age: 86 yrs Sex: Female : 1935 Arrival Date: 06/07/2022 Time: 12:28 Bed 25 Private MD: ED Physician Lebron Hunt HPI: 06/07 14:37 This 86 yrs old Female presents to ER via EMS with complaints of AMS. rt 14:37 The patient presents with decreased responsiveness. Onset: The symptoms/episode rt began/occurred at an unknown time. Unable to obtain HPI due to altered mental status, baseline dementia. Presents to the ED from shelter. Patient was reportedly found to have decreased responsiveness at the shelter. It is unclear when this started. There is no reported trauma. The patient has no reported recent illnesses. No further history could be obtained due to altered mental status. Symptoms are moderate severity, no other aggravating or alleviating factors.. Historical: - Allergies: 12:57 Lidocaine; hb 12:57 mercury; hb - Home Meds: 15:30 atorvastatin 80 mg oral tab 1 tab once daily [Active]; hb 15:30 clopidogrel 75 mg oral tab 1 tab once daily [Active]; Creon 36,000-114,000- 180,000 hb unit oral cpDR 1 cap 3 times per day [Active]; duloxetine 60 mg oral CDRS 1 cap once daily [Active]; furosemide 40 mg Oral tab 1 tab once daily [Active]; [place] 7.5-325 mg Oral tab 1 tab every 6 hours [Active]; levothyroxine 75 mcg oral tab [Active]; Protonix 40 mg Oral TbEC 1 tab once daily [Active]; potassium chloride 20 mEq Oral TbTQ 1 tab once daily [Active]; pregabalin 150 mg Oral cap 1 cap 2 times per day [Active]; PreserVision AREDS-2 250-90-40-1 mg oral cap [Active]; Victoza 2-Ajit 0.6 mg/0.1 mL (18 mg/3 mL) subcutaneous pnij once daily [Active]; - PMHx: 12:57 CHF; COPD; CVA; Depression; Diabetes - NIDDM; Hypertension; Hypothyroidism; hb - PSHx: 12:57 AKA; hb - Immunization history:: Adult Immunizations unknown. - Social history:: Smoking status: unknown. - Family history:: not pertinent. - Unable to obtain history due to: altered mental status, baseline dementia. ROS: 14:37 Unable to obtain ROS due to altered mental status, baseline dementia. rt Exam: 14:37 Constitutional: This is a well developed, well nourished patient who is awake, alert, rt and in no acute distress. Head/Face: Normocephalic, atraumatic. Eyes: Pupils equal round and reactive to light, extra-ocular motions intact. Lids and lashes normal. Conjunctiva and sclera are non-icteric and not injected. Cornea within normal limits. Periorbital areas with no swelling, redness, or edema. ENT: Nares patent. No nasal discharge, no septal abnormalities noted. Tympanic membranes are normal and external auditory canals are clear. Oropharynx with no redness, swelling, or masses, exudates, or evidence of obstruction, uvula midline. Mucous membranes moist. Neck: Trachea midline, no thyromegaly or masses palpated, and no cervical lymphadenopathy. Supple, full range of motion without nuchal rigidity, or vertebral point tenderness. No Meningismus. Chest/axilla: Normal chest wall appearance and motion. Nontender with no deformity. No lesions are appreciated. Cardiovascular: Regular rate and rhythm with a normal S1 and S2. No gallops, murmurs, or rubs. Normal PMI, no JVD. No pulse deficits. Respiratory: Lungs have equal breath sounds bilaterally, clear to auscultation and percussion. No rales, rhonchi or wheezes noted. No increased work of breathing, no retractions or nasal flaring. Abdomen/GI: Soft, non-tender, with normal bowel sounds. No distension or tympany. No guarding or rebound. No evidence of tenderness throughout. Skin: Warm, dry with normal turgor. Normal color with no rashes, no lesions, and no evidence of cellulitis. 14:37 Musculoskeletal/extremity: Right leg [id number] amputation, left leg has 4+ pitting edema with no skin changes. 14:37 Neuro: Somnolent, no speech, no obvious cranial nerve deficits or facial droop, appears to move all 4 extremities equally, sensation not testable. 14:44 ECG was reviewed by the Attending Physician. rt Vital Signs: 12:39 BP 138 / 80; Pulse 64; Resp 16; Temp 98.1; Pulse Ox 90% on R/A; Weight 129.27 kg; hb Height 5 ft. 5 in. (165.10 cm); Pain 0/10; 12:50 Pulse Ox 87% on R/A; hb 13:00 BP 142 / 99; Pulse 58; Resp 17; Pulse Ox 95% on 2 lpm NC; hb 14:40 BP 138 / 94; Pulse 76; Resp 18; Pulse Ox 97% on 2 lpm NC; hb 12:39 Body Mass Index 47.43 (129.27 kg, 165.10 cm) hb MDM: 12:29 Patient medically screened. rt 16:31 Differential Diagnosis: CVA, electrolyte abnormality, hypoglycemia, intracranial bleed, rt pneumonia, sepsis, UTI, volume depletion. Data reviewed: vital signs, nurses notes, lab test result(s), EKG, radiologic studies. ED course: Patient presents to the ED with an altered mental status. Patient has returned to her baseline mental status without any treatment in the ED. Patient was found to have an A. fib with a controlled rate which is new. I do not suspect that this is the etiology of her presentation. Her labs, urinalysis, CT scan of the head are all unremarkable. I discussed these findings with the patient daughters who is comfortable with outpatient care. Questions were answered. Strict return precautions were given.. 06/07 12:40 Order name: CBC with Diff; Complete Time: 13:33 rt 06/07 12:40 Order name: CMP; Complete Time: 13:59 rt 06/07 12:40 Order name: UA MICROSCOPIC; Complete Time: 13:59 rt 06/07 12:40 Order name: TSH; Complete Time: 13:59 rt 06/07 12:40 Order name: Troponin High Sensitivity; Complete Time: 13:59 rt 06/07 12:40 Order name: BNP; Complete Time: 13:59 rt 06/07 12:40 Order name: CT Head Brain wo Cont; Complete Time: 13:33 rt 06/07 12:40 Order name: Chest Single View XRAY; Complete Time: 13:33 rt 06/07 12:40 Order name: EKG; Complete Time: 12:41 rt 06/07 12:40 Order name: EKG - Nurse/Tech; Complete Time: 12:57 rt 06/07 13:43 Order name: Urine Dipstick-Ancillary; Complete Time: 13:59 EDMS EC:44 Rate is 80 beats/min. Rhythm is irregularly irregular, A fib with No ectopy. Left axis rt deviation noted. QRS interval is normal. QT interval is normal. No Q waves. T waves are Normal. Interpreted by me. Administered Medications: No medications were administered Disposition Summary: 06/07/22 15:31 Discharge Ordered Location: Home rt Problem: new rt Symptoms: are resolved rt Condition: Stable rt Diagnosis - Transient alteration of awareness rt - Unspecified atrial fibrillation rt Followup: rt - With: Private Physician - When: 2 - 3 days - Reason: Discharge Instructions: - Discharge Summary Sheet rt - Atrial Fibrillation rt - Confusion rt Forms: - Medication Reconciliation Form rt - Thank You Letter rt - Antibiotic Education rt - Prescription Opioid Use rt Signatures: Dispatcher [employer] EDViolet Maxwell, RN RN Lebron Thomas MD MD rt
[2022-06-07 16:13] VITALS: TEMP 98.1
[2022-06-07 16:24] VITALS: BP 138/94; O2SAT 97
== END 2022-06-07 15:56 | disposition home or self-care (01) ==
LOC: ER 12:21
DX: R40.4 Transient alteration of awareness (principal); I48.91 Unspecified atrial fibrillation; I10 Essential (primary) hypertension; I50.9 Heart failure, unspecified; F03.90 Unspecified dementia, unspecified severity, without behavioral disturbance, psychotic disturbance, mood disturbance, and anxiety; Z79.4 Long term (current) use of insulin; Z88.4 Allergy status to anesthetic agent; Z91.048 Other nonmedicinal substance allergy status
CPT/HCPCS: 36415; 70450; 71045; 80053; 81003; 81015; 83880; 84443; 84484; 85025; 93005; 99284

== ENCOUNTER 2023-07-17 13:18 | Inpatient (IN) | payer OTHER ==
[2023-07-17] MEDS ORDERED: ALBUTEROL 2.5 MG/3 ML NEB SOL ONE (13:56)
[2023-07-17 13:57] LABS: Urine Bacteria <20 /HPF (<20); Urine Bilirubin NEGATIVE (Negative); Urine Blood Negative (Negative); Urine Clarity Turbid (Clear); Urine Color Light-Yellow (Yellow); Urine Glucose NEGATIVE (Negative); Urine Mucus Slight /HPF (None Seen); Urine Protein TRACE (Negative); Urine RBC <5 /HPF (None Seen); Urine Urobilinogen Normal (Normal); Urine pH 6.5 (5.0-7.0)
[2023-07-17] MEDS ORDERED: IPRATROPIUM BROM 0.5MG/2.5ML ONE (13:57)
[2023-07-17 14:02] LABS: Arterial Blood Carboxyhemoglob 1.6 % (0-1.5); Blood O2 Saturation 88.8 % (92-98.5)
[2023-07-17 14:10] LABS: Barbiturates NEGATIVE (NEGATIVE); Benzodiazepines NEGATIVE (NEGATIVE); Cocaine NEGATIVE (NEGATIVE); METHAMPHETAM NEGATIVE (NEGATIVE); Methadone NEGATIVE (NEGATIVE); Opiates POSITIVE (NEGATIVE); Phencyclidine NEGATIVE (NEGATIVE); THC Cannibis NEGATIVE (NEGATIVE)
--- NOTE | 2023-07-17 14:58 | RAD REPORT ---
EXAM DESCRIPTION: Gaurav Single View07/17/2023 2:42 pm CLINICAL HISTORY: Shortness of breath chest COMPARISON: 2020 FINDINGS: Mild bilateral interstitial lung opacities Heart is mildly to moderately enlarged IMPRESSION: Mild CHF
--- NOTE | 2023-07-17 15:00 | RAD REPORT ---
EXAM DESCRIPTION: CT - Head Brain Wo Cont - 07/17/2023 2:37 pm CLINICAL HISTORY: Alteration of awareness/confusion COMPARISON: 2021 TECHNIQUE: Computed axial tomography of the head was obtained. IV contrast was not requested. All CT scans are performed using dose optimization technique as appropriate and may include automated exposure control or mA/KV adjustment according to patient size. FINDINGS: An intracranial bleed is not seen The ventricles are normal in caliber No extra-axial fluid collection is noted. Moderate low-density areas within periventricular, deep and subcortical white matter likely represent ischemic changes secondary to small vessel disease. Fluid within the sinuses/ mastoids is not seen. Chronic sinusitis IMPRESSION: No acute intracranial abnormality is seen If patient's symptoms persist MRI of the brain would be recommended
[2023-07-17 15:36] LABS: Absolute Lymphocytes (CBC) 1.1 K/uL (0.7-4.9); Hematocrit 43.8 % (36.0-45.0); MCV 90.8 fL (80-100); MPV 9.1 fL (7.6-11.3); Platelets 185 thou/uL (152-406); RBC Red Blood Cell Count 4.82 M/uL (3.86-4.86)
[2023-07-17 15:44] LABS: Protime INR 1.29
[2023-07-17 15:59] LABS: Bilirubin Total 0.6 mg/dL (0.2-1.0); Protein, Total 7.7 g/dL (6.4-8.2); Troponin High Sensitivity 16.2 pg/mL (<58.9)
[2023-07-17] MEDS: CEFEPIME 1 GM in NA CHLORIDE 0.9% 100 ML IV SCH (16:00)
[2023-07-17 16:01] LABS: Potassium 2.6 mEq/L (3.5-5.1)
[2023-07-17] MEDS ORDERED: CEFEPIME 2 GM VIAL ONE (16:08)
--- NOTE | 2023-07-17 16:25 | EDPHYS ---
Physician Documentation [facility] Name: Elsa Smith Age: 87 yrs Sex: Female : 1935 Arrival Date: 07/17/2023 Time: 13:18 Bed 3 Private MD: ED Physician Lasha Varghese HPI: 07/17 13:35 This 87 yrs old Female presents to ER via Unassigned with complaints of Altered Mental cp Status. 13:35 The patient or guardian reports cough, that is intermittent. Onset: The cp symptoms/episode began/occurred 1-2 weeks ago with patient diagnosed with COVID-19 9 days ago. 13:35 Associated signs and symptoms: Pertinent positives: cough, shortness of breath cp confusion that was observed since this morning upon awakening. 13:35 Severity of symptoms: in the emergency department the symptoms are unchanged despite cp EMS interventions. Historical: - Allergies: 14:32 Lidocaine; ko1 14:32 mercury; ko1 - PMHx: 14:32 CHF; COPD; CVA; Depression; Diabetes - NIDDM; Hypertension; Hypothyroidism; ko1 - PSHx: 14:32 AKA; ko1 - Immunization history:: Adult Immunizations up to date. - Social history:: Smoking status: Patient denies any tobacco usage or history of. ROS: 13:40 Constitutional: Negative for fever, cp 13:40 Eyes: Negative for injury, pain, redness, and discharge, cp 13:40 Cardiovascular: Negative for chest pain, 13:40 Respiratory: Positive for shortness of breath, 13:40 Abdomen/GI: Negative for vomiting, diarrhea, 13:40 Neuro: Positive for altered mental status, 13:40 All other systems are negative, Exam: 13:45 Constitutional: The patient appears in no acute distress, non-diaphoretic, non-toxic, cp well developed, well nourished, obese, 13:45 Head/Face: Normocephalic, atraumatic. cp 13:45 Eyes: Periorbital structures: appear normal, Pupils: pinpoint, bilaterally, Extraocular cp movements: intact throughout, Conjunctiva: normal, no exudate, no injection, Sclera: no appreciated abnormality, Lids and lashes: appear normal, bilaterally, 13:45 ENT: External ear(s): are unremarkable, Nose: is normal, Mouth: Lips: dry, Oral mucosa: cp pink and intact, moist, Posterior pharynx: Airway: no evidence of obstruction, patent, 13:45 Neck: ROM/movement: is normal, is supple, without pain, no range of motions limitations, no meningismus, 13:45 Chest/axilla: Inspection: normal, Palpation: is normal, no crepitus, no tenderness, 13:45 Cardiovascular: Rate: tachycardic, Rhythm: regular, 13:45 Respiratory: mild respiratory distress is noted, Respirations: shallow respirations, cp that is moderate, Breath sounds: decreased breath sounds, that are moderate, throughout, 13:45 Abdomen/GI: Inspection: obese Bowel sounds: active, all quadrants, Palpation: abdomen is soft and non-tender, in all quadrants, 13:45 Back: pain, is absent, cp 13:45 Skin: cellulitis, is not appreciated, no rash present. 13:45 Neuro: Orientation: to person, Mentation: slow to respond, confused, Motor: moves all fours, 13:57 ECG was reviewed by the Attending Physician. cp Vital Signs: 13:30 BP 119 / 76; Pulse 102; Resp 19; Temp 97.9(O); Pulse Ox 89% on R/A; ko1 14:33 BP 124 / 73; Pulse 109; Resp 19; Pulse Ox 99% on Nebulizer Mask; ko1 16:35 BP 112 / 67; Pulse 115; Resp 24; Pulse Ox 89% on 15 lpm Non-rebreather mask; ko1 MDM: 13:24 Patient medically screened. cp 14:00 Differential diagnosis: bronchitis, flu, pneumonia, sepsis. cp 16:15 Data reviewed: vital signs, nurses notes, lab test result(s), EKG, radiologic studies, cp CT scan, plain films. 16:15 Management of patient was discussed with the following: Hospitalist: DR Delcid will cp admit patient after discussion. I considered the following discharge prescriptions or medication management in the emergency department Medications were administered in the Emergency Department. See MAR. Independent interpretation of the following test(s) in the Emergency Department EKG: See my EKG interpretation above. Response to treatment: the patient's symptoms have mildly improved after treatment, and as a result, I will admit patient. 07/17 13:29 Order name: ABG; Complete Time: 15:16 cp 07/17 15:16 Interpretation: Normal except: ABGPO2 57.6; ABGSO2 88.8; DMMU3IM 86.0; ABGCOHB 1.6. 07/17 13:29 Order name: Blood Culture Adult (2) 07/17 13:29 Order name: CBC with Diff; Complete Time: 15:53 07/17 15:54 Interpretation: Normal except: WBC 11.40; ALEXSANDER% 81.4; LYM% 10.0; NEUT A 9.2. 07/17 13:29 Order name: CMP; Complete Time: 16:09 07/17 16:09 Interpretation: Normal except: K 2.6; GLUC 251; BUN 27; CRE 1.73; GFR 28; ALK 136; ALB cp 3.0; GLOB 4.7; A/G 0.6. 07/17 13:29 Order name: Lactate w/ 2H reflex if indic.; Complete Time: 16:09 07/17 16:10 Interpretation: Abnormal: LAC 2.7. 07/17 13:29 Order name: Protime (+inr); Complete Time: 15:53 07/17 13:29 Order name: Ptt, Activated; Complete Time: 15:53 07/17 13:29 Order name: Urinalysis w/ reflexes; Complete Time: 15:16 07/17 15:54 Interpretation: Normal except: UCLA Turbid; UPROT TRACE. 07/17 13:29 Order name: Troponin High Sensitivity; Complete Time: 16:09 07/17 13:30 Order name: COVID-19 SARS RT PCR; Complete Time: 15:16 07/17 13:30 Order name: Influenza Screen (a \T\ B); Complete Time: 15:16 07/17 13:49 Order name: UDS; Complete Time: 15:16 07/17 15:54 Interpretation: Normal except: OPI POSITIVE. 07/17 19:11 Order name: Lactate Sepsis 2 HR Follow-up EDUT 07/17 19:37 Order name: Procalcitonin EDUT 07/17 13:29 Order name: Chest Single View XRAY; Complete Time: 15:16 07/17 13:43 Order name: CT Head Brain wo Cont; Complete Time: 15:16 07/17 13:29 Order name: EKG; Complete Time: 13:30 cp 07/17 13:29 Order name: Accucheck; Complete Time: 13:47 cp 07/17 13:29 Order name: Cardiac monitoring; Complete Time: 13: cp 07/17 13:29 Order name: EKG - Nurse/Tech; Complete Time: 13:47 cp 07/17 13:29 Order name: IV Saline Lock - Large Bore; Complete Time: 13: cp 07/17 13:29 Order name: Labs collected and sent; Complete Time: 15:22 cp 07/17 13:29 Order name: O2 Per Protocol; Complete Time: 13: cp 07/17 13:29 Order name: O2 Sat Monitoring; Complete Time: 13: cp 07/17 13:29 Order name: Vital Signs; Complete Time: 13: cp 07/17 13:29 Order name: Wong; Complete Time: 13:47 cp EC:57 Rate is 102 beats/min. Rhythm is regular. KS interval is prolonged at 254 msec. QRS cp interval is normal. QT interval is normal. T waves are Inverted in lead I. Interpreted by me. Reviewed by me. Administered Medications: 14:00 Drug: DuoNeb Nebulize (2.5 mg - 0.5 mg) 3 ml Nebulizer once Route: Nebulizer; ko1 15:18 Drug: NS 0.9% IV 500 ml IV at 500 ml/hr continuous Route: IV; Rate: 500 ml/hr; Site: ko1 right hand; 16:09 Drug: Cefepime IVPB 2 grams IVPB at 200 ml/hr once over 30 mins; (mix in NS 100 mL) ko1 Route: IVPB; Rate: 200 ml/hr; Infused Over: 30 mins; Site: right hand; 16:37 Drug: Potassium Chloride IV 20 mEq IV at calculated rate once; administer over 1-2 ko1 hours Route: IV; Rate: calculated rate; Site: right hand; 16:45 Drug: levofloxacin IVPB 750 mg 150 ml IVPB once over 90 mins Volume: 150 ml; Route: ko1 IVPB; Infused Over: 90 mins; Site: right antecubital; 17:15 Drug: Decadron - Dexamethasone IVP 10 mg IVP once Route: IVP; Site: left antecubital; ko1 17:35 Not Given (patient not alert enoughh): potassiumeffervescent tablet 50 meq PO once; ko1 dissolve in 4 ounces of water or juice Disposition Summary: 07/17/23 16:24 Hospitalization Ordered Notes: Hospitalization Status: Inpatient Admission cp Provider: Rodolfo Delcid cp Location: Telemetry/MedSurg (Inpatient) cp Condition: Stable cp Problem: new cp Symptoms: have improved cp Bed/Room Type: Standard cp Room Assignment: 415(07/17/23 19:26) jb4 Diagnosis - Pneumonia due to SARS-associated coronavirus cp - Severe sepsis without septic shock cp - Hypoxemia cp - Hypokalemia cp Forms: - Medication Reconciliation Form cp - SBAR form cp - Leadership Thank You Letter cp Signatures: Dispatcher [employer] EDMS Rubin Woo em1 Lasha Barraza PA PA cp Johnny Ferguson RN RN jb4 Rosemary Martinez RN RN ko1 Corrections: (The following items were deleted from the chart) 13:42 13:40 This 87 yrs old Female presents to ER via Unassigned with complaints of Altered cp Mental Status. cp 14:39 13:57 Rate is 102 beats/min. Rhythm is regular. KS interval is prolonged at 254 msec. cp QRS interval is normal. QT interval is normal. T waves are Inverted in lead I. Interpreted by me. Reviewed by me. cp 17:17 16:24 cp em1 19:24 17:17 415 em1 jb4 19:26 19:24 jb4 jb4
--- NOTE | 2023-07-17 16:25 | ER ---
Nurse's Notes [facility] Name: Elsa Smith Age: 87 yrs Sex: Female : 1935 Arrival Date: 07/17/2023 Time: 13:18 Bed 3 Private MD: Diagnosis: Pneumonia due to SARS-associated coronavirus;Severe sepsis without septic shock;Hypoxemia;Hypokalemia Presentation: 07/17 13:30 Chief complaint: EMS states: [facility] called stating patient was lethargic, ko1 last known normal was last night. She just recently got out of quarantine for Covid which she was treated for 9 days ago. Coronavirus screen: At this time, the client does not indicate any symptoms associated with coronavirus-19. Ebola Screen: No symptoms or risks identified at this time. Initial Sepsis Screen: Does the patient meet any 2 criteria? Altered Mental Status. HR > 90 bpm. Yes Does the patient have a suspected source of infection? No. Patient's initial sepsis screen is negative. Risk Assessment: Do you want to hurt yourself or someone else? Patient reports no desire to harm self or others. Onset of symptoms was July 17, 2023. Care prior to arrival: Medication(s) given: Normal saline infusion, 500 mL, IV initiated. 20 GA, in the right hand, Glucose check: 220 Oxygen administered. via nasal cannula. Transition of care: patient was received from another setting of care (long-term care facility), [facility]. 13:30 Method Of Arrival: EMS: [facility] ko1 13:30 Acuity: ALEJANDRO 3 ko1 Triage Assessment: 14:32 General: Appears in no apparent distress. ill, obese, Behavior is drowsy. Pain: Denies ko1 pain. Historical: - Allergies: 14:32 Lidocaine; ko1 14:32 mercury; ko1 - PMHx: 14:32 CHF; COPD; CVA; Depression; Diabetes - NIDDM; Hypertension; Hypothyroidism; ko1 - PSHx: 14:32 AKA; ko1 - Immunization history:: Adult Immunizations up to date. - Social history:: Smoking status: Patient denies any tobacco usage or history of. Screenin:33 [facility] ED Fall Risk Assessment (Adult) History of falling in the last 3 months, ko1 including since admission No falls in past 3 months (0 pts) Confusion or Disorientation Yes (5 pts) Intoxicated or Sedated No (0 pts) Impaired Gait Yes (1 pt) Mobility Assist Device Used Yes (1 pt) Altered Elimination Yes (1 pt) Score/Fall Risk Level 3 or more points = High Risk Oriented to surroundings, Maintained a safe environment, Educated pt \T\ family on fall prevention, incl call for assistance when getting out of bed, Assessed \T\ reinforced patient's understanding of fall precautions, Provided non-skid footwear, Hourly rounding (assess needs \T\ fall precautionary measures) done, Used ambulatory aids as needed (educated on \T\ assisted with), Used gait belt as appropriate Implemented a Fall Risk Plan of Care, Apply high fall risk patient identification: yellow non skid footwear/ fall signage, Remained w/in arm's length of patient and in sight while toileting, Offered frequent toileting (1:1 observation), Remained with patient while ambulating, Utilized family, sitter, or virtual orthotics prosthetics assistant as indicated. Abuse screen: Denies threats or abuse. Denies injuries from another. Nutritional screening: No deficits noted. Tuberculosis screening: No symptoms or risk factors identified. Assessment: 14:00 Reassessment: Patient is a difficult IV stick, informed charge nurse that a US guided ko1 IV would be needed. 18:00 Reassessment: attempted to call report, no answer at 1440 or 1445. No phone list ko1 available. 18:30 Reassessment: attempted to call report to 1440 and 1445, no answer. ko1 Vital Signs: 13:30 BP 119 / 76; Pulse 102; Resp 19; Temp 97.9(O); Pulse Ox 89% on R/A; ko1 14:33 BP 124 / 73; Pulse 109; Resp 19; Pulse Ox 99% on Nebulizer Mask; ko1 16:35 BP 112 / 67; Pulse 115; Resp 24; Pulse Ox 89% on 15 lpm Non-rebreather mask; ko1 ED Course: 13:21 Patient arrived in ED. em1 13:23 Lasha Barraza PA is PHCP. cp 13:23 Lasha Varghese MD is Attending Physician. cp 13:30 Rosemary Martinez RN is Primary Nurse. ko1 13:45 Missed attempt(s): 22 gauge in right antecubital area. Bleeding controlled, band aid ko1 applied, catheter tip intact. 13:47 Influenza Screen (a \T\ B) Sent. ko1 13:47 COVID-19 SARS RT PCR Sent. ko1 13:47 Urinalysis w/ reflexes Sent. ko1 13:55 UDS Sent. ko1 14:27 Missed attempt(s): 24 gauge in right shoulder. Bleeding controlled, band aid applied, ko1 catheter tip intact. 14:32 Triage completed. ko1 14:32 Arm band placed on right wrist. Patient placed in an exam room, on a stretcher, on ko1 oxygen, on court recording monitor, on pulse oximetry, Patient notified of wait time. 14:33 Patient has correct armband on for positive identification. Allergy band placed. Fall ko1 risk band placed. Bed in low position. Call light in reach. Side rails up X2. Client placed on continuous cardiac and pulse oximetry monitoring. NIBP monitoring applied. electronic device monitor on. Door closed. Noise minimized. Lights dimmed. Warm blanket given. 14:38 CT Head Brain wo Cont In Process Unspecified. EDMS 14:42 Chest Single View XRAY In Process Unspecified. EDMS 15:22 Troponin High Sensitivity Sent. ko1 15:22 Blood Culture Adult (2) Sent. ko1 15:22 CBC with Diff Sent. ko1 15:22 CMP Sent. ko1 15:22 Lactate w/ 2H reflex if indic. Sent. ko1 15:22 Protime (+inr) Sent. ko1 15:22 Ptt, Activated Sent. ko1 15:28 Accessed peripheral vein via ultrasound, utilizing dynamic ultrasound technique Blood cm10 collected. using. 16:23 Rodolfo Delcid is Hospitalizing Provider. cp Administered Medications: 14:00 Drug: DuoNeb Nebulize (2.5 mg - 0.5 mg) 3 ml Nebulizer once Route: Nebulizer; ko1 15:18 Drug: NS 0.9% IV 500 ml IV at 500 ml/hr continuous Route: IV; Rate: 500 ml/hr; Site: ko1 right hand; 16:09 Drug: Cefepime IVPB 2 grams IVPB at 200 ml/hr once over 30 mins; (mix in NS 100 mL) ko1 Route: IVPB; Rate: 200 ml/hr; Infused Over: 30 mins; Site: right hand; 16:37 Drug: Potassium Chloride IV 20 mEq IV at calculated rate once; administer over 1-2 ko1 hours Route: IV; Rate: calculated rate; Site: right hand; 16:45 Drug: levofloxacin IVPB 750 mg 150 ml IVPB once over 90 mins Volume: 150 ml; Route: ko1 IVPB; Infused Over: 90 mins; Site: right antecubital; 17:15 Drug: Decadron - Dexamethasone IVP 10 mg IVP once Route: IVP; Site: left antecubital; ko1 17:35 Not Given (patient not alert enoughh): potassiumeffervescent tablet 50 meq PO once; ko1 dissolve in 4 ounces of water or juice Outcome: 16:24 Decision to Hospitalize by Provider. cp 20:49 Patient left the ED. jb4 Signatures: Dispatcher [employer] Rubin Rodriguez em1 Lasha Barraza PA PA Johnny Cruz RN RN jb4 Rosemary Martinez RN RN ko1 Digna Woo RN RN cm10
--- NOTE | 2023-07-17 16:27 | P.HP ---
Patient History Date of Service: 07/17/23 Allergies Sulfa (Sulfonamide Antibiotics) Allergy (Verified 01/01/22 07:15) Rash morphine Adverse Reaction (Intermediate, Verified 01/01/22 07:15) "goes crazy" mercury Allergy (Uncoded 01/01/22 07:15) Unknown Home Medications: Atorvastatin Calcium [Lipitor] 1 tab PO BEDTIME 10/18/21 Clopidogrel Bisulfate [Plavix*] 1 tab PO DAILY 10/18/21 Duloxetine HCl 1 cap PO DAILY 10/18/21 Furosemide 1 tab PO DAILY 10/18/21 Hydrocodone 7.5/APAP 325 [[place] 7.5/325 mg*] 1 tab PO TID 10/18/21 Ibuprofen [Motrin] 1 tab PO Q6H PRN 10/18/21 Levothyroxine [Synthroid*] 1 tab PO 0600 10/18/21 Loperamide HCl [Imodium A-D] 1 cap PO QID PRN 10/18/21 Loperamide HCl [Loperamide] 1 cap PO QID PRN 10/18/21 Methylphenidate HCl 1 tab PO DAILY 10/18/21 Pantoprazole [Protonix Tab*] 1 tab PO BREAKFAST 10/18/21 Potassium Chloride 1 tab PO BREAKFAST 10/18/21 Pregabalin 1 cap PO BEDTIME 10/18/21 Pregabalin 1 cap PO BID 10/18/21 Vit C/E/Zn/Coppr/Lutein/Zeaxan [Preservision Areds 2 Softgel] 2 cap PO DAILY 10/18/21 Insulin Glargine,Hum.rec.anlog [Basaglar Kwikpen U-100] 36 units SQ DAILY 12/28/21 Lipase/Protease/Amylase [Creon Dr 36,000 Unit Capsule] 2 tab PO TID 12/28/21 Liraglutide [Victoza 2-Ajit] 1.2 mg SQ 01/01/22 Amoxicillin 500 mg PO TID #21 capsule 01/03/22 - Past Medical/Surgical History Diabetic: Yes -: T2DM -: GERD -: Hypothyroidism -: HTN -: Stroke -: Hearing problems -: [place] 2016 -: chronic pancreatitis -: Macular Degeneration -: Dementia -: gall bladder -: appendix -: joint replacement -: joint removed -: AKA -: heart stent -: cataract sx Psychosocial/ Personal History: Currently resident at [facility] - Family History Father -: Cancer Sister -: Stroke - Social History Alcohol use: No CD- Drugs: No Caffeine use: Yes Physical Examination - Studies Laboratory Data (last 24 hrs) 07/17/23 07/17/23 07/17/23 15:20 15:20 15:20 WBC 11.40 H Hgb 14.8 Hct 43.8 Plt Count 185 PT 14.1 H INR 1.29 APTT 36.0 Sodium 141 Potassium 2.6 L* BUN 27 H Creatinine 1.73 H Glucose 251 H Total Bilirubin 0.6 AST 32 ALT 26 Alkaline Phosphatase 136 H Microbiology Data (last 24 hrs): 07/17/23 13:40 Nasopharnyx Influenza Type A Antigen Screen - Final 07/17/23 13:40 Nasopharnyx Influenza Type B Antigen Screen - Final Assessment and Plan - Advance Directives Does patient have a Living Will: Yes Does patient have a Durable POA for Healthcare: Yes
[2023-07-17] MEDS ORDERED: NA CHLORIDE 0.9% 500 ML ONE ×2 (16:31→21:49)
[2023-07-17] MEDS ORDERED: KCL 20 MEQ/100 mL IVPB 100 ML IV ONE (16:31)
[2023-07-17] MEDS ORDERED: Levofloxacin 750mg IV 750 MG/150 ML BAG IV ONE (16:32)
[2023-07-17] MEDS ORDERED: dexAMETHasone 10 MG/ML VIAL ONE (17:08)
[2023-07-17] MEDS ORDERED: ONDANSETRON 4 MG/2 ML VIAL IV PRN (17:36)
[2023-07-17] MEDS ORDERED: ACETAMINOPHEN 650MG/RECT SUPP PR PRN (17:36)
[2023-07-17] MEDS ORDERED: VANCOMYCIN 1 GM in NA CHLORIDE 0.9% 250 ML IVPB SCH (17:45)
--- NOTE | 2023-07-17 17:55 | P.HP ---
Certification for Inpatient Patient admitted to: Inpatient With expected LOS: >2 Midnights Practitioner: I am a practitioner with admitting privileges, knowledge of patient current condition, hospital course, and medical plan of care. Services: Services provided to patient in accordance with Admission requirements found in Title 42 Section 412.3 of the Code of Federal Regulations Patient History Date of Service: 07/17/23 Reason for admission: Altered mental status. History of Present Illness: 87-year-old woman with a history of diabetes, hypertension, dementia was brought from assisted living to the emergency department due to altered mental status. According to report patient was diagnosed with COVID-19 about 9 days ago, she developed flulike symptoms which apparently improved but started getting sick again a couple of days ago. She became lethargic today prompting referral to the emergency department for further evaluation. Patient was noted to be hypoxic on arrival to the ED. Chest x-ray done in the ED demonstrated mild bilateral interstitial opacities. Patient was placed on 100% nonrebreather while in the ED. She was somnolent and could not provide any history during my examination in the ED. blood work is notable for mild leukocytosis, elevated creatinine, elevated lactate and hypokalemia. COVID-19 test positive. Patient given IV cefepime, IV normal saline and nebulizer treatment. She is hospitalized for further management. Allergies Sulfa (Sulfonamide Antibiotics) Allergy (Verified 01/01/22 07:15) Rash morphine Adverse Reaction (Intermediate, Verified 01/01/22 07:15) "goes crazy" mercury Allergy (Uncoded 01/01/22 07:15) Unknown Home Medications: Atorvastatin Calcium [Lipitor] 1 tab PO BEDTIME 10/18/21 Clopidogrel Bisulfate [Plavix*] 1 tab PO DAILY 10/18/21 Duloxetine HCl 1 cap PO DAILY 10/18/21 Furosemide 1 tab PO DAILY 10/18/21 Hydrocodone 7.5/APAP 325 [[place] 7.5/325 mg*] 1 tab PO TID 10/18/21 Ibuprofen [Motrin] 1 tab PO Q6H PRN 10/18/21 Levothyroxine [Synthroid*] 1 tab PO 0600 10/18/21 Loperamide HCl [Imodium A-D] 1 cap PO QID PRN 10/18/21 Loperamide HCl [Loperamide] 1 cap PO QID PRN 10/18/21 Methylphenidate HCl 1 tab PO DAILY 10/18/21 Pantoprazole [Protonix Tab*] 1 tab PO BREAKFAST 10/18/21 Potassium Chloride 1 tab PO BREAKFAST 10/18/21 Pregabalin 1 cap PO BEDTIME 10/18/21 Pregabalin 1 cap PO BID 10/18/21 Vit C/E/Zn/Coppr/Lutein/Zeaxan [Preservision Areds 2 Softgel] 2 cap PO DAILY 10/18/21 Insulin Glargine,Hum.rec.anlog [Basaglar Kwikpen U-100] 36 units SQ DAILY 12/28/21 Lipase/Protease/Amylase [Chaion Dr 36,000 Unit Capsule] 2 tab PO TID 12/28/21 Liraglutide [Victoza 2-Ajit] 1.2 mg SQ 01/01/22 Amoxicillin 500 mg PO TID #21 capsule 01/03/22 - Past Medical/Surgical History Diabetic: Yes -: T2DM -: GERD -: Hypothyroidism -: HTN -: Stroke -: Hearing problems -: [place] 2016 -: chronic pancreatitis -: Macular Degeneration -: Dementia -: gall bladder -: appendix -: joint replacement -: joint removed -: AKA -: heart stent -: cataract sx Psychosocial/ Personal History: Currently resident at residential - Family History Father -: Cancer Sister -: Stroke - Social History Alcohol use: No CD- Drugs: No Caffeine use: Yes Review of Systems Other: No reported diarrhea, no reported vomiting. Daughter endorsed low-grade fever at the assisted living facility. I am not able to obtain full review of systems due to patient's altered mental s tatus. Physical Examination - Physical Exam General: Delirious (Somnolent), Obese HEENT: Normocephalic, Mucous membr. moist/pink, Sclerae nonicteric Neck: Supple, JVD not distended Respiratory: Diminished (Bilateral), Crackles/rales (Mild bibasilar Rales) Cardiovascular: No edema, Regular rate/rhythm, Normal S1 S2 Capillary refill: <2 Seconds Gastrointestinal: Normal bowel sounds, Soft and benign, Non-distended, No tenderness Musculoskeletal: No swelling, No tenderness, Other (Right AKA) Integumentary: No rashes, No cyanosis Neurological: Other (Somnolent, moves all extremities spontaneously) Lymphatics: No axilla or inguinal lymphadenopathy - Studies Laboratory Data (last 24 hrs) 07/17/23 07/17/23 07/17/23 15:20 15:20 15:20 WBC 11.40 H Hgb 14.8 Hct 43.8 Plt Count 185 PT 14.1 H INR 1.29 APTT 36.0 Sodium 141 Potassium 2.6 L* BUN 27 H Creatinine 1.73 H Glucose 251 H Total Bilirubin 0.6 AST 32 ALT 26 Alkaline Phosphatase 136 H Microbiology Data (last 24 hrs): 07/17/23 13:40 Nasopharnyx Influenza Type A Antigen Screen - Final 07/17/23 13:40 Nasopharnyx Influenza Type B Antigen Screen - Final Assessment and Plan - Problems (Diagnosis) (1) Pneumonia due to COVID-19 virus Current Visit: Yes Status: Acute (2) Secondary bacterial pneumonia Current Visit: Yes Status: Acute (3) Acute respiratory failure with hypoxia Current Visit: Yes Status: Acute (4) Acute metabolic encephalopathy Current Visit: Yes Status: Acute (5) Diabetes mellitus type 2 in obese Current Visit: Yes Status: Acute (6) Hypothyroidism Current Visit: No Status: Active - Plan Acute metabolic encephalopathy Acute respiratory failure with hypoxia COVID-19 infection Secondary bacterial pneumonia Sepsis Admit patient to the medical floor. Titrate oxygen, changed to 100% nonrebreather mask to high flow oxygen IV steroid Aggressive IV antibiotics to cover healthcare associated pneumonia-cefepime and vancomycin. Consults to pulmonary Consulted pharmacy to evaluate for COVID-19 antiviral therapy. Keep n.p.o. until fully awake. Bronchodilators. Serial lactate Follow blood cultures. Monitor acute phase reactants-CRP, check procalcitonin. DM type II Insulin sliding scale while NPO. Morbid obesity High risk for obesity hypoventilation syndrome. BiPAP as needed. Hypothyroidism Check TSH given respiratory failure Continue home dose Synthroid for now. DVT prophylaxis: Heparin SQ. Code status: DNR - Advance Directives Does patient have a Living Will: Yes Does patient have a Durable POA for Healthcare: Yes
[2023-07-17] MEDS: IPRATROPIUM BROM 0.5MG/2.5ML NEB SCH (19:25)
[2023-07-17] MEDS: ALBUTEROL 2.5 MG/3 ML NEB SOL NEB SCH (19:25)
[2023-07-17] MEDS ORDERED: VANCOMYCIN 2 GM in NA CHLORIDE 0.9% 500 ML IVPB SCH (21:00)
[2023-07-17] MEDS: INSULIN REGULAR (HUMAN) 100 UNIT/ML SQ SCH (21:00)
[2023-07-17 21:35] VITALS: BMI 41.8
[2023-07-17] MEDS ORDERED: VANCOMYCIN 1 GM/VIAL ONE (21:41)
[2023-07-17] MEDS ORDERED: NA CHLORIDE 0.9% 250 ML ONE (21:43)
[2023-07-17] MEDS: METHYLPREDNISOLONE 40 MG INJ IV SCH (21:47)
[2023-07-17] MEDS: KCL 20 MEQ/100 mL IVPB 100 ML IV SCH ×2 (21:51→23:42)
[2023-07-17] MEDS: NS KCL 20MEQ 20 MEQ/1,000 ML BAG IV SCH (21:51)
[2023-07-18] MEDS: ALBUTEROL 2.5 MG/3 ML NEB SOL NEB SCH ×2 (01:12→08:13)
[2023-07-18] MEDS: IPRATROPIUM BROM 0.5MG/2.5ML NEB SCH ×4 (01:12→20:21)
[2023-07-18] MEDS: HEPARIN 5000 UNIT/ML 1 ML VIAL SQ SCH ×3 (01:15→16:52)
[2023-07-18 03:12] LABS: Absolute Lymphocytes (CBC) 0.4 K/uL (0.7-4.9); Hematocrit 43.1 % (36.0-45.0); Lymphocytes % 4.9 % (15.3-44.8); MCV 90.6 fL (80-100); MPV 9.1 fL (7.6-11.3); Platelets 156 thou/uL (152-406); RBC Red Blood Cell Count 4.75 M/uL (3.86-4.86)
[2023-07-18 03:35] LABS: Albumin 2.8 g/dL (3.4-5.0); Bilirubin Total 0.6 mg/dL (0.2-1.0); C-Reactive Protein 42.3 mg/L (<3.00); Magnesium 1.7 mg/dL (1.6-2.4); Phosphorus 3.2 mg/dL (2.5-4.9); Potassium 3.4 mEq/L (3.5-5.1); Protein, Total 7.3 g/dL (6.4-8.2); Thyroid Stimulating Hormone 0.241 uIU/mL (0.358-3.740)
[2023-07-18] MEDS ORDERED: MAGNESIUM SULFATE 1 gm IVPB 1 GM/100 ML BAG IV ONE (04:27)
[2023-07-18] MEDS: CEFEPIME 1 GM in NA CHLORIDE 0.9% 100 ML IV SCH ×2 (04:38→16:50)
[2023-07-18] MEDS ORDERED: KCL 20 MEQ/100 mL IVPB 20 MEQ/100 ML BAG IV ONE (05:00)
[2023-07-18] MEDS: INSULIN REGULAR (HUMAN) 100 UNIT/ML SQ SCH ×4 (08:19→20:39)
[2023-07-18] MEDS: METHYLPREDNISOLONE 40 MG INJ IV SCH (08:21)
[2023-07-18] MEDS ORDERED: ENOXAPARIN 40 MG/0.4 ML SQ SCH (09:00)
--- NOTE | 2023-07-18 09:19 | P.CNS ---
Date of Consult: 07/18/23 Reason for Consult: Altered mental status coronavirus infection Chief Complaint: Altered mental status. History of Present Illness: Patient is 87 years of age nonverbal is in a halfway admitted with altered mental status tested positive for coronavirus a friend is at the base at the bedside at baseline patient lives in a halfway has 1 right leg above-knee amputation to talk communicate and eat and is completely delirious which is new finding Allergies Sulfa (Sulfonamide Antibiotics) Allergy (Verified 01/01/22 07:15) Rash morphine Adverse Reaction (Intermediate, Verified 01/01/22 07:15) "goes crazy" mercury Allergy (Uncoded 01/01/22 07:15) Unknown Home Medications: Albuterol Inhaler [Ventolin Inhaler*] 2 puff IH Q6H PRN 07/18/23 Ascorbic Acid [Vitamin C] 1 tab PO SEECOM 07/18/23 Atorvastatin Calcium [Lipitor] 80 mg PO BEDTIME 07/18/23 Cholecalciferol (Vitamin D3) [Vitamin D3] 1 tab PO SEECOM 07/18/23 Clopidogrel Bisulfate [Plavix*] 1 tab PO DAILY 07/18/23 Dulaglutide [Trulicity] 0.5 ml SQ SEECOM 07/18/23 Duloxetine HCl 1 tab PO DAILY 07/18/23 Fluticasone/Umeclidin/Vilanter [Trelegy Ellipta 100-62.5-25] 1 puff IH DAILY 07/18/23 Furosemide [Lasix] 1 tab PO DAILY 07/18/23 Hydrocodone 7.5/APAP 325 [[place] 7.5/325 mg*] 1 tab PO TID 07/18/23 Ibuprofen [Motrin] 1 tab PO Q6H PRN 07/18/23 Insulin Glargine,Hum.rec.anlog [Basaglar Kwikpen U-100] 36 unit SQ DAILY 07/18/23 Levothyroxine [Synthroid*] 1 tab PO DAILY 07/18/23 Lipase/Protease/Amylase [Richard Das 36,000 Unit Capsule] 2 tab PO QID 07/18/23 Loperamide [Imodium*] 1 cap PO QID PRN 07/18/23 Pantoprazole [Protonix Tab*] 1 tab PO DAILY 07/18/23 Potassium Chloride [Klor-Con 10] 2 tab PO DAILY 07/18/23 Pregabalin 1 tab PO BEDTIME 07/18/23 Pregabalin [Lyrica] 1 cap PO BID 07/18/23 Vit C/E/Zn/Coppr/Lutein/Zeaxan [Preservision Areds 2 Chew Tab] 2 cap PO DAILY 07/18/23 Zinc Sulfate [Zinc Sulfate*] 1 tab PO SEECOM 07/18/23 - Past Medical/Surgical History Diabetic: Yes -: T2DM -: GERD -: Hypothyroidism -: HTN -: Stroke -: Hearing problems -: [place] 2016 -: chronic pancreatitis -: Macular Degeneration -: Dementia -: gall bladder -: appendix -: joint replacement -: joint removed -: AKA -: heart stent -: cataract sx Psychosocial/ Personal History: Currently resident at halfway - Family History Father Medical History: Cancer Sister Medical History: Stroke - Social History Smoking Status: Unknown if ever smoked Alcohol use: No CD- Drugs: No Caffeine use: Yes Place of Residence: [facility] Review of Systems is unable to be obtained Physical Examination Temp Pulse Resp BP Pulse Ox 98.6 F 89 20 170/90 H 95 07/18/23 08:00 07/18/23 08:13 07/18/23 08:00 07/18/23 08:00 07/18/23 08:13 General: Alert, Delirious, Unresponsive Respiratory: Clear to auscultation bilaterally, Diminished Cardiovascular: Normal S1 S2, Edema Gastrointestinal: Soft and benign, Non-distended Laboratory Data (last 24 hrs) 07/17/23 07/17/23 07/17/23 15:20 15:20 15:20 WBC 11.40 H Hgb 14.8 Hct 43.8 Plt Count 185 PT 14.1 H INR 1.29 APTT 36.0 Sodium 141 Potassium 2.6 L* BUN 27 H Creatinine 1.73 H Glucose 251 H Total Bilirubin 0.6 AST 32 ALT 26 Alkaline Phosphatase 136 H - Problems (1) Pneumonia due to COVID-19 virus Current Visit: Yes Status: Acute Plan: Patient is 87 years of age admitted with altered mental status delirium tested positive for coronavirus infection hypoxic respiratory failure labs reviewed white count is normal renal function is improving chest x-ray reviewed patient has mild interstitial changes currently urinalysis negative no evidence of sepsis or bacterial infection DC vancomycin patient is a diabetic on Lasix and bronchodilators at home once the cultures are negative cefepime can also be discontinued continue with low doses of steroids add remdesivir patient is on Vapotherm 50% FiO2
[2023-07-18] MEDS ORDERED: ALBUTEROL 2.5 MG/3 ML NEB SOL NEB PRN (09:21)
[2023-07-18] MEDS ORDERED: REMDESIVIR (EUA) 200 MG in NA CHLORIDE 0.9% 250 ML IV ONE (10:00)
[2023-07-18] MEDS: dexAMETHasone 10 MG/ML VIAL IV SCH (10:52)
[2023-07-18] MEDS: THIAMINE 200 MG/2 ML INJ IVP SCH ×2 (10:52→20:39)
[2023-07-18] MEDS: NS KCL 20MEQ 20 MEQ/1,000 ML BAG IV SCH (10:52)
--- NOTE | 2023-07-18 15:42 | P.PN ---
Subjective Date of Service: 07/18/23 Chief Complaint: Altered mental status. Patient has advanced dementia and cannot provide any subjective complaint. Nursing staff report she was briefly agitated this morning. She ate some breakfast with assistance. She remain on high flow oxygen. Physical Examination - Vital Signs Temperature: 98.6 F Blood Pressure: 170/90 Pulse: 88 Respirations: 20 Pulse Ox (%): 96 - Studies Laboratory Data (last 24 hrs) 07/17/23 07/17/23 07/17/23 15:20 15:20 15:20 WBC 11.40 H Hgb 14.8 Hct 43.8 Plt Count 185 PT 14.1 H INR 1.29 APTT 36.0 Sodium 141 Potassium 2.6 L* BUN 27 H Creatinine 1.73 H Glucose 251 H Total Bilirubin 0.6 AST 32 ALT 26 Alkaline Phosphatase 136 H Microbiology Data (last 24 hrs): 07/17/23 13:40 Nasopharnyx Influenza Type A Antigen Screen - Final 07/17/23 13:40 Nasopharnyx Influenza Type B Antigen Screen - Final Assessment And Plan - Current Problems (Diagnosis) (1) Pneumonia due to COVID-19 virus Current Visit: Yes Status: Acute (2) Secondary bacterial pneumonia Current Visit: Yes Status: Acute (3) Acute respiratory failure with hypoxia Current Visit: Yes Status: Acute (4) Acute metabolic encephalopathy Current Visit: Yes Status: Acute (5) Diabetes mellitus type 2 in obese Current Visit: Yes Status: Acute (6) Hypothyroidism Current Visit: No Status: Active - Plan Physical Exam General: Obese, awake, dementia. HEENT: Mucous membr. moist/pink, Sclerae nonicteric, oxygen by nasal cannula. Neck: Supple, JVD not distended Respiratory: Diminished (Bilateral), Crackles/rales (Mild bibasilar Rales) Cardiovascular: No edema, Regular rate/rhythm, Normal S1 S2 Gastrointestinal: Normal bowel sounds, Soft and benign, Non-distended, No tenderness Musculoskeletal: No swelling, No tenderness, Right AKA Integumentary: No rashes, No cyanosis Neurological: No focal motor deficit. Acute metabolic encephalopathy Acute respiratory failure with hypoxia COVID-19 infection Secondary bacterial pneumonia Sepsis Titrate oxygen. Patient currently requiring Vapotherm. IV dexamethasone Pulmonary Dr. Weber input appreciated. Vancomycin discontinued Continue IV cefepime until blood culture results. Patient started on remdesivir Diet as tolerated. Bronchodilators. Elevated lactate likely related to hypoxia. Follow blood cultures. Monitor acute phase reactants-CRP. DM type II Insulin sliding scale while NPO. Morbid obesity High risk for obesity hypoventilation syndrome. BiPAP as needed. Hypothyroidism TSH is slightly low Continue home dose Synthroid. DVT prophylaxis: Heparin SQ. Code status: DNR
[2023-07-18] MEDS ORDERED: ZINC SULFATE 220 MG CAP PO SCH ×2 (16:00→17:00)
[2023-07-18] MEDS: PROTEASE PO SCH ×2 (16:57→20:40)
[2023-07-18] MEDS: LIPASE PO SCH ×2 (16:57→20:40)
[2023-07-18] MEDS: AMYLASE PO SCH ×2 (16:57→20:40)
[2023-07-18] MEDS: ATORVASTATIN 80 MG TAB PO SCH (20:39)
[2023-07-19] MEDS: HEPARIN 5000 UNIT/ML 1 ML VIAL SQ SCH ×3 (00:24→16:13)
[2023-07-19] MEDS: IPRATROPIUM BROM 0.5MG/2.5ML NEB SCH ×2 (02:25→08:00)
[2023-07-19] MEDS: CEFEPIME 1 GM in NA CHLORIDE 0.9% 100 ML IV SCH (03:23)
[2023-07-19] MEDS: PANTOPRAZOLE 40MG TABLET PO SCH (05:30)
[2023-07-19] MEDS: LEVOTHYROXINE SOD 0.075 MG TAB PO SCH (05:30)
[2023-07-19 06:42] LABS: Hematocrit 41.4 % (36.0-45.0); MCV 89.5 fL (80-100); MPV 9.5 fL (7.6-11.3); Platelets 180 thou/uL (152-406); RBC Red Blood Cell Count 4.62 M/uL (3.86-4.86)
[2023-07-19 06:43] LABS: Lymphocytes % 6.5 % (15.3-44.8)
[2023-07-19 07:13] LABS: Albumin 2.8 g/dL (3.4-5.0); Bilirubin Direct 0.2 mg/dL (0-0.2); Bilirubin Indirect, Calculated 0.4 mg/dL (0.2-0.8); Bilirubin Total 0.6 mg/dL (0.2-1.0); Potassium 2.8 mEq/L (3.5-5.1); Protein, Total 7.3 g/dL (6.4-8.2)
[2023-07-19] MEDS ORDERED: ALBUTEROL 2.5 MG/3 ML NEB SOL NEB PRN (07:19)
[2023-07-19] MEDS ORDERED: POTASSIUM 25 MEQ EFFERV TAB PO ONE ×3 (08:00→20:00)
[2023-07-19 08:26] LABS: Blood Morphology Comment NOT SEEN (NOT SEEN); Platelet Estimate ADEQ; White Blood Cell Scan OK (OK)
[2023-07-19] MEDS: INSULIN GLARGINE 100 UNIT/ML SQ SCH (08:31)
[2023-07-19] MEDS: FUROSEMIDE 40 MG TABLET PO SCH (08:32)
[2023-07-19] MEDS: dexAMETHasone 10 MG/ML VIAL IV SCH (08:32)
[2023-07-19] MEDS: CLOPIDOGREL 75 MG TABLET PO SCH (08:32)
[2023-07-19] MEDS: INSULIN REGULAR (HUMAN) 100 UNIT/ML SQ SCH ×4 (08:32→20:27)
[2023-07-19] MEDS: AMYLASE PO SCH ×4 (08:33→20:26)
[2023-07-19] MEDS: DULOXETINE 30 MG CAP PO SCH (08:33)
[2023-07-19] MEDS: PROTEASE PO SCH ×4 (08:33→20:26)
[2023-07-19] MEDS: LIPASE PO SCH ×4 (08:33→20:26)
[2023-07-19] MEDS: THIAMINE 200 MG/2 ML INJ IVP SCH (08:34)
[2023-07-19] MEDS ORDERED: REMDESIVIR (EUA) 100 MG in NA CHLORIDE 0.9% 250 ML IV SCH (09:00)
[2023-07-19] MEDS ORDERED: VITAMIN D 1000 UNIT TAB PO SCH (09:00)
[2023-07-19] MEDS ORDERED: HALOPERIDOL LACT 5 MG/ML INJ IV PRN (10:52)
--- NOTE | 2023-07-19 10:57 | P.PN ---
Subjective Date of Service: 07/19/23 Chief Complaint: Coronavirus pneumonia Patient is improving more alert responsive very agitated and cursing repeatedly Review of Systems is unable to be obtained Physical Examination - Vital Signs Temperature: 97.8 F Blood Pressure: 169/94 Pulse: 92 Respirations: 17 Pulse Ox (%): 95 - Physical Exam General: Alert, Cooperative Respiratory: Clear to auscultation bilaterally, Friction rub Cardiovascular: Regular rate/rhythm, Normal S1 S2 Assessment And Plan - Current Problems (Diagnosis) (1) Pneumonia due to COVID-19 virus Current Visit: Yes Status: Acute Plan: Patient admitted with pneumonia secondary to coronavirus she is doing much better patient is repeatedly cursing wants to go home room air oxygen sats around 95% labs reviewed blood pressure is mildly elevated no evidence of bacterial pneumonia size changer to p.o. Paxlovid decrease the dose of IV dexam ethasone Haldol for agitation add p.o. levofloxacin repeat chest x-ray renal function has improved white count is mildly elevated may be from steroid cultures are all negative change plan for discharge back she has expressive dysphagia secondary to prior stroke
[2023-07-19] MEDS ORDERED: HOME MED 1 EA UNK (Ascorbic Acid [Vitamin C] 500 MG Capsule) PO SCH (11:00)
--- NOTE | 2023-07-19 11:19 | RAD REPORT ---
EXAM DESCRIPTION: Gaurav Single View07/19/2023 11:14 am CLINICAL HISTORY: Chest pain COMPARISON: July 17, 2023 FINDINGS: Mild bilateral pulmonary opacities have resolved Heart remains enlarged IMPRESSION: Resolution in the mild bilateral pulmonary opacities
[2023-07-19] MEDS: levoFLOXacin 500 MG TAB PO SCH (11:46)
[2023-07-19] MEDS ORDERED: HYDROCODONE/APAP 7.5/325 MG TAB PO PRN (12:56)
[2023-07-19] MEDS: PREGABALIN 150 MG CAP PO SCH ×2 (13:03→20:27)
[2023-07-19] MEDS ORDERED: HYDROCODONE/APAP 7.5/325 MG TAB PO SCH (14:00)
--- NOTE | 2023-07-19 17:19 | P.PN ---
Subjective Date of Service: 07/19/23 Chief Complaint: Coronavirus pneumonia Patient is currently tolerating room air. She is agitated, refuses to answer any questions. Physical Examination - Vital Signs Temperature: 98.0 F Blood Pressure: 170/128 Pulse: 83 Respirations: 19 Pulse Ox (%): 87 Assessment And Plan - Current Problems (Diagnosis) (1) Pneumonia due to COVID-19 virus Current Visit: Yes Status: Acute (2) Secondary bacterial pneumonia Current Visit: Yes Status: Acute (3) Acute respiratory failure with hypoxia Current Visit: Yes Status: Acute (4) Acute metabolic encephalopathy Current Visit: Yes Status: Acute (5) Diabetes mellitus type 2 in obese Current Visit: Yes Status: Acute (6) Hypothyroidism Current Visit: No Status: Active - Plan Physical Exam General: Obese, awake, dementia. Respiratory: Diminished, Mild bibasilar Rales Cardiovascular: No edema, Regular rate/rhythm, Normal S1 S2 Gastrointestinal: Normal bowel sounds, Soft and benign, Non-distended, No tenderness Musculoskeletal: No swelling, No tenderness, Right AKA Integumentary: No rashes, No cyanosis Neurological: No focal motor deficit. Acute metabolic encephalopathy Acute respiratory failure with hypoxia COVID-19 infection Secondary bacterial pneumonia Sepsis Patient is currently tolerating room air IV dexamethasone Pulmonary Dr. Weber is following. Vancomycin discontinued Blood cultures yielded no growth. Antibiotics changed to oral Levaquin. Remdesivir per pulmonary. Diet as tolerated. Bronchodilators. Elevated lactate likely related to hypoxia. Follow blood cultures. DM type II Insulin sliding scale and Lantus insulin. Morbid obesity High risk for obesity hypoventilation syndrome. BiPAP as needed. Hypothyroidism TSH is slightly low Continue home dose Synthroid. Dementia with behavioral disturbance Haldol IV as needed. DVT prophylaxis: Heparin SQ. Code status: DNR
[2023-07-19] MEDS: ARFORMOTEROL TARTRATE 15 MCG/2 ML VIAL.NEB NEB SCH (20:10)
[2023-07-19] MEDS: ATORVASTATIN 80 MG TAB PO SCH (20:26)
[2023-07-19] MEDS: THIAMINE HCL 100 MG TABLET PO SCH (20:26)
[2023-07-19] MEDS ORDERED: PREGABALIN 300 MG PO SCH (21:00)
[2023-07-19] MEDS ORDERED: PREGABALIN 150 MG CAP PO SCH (21:00)
[2023-07-20] MEDS: HEPARIN 5000 UNIT/ML 1 ML VIAL SQ SCH ×3 (00:50→17:11)
[2023-07-20] MEDS: LEVOTHYROXINE SOD 0.075 MG TAB PO SCH (06:24)
[2023-07-20] MEDS: PANTOPRAZOLE 40MG TABLET PO SCH (06:24)
[2023-07-20 07:06] LABS: Potassium 3.1 mEq/L (3.5-5.1)
[2023-07-20] MEDS: INSULIN REGULAR (HUMAN) 100 UNIT/ML SQ SCH ×4 (07:30→20:35)
[2023-07-20] MEDS: ARFORMOTEROL TARTRATE 15 MCG/2 ML VIAL.NEB NEB SCH ×2 (07:32→19:45)
--- NOTE | 2023-07-20 08:55 | RAD REPORT ---
EXAM DESCRIPTION: RAD - Chest Single View - 07/20/2023 8:21 am CLINICAL HISTORY: Pneumonia COMPARISON: Chest Single View dated 07/19/2023; Chest Single View dated 07/17/2023; Chest Single View dated 06/07/2022; Chest Single View dated 10/19/2021; Head Brain Wo Cont dated 07/17/2023 FINDINGS: Lines: None. Lungs: Low lung volumes and likely some residual atelectasis or mild basilar opacities. Pleural: No significant pleural effusions or pneumothorax. Cardiac: Similar size and configuration. Mediastinum: Within normal limits. Bones: No acute fractures. Other: None IMPRESSION: No significant change compared with 07/19/2023. Difficult to exclude some mild atelectas is and/or airspace disease the lung bases. No evidence of edema.
[2023-07-20] MEDS ORDERED: POTASSIUM 25 MEQ EFFERV TAB PO ONE (09:00)
[2023-07-20] MEDS: LIPASE PO SCH ×4 (09:50→20:34)
[2023-07-20] MEDS: PROTEASE PO SCH ×4 (09:50→20:34)
[2023-07-20] MEDS: AMYLASE PO SCH ×4 (09:50→20:34)
[2023-07-20] MEDS: INSULIN GLARGINE 100 UNIT/ML SQ SCH (09:52)
[2023-07-20] MEDS: levoFLOXacin 500 MG TAB PO SCH (09:57)
[2023-07-20] MEDS: THIAMINE HCL 100 MG TABLET PO SCH ×2 (09:57→20:35)
[2023-07-20] MEDS: DULOXETINE 30 MG CAP PO SCH (09:58)
[2023-07-20] MEDS: CLOPIDOGREL 75 MG TABLET PO SCH (09:58)
[2023-07-20] MEDS: FUROSEMIDE 40 MG TABLET PO SCH (09:59)
[2023-07-20] MEDS: dexAMETHasone 4 MG/ML VIAL IV SCH (10:00)
[2023-07-20] MEDS: PREGABALIN 150 MG CAP PO SCH ×3 (10:01→20:35)
--- NOTE | 2023-07-20 15:13 | P.PN ---
Subjective Date of Service: 07/20/23 Chief Complaint: Coronavirus pneumonia Patient has no new complaint. She is intermittently agitated. She is currently maintained on 1 L oxygen via nasal cannula. Physical Examination - Vital Signs Temperature: 97.3 F Blood Pressure: 176/77 Pulse: 80 Respirations: 20 Pulse Ox (%): 92 Assessment And Plan - Current Problems (Diagnosis) (1) Pneumonia due to COVID-19 virus Current Visit: Yes Status: Acute (2) Secondary bacterial pneumonia Current Visit: Yes Status: Acute (3) Acute respiratory failure with hypoxia Current Visit: Yes Status: Acute (4) Acute metabolic encephalopathy Current Visit: Yes Status: Acute (5) Diabetes mellitus type 2 in obese Current Visit: Yes Status: Acute (6) Hypothyroidism Current Visit: No Status: Active - Plan Physical Exam General: Obese, awake, dementia. Respiratory: Diminished, Mild bibasilar Rales Cardiovascular: No edema, Regular rate/rhythm, Normal S1 S2 Gastrointestinal: Normal bowel sounds, Soft and benign, Non-distended, No tenderness Musculoskeletal: No swelling, No tenderness. Integumentary: No cyanosis Neurological: No focal motor deficit. Dementia. Acute metabolic encephalopathy Acute respiratory failure with hypoxia COVID-19 infection Secondary bacterial pneumonia Sepsis On IV dexamethasone Pulmonary Dr. Weber is following. Vancomycin discontinued Blood cultures yielded no growth. Antibiotics changed to oral Levaquin. Diet as tolerated. Bronchodilators. Elevated lactate likely related to hypoxia. Follow blood cultures. DM type II Insulin sliding scale and Lantus insulin. Morbid obesity High risk for obesity hypoventilation syndrome. BiPAP as needed. Hypothyroidism Continue home dose Synthroid. Dementia with behavioral disturbance Haldol IV as needed. DVT prophylaxis: Heparin SQ. Code status: DNR
[2023-07-20] MEDS: ATORVASTATIN 80 MG TAB PO SCH (20:35)
[2023-07-21 00:09] LABS: C.diff Antigen/Toxin Ag pos : Tox neg (NEG : NEG)
[2023-07-21] MEDS: HEPARIN 5000 UNIT/ML 1 ML VIAL SQ SCH ×3 (00:09→16:40)
[2023-07-21] MEDS: LEVOTHYROXINE SOD 0.075 MG TAB PO SCH (05:29)
[2023-07-21] MEDS: PANTOPRAZOLE 40MG TABLET PO SCH (05:29)
[2023-07-21 05:30] LABS: Magnesium 2.2 mg/dL (1.6-2.4); Potassium 3.1 mEq/L (3.5-5.1)
[2023-07-21] MEDS: ARFORMOTEROL TARTRATE 15 MCG/2 ML VIAL.NEB NEB SCH ×2 (07:00→19:40)
[2023-07-21] MEDS: INSULIN REGULAR (HUMAN) 100 UNIT/ML SQ SCH ×4 (07:30→21:15)
--- NOTE | 2023-07-21 08:42 | P.PN ---
Subjective Date of Service: 07/21/23 Chief Complaint: Coronavirus pneumonia Patient is doing well no changes dynamically stable oxygenation satisfactory is on 2 L patient is currently unresponsive Review of Systems is unable to be obtained Physical Examination - Vital Signs Temperature: 96.1 F Blood Pressure: 128/79 Pulse: 62 Respirations: 20 Pulse Ox (%): 93 - Physical Exam General: Unresponsive Respiratory: Clear to auscultation bilaterally Cardiovascular: Regular rate/rhythm Gastrointestinal: Normal bowel sounds, Soft and benign Assessment And Plan - Current Problems (Diagnosis) (1) Pneumonia due to COVID-19 virus Current Visit: Yes Status: Acute Plan: Patient is doing well currently stable setting of being off oxygen vital signs all stable plan to discharge to [facility] patient has already had a course of Paxlovid renal function has improved elevated white count may be from steroids cultures are all negative discharge back to the [facility] resume all home medications 42 mg of Decadron for about a week chest x-ray shows minimal change stable for discharge back to the nursing
[2023-07-21] MEDS ORDERED: ASCORBIC ACID 500 MG TABLET PO SCH (09:00)
[2023-07-21] MEDS ORDERED: DULAGLUTIDE 1.5 MG/0.5 ML SQ SCH (09:00)
[2023-07-21] MEDS ORDERED: POTASSIUM 25 MEQ EFFERV TAB PO ONE (09:00)
[2023-07-21] MEDS: LIPASE PO SCH ×4 (09:03→21:00)
[2023-07-21] MEDS: PROTEASE PO SCH ×4 (09:03→21:00)
[2023-07-21] MEDS: AMYLASE PO SCH ×4 (09:03→21:00)
[2023-07-21] MEDS: INSULIN GLARGINE 100 UNIT/ML SQ SCH (09:04)
[2023-07-21] MEDS: dexAMETHasone 4 MG/ML VIAL IV SCH (09:04)
[2023-07-21] MEDS: DULOXETINE 30 MG CAP PO SCH (09:05)
[2023-07-21] MEDS: THIAMINE HCL 100 MG TABLET PO SCH ×2 (09:05→21:16)
[2023-07-21] MEDS: CLOPIDOGREL 75 MG TABLET PO SCH (09:05)
[2023-07-21] MEDS: levoFLOXacin 500 MG TAB PO SCH (09:05)
[2023-07-21] MEDS: FUROSEMIDE 40 MG TABLET PO SCH (09:05)
[2023-07-21] MEDS: PREGABALIN 150 MG CAP PO SCH ×3 (09:09→21:17)
--- NOTE | 2023-07-21 09:19 | P.DS ---
Admission Date: 07/17/23 Discharge Date: 07/21/23 Disposition: TRANSFER TO CARE HOME Discharge Condition: FAIR Reason for Admission: Coronavirus pneumonia - Problems (1) Pneumonia due to COVID-19 virus Current Visit: Yes Status: Acute (2) Secondary bacterial pneumonia Current Visit: Yes Status: Acute (3) Acute respiratory failure with hypoxia Current Visit: Yes Status: Acute (4) Acute metabolic encephalopathy Current Visit: Yes Status: Acute (5) Diabetes mellitus type 2 in obese Current Visit: Yes Status: Acute (6) Hypothyroidism Current Visit: No Status: Active Brief History of Present Illness: 87-year-old woman with a history of diabetes, hypertension, dementia was brought from assisted living to the emergency department due to altered mental status. According to report patient was diagnosed with COVID-19 about 9 days prior, she developed flulike symptoms which apparently improved but started getting sick again a couple of days prior. She became lethargic prompting referral to the emergency department for further evaluation. Patient was noted to be hypoxic on arrival to the ED. Chest x-ray done in the ED demonstrated mild bilateral interstitial opacities. Patient was placed on 100% nonrebreather while in the ED. She was somnolent and could not provide any history during my examination in the ED. blood work is notable for mild leukocytosis, elevated creatinine, elevated lactate and hypokalemia. COVID-19 test positive. Patient given IV cefepime, IV normal saline and nebulizer treatment. She was hospitalized for further management. Hospital Course: Patient was admitted to the medical floor and following medical problems addressed: Acute metabolic encephalopathy Acute respiratory failure with hypoxia COVID-19 infection Secondary bacterial pneumonia Sepsis Treated with IV dexamethasone Pulmonary Dr. Weber evaluated patient and managed the COVID-19 pneumonia She was treated briefly with broad-spectrum antibiotics IV cefepime and vancomycin, Blood cultures yielded no growth. Antibiotics changed to oral Levaquin. Patient tolerated diet She was treated with bronchodilators. Blood cultures yielded no growth. DM type II Insulin sliding scale and Lantus insulin. Morbid obesity High risk for obesity hypoventilation syndrome. Hypothyroidism Continued home dose Synthroid. Dementia with behavioral disturbance Was treated with Haldol IV as needed for agitation. Symptoms have improved. She has no needed Haldol for more than 24 hours. Vital Signs/Physical Exam: Temp Pulse Resp BP Pulse Ox 96.1 F L 62 20 128/79 93 07/21/23 08:46 07/21/23 08:46 07/21/23 08:46 07/21/23 08:46 07/21/23 08:46 General: In no apparent distress, Other (Awake) HEENT: Mucous membr. moist/pink Neck: Supple, JVD not distended Respiratory: Clear to auscultation bilaterally, Normal air movement Cardiovascular: Regular rate/rhythm, Normal S1 S2 Gastrointestinal: Soft and benign, Non-distended, No tenderness Musculoskeletal: No swelling Integumentary: No cyanosis Neurological: Normal strength at 5/5 x4 extr Laboratory Data at Discharge: WBC 14.70 thou/uL (4.3-10.9) H 07/19/23 05:39 Hgb 14.1 g/dL (12.0-15.0) 07/19/23 05:39 Hct 41.4 % (36.0-45.0) 07/19/23 05:39 Plt Count 180 thou/uL (152-406) 07/19/23 05:39 PT 14.1 SECONDS (9.5-12.5) H 07/17/23 15:20 INR 1.29 07/17/23 15:20 APTT 36.0 SECONDS (24.3-36.9) 07/17/23 15:20 Sodium 143 mEq/L (136-145) 07/21/23 04:36 Potassium 3.1 mEq/L (3.5-5.1) L D 07/21/23 04:36 BUN 39 mg/dL (7-18) H 07/21/23 04:36 Creatinine 1.19 mg/dL (0.55-1.02) H 07/21/23 04:36 Glucose 142 mg/dL (74-106) H 07/21/23 04:36 Phosphorus 3.2 mg/dL (2.5-4.9) 07/18/23 02:55 Magnesium 2.2 mg/dL (1.6-2.4) 07/21/23 04:36 Total Bilirubin 0.6 mg/dL (0.2-1.0) 07/19/23 05:39 AST 23 U/L (15-37) 07/19/23 05:39 ALT 23 U/L (13-56) 01/27/24 05:39 Alkaline Phosphatase 117 U/L (45-117) 07/19/23 05:39 Lipase 127 U/L (13-75) H 07/19/23 05:39 Home Medications: Albuterol Inhaler [Ventolin Inhaler*] 2 puff IH Q6H PRN 07/18/23 Ascorbic Acid [Vitamin C] 1 tab PO SEECOM 07/18/23 Atorvastatin Calcium [Lipitor] 80 mg PO BEDTIME 07/18/23 Cholecalciferol (Vitamin D3) [Vitamin D3] 1 tab PO SEECOM 07/18/23 Clopidogrel Bisulfate [Plavix*] 1 tab PO DAILY 07/18/23 Dulaglutide [Trulicity] 0.5 ml SQ SEECOM 07/18/23 Duloxetine HCl 1 tab PO DAILY 07/18/23 Fluticasone/Umeclidin/Vilanter [Trelegy Ellipta 100-62.5-25] 1 puff IH DAILY 07/18/23 Furosemide [Lasix] 1 tab PO DAILY 07/18/23 Hydrocodone 7.5/APAP 325 [[place] 7.5/325 mg*] 1 tab PO TID 07/18/23 Ibuprofen [Motrin] 1 tab PO Q6H PRN 07/18/23 Insulin Glargine,Hum.rec.anlog [Basaglar Kwikpen U-100] 36 unit SQ DAILY 07/18/23 Levothyroxine [Synthroid*] 1 tab PO DAILY 07/18/23 Lipase/Protease/Amylase [Richard Dr 36,000 Unit Capsule] 2 tab PO QID 07/18/23 Loperamide [Imodium*] 1 cap PO QID PRN 07/18/23 Pantoprazole [Protonix Tab*] 1 tab PO DAILY 07/18/23 Potassium Chloride [Klor-Con 10] 2 tab PO DAILY 07/18/23 Pregabalin 1 tab PO BEDTIME 07/18/23 Pregabalin [Lyrica] 1 cap PO BID 07/18/23 Vit C/E/Zn/Coppr/Lutein/Zeaxan [Preservision Areds 2 Chew Tab] 2 cap PO DAILY 07/18/23 Zinc Sulfate [Zinc Sulfate*] 1 tab PO SEECOM 07/18/23 Albuterol Neb [Proventil 0.083% Neb Soln] 2.5 mg NEB [id number] PRN amp 07/21/23 Thiamine HCl [Vitamin B-1*] 200 mg PO BID 07/21/23 levoFLOXacin [Levaquin*] 500 mg PO DAILY #5 tab 07/21/23 predniSONE [Deltasone*] 20 mg PO DAILY #5 tab 07/21/23 New Medications: predniSONE [Deltasone*] 20 mg PO DAILY #5 tab Physician Discharge Instructions: Patient was admitted for acute respiratory failure as a result of COVID-19 pneumonia. Patient treated with antibiotics, steroid and a brief antiviral therapy. Pulmonary physician Dr. Weber evaluated patient and managed her pneumonia. Patient needed a considerable amount of oxygen and was later weaned off it. She had occassional agitation which is related to her dementia. The agitation has resolved. She is discharged with oral steroid to complete treatment for the COVID pneumonia. Diet: ADA Activity: Fall precautions Followup: NONE,NONE [Primary Care Provider] - Time spent managing pt's care (in minutes): 36
--- NOTE | 2023-07-21 15:05 | P.PN ---
Subjective Date of Service: 07/21/23 Chief Complaint: Coronavirus pneumonia Patient has no new complaint. No agitation over the last 24 hours She is currently tolerating room air. Physical Examination - Vital Signs Temperature: 96.9 F Blood Pressure: 104/66 Pulse: 62 Respirations: 17 Pulse Ox (%): 93 Assessment And Plan - Current Problems (Diagnosis) (1) Pneumonia due to COVID-19 virus Current Visit: Yes Status: Acute (2) Secondary bacterial pneumonia Current Visit: Yes Status: Acute (3) Acute respiratory failure with hypoxia Current Visit: Yes Status: Acute (4) Acute metabolic encephalopathy Current Visit: Yes Status: Acute (5) Diabetes mellitus type 2 in obese Current Visit: Yes Status: Acute (6) Hypothyroidism Current Visit: No Status: Active - Plan Physical Exam General: Obese, awake, dementia. Respiratory: Diminished, Mild bibasilar Rales Cardiovascular: No edema, Regular rate/rhythm, Normal S1 S2 Gastrointestinal: Normal bowel sounds, Soft and benign, Non-distended, No tenderness Musculoskeletal: No swelling, No tenderness. Integumentary: No cyanosis Neurological: No focal motor deficit. Dementia. Acute metabolic encephalopathy Acute respiratory failure with hypoxia COVID-19 infection Secondary bacterial pneumonia Sepsis On IV dexamethasone Pulmonary Dr. Weber is following. Status post IV cefepime and vancomycin. Blood cultures yielded no growth. Antibiotics changed to oral Levaquin. Diet as tolerated. Bronchodilators. Elevated lactate likely related to hypoxia. Blood cultures: No growth to date. DM type II Insulin sliding scale and Lantus insulin. Morbid obesity High risk for obesity hypoventilation syndrome. Continue PT. Hypothyroidism Continue home dose Synthroid. Dementia with behavioral disturbance Haldol IV as needed. DVT prophylaxis: Heparin SQ. Code status: DNR Disposition: Family requesting for [facility]. Social service consulted to assist with arrangement for SNF placement.
[2023-07-21] MEDS: ATORVASTATIN 80 MG TAB PO SCH (21:17)
[2023-07-22] MEDS: HEPARIN 5000 UNIT/ML 1 ML VIAL SQ SCH ×3 (00:54→16:42)
[2023-07-22] MEDS: PANTOPRAZOLE 40MG TABLET PO SCH (05:03)
[2023-07-22] MEDS: LEVOTHYROXINE SOD 0.075 MG TAB PO SCH (05:04)
[2023-07-22 05:54] LABS: Potassium 2.8 mEq/L (3.5-5.1)
[2023-07-22] MEDS ORDERED: KCL 20 MEQ/100 mL IVPB 20 MEQ/100 ML BAG IV SCH (07:00)
[2023-07-22] MEDS: INSULIN REGULAR (HUMAN) 100 UNIT/ML SQ SCH ×4 (07:30→21:12)
[2023-07-22] MEDS: ARFORMOTEROL TARTRATE 15 MCG/2 ML VIAL.NEB NEB SCH ×2 (07:41→19:25)
[2023-07-22] MEDS: PREGABALIN 150 MG CAP PO SCH ×3 (08:00→21:09)
[2023-07-22] MEDS: LIPASE PO SCH ×4 (09:00→21:08)
[2023-07-22] MEDS: PROTEASE PO SCH ×4 (09:00→21:08)
[2023-07-22] MEDS: AMYLASE PO SCH ×4 (09:00→21:08)
[2023-07-22] MEDS ORDERED: NA CHLORIDE 0.9% 500 ML ONE (09:29)
[2023-07-22] MEDS: KCL 20 MEQ/100 mL IVPB 20 MEQ/100 ML BAG IV SCH ×3 (09:37→14:09)
[2023-07-22] MEDS: dexAMETHasone 4 MG/ML VIAL IV SCH (09:39)
[2023-07-22] MEDS: INSULIN GLARGINE 100 UNIT/ML SQ SCH (09:45)
--- NOTE | 2023-07-22 10:06 | P.PN ---
Date of Service: 07/22/23 Subjective: Accidentally pulled out the IV today remains confused, unable to recall past few days. unable to perform supine-sitting exercises yesterday d/t generalized weakness per PT note no acute events overnight awake, afebrile ROS: unable to fully obtain secondary to mentation / dementia Physical Exam: GEN: Alert, oriented x1, NAD HEENT: Normal conjunctiva, sclera anicteric, CV: Regular rate and rhythm, no edema Pulm: Nonlabored respirations on 2.5L NC, clear bilaterally ABD: soft, nontender, nondistended MSK: Right AKA Neuro: Normal speech, normal affect mcguire in place vitals reviewed Problem List: Acute respiratory failure with hypoxia secondary to covid-19 / bacterial pneumonia Sepsis secondary to covid-19 / bacterial pneumonia Acute metabolic encephalopathy IDDM2 Morbid obesity Dementia with behavioral disturbance Chronic diastolic CHF Hypothyroidism History of CAD History of right AKA Acute respiratory failure with hypoxia secondary to covid-19 / bacterial pneumonia Sepsis secondary to covid-19 / bacterial pneumonia Acute metabolic encephalopathy CT head (07/17): no acute intracranial abnormalities Dr. Weber - gm is following continue IV decadron previously on IV cefepime and vancomycin (07/17-07/18), deescalated to PO levaquin (07/19) continue PO Levaquin (07/19-) Blood cx (07/17): no growth Diet as tolerated. continue Bronchodilators, duonebs wean oxygen as tolerated. Currently on 2.5 L NC IDDM2 Accu-checks, Insulin sliding scale Titrate Lantus as needed Morbid obesity High risk for obesity hypoventilation syndrome. Continue PT. Dementia with behavioral disturbance Chronic diastolic CHF Hypothyroidism History of CAD History of right AKA continue home meds as appropriate. Continue supportive care. VTE: heparin sq Code: Full Dispo: SNF - pending choice / approval ss/cm consulted for SNF placement.
[2023-07-22] MEDS: THIAMINE HCL 100 MG TABLET PO SCH ×2 (10:35→21:09)
[2023-07-22] MEDS: FUROSEMIDE 40 MG TABLET PO SCH (10:35)
[2023-07-22] MEDS: levoFLOXacin 500 MG TAB PO SCH (10:36)
[2023-07-22] MEDS: DULOXETINE 30 MG CAP PO SCH (10:36)
[2023-07-22] MEDS: CLOPIDOGREL 75 MG TABLET PO SCH (10:36)
--- NOTE | 2023-07-22 12:43 | P.PN ---
Subjective Date of Service: 07/22/23 Chief Complaint: Coronavirus pneumonia Patient is improving condition stable less agitated patient was sleeping again unresponsive Review of Systems is unable to be obtained Physical Examination - Vital Signs Temperature: 97.5 F Blood Pressure: 135/67 Pulse: 65 Respirations: 21 Pulse Ox (%): 96 - Physical Exam General: Alert, Unresponsive Respiratory: Clear to auscultation bilaterally Cardiovascular: No edema, Regular rate/rhythm Assessment And Plan - Current Problems (Diagnosis) (1) Pneumonia due to COVID-19 virus Current Visit: Yes Status: Acute Plan: Patient is doing well less agitated hemodynamically stable oxygenation satisfactory we will check room air pulse ox no fever cultures are all negative can DC antibiotic changed to low-dose dexamethasone discharge planning patient is already had a dose of Paxlovid check room air pulse
[2023-07-22] MEDS: ATORVASTATIN 80 MG TAB PO SCH (21:09)
[2023-07-22] MEDS: dexAMETHasone 4 MG TAB PO SCH (21:09)
[2023-07-23] MEDS: HEPARIN 5000 UNIT/ML 1 ML VIAL SQ SCH ×3 (00:13→17:00)
[2023-07-23] MEDS: LEVOTHYROXINE SOD 0.075 MG TAB PO SCH (05:56)
[2023-07-23] MEDS: PANTOPRAZOLE 40MG TABLET PO SCH (05:56)
[2023-07-23 06:04] LABS: Magnesium 2.2 mg/dL (1.6-2.4); Potassium 3.5 mEq/L (3.5-5.1)
[2023-07-23] MEDS: ARFORMOTEROL TARTRATE 15 MCG/2 ML VIAL.NEB NEB SCH ×2 (08:13→20:55)
[2023-07-23] MEDS ORDERED: POTASSIUM CL SA 10 MEQ TAB PO ONE (09:00)
[2023-07-23] MEDS: PROTEASE PO SCH ×4 (09:00→21:00)
[2023-07-23] MEDS: LIPASE PO SCH ×4 (09:00→21:00)
[2023-07-23] MEDS: AMYLASE PO SCH ×4 (09:00→21:00)
[2023-07-23] MEDS: INSULIN GLARGINE 100 UNIT/ML SQ SCH (09:33)
[2023-07-23] MEDS: INSULIN REGULAR (HUMAN) 100 UNIT/ML SQ SCH ×4 (09:33→21:03)
[2023-07-23] MEDS: dexAMETHasone 4 MG TAB PO SCH ×2 (09:35→21:01)
[2023-07-23] MEDS: CLOPIDOGREL 75 MG TABLET PO SCH (09:36)
[2023-07-23] MEDS: FUROSEMIDE 40 MG TABLET PO SCH (09:36)
[2023-07-23] MEDS: DULOXETINE 30 MG CAP PO SCH (09:37)
[2023-07-23] MEDS: THIAMINE HCL 100 MG TABLET PO SCH ×2 (09:37→21:02)
[2023-07-23] MEDS: PREGABALIN 150 MG CAP PO SCH ×3 (09:37→21:02)
--- NOTE | 2023-07-23 10:04 | P.PN ---
Date of Service: 07/23/23 Subjective: difficulty waking up patient today. Falling asleep easily. Appears more awake /alert in early afternoon. Patients son states this occurs at home and is typical. Takes a while to wake up Family reports she had been able to transfer herself with minimal assistance prior to this admission from chair to wheelchair needs assistance out of bed remains on oxygen supplementation - down to 2L NC afebrile ROS: unable to fully obtain secondary to mentation / dementia Physical Exam: GEN: Alert, oriented x1, lethargic, arousable CV: Regular rate and rhythm, no edema Pulm: Nonlabored respirations on 2L NC, diminished at bases b/l ABD: soft, nontender, nondistended MSK: Right AKA Neuro: Normal speech, normal affect Wong placed in ED vitals reviewed Problem List: Acute respiratory failure with hypoxia secondary to covid-19 / bacterial pneumonia Sepsis secondary to covid-19 / bacterial pneumonia Acute metabolic encephalopathy IDDM2 Morbid obesity Chronic pain Dementia with behavioral disturbance Chronic diastolic CHF Hypothyroidism History of CAD History of right AKA Acute respiratory failure with hypoxia secondary to covid-19 / bacterial pneumonia Sepsis secondary to covid-19 / bacterial pneumonia Acute metabolic encephalopathy CT head (07/17): no acute intracranial abnormalities Dr. Tia pop is following IV decadron deescalated to PO (07/22) previously on IV cefepime and vancomycin (07/17-07/18), deescalated to PO levaquin (07/19) continue PO Levaquin (07/19-) Blood cx (07/17): no growth Diet as tolerated continue Bronchodilators, duonebs wean oxygen as tolerated. Currently on 2L NC appearance of oral thrush ntoed 07/23, started antifungal IDDM2 Accu-checks, Insulin sliding scale Titrate Lantus as needed Morbid obesity High risk for obesity hypoventilation syndrome. Continue PT. Chronic pain Family reports patient takes scheduled opiates / analgesics at home. Concerned about patients pain levels / meds shes getting. she only received one dose on 07/19 ASHLEY [place] 5/325 added (07/23) Continue home lyrica TID Dementia with behavioral disturbance Chronic diastolic CHF Hypothyroidism History of CAD History of right AKA continue home meds as appropriate. Continue supportive care. VTE: heparin sq Code: Full Dispo: [facility] - [facility] - pending auth ss/cm consulted for SNF placement.
[2023-07-23] MEDS: HYDROCODONE/APAP 5/325 MG TAB PO SCH ×2 (13:36→21:02)
[2023-07-23] MEDS: NYSTATIN 500,000 UNIT/5 ML UDC PO SCH ×2 (13:40→21:01)
[2023-07-23] MEDS: ATORVASTATIN 80 MG TAB PO SCH (21:01)
[2023-07-24] MEDS: HEPARIN 5000 UNIT/ML 1 ML VIAL SQ SCH (00:56)
[2023-07-24 05:05] LABS: Magnesium 2.1 mg/dL (1.6-2.4); Potassium 3.4 mEq/L (3.5-5.1)
[2023-07-24] MEDS ORDERED: POTASSIUM 25 MEQ EFFERV TAB PO ONE (05:18)
[2023-07-24] MEDS: LEVOTHYROXINE SOD 0.075 MG TAB PO SCH (06:07)
[2023-07-24] MEDS: PANTOPRAZOLE 40MG TABLET PO SCH (06:07)
[2023-07-24] MEDS: ARFORMOTEROL TARTRATE 15 MCG/2 ML VIAL.NEB NEB SCH ×2 (07:55→20:16)
[2023-07-24] MEDS: PROTEASE PO SCH ×4 (09:06→21:28)
[2023-07-24] MEDS: AMYLASE PO SCH ×4 (09:06→21:28)
[2023-07-24] MEDS: INSULIN REGULAR (HUMAN) 100 UNIT/ML SQ SCH ×4 (09:06→21:30)
[2023-07-24] MEDS: LIPASE PO SCH ×4 (09:06→21:28)
[2023-07-24] MEDS: CLOPIDOGREL 75 MG TABLET PO SCH (09:07)
[2023-07-24] MEDS: dexAMETHasone 4 MG TAB PO SCH ×2 (09:07→21:31)
[2023-07-24] MEDS: INSULIN GLARGINE 100 UNIT/ML SQ SCH (09:07)
[2023-07-24] MEDS: NYSTATIN 500,000 UNIT/5 ML UDC PO SCH ×3 (09:07→21:30)
[2023-07-24] MEDS: DULOXETINE 30 MG CAP PO SCH (09:08)
[2023-07-24] MEDS: HYDROCODONE/APAP 5/325 MG TAB PO SCH ×3 (09:09→21:30)
[2023-07-24] MEDS: FUROSEMIDE 40 MG TABLET PO SCH (09:09)
[2023-07-24] MEDS: PREGABALIN 150 MG CAP PO SCH ×3 (09:09→21:31)
[2023-07-24] MEDS: THIAMINE HCL 100 MG TABLET PO SCH ×2 (09:09→21:31)
--- NOTE | 2023-07-24 10:37 | P.PN ---
Date of Service: 07/24/23 Subjective: tired, lethargic no acute events overnight [id number] scheduled for today for SNF fatigued. more sleepy during morning, but better in afternoon reports some improvement of oropharyngeal discomfort ROS: as noted above, otherwise negative Physical Exam: GEN: Alert, oriented x1 CV: Regular rate and rhythm, no edema HEENT: mild oral white plaque / thrush Pulm: Nonlabored respirations on 2L NC, diminished at bases b/l ABD: soft, nontender, nondistended MSK: Right AKA Neuro: Normal speech, normal affect vitals reviewed Problem List: Acute respiratory failure with hypoxia secondary to covid-19 / bacterial pneumonia Sepsis secondary to covid-19 / bacterial pneumonia Acute metabolic encephalopathy Oral Thrush IDDM2 Morbid obesity Chronic pain Dementia with behavioral disturbance Chronic diastolic CHF Hypothyroidism History of CAD History of right AKA Acute respiratory failure with hypoxia secondary to covid-19 / bacterial pneumonia Sepsis secondary to covid-19 / bacterial pneumonia Acute metabolic encephalopathy Oral Thrush CT head (07/17): no acute intracranial abnormalities Dr. Tia pop is following IV decadron deescalated to PO (07/22) Completed ~5 days total of Antibiotics - IV cefepime / vancomycin (07/17-07/18), PO levaquin (07/19-07/22) Blood cx (07/17): no growth Diet as tolerated continue Bronchodilators, duonebs wean oxygen as tolerated. Currently on 2L NC continue antifungal; added 07/23 given appearance of oral thrush IDDM2 Accu-checks, Insulin sliding scale Titrate Lantus as needed Morbid obesity High risk for obesity hypoventilation syndrome. Continue PT. Chronic pain Family reports patient takes scheduled opiates / analgesics at home. Concerned about patients pain levels / meds shes getting. she only received one dose on 07/19 scheduled [place] 5/325 added (07/23) Continue home lyrica TID Dementia with behavioral disturbance Chronic diastolic CHF Hypothyroidism History of CAD History of right AKA continue home meds as appropriate. Continue supportive care. VTE: heparin sq Code: Full Dispo: SNF - [facility] - pending P2P and thrush improvement; anticipate dc tomorrow ss/cm consulted for SNF placement.
--- NOTE | 2023-07-24 13:56 | EKG ---
Test Date: 2023-07-17 Test Time: 13:50:00 Sed Special Education Teacher: ROXY MEASUREMENT RESULTS: Intervals: Rate: 102 TX: 254 QRSD: 92 QT: 352 QTc: 458 [place]: P: 32 TX: 254 QRS: -24 T: 209 INTERPRETIVE STATEMENTS: Sinus tachycardia with 1st degree AV block Inferior-posterior infarct, age undetermined ST & T wave abnormality, consider lateral ischemia Abnormal ECG Compared to ECG 06/07/2022 12:51:21 First degree AV block now present Myocardial infarct finding now present ST (T wave) deviation now present Possible ischemia now present Atrial fibrillation no longer present Left-axis deviation no longer present Electronically Signed On 07-24-23 13:31:20 HANDWRITING EXPERT by Alok Whitfield
[2023-07-24] MEDS: ENSURE MAX PROTEIN 330 ML LIQUID PO SCH (21:00)
[2023-07-24] MEDS: ATORVASTATIN 80 MG TAB PO SCH (21:31)
[2023-07-25 03:35] LABS: Magnesium 2.1 mg/dL (1.6-2.4); Potassium 3.4 mEq/L (3.5-5.1)
[2023-07-25 04:58] VITALS: O2SAT 96
[2023-07-25 05:13] VITALS: BP 127/74; TEMP 97
[2023-07-25] MEDS: LEVOTHYROXINE SOD 0.075 MG TAB PO SCH (05:49)
[2023-07-25] MEDS: PANTOPRAZOLE 40MG TABLET PO SCH (05:49)
[2023-07-25] MEDS ORDERED: POTASSIUM 25 MEQ EFFERV TAB PO ONE (06:00)
[2023-07-25] MEDS: ARFORMOTEROL TARTRATE 15 MCG/2 ML VIAL.NEB NEB SCH (08:11)
[2023-07-25] MEDS: INSULIN REGULAR (HUMAN) 100 UNIT/ML SQ SCH (08:35)
[2023-07-25] MEDS: ENSURE MAX PROTEIN 330 ML LIQUID PO SCH (08:36)
[2023-07-25] MEDS: dexAMETHasone 4 MG TAB PO SCH (08:36)
[2023-07-25] MEDS: DULOXETINE 30 MG CAP PO SCH (08:36)
[2023-07-25] MEDS: PREGABALIN 150 MG CAP PO SCH (08:36)
[2023-07-25] MEDS: HYDROCODONE/APAP 5/325 MG TAB PO SCH (08:37)
[2023-07-25] MEDS: LIPASE PO SCH (08:37)
[2023-07-25] MEDS: NYSTATIN 500,000 UNIT/5 ML UDC PO SCH (08:37)
[2023-07-25] MEDS: AMYLASE PO SCH (08:37)
[2023-07-25] MEDS: PROTEASE PO SCH (08:37)
[2023-07-25] MEDS: FUROSEMIDE 40 MG TABLET PO SCH (08:37)
[2023-07-25] MEDS: INSULIN GLARGINE 100 UNIT/ML SQ SCH (08:38)
[2023-07-25] MEDS: CLOPIDOGREL 75 MG TABLET PO SCH (08:38)
[2023-07-25] MEDS: THIAMINE HCL 100 MG TABLET PO SCH (08:39)
--- NOTE | 2023-07-25 08:51 | P.DS ---
Admission Date: 07/17/23 Discharge Date: 07/25/23 Disposition: TRANSFER TO [facility] Discharge Condition: FAIR Reason for Admission: Coronavirus pneumonia Consultations: Pulmonology - Dr. Weber Brief History of Present Illness: 87yo F, PMH: diabetes, hypertension, dementia Patient was brought from assisted living to the emergency department due to altered mental status. According to report patient was diagnosed with COVID-19 about 9 days prior to admission. she developed flulike symptoms which apparently improved but started getting sick again a couple of days ago. She became lethargic today prompting referral to the emergency department for further evaluation. Patient was noted to be hypoxic on arrival to the ED. Chest x-ray done in the ED demonstrated mild bilateral interstitial opacities. Patient was placed on 100% nonrebreather while in the ED. She was somnolent and could not provide any history during my examination in the ED. blood work is notable for mild leukocytosis, elevated creatinine, elevated lactate and hypokalemia. COVID-19 test positive. Patient given IV cefepime, IV normal saline and nebulizer treatment. She is hospitalized for further management. Hospital Course: Problem List: Acute respiratory failure with hypoxia secondary to covid-19 / bacterial pneumonia Sepsis secondary to covid-19 / bacterial pneumonia Acute metabolic encephalopathy Oral Thrush IDDM2 Morbid obesity Chronic pain Dementia with behavioral disturbance Chronic diastolic CHF Hypothyroidism History of CAD History of right AKA Patient presented with altered mental status, flulike symptoms. Patient tested positive for both Covid-[address] head was negative for any acute intracranial findings. Education Managers - Dr. Weber was consulted. Patient was started on empiric cefepime / vanc along with brief antiviral therapy and had some improvement of her symptoms. She also received bronchodilators, duonebs, steroids while hospitalized. Antibiotics were deescalated to PO levaquin and patient continued to show show improvement each day. Blood cultures without growth. Patient completed ~5 days total of antibiotics and 7 days of steroids. 07/23 Nystatin was added given appearance of oral thrush. Patient is to continue Nystatin swish/swallow three times a day on discharge for 1 week. Patient clinically improved however was still very weak / rundown. Patient worked with PT throughout hospitalization and recommended SNF. Initially denied SNF. Patient was accepted to SNF after [id number] 07/24 Patient is noted to be more sleepy in the morning. Family reported similar at home, and takes a bit for her to wake up. She would be more awake and active later in the day. She would benefit more from PT in the afternoon most likely. Patient was feeling better, afebrile > 24 hours, and deemed stable to SNF where she can continue to improve her strength / endurance to return to prior level of function before returning home. Medications: Nystatin x1 week continue other home medications as previously prescribed. Follow up: PCP 3-5 days Pulmonology 1-2 weeks Physical Exam: GEN: Alert, oriented x1 CV: Regular rate and rhythm, no edema HEENT: minimal oral white plaque in posterior oropharynx Pulm: Nonlabored respirations on 2L NC, diminished at bases b/l ABD: soft, nontender, nondistended MSK: Right AKA Neuro: Normal speech, normal affect Vital Signs/Physical Exam: Temp Pulse Resp BP Pulse Ox 97.0 F 65 16 127/74 95 07/25/23 04:00 07/25/23 08:37 07/25/23 08:37 07/25/23 04:00 07/25/23 08:37 Laboratory Data at Discharge: WBC 14.70 thou/uL (4.3-10.9) H 07/19/23 05:39 Hgb 14.1 g/dL (12.0-15.0) 07/19/23 05:39 Hct 41.4 % (36.0-45.0) 07/19/23 05:39 Plt Count 180 thou/uL (152-406) 07/19/23 05:39 PT 14.1 SECONDS (9.5-12.5) H 07/17/23 15:20 INR 1.29 07/17/23 15:20 APTT 36.0 SECONDS (24.3-36.9) 07/17/23 15:20 Sodium 136 mEq/L (136-145) 07/25/23 02:13 Potassium 3.4 mEq/L (3.5-5.1) L D 07/25/23 02:13 BUN 43 mg/dL (7-18) H 07/25/23 02:13 Creatinine 1.27 mg/dL (0.55-1.02) H 07/25/23 02:13 Glucose 170 mg/dL (74-106) H 07/25/23 02:13 Phosphorus 3.2 mg/dL (2.5-4.9) 07/18/23 02:55 Magnesium 2.1 mg/dL (1.6-2.4) 07/25/23 02:13 Total Bilirubin 0.6 mg/dL (0.2-1.0) 07/19/23 05:39 AST 23 U/L (15-37) 07/19/23 05:39 ALT 23 U/L (13-56) 07/19/23 05:39 Alkaline Phosphatase 117 U/L (45-117) 07/19/23 05:39 Lipase 127 U/L (13-75) H 07/19/23 05:39 Home Medications: Albuterol Inhaler [Ventolin Inhaler*] 2 puff IH Q6H PRN 07/18/23 Ascorbic Acid [Vitamin C] 1 tab PO SEECOM 07/18/23 Atorvastatin Calcium [Lipitor] 80 mg PO BEDTIME 07/18/23 Cholecalciferol (Vitamin D3) [Vitamin D3] 1 tab PO SEECOM 07/18/23 Clopidogrel Bisulfate [Plavix*] 1 tab PO DAILY 07/18/23 Dulaglutide [Trulicity] 0.5 ml SQ SEECOM 07/18/23 Duloxetine HCl 1 tab PO DAILY 07/18/23 Fluticasone/Umeclidin/Vilanter [Trelegy Ellipta 100-62.5-25] 1 puff IH DAILY 07/18/23 Furosemide [Lasix] 1 tab PO DAILY 07/18/23 Hydrocodone 7.5/APAP 325 [Mcallen 7.5/325 mg*] 1 tab PO TID 07/18/23 Ibuprofen [Motrin] 1 tab PO Q6H PRN 07/18/23 Insulin Glargine,Hum.rec.anlog [Basaglar Kwikpen U-100] 36 unit SQ DAILY 07/18/23 Levothyroxine [Synthroid*] 1 tab PO DAILY 07/18/23 Lipase/Protease/Amylase [Richard Dr 36,000 Unit Capsule] 2 tab PO QID 07/18/23 Loperamide [Imodium*] 1 cap PO QID PRN 07/18/23 Pantoprazole [Protonix Tab*] 1 tab PO DAILY 07/18/23 Potassium Chloride [Klor-Con 10] 2 tab PO DAILY 07/18/23 Pregabalin 1 tab PO BEDTIME 07/18/23 Pregabalin [Lyrica] 1 cap PO BID 07/18/23 Vit C/E/Zn/Coppr/Lutein/Zeaxan [Preservision Areds 2 Chew Tab] 2 cap PO DAILY 07/18/23 Zinc Sulfate [Zinc Sulfate*] 1 tab PO SEECOM 07/18/23 Nystatin 5 ml PO TID 7 Days #105 ml 07/25/23 New Medications: Nystatin 5 ml PO TID 7 Days #105 ml Physician Discharge Instructions: PROBLEM: Pneumonia GOAL: Clear understanding of disease process INSTRUCTIONS: Medications: Nystatin x1 week continue other home medications as previously prescribed. Follow up: PCP 3-5 days Pulmonology 1-2 weeks Diet: ADA Activity: Fall precautions DME DME: Date Ordered: Name of Company: [facility] Services Needed: [facility] Name of Company: [facility] 07/22/23 Date or Referral: 07/21/23 Patient presented with altered mental status, flulike symptoms. Patient tested positive for both Covid-[address] head was negative for any acute intracranial findings. Education Managers - Dr. Weber was consulted. Patient was started on empiric cefepime / vanc along with brief antiviral therapy and had some improvement of her symptoms. She also received bronchodilators, duonebs, steroids while hospitalized. Antibiotics were deescalated to PO levaquin and patient continued to show show improvement each day. Blood cultures without growth. Patient completed ~5 days total of antibiotics and 7 days of steroids. 07/23 Nystatin was added given appearance of oral thrush. Patient is to continue Nystatin swish/swallow three times a day on discharge for 1 week. Patient clinically improved however was still very weak / rundown. Patient worked with PT throughout hospitalization and recommended SNF. Initially denied SNF. Patient was accepted to SNF after [id number] 07/24 Patient is noted to be more sleepy in the morning. Family reported similar at home, and takes a bit for her to wake up. She would be more awake and active l ater in the day. She would benefit more from PT in the afternoon most likely. Patient was feeling better, afebrile > 24 hours, and deemed stable to SNF where she can continue to improve her strength / endurance to return to prior level of function before returning home. Diet: ADA Activity: Fall precautions Followup: Delroy Weber MD [ACTIVE - CAN ADMIT] - NONE,NONE [Primary Care Provider] - Time spent managing pt's care (in minutes): 45
== END 2023-07-25 11:02 | DRG 871 ==
LOC: ER 13:18 → ERHOLD 16:26 → 4TH 17:31
PROVIDERS: ADMIT Internal Medicine; ATTEND Hospitalist
PROC: XW033E5 Introduction of Remdesivir Anti-infective into Peripheral Vein, Percutaneous Approach, New Technology Group 5 (ICD-10-PCS; principal; 2023-07-19)
DX: A41.89 Other specified sepsis (principal); G93.41 Metabolic encephalopathy; J12.82 Pneumonia due to coronavirus disease 2019; U07.1 COVID-19; J96.01 Acute respiratory failure with hypoxia; J15.9 Unspecified bacterial pneumonia; J44.0 Chronic obstructive pulmonary disease with (acute) lower respiratory infection; Z68.41 Body mass index [BMI] 40.0-44.9, adult; F03.911 Unspecified dementia, unspecified severity, with agitation; I50.32 Chronic diastolic (congestive) heart failure; B37.0 Candidal stomatitis; R65.20 Severe sepsis without septic shock; I11.0 Hypertensive heart disease with heart failure; E66.01 Morbid (severe) obesity due to excess calories; E87.6 Hypokalemia; E03.9 Hypothyroidism, unspecified; E11.9 Type 2 diabetes mellitus without complications; G89.29 Other chronic pain; K21.9 Gastro-esophageal reflux disease without esophagitis; I25.10 Atherosclerotic heart disease of native coronary artery without angina pectoris; I69.391 Dysphagia following cerebral infarction; R13.10 Dysphagia, unspecified; I25.2 Old myocardial infarction; Z66 Do not resuscitate; Z88.8 Allergy status to other drugs, medicaments and biological substances; Z88.2 Allergy status to sulfonamides; Z95.5 Presence of coronary angioplasty implant and graft; Z79.4 Long term (current) use of insulin; Z88.5 Allergy status to narcotic agent; Z79.52 Long term (current) use of systemic steroids; Z79.02 Long term (current) use of antithrombotics/antiplatelets; Z79.890 Hormone replacement therapy; Z89.611 Acquired absence of right leg above knee; Y95 Nosocomial condition
CPT/HCPCS: 36415; 36600; 70450; 71045; 80048; 80053; 80076; 80307; 81001; 82805; 82947; 83605; 83690; 83735; 84100; 84132; 84145; 84443; 84484; 85025; 85379; 85610; 85730; 86140; 87040; 87324; 87635; 87804; 93005; 94640; 94660; 94760; 96374; 96375; 97110; 97161; 97530; 99285; J0248; J0692; J1100; J1630; J1644; J1815; J2920; J3411; J3475; J3480; J7040; J7050; J7605; J7613; J7644; J8540

== ENCOUNTER → 2023-08-19 | Emergency (ER) | payer OTHER ==
--- NOTE | 2023-08-19 21:38 | RAD REPORT ---
EXAM DESCRIPTION: CT - Head C Spine Cap Wo Con - 08/19/2023 9:24 pm CLINICAL HISTORY: acute fall halfway COMPARISON: Head C Spine Cap Wo Con dated 04/13/2021 TECHNIQUE: CT head without contrast. CT cervical spine without contrast with coronal and sagittal reformatted images. CT chest, abdomen and pelvis with coronal and sagittal reformatted images of the spine. All CT scans are performed using dose optimization technique as appropriate and may include automated exposure control or mA/KV adjustment according to patient size. FINDINGS: CT HEAD WITHOUT CONTRAST: No intracranial hemorrhage, hydrocephalus or extra-axial fluid collection. No acute large vascular te rritory infarct. Cerebral atrophy. Remote left basal ganglia lacunar infarct. Moderate chronic small vessel ischemic changes. Expansile process in the right maxillary sinus may be secondary to a polyp. Right frontal ethmoid air cell thickening. The calvarium is intact. CT CERVICAL SPINE WITHOUT CONTRAST: No acute fracture or traumatic malalignment cervical spine. Anterolisthesis of C3 on C4 and C4 on C5 likely related to underlying facet degenerative changes. Medially deviated carotids with calcified pl aque. . CT CHEST, ABDOMEN, PELVIS: Thorax: Chest Wall: No abnormal mass Lungs: No acute abnormality. Pleura: No effusions or pneumothorax. Caprice/Mediastinum: No lymphadenopathy. Aorta/Pulmonary Arteries: Unremarkable Heart: Normal size. Multi-vessel coronary disease. Mitral annular calcifications. Aortic valve calcif ications. Abdomen/Pelvis: Liver: No acute abnormality or suspicious lesions. Biliary: Cholecystectomy. Extrahepatic biliary duct dilatation is likely related to the postcholecyst ectomy state. Stomach: No significant focal abnormality. Duodenum: No significant focal abnormality. Pancreas: No significant abnormality. Spleen: No significant abnormality. Adrenal: No suspicious lesions. Kidney/ureter: No hydronephrosis. 3 mm stones in lower pole right kidney. Retroperitoneum: No retroperitoneal adenopathy. Vascular: No aneurysm. Bowel: Diverticulosis without diverticulitis.. Peritoneum: No ascites or free air. Bladder: Grossly unremarkable. Reproductive: No adnexal masses. Bones: No acute fracture. Multilevel degenerative changes are present in the spine. Other: n/a IMPRESSION: Negative for acute traumatic findings.
--- NOTE | 2023-08-19 23:51 | EDPHYS ---
Physician Documentation [facility] Name: Elsa Smith Age: 87 yrs Sex: Female : 1935 Arrival Date: 08/19/2023 Time: 20:34 Bed 8 Private MD: ED Physician Link Tucker HPI: 08/19 20:39 This 87 yrs old Female presents to ER via Unassigned with complaints of Fall sp4 at nursing place. 23:58 Patient is 87-year-old female with past medical history diabetes, hypertension, sp4 dementia, also recent admission 07/17/2023 for acute respiratory failure secondary to COVID-19, bacterial pneumonia, sepsis, acute metabolic encephalopathy, oral thrush, IDDM type II, morbid obesity, chronic pain, dementia with behavioral disturbance, chronic diastolic heart failure, hypothyroidism, history of CAD and history of right above-knee amputation. Patient's medications at home include albuterol, sorbic acid, atorvastatin, cholecalciferol vitamin D3, clopidogrel, dulaglutide, duloxetine, fluticasone Trelegy, furosemide, hydrocodone, ibuprofen, insulin glargine, levothyroxine, Creon, loperamide, pantoprazole, potassium, pregabalin, PreserVision, zinc sulfate, nystatin. Patient presents with EMS from group home when she was found assisted slid out of the chair. Reported fall at group home at unknown time. Patient is not able to explain anything on presentation. She is alert and oriented to self only. Based on a prior history patient is oriented to self only secondary to history of dementia and multiple other medical comorbid conditions.. Historical: - Allergies: 20:49 Lidocaine; vc1 20:49 mercury; vc1 - PMHx: 20:49 CHF; COPD; CVA; Depression; Diabetes - NIDDM; Hypertension; Hypothyroidism; vc1 - PSHx: 20:49 AKA; vc1 - Immunization history:: Flu vaccine is not up to date. - Social history:: Smoking status: Patient denies any tobacco usage or history of. - Family history:: not pertinent. ROS: 23:58 Constitutional: ROS not available secondary to moderate to severe dementia. sp4 23:58 All other systems are negative, 23:58 Unable to obtain ROS due to baseline dementia, Exam: 23:58 Constitutional: This is a well developed, well nourished patient who is awake, sp4 patient is alert and oriented to self only appears physically debilitated with moderate obesity, right above-knee amputation, moderate to severe deconditioning secondary to immobility. Head/Face: Normocephalic, atraumatic. Eyes: Pupils equal round and reactive to light, extra-ocular motions intact. Lids and lashes normal. Conjunctiva and sclera are not injected. Cornea within normal limits. Periorbital areas with no swelling, redness, or edema. ENT: Nares patent. No nasal discharge, no septal abnormalities noted. Tympanic membranes are normal and external auditory canals are clear. Oropharynx with no redness, swelling, or masses, exudates, or evidence of obstruction, uvula midline. Mucous membranes moist. Neck: Trachea midline, no thyromegaly or masses palpated, and no cervical lymphadenopathy. Supple, full range of motion without nuchal rigidity, or vertebral point tenderness. Chest/axilla: Normal chest wall appearance and motion. Nontender with no deformity. No lesions are appreciated. Cardiovascular: Regular rate and rhythm with a normal S1 and S2. No gallops, murmurs, or rubs. Normal PMI, no JVD. No pulse deficits. Respiratory: Lungs have equal breath sounds bilaterally, clear to auscultation and percussion. No rales, rhonchi or wheezes noted. No increased work of breathing, no retractions or nasal flaring. Abdomen/GI: Soft, with normal bowel sounds. No distension or tympany. No guarding or rebound. No evidence of tenderness throughout. Morbidly obese abdomen Back: No spinal tenderness. No costovertebral tenderness. Female : Normal external genitalia. Patient is incontinent of bladder and bowel Skin: Warm, dry with normal turgor. Normal color with no rashes, no lesions, and no evidence of cellulitis. MS/ Extremity: Pulses equal, no cyanosis. Neurovascular intact. Remote right above-knee amputation, otherwise signs of moderate to severe physical deconditioning and muscular atrophy Neuro: Awake and alert, oriented to self only. Exam limited to moderate dementia, no new neurologic deficits reported. Vital Signs: 20:42 BP 125 / 87; Pulse 88; Resp 18; Temp 97; Pulse Ox 91% on 2 lpm NC; vc1 22:30 BP 107 / 76; Pulse 86; Resp 17; Pulse Ox 94% on 2 lpm NC; vc1 23:56 BP 122 / 75; Pulse 83; Resp 16; Pulse Ox 95% ; vc1 MDM: 20:40 Patient medically screened. sp4 23:48 Data reviewed: vital signs, nurses notes, EMS record, radiologic studies, CT scan. ED sp4 course: EXAM DESCRIPTION: CT - Head C Spine Cap Wo Con - 08/19/2023 9:24 pm CLINICAL HISTORY: acute fall group home COMPARISON: Head C Spine Cap Wo Con dated 04/13/2021 TECHNIQUE: CT head without contrast. CT cervical spine without contrast with coronal and sagittal reformatted images. CT chest, abdomen and pelvis with coronal and sagittal reformatted images of the spine. All CT scans are performed using dose optimization technique as appropriate and may include automated exposure control or mA/KV adjustment according to patient size. FINDINGS: CT HEAD WITHOUT CONTRAST: No intracranial hemorrhage, hydrocephalus or extra-axial fluid collection. No acute large vascular territory infarct. Cerebral atrophy. Remote left basal ganglia lacunar infarct. Moderate chronic sm all vessel ischemic changes. Expansile process in the right maxillary sinus may be secondary to a polyp. Right frontal ethmoid air cell thickening. The calvarium is intact. CT CERVICAL SPINE WITHOUT CONTRAST: No acute fracture or traumatic malalignment cervical spine. Anterolisthesis of C3 on C4 and C4 on C5 likely related to underlying facet degenerative changes. Medially deviated carotids with calcified plaque. . CT CHEST, ABDOMEN, PELVIS: Thorax: Chest Wall: No abnormal mass Lungs: No acute abnormality. Pleura: No effusions or pneumothorax. Caprice/Mediastinum: No lymphadenopathy. Aorta/PulmonaryArteries: Unremarkable Heart: Normal size. Multi-vessel coronary disease. Mitral annular calcifications. Aortic valve calcifications. Abdomen/Pelvis: Liver: No acute abnormality or suspicious lesions. Biliary: Cholecystectomy. Extrahepatic biliary duct dilatation is likely related to the postcholecystectomy state. Stomach: No significant focal abnormality. Duodenum: No significant focal abnormality. Pancreas: No significant abnormality. Spleen: No significant abnormality. Adrenal: No suspicious lesions. Kidney/ureter: No hydronephrosis. 3 mm stones in lower pole right kidney. Retroperitoneum: No retroperitoneal adenopathy. Vascular: No aneurysm. Bowel: Diverticulosis without diverticulitis.. Peritoneum: No ascites or free air. Bladder: Grossly unremarkable. Reproductive: No adnexal masses. Bones: No acute fracture. Multilevel degenerative changes are present in the spine. Other: n/a IMPRESSION: Negative for acute traumatic findings. . 08/19 20:40 Order name: CT Traumagram (Head C Spine CAP wo con) sp4 Administered Medications: No medications were administered Disposition Summary: 08/19/23 23:50 Discharge Ordered Problem: new sp4 Symptoms: have improved sp4 Condition: Stable sp4 Diagnosis - Repeated falls sp4 - Moderate dementia, acute fall in a group home, medical screening exam, Physical sp4 debility Followup: sp4 - With: Private Physician - When: 7 - 10 days - Reason: Recheck today's complaints Discharge Instructions: - Discharge Summary Sheet sp4 - Fall Prevention in the Home, Adult, [id number] sp4 Forms: - Patient Portal Instructions sp4 Signatures: Dispatcher [employer] Magdalena Zhang RN RN vc1 Link Tucker MD MD sp4
--- NOTE | 2023-08-19 23:51 | ER ---
Nurse's Notes [facility] Name: Elsa Smith Age: 87 yrs Sex: Female : 1935 Arrival Date: 08/19/2023 Time: 20:34 Bed 8 Private MD: Diagnosis: Repeated falls;Moderate dementia, acute fall in a jail, medical screening exam, Physical debility Presentation: 08/19 20:42 Chief complaint: EMS states: Pt is from [facility]. prison stated she fell out vc1 of her wheel chair. Unsure if hit head unknown if LOC. Coronavirus screen: At this time, the client does not indicate any symptoms associated with coronavirus-19. Ebola Screen: Patient negative for fever greater than or equal to 101.5 degrees Fahrenheit, and additional compatible Ebola Virus Disease symptoms Patient denies exposure to infectious person. Patient denies travel to an Ebola-affected area in the 21 days before illness onset. No symptoms or risks identified at this time. Initial Sepsis Screen: Does the patient meet any 2 criteria? No. Patient's initial sepsis screen is negative. Does the patient have a suspected source of infection? No. Patient's initial sepsis screen is negative. Risk Assessment: Do you want to hurt yourself or someone else? Patient reports no desire to harm self or others. Onset of symptoms was August 19, 2023. 20:42 Method Of Arrival: EMS: [facility] vc1 20:42 Acuity: ALEJANDRO 3 vc1 21:22 Transition of care: patient was received from another setting of care (long-term care [facility] facility), [facility]. Triage Assessment: 23:00 General: Appears in no apparent distress. obese, unkempt, Behavior is cooperative, vc1 quiet. Pain: Unable to use pain scale. Does not speak. EENT: No deficits noted. No signs and/or symptoms were reported regarding the EENT system. Neuro: Level of Consciousness is awake, obeys commands, Oriented to person. Cardiovascular: No deficits noted. Respiratory: Airway is patent Respiratory effort is even, unlabored, Respiratory pattern is regular, symmetrical. GI: No deficits noted. No signs and/or symptoms were reported involving the gastrointestinal system. Last BM at 23:01. : No deficits noted. No signs and/or symptoms were reported regarding the genitourinary system. Derm: No deficits noted. No signs and/or symptoms reported regarding the dermatologic system. Musculoskeletal: Amputation of AKA. Historical: - Allergies: 20:49 Lidocaine; vc1 20:49 mercury; vc1 - PMHx: 20:49 CHF; COPD; CVA; Depression; Diabetes - NIDDM; Hypertension; Hypothyroidism; vc1 - PSHx: 20:49 AKA; vc1 - Immunization history:: Flu vaccine is not up to date. - Social history:: Smoking status: Patient denies any tobacco usage or history of. - Family history:: not pertinent. Screenin:22 Abuse screen: Denies threats or abuse. Nutritional screening: No deficits noted. vc1 Tuberculosis screening: No symptoms or risk factors identified. 23:03 [facility] ED Fall Risk Assessment (Adult) History of falling in the last 3 months, vc1 including since admission No falls in past 3 months (0 pts) Confusion or Disorientation No (0 pts) Intoxicated or Sedated No (0 pts) Impaired Gait No (0 pts) Mobility Assist Device Used No (0 pt) Altered Elimination No (0 pt) Score/Fall Risk Level 0 - 2 = Low Risk Oriented to surroundings, Maintained a safe environment, Educated pt \T\ family on fall prevention, incl call for assistance when getting out of bed. Assessment: 22:30 Reassessment: Patient appears in no apparent distress at this time. No changes from 1 previously documented assessment. Patient and/or family updated on plan of care and expected duration. Pain level reassessed. 23:57 General: Attempted to call report to [facility] with no answer. . vc1 08/20 00:14 Reassessment: Patient appears in no apparent distress at this time. No changes from 1 previously documented assessment. Patient and/or family updated on plan of care and expected duration. Pain level reassessed. Spoke with nurse at [facility], they will call back with an ETA for transportation back to jail. 00:20 General: [facility] will be here in 40 minutes. vc1 Vital Signs: 08/19 20:42 BP 125 / 87; Pulse 88; Resp 18; Temp 97; Pulse Ox 91% on 2 lpm NC; vc1 22:30 BP 107 / 76; Pulse 86; Resp 17; Pulse Ox 94% on 2 lpm NC; vc1 23:56 BP 122 / 75; Pulse 83; Resp 16; Pulse Ox 95% ; vc1 ED Course: 20:38 Patient arrived in ED. sp4 20:39 Link Tucker MD is Attending Physician. sp4 20:49 Triage completed. vc1 20:50 Arm band placed on left wrist. vc1 21:00 Patient has correct armband on for positive identification. Bed in low position. Call vc1 light in reach. Side rails up X2. Pulse ox on. NIBP on. 21:26 CT Traumagram (Head C Spine CAP wo con) In Process Unspecified. EDMS 22:44 Cleaned of incontinence. vc1 08/20 00:57 No provider procedures requiring assistance completed. Patient did not have IV access vc1 during this emergency room visit. Administered Medications: No medications were administered Medication: 08/19 23:02 VIS not applicable for this client. vc1 Outcome: 23:50 Discharge ordered by . sp4 08/20 00:57 [facility] vc1 Condition: good Discharge instructions given to family, Instructed on discharge instructions, follow up and referral plans. Demonstrated understanding of instructions, follow-up care, 00:58 Patient left the ED. vc1 Signatures: Dispatcher [employer] EDNY Magdalena Ruiz RN RN vc1 Link Tucker MD MD sp4
[2023-08-20 01:22] VITALS: BP 122/75; TEMP 97; O2SAT 95
== END ==
LOC: ER 20:34
DX: F03.B0 Unspecified dementia, moderate, without behavioral disturbance, psychotic disturbance, mood disturbance, and anxiety (principal); R29.6 Repeated falls; R53.81 Other malaise; W18.30XA Fall on same level, unspecified, initial encounter; Y92.129 Unspecified place in nursing home as the place of occurrence of the external cause; E11.9 Type 2 diabetes mellitus without complications; I10 Essential (primary) hypertension; I50.9 Heart failure, unspecified; Z89.612 Acquired absence of left leg above knee; Z88.4 Allergy status to anesthetic agent; Z91.048 Other nonmedicinal substance allergy status
CPT/HCPCS: 70450; 71250; 72125